=== PATIENT | male | born 1955 | race Caucasian/White ===

== ENCOUNTER → 2019-06-22 | Day surgery (SDC) | payer MEDICARE ==
[2019-06-21 12:04] LABS: BASOPHILS % 0.5 % (0.0-1.0); EOSINOPHILS # (AUTO) 0.2 (0.0-0.4); HEMATOCRIT 36.5 % (38.2-49.6); HEMOGLOBIN 12.2 g/dL (14.0-18.0); LYMPHOCYTES # (AUTO) 0.9 (1.0-3.2); LYMPHOCYTES % 14.7 % (18.0-39.1); MEAN CORPUSCULAR HEMOGLOBIN 32.8 pg (28-32); MEAN CORPUSCULAR HGB CONC 33.4 g/dL (31-35); MEAN CORPUSCULAR VOLUME 98.1 fL (81-99); MONOCYTES # (AUTO) 0.5 (0.2-0.8); MONOCYTES % 8.3 % (4.4-11.3); NEUTROPHILS # (AUTO) 4.4 (2.1-6.9); NEUTROPHILS % 73.2 % (38.7-80.0); PLATELET COUNT 166 x10e3/uL (140-360); RED BLOOD COUNT 3.72 x10e6/uL (4.3-5.7); RED CELL DISTRIBUTION WIDTH 12.8 % (11.7-14.4)
[2019-06-21 12:19] LABS: ANION GAP 12.7 mmol/L (8-16); CALCIUM 9.8 mg/dL (8.4-10.2); CREATININE, SERUM 1.65 mg/dL (0.72-1.25); POTASSIUM 4.7 mmol/L (3.5-5.1)
--- NOTE | 2019-06-21 13:11 | Diagnostic Imaging Report ---
EXAMINATION: CHEST 2 VIEWS INDICATION: Pre-operative COMPARISON: None FINDINGS: LINES/TUBES:None LUNGS:The lungs are well-inflated. No focal consolidation or pulmonary edema. PLEURA:No pleural effusion or pneumothorax. MEDIASTINUM:The cardiac silhouette is at the upper limits of normal for size. BONES/SOFT TISSUES:Right seventh and eighth posterolateral fractures with extensive associated callus formation. ABDOMEN:No free air under the diaphragm. IMPRESSION: No focal pneumonia or pulmonary edema. Healing right posterolateral rib fractures with extensive callus formation. Signed by: Michelle Vieira MD on 06/21/2019 1:08 PM
[~2019-06-22] MED LIST: ACETAMINOPHEN 1000 MG/100 ML IV ONE; ALBUTEROL0.63 MG/3 INH; ALFUZOSIN HCL10 MG PO; ARICEPT5 MG PO; ASPIRIN81 MG PO; ATORVASTATIN CA20 MG PO; BACITRACIN 50,000 UNIT VIAL ONE; CEFTRIAXONE SOD 1 GM/NS 50 ML 50 ML IV ONE; CETIRIZINE HCL10 MG PO; CHANTIX1 MG PO; CLONAZEPAM1 MG PO; DULERA 200 MCG/13 GM INH; ENTRESTO 49 MG1 EACH PO; EPHEDRINE SULFATE INJ 50 MG/ML VIAL ONE; ETOMIDATE 40 MG/ 20ML VIAL IV ONE; FENTANYL CITRATE/PF 100MCG/2 ML INJ ONE; FUROSEMIDE40 MG PO; GABAPENTIN300 MG PO; HEPARIN SOD/SOD CHLORIDE 1,000 ML ONE; HUMALOG100 UNIT/1 SQ; HYDROCODONE/APAP 7.5MG-325MG 1 EA TAB ONE; IPRATROPIU0.2 MG/1 M NEB; LEVEMIR100 UNIT/1 SQ; LIDOCAINE HCL 1% LOCAL INJ 20 ML VIAL ONE; MORPHINE SULFATE INJ 4 MG/ML INJ 1ML ONE; PANTOPRAZOLE SO40 MG PO; PLAVIX75 MG PO; SEVOFLURANE INHAL SOLN 250 ML PEN BTL ONE; SODIUM CHLORIDE 0.9% 50ML 50 ML ONE; SPIRONOLACTONE25 MG PO; TOPROL XL50 MG PO; TRAZODONE HCL50 MG PO; WELLBUTRIN SR150 MG PO; ZOLOFT100 MG PO
--- OUTSIDE RECORDS SUMMARY | 2019-06-22 07:44 | XMS REPORT ---
Author Author [facility] Address Unknown Phone Unavailable Care Team Providers Care Mobile Engineer Name Role Phone Celestine KYLE Unavailable Unavailable Payers Payer Name Policy Type Policy Number Effective Date Expiration Date Problems This patient has no known problems. Allergies, Adverse Reactions, Alerts Allergy Name Allergy Type Status Severity Reaction(s) Onset Date Inactive Date Treating Clinician Comments No Known Allergies DA Active U 2018-08-10 00:00:00 No Known Allergies DA Active U 2016-08-30 00:00:00 Medications This patient has no known medications. Encounters Start Date/Time End Date/Time Encounter Type Admission Type Attending Clinicians Care Facility Care Department Encounter ID 2018-10-10 00:00:00 2018-10-10 00:00:00 Outpatient [facility] [id number] 2018-08-25 00:00:00 2018-08-25 00:00:00 Outpatient [facility] [id number] 2018-08-09 14:26:07 2018-08-09 14:26:07 Outpatient [facility] [id number] 2018-07-22 00:00:00 2018-07-22 00:00:00 Outpatient [facility] [id number] 2018-07-20 00:00:00 2018-07-20 00:00:00 Outpatient [facility] [id number] 2018-07-06 00:00:00 2018-07-06 00:00:00 Outpatient [facility] [id number] 2018-07-05 00:00:00 2018-07-05 00:00:00 Outpatient [facility] [id number] 2018-06-17 00:00:00 2018-06-17 00:00:00 Outpatient [facility] [id number] 2018-06-13 00:00:00 2018-06-13 00:00:00 Outpatient [facility] [id number] 2018-06-13 00:00:00 2018-06-13 00:00:00 Outpatient [facility] [id number] 2018-06-08 00:00:00 2018-06-08 00:00:00 Outpatient [facility] [id number] 2018-05-24 14:05:44 2018-05-24 14:05:44 Outpatient [facility] [id number] 2018-05-19 00:00:00 2018-05-19 00:00:00 Outpatient [facility] [id number] 2018-05-19 00:00:00 2018-05-19 00:00:00 Outpatient [facility] [id number] 2018-05-11 09:15:39 2018-05-11 09:15:39 Outpatient [facility] [id number] 2018-05-11 09:10:20 2018-05-11 09:10:20 Outpatient [facility] [id number] 2018-04-19 00:00:00 2018-04-19 00:00:00 Outpatient [facility] [id number] 2018-04-08 00:00:00 2018-04-08 00:00:00 Outpatient [facility] [id number] 2018-04-04 00:00:00 2018-04-04 00:00:00 Outpatient [facility] [id number] 2018-03-17 13:49:43 2018-03-17 13:49:43 Outpatient [facility] [id number] 2018-03-08 00:00:00 2018-03-08 00:00:00 Outpatient [facility] [id number] 2018-03-03 15:55:21 2018-03-03 15:55:21 Outpatient [facility] [id number] 2018-03-03 13:32:26 2018-03-03 13:32:26 Outpatient [facility] [id number] 2018-03-03 13:07:33 2018-03-03 13:07:33 Outpatient [facility] [id number] 2018-03-01 09:33:39 2018-03-01 09:33:39 Outpatient [facility] [id number] 2018-02-14 00:00:00 2018-02-14 00:00:00 Outpatient [facility] [id number] 2018-02-07 09:47:34 2018-02-07 09:47:34 Outpatient [facility] [id number] 2018-01-28 09:51:39 2018-01-28 09:51:39 Outpatient [facility] [id number] 2018-01-17 09:43:24 2018-01-17 09:43:24 Outpatient [facility] [id number] 2018-01-13 15:29:07 2018-01-13 15:29:07 Outpatient [facility] [id number] 2018-01-13 00:00:00 2018-01-13 00:00:00 Outpatient [facility] [id number] 2018-01-05 10:23:54 2018-01-05 10:23:54 Outpatient [facility] [id number] 2018-01-04 00:00:00 2018-01-04 00:00:00 Outpatient [facility] [id number] 2017-12-27 00:00:00 2017-12-27 00:00:00 Outpatient [facility] [id number] 2017-12-14 00:00:00 2017-12-14 00:00:00 Outpatient [facility] [id number] 2017-12-06 00:00:00 2017-12-06 00:00:00 Outpatient [facility] [id number] 2017-11-29 00:00:00 2017-11-29 00:00:00 Outpatient [facility] [id number] 2017-11-16 15:06:57 2017-11-16 15:06:57 Outpatient [facility] [id number] 2017-11-16 14:15:28 2017-11-16 14:15:28 Outpatient [facility] [id number] 2017-11-09 00:00:00 2017-11-09 00:00:00 Outpatient [facility] [id number] 2017-08-12 14:39:47 2017-08-12 14:39:47 Outpatient [facility] [id number] 2017-07-23 00:00:00 2017-07-23 00:00:00 Outpatient [facility] [id number] 2017-07-05 00:00:00 2017-07-05 00:00:00 Outpatient [facility] [id number] 2017-07-02 00:00:00 2017-07-02 00:00:00 Outpatient [facility] [id number] 2017-06-30 00:00:00 2017-06-30 00:00:00 Outpatient [facility] [id number] 2017-06-29 00:00:00 2017-06-29 00:00:00 Outpatient [facility] [id number] 2017-06-25 19:30:31 2017-06-25 19:30:31 Emergency [facility] [id number] 2017-06-25 12:34:15 2017-06-25 12:34:15 Inpatient [facility] [id number] 2017-06-17 00:00:00 2017-06-17 00:00:00 Outpatient [facility] [id number] 2017-06-09 00:00:00 2017-06-09 00:00:00 Outpatient [facility] [id number] 2017-05-12 00:00:00 2017-05-12 00:00:00 Outpatient [facility] [id number] 2017-02-04 00:00:00 2017-02-04 00:00:00 Outpatient [facility] [id number] 2017-01-28 00:00:00 2017-01-28 00:00:00 Outpatient [facility] [id number] 2017-01-26 08:23:09 2017-01-26 08:23:09 Outpatient [facility] [id number] Results Test Description Test Time Test Comments Text Results Atomic Results Result Comments CHEST 2 VIEWS 2019-06-21 13:06:00 [place] [id number] Patient Name: AISLINN BHATIA MR #: [id number] : 1955 Age/Sex: 63/M Req #: [id number] Adm Physician: Ordered by: CITLALI KYLE MD Report #: [id number] Location: OR Room/Bed: Procedure: [id number] DX/CHEST 2 VIEWS Exam Date: 06/21/19 Exam Time: 1220 REPORT STATUS: Signed EXAMINATION: CHEST 2 VIEWS INDICATION: Pre-operative COMPARISON: None FINDINGS: LINES/TUBES:None LUNGS:The lungs are well-inflated. No focal consolidation or pulmonary edema. PLEURA:No pleural effusion or pneumothorax. MEDIASTINUM:The cardiac silhouette is at the upper limits of normal for size. BONES/SOFT TISSUES:Right seventh and eighth posterolateral fractures with extensive associated callus formation. ABDOMEN:No free air under the diaphragm. IMPRESSION: No focal pneumonia or pulmonary edema. Healing right posterolateral rib fractures with extensive callus formation. Signed by: Gerard Schuler MD on 06/21/2019 1:08 PM Dictated By: GERARD SCHULER MD [id number] Transcribed By: ALEJANDRO on 06/21/19 1308 COPY TO: CITLALI KYLE MD GLUBED 2019-04-18 11:32:00 GLUBED (test code=GLUBED) 177 mg/dL 74-106 Performed by certified metal rivet machine operator at [facility] COAGULATION TIME [id number] 10:22:00* Test Item Value Reference Range Comments COAGULATION TIME ACTIVATED (test code=ACT) 137 seconds 62.8-88.0 COMPREHENSIVE METABOLIC [id number] 10:46:00* Test Item Value Reference Range Comments SODIUM (test code=NA) 143 mmol/L 136-145 POTASSIUM (test code=K) 4.0 mmol/L 3.5-5.1 CHLORIDE (test code=CL) 108.0 mmol/L 98-107 CARBON DIOXIDE (test code=CO2) 29.0 mmol/L 21-32 ANION GAP (test code=GAP) 10.0 10-20 GLUCOSE (test code=GLU) 90 mg/dL 74-106 BLOOD UREA NITROGEN (test code=BUN) 22 mg/dL 7-18 GLOMERULAR FILTRATION RATE (test code=GFR) > 60 mL/min >=60 Estimated GFR by using Modified MDRD formula.Chronic kidney disease is defined as either kidney damageor GFR <60 mL/min/1.73 m2 for >3 months. CREATININE (test code=CREAT) 1.10 mg/dL 0.7-1.3 BUN/CREATININE RATIO (test code=BUN/CREA) 20.4 10-20 TOTAL PROTEIN (test code=PROT) 7.4 gram/dL 6.4-8.2 ALBUMIN (test code=ALB) 3.8 g/dL 3.4-5.0 GLOBULIN (test code=GLOB) 3.6 gram/dL 2.7-4.2 ALBUMIN/GLOBULIN RATIO (test code=A/G) 1.1 0.75-1.50 CALCIUM (test code=CA) 9.0 mg/dL 8.5-10.1 BILIRUBIN TOTAL (test code=BILT) 0.30 mg/dL 0.0-1.0 SGOT/AST (test code=AST) 16 IUnit/L 15-37 SGPT/ALT (test code=ALT) 20 IUnit/L 12-78 ALKALINE PHOSPHATASE TOTAL (test code=ALKP) 107 IUnit/L 45-117 Note change in reference range due to change in reagent. LIPID PROFILE (CORONARY RISK)2019-04-14 10:46:00* Test Item Value Reference Range Comments TRIGLYCERIDES (test code=TRIG) 130 mg/dL 20-150 CHOLESTEROL (test code=CHOL) 106 mg/dL 0-200 CHOLESTEROL/HDL RATIO (test code=CHOLHDL) 2.0 RATIO 0-4.9 RISK ASSOCIATED WITH CHOL/HDL RATIOS: Risk Male Female1/2 AVERAGE 3.43 3.27AVERAGE 4.97 4.442X AVERAGE 9.55 7.053X AVERAGE 23.39 11.04 REFERENCE VALUE IS RELATED TO RISK LEVELS ASRECOMMENDED BY THE SABINE. HEART, LUNG, AND BLOOD INST. HDL CHOLESTEROL (test code=HDL) 36 mg/dL 40-60 LIPOPROTEIN LDL (test code=LDL) 58 mg/dL 100-129 Reference Interval: mg/dL mmol/L Optimal <100 <2.6Near/above optimal 100-129 2.6- 3.3Borderline High 130-159 3.4-4.1High 160-189 4.1-4.9Very High >=190 >=4.9=========This LDL result is a direct measurement.========= THYROID STIMULATING [id number] 10:46:00* Test Item Value Reference Range Comments THYROID STIMULATING HORMONE (test code=TSH) 3.280 uIU/mL 0.36-3.74 TSH REFERENCE RANGES: EUTHYROID: 0.35 - 4.3 mIU/mL HYPO : > 5.5 mIU/mL HYPER : < 0.35 mIU/mL COMPREHENSIVE METABOLIC [id number] 10:28:00* Test Item Value Reference Range Comments SODIUM (test code=NA) 143 mmol/L 136-145 POTASSIUM (test code=K) 4.0 mmol/L 3.5-5.1 CHLORIDE (test code=CL) 108.0 mmol/L 98-107 CARBON DIOXIDE (test code=CO2) mmol/L 21-32 ANION GAP (test code=GAP) 10-20 GLUCOSE (test code=GLU) mg/dL 74-106 BLOOD UREA NITROGEN (test code=BUN) mg/dL 7-18 GLOMERULAR FILTRATION RATE (test code=GFR) mL/min >=60 CREATININE (test code=CREAT) mg/dL 0.7-1.3 BUN/CREATININE RATIO (test code=BUN/CREA) 10-20 TOTAL PROTEIN (test code=PROT) gram/dL 6.4-8.2 ALBUMIN (test code=ALB) g/dL 3.4-5.0 GLOBULIN (test code=GLOB) gram/dL 2.7-4.2 ALBUMIN/GLOBULIN RATIO (test code=A/G) 0.75-1.50 CALCIUM (test code=CA) mg/dL 8.5-10.1 BILIRUBIN TOTAL (test code=BILT) mg/dL 0.0-1.0 SGOT/AST (test code=AST) IUnit/L 15-37 SGPT/ALT (test code=ALT) IUnit/L 12-78 ALKALINE PHOSPHATASE TOTAL (test code=ALKP) IUnit/L 45-117 LIPID PROFILE (CORONARY RISK)2019-04-14 10:28:00* Test Item Value Reference Range Comments TRIGLYCERIDES (test code=TRIG) mg/dL 20-150 CHOLESTEROL (test code=CHOL) mg/dL 0-200 CHOLESTEROL/HDL RATIO (test code=CHOLHDL) RATIO 0-4.9 HDL CHOLESTEROL (test code=HDL) mg/dL 40-60 LIPOPROTEIN LDL (test code=LDL) mg/dL 100-129 THYROID STIMULATING [id number] 10:28:00* Test Item Value Reference Range Comments THYROID STIMULATING HORMONE (test code=TSH) uIU/mL 0.36-3.74 PROTHROMBIN [id number] 10:14:00* Test Item Value Reference Range Comments PROTHROMBIN TIME PATIENT (test code=PTP) 11.3 seconds 9.0-14.0 INTERNATIONAL NORMAL RATIO (test code=INR) 1.0 0.8-1.2 The therapeutic range for oral anticoagulant therapy formost indications is an international normalized ratio (INR)of between 2.0 and 3.0. The recommended therapeutic INRrange for various clinical situations is listed below: Clinical Situation INR range Pulmonary e mbolism treatment (2.0-3.0)Venous thrombosis treatmentVenous thrombosis prophylaxis (high risk surgery)Prevention of systemic embolism from: Acute myocardial infarction Valvular heart disease Atrial fibrillation Mechanical prosthetic heart valves (2.5-3.5) THROMBOPLASTIN TIME [id number] 10:14:00* Test Item Value Reference Range Comments THROMBOPLASTIN TIME PARTIAL (test code=PTT) 30.9 seconds 25.0-36.5 CBC W/AUTO [id number] 10:02:00* Test Item Value Reference Range Comments WHITE BLOOD CELL (test code=WBC) 8.5 K/mm3 4.5-12.5 RED BLOOD CELL (test code=RBC) 3.91 mill/mm3 4.0-5.8 HEMOGLOBIN (test code=HGB) 12.9 gram/dL 13.0-17.5 HEMATOCRIT (test code=HCT) 38.9 % 42.0-52.0 MEAN CELL VOLUME (test code=MCV) 99.5 fL 80-98 MEAN CELL HGB (test code=MCH) 33.0 picogram 27.0-33.0 MEAN CELL HGB CONCETRATION (test code=MCHC) 33.2 gram/dL 33.0-36.0 RED CELL DISTRIBUTION WIDTH (test code=RDW) 13.2 % 11.6-16.2 RED CELL DISTRIBUTION WIDTH SD (test code=RDW-SD) 48.5 fL 37.0-51.0 PLATELET COUNT (test code=PLT) 185 K/mm3 150-450 MEAN PLATELET VOLUME (test code=MPV) 10.8 fL 6.7-11.0 NEUTROPHIL % (test code=NT%) 70.8 % 39.0-69.0 IMMATURE GRANULOCYTE % (test code=IG%) 0.2 % 0.0-5.0 LYMPHOCYTE % (test code=LY%) 17.7 % 25.0-55.0 MONOCYTE % (test code=MO%) 7.6 % 0.0-10.0 EOSINOPHIL % (test code=EO%) 3.2 % 0.0-5.0 BASOPHIL % (test code=BA%) 0.5 % 0.0-1.0 NUCLEATED RBC % (test code=NRBC%) 0.0 % 0-0 NEUTROPHIL # (test code=NT#) 5.99 K/mm3 1.8-7.7 IMMATURE GRANULOCYTE # (test code=IG#) 0.02 x10 3/uL 0-0.03 LYMPHOCYTE # (test code=LY#) 1.50 K/mm3 1.0-5.0 MONOCYTE # (test code=MO#) 0.64 K/mm3 0-0.8 EOSINOPHIL # (test code=EO#) 0.27 K/mm3 0.0-0.5 BASOPHIL # (test code=BA#) 0.04 K/mm3 0.0-0.2 NUCLEATED RBC # (test code=NRBC#) 0.00 K/mm3 0.0-0.1 MANUAL DIFF REQUIRED (test code=MDIFF) NO - XR CHEST 2 [id number] 09:41:00 FAX: Sara Modi [phone] Rule: O St: PRE FAX: Guzman Perry DO [phone] Name: AISLINN BHATIA [facility] : 1955 Age/S: 63/M [address] [facility] Unit #: [id number] Loc: [place] [address] Phys: Sara Stout MD Acct: [id number] Dis Date: Status: PRE TXC PHONE #: [phone] Exam Date: 04/14/2019926 FAX #: [phone] Reason: PRE OP EXAMS: CPT CODE: [id number] XR CHEST 2 V [id number] REASON FOR EXAM: PRE OP Exam Order Date: 04/14/2019 9:17 AM Ordering M.DReji: Sara Stout MD PROCEDURE: - XR CHEST 2 V COMPARISON: 2 view chest x-ray January 17, 2019 FINDINGS: The lungs are clear. There is no pleural effusion or pneumothorax. Pulmonary vascularity is within normal limits. Cardiomediastinal silhouette is normal in size for technique. The mediastinal contours are within normal limits. Deformities in volving the posterior lateral sixth and seventh right ribs are likely post traumatic. Degenerative changes are present in the spine. Th e visualized upper abdomen is within normal limits. IMPR ESSION: No acute cardiopulmonary process. at 0941 Reported and signed by: Remy Sheridan MD CC: Sara Stout MD; Guzman Llamas Technologist: Dimple Foster) Trnscrd Date/Time/By: 04/14/2019 (0941) : By: [email or web address] Orig Print D/T : S: 04/14/2019 (0933) PAGE 1 Sig willard Report COMPREHENSIVE METABOLIC [id number] 12:08:00* Test Item Value Reference Range Comments SODIUM (test code=NA) 143 mmol/L 136-145 POTASSIUM (test code=K) 4.2 mmol/L 3.5-5.1 CHLORIDE (test code=CL) 109.0 mmol/L 98-107 CARBON DIOXIDE (test code=CO2) 27.0 mmol/L 21-32 ANION GAP (test code=GAP) 11.2 10-20 GLUCOSE (test code=GLU) 61 mg/dL 74-106 BLOOD UREA NITROGEN (test code=BUN) 31 mg/dL 7-18 GLOMERULAR FILTRATION RATE (test code=GFR) > 60 mL/min >=60 Estimated GFR by using Modified MDRD formula.Chronic kidney disease is defined as either kidney damageor GFR <60 mL/min/1.73 m2 for >3 months. CREATININE (test code=CREAT) 1.10 mg/dL 0.7-1.3 BUN/CREATININE RATIO (test code=BUN/CREA) 28.2 10-20 TOTAL PROTEIN (test code=PROT) 7.4 gram/dL 6.4-8.2 ALBUMIN (test code=ALB) 3.6 g/dL 3.4-5.0 GLOBULIN (test code=GLOB) 3.8 gram/dL 2.7-4.2 ALBUMIN/GLOBULIN RATIO (test code=A/G) 1.0 0.75-1.50 CALCIUM (test code=CA) 8.7 mg/dL 8.5-10.1 BILIRUBIN TOTAL (test code=BILT) 0.20 mg/dL 0.0-1.0 SGOT/AST (test code=AST) 19 IUnit/L 15-37 SGPT/ALT (test code=ALT) 28 IUnit/L 12-78 ALKALINE PHOSPHATASE TOTAL (test code=ALKP) 109 IUnit/L 45-117 Note change in reference range due to change in reagent. LIPID PROFILE (CORONARY RISK)2019-03-14 12:08:00* Test Item Value Reference Range Comments TRIGLYCERIDES (test code=TRIG) 123 mg/dL 20-150 CHOLESTEROL (test code=CHOL) 106 mg/dL 0-200 CHOLESTEROL/HDL RATIO (test code=CHOLHDL) 3.0 RATIO 0-4.9 RISK ASSOCIATED WITH CHOL/HDL RATIOS: Risk Male Female1/2 AVERAGE 3.43 3.27AVERAGE 4.97 4.442X AVERAGE 9.55 7.053X AVERAGE 23.39 11.04 REFERENCE VALUE IS RELATED TO RISK LEVELS ASRECOMMENDED BY THE SABINE. HEART, LUNG, AND BLOOD INST. HDL CHOLESTEROL (test code=HDL) 35 mg/dL 40-60 LIPOPROTEIN LDL (test code=LDL) 63 mg/dL 100-129 Reference Interval: mg/dL mmol/L Optimal <100 <2.6Near/above optimal 100-129 2.6- 3.3Borderline High 130-159 3.4-4.1High 160-189 4.1-4.9Very High >=190 >=4.9=========This LDL result is a direct measurement.========= COMPREHENSIVE METABOLIC [id number] 12:02:00* Test Item Value Reference Range Comments SODIUM (test code=NA) 143 mmol/L 136-145 POTASSIUM (test code=K) 4.2 mmol/L 3.5-5.1 CHLORIDE (test code=CL) 109.0 mmol/L 98-107 CARBON DIOXIDE (test code=CO2) mmol/L 21-32 ANION GAP (test code=GAP) 10-20 GLUCOSE (test code=GLU) mg/dL 74-106 BLOOD UREA NITROGEN (test code=BUN) mg/dL 7-18 GLOMERULAR FILTRATION RATE (test code=GFR) mL/min >=60 CREATININE (test code=CREAT) mg/dL 0.7-1.3 BUN/CREATININE RATIO (test code=BUN/CREA) 10-20 TOTAL PROTEIN (test code=PROT) gram/dL 6.4-8.2 ALBUMIN (test code=ALB) g/dL 3.4-5.0 GLOBULIN (test code=GLOB) gram/dL 2.7-4.2 ALBUMIN/GLOBULIN RATIO (test code=A/G) 0.75-1.50 CALCIUM (test code=CA) mg/dL 8.5-10.1 BILIRUBIN TOTAL (test code=BILT) mg/dL 0.0-1.0 SGOT/AST (test code=AST) IUnit/L 15-37 SGPT/ALT (test code=ALT) IUnit/L 12-78 ALKALINE PHOSPHATASE TOTAL (test code=ALKP) IUnit/L 45-117 LIPID PROFILE (CORONARY RISK)2019-03-14 12:02:00* Test Item Value Reference Range Comments TRIGLYCERIDES (test code=TRIG) mg/dL 20-150 CHOLESTEROL (test code=CHOL) mg/dL 0-200 CHOLESTEROL/HDL RATIO (test code=CHOLHDL) RATIO 0-4.9 HDL CHOLESTEROL (test code=HDL) mg/dL 40-60 LIPOPROTEIN LDL (test code=LDL) mg/dL 100-129 CBC W/O [id number] 11:52:00* Test Item Value Reference Range Comments WHITE BLOOD CELL (test code=WBC) 7.5 K/mm3 4.5-12.5 RED BLOOD CELL (test code=RBC) 3.79 mill/mm3 4.0-5.8 HEMOGLOBIN (test code=HGB) 12.6 gram/dL 13.0-17.5 HEMATOCRIT (test code=HCT) 38.9 % 42.0-52.0 MEAN CELL VOLUME (test code=MCV) 102.6 fL 80-98 MEAN CELL HGB (test code=MCH) 33.2 picogram 27.0-33.0 MEAN CELL HGB CONCETRATION (test code=MCHC) 32.4 gram/dL 33.0-36.0 RED CELL DISTRIBUTION WIDTH (test code=RDW) 12.9 % 11.6-16.2 PLATELET COUNT (test code=PLT) 164 K/mm3 150-450 MEAN PLATELET VOLUME (test code=MPV) 11.0 fL 6.7-11.0 COMPREHENSIVE METABOLIC [id number] 05:46:00* Test Item Value Reference Range Comments SODIUM (test code=NA) 142 mmol/L 136-145 POTASSIUM (test code=K) 4.7 mmol/L 3.5-5.1 CHLORIDE (test code=CL) 104.0 mmol/L 98-107 CARBON DIOXIDE (test code=CO2) 31.0 mmol/L 21-32 ANION GAP (test code=GAP) 11.7 10-20 GLUCOSE (test code=GLU) 189 mg/dL 74-106 BLOOD UREA NITROGEN (test code=BUN) 34 mg/dL 7-18 GLOMERULAR FILTRATION RATE (test code=GFR) 55 mL/min >=60 Estimated GFR by using Modified MDRD formula.Chronic kidney disease is defined as either kidney damageor GFR <60 mL/min/1.73 m2 for >3 months. CREATININE (test code=CREAT) 1.30 mg/dL 0.7-1.3 BUN/CREATININE RATIO (test code=BUN/CREA) 26.2 10-20 TOTAL PROTEIN (test code=PROT) 6.6 gram/dL 6.4-8.2 ALBUMIN (test code=ALB) 3.6 g/dL 3.4-5.0 GLOBULIN (test code=GLOB) 3.0 gram/dL 2.7-4.2 ALBUMIN/GLOBULIN RATIO (test code=A/G) 1.2 0.75-1.50 CALCIUM (test code=CA) 8.8 mg/dL 8.5-10.1 BILIRUBIN TOTAL (test code=BILT) 0.30 mg/dL 0.0-1.0 SGOT/AST (test code=AST) 16 IUnit/L 15-37 SGPT/ALT (test code=ALT) 23 IUnit/L 12-78 ALKALINE PHOSPHATASE TOTAL (test code=ALKP) 88 IUnit/L 45-117 Note change in reference range due to change in reagent. COMPREHENSIVE METABOLIC [id number] 05:36:00* Test Item Value Reference Range Comments SODIUM (test code=NA) 142 mmol/L 136-145 POTASSIUM (test code=K) 4.7 mmol/L 3.5-5.1 CHLORIDE (test code=CL) 104.0 mmol/L 98-107 CARBON DIOXIDE (test code=CO2) mmol/L 21-32 ANION GAP (test code=GAP) 10-20 GLUCOSE (test code=GLU) mg/dL 74-106 BLOOD UREA NITROGEN (test code=BUN) mg/dL 7-18 GLOMERULAR FILTRATION RATE (test code=GFR) mL/min >=60 CREATININE (test code=CREAT) mg/dL 0.7-1.3 BUN/CREATININE RATIO (test code=BUN/CREA) 10-20 TOTAL PROTEIN (test code=PROT) gram/dL 6.4-8.2 ALBUMIN (test code=ALB) g/dL 3.4-5.0 GLOBULIN (test code=GLOB) gram/dL 2.7-4.2 ALBUMIN/GLOBULIN RATIO (test code=A/G) 0.75-1.50 CALCIUM (test code=CA) mg/dL 8.5-10.1 BILIRUBIN TOTAL (test code=BILT) mg/dL 0.0-1.0 SGOT/AST (test code=AST) IUnit/L 15-37 SGPT/ALT (test code=ALT) IUnit/L 12-78 ALKALINE PHOSPHATASE TOTAL (test code=ALKP) IUnit/L 45-117 [id number] 05:31:00* Test Item Value Reference Range Comments GLUBED (test code=GLUBED) 219 mg/dL 74-106 Performed by certified metal rivet machine operator at [facility] CBC W/AUTO [id number] 05:14:00* Test Item Value Reference Range Comments WHITE BLOOD CELL (test code=WBC) 8.4 K/mm3 4.5-12.5 RED BLOOD CELL (test code=RBC) 3.38 mill/mm3 4.0-5.8 HEMOGLOBIN (test code=HGB) 11.0 gram/dL 13.0-17.5 HEMATOCRIT (test code=HCT) 33.7 % 42.0-52.0 MEAN CELL VOLUME (test code=MCV) 99.7 fL 80-98 MEAN CELL HGB (test code=MCH) 32.5 picogram 27.0-33.0 MEAN CELL HGB CONCETRATION (test code=MCHC) 32.6 gram/dL 33.0-36.0 RED CELL DISTRIBUTION WIDTH (test code=RDW) 13.7 % 11.6-16.2 RED CELL DISTRIBUTION WIDTH SD (test code=RDW-SD) 49.6 fL 37.0-51.0 PLATELET COUNT (test code=PLT) 171 K/mm3 150-450 MEAN PLATELET VOLUME (test code=MPV) 10.5 fL 6.7-11.0 NEUTROPHIL % (test code=NT%) 76.0 % 39.0-69.0 IMMATURE GRANULOCYTE % (test code=IG%) 0.4 % 0.0-5.0 LYMPHOCYTE % (test code=LY%) 13.4 % 25.0-55.0 MONOCYTE % (test code=MO%) 8.0 % 0.0-10.0 EOSINOPHIL % (test code=EO%) 1.8 % 0.0-5.0 BASOPHIL % (test code=BA%) 0.4 % 0.0-1.0 NUCLEATED RBC % (test code=NRBC%) 0.0 % 0-0 NEUTROPHIL # (test code=NT#) 6.36 K/mm3 1.8-7.7 IMMATURE GRANULOCYTE # (test code=IG#) 0.03 x10 3/uL 0-0.03 LYMPHOCYTE # (test code=LY#) 1.12 K/mm3 1.0-5.0 MONOCYTE # (test code=MO#) 0.67 K/mm3 0-0.8 EOSINOPHIL # (test code=EO#) 0.15 K/mm3 0.0-0.5 BASOPHIL # (test code=BA#) 0.03 K/mm3 0.0-0.2 NUCLEATED RBC # (test code=NRBC#) 0.00 K/mm3 0.0-0.1 MANUAL DIFF REQUIRED (test code=MDIFF) NO [id number] 21:15:00* Test Item Value Reference Range Comments GLUBED (test code=GLUBED) 233 mg/dL 74-106 Performed by certified metal rivet machine operator at [facility] [id number] 16:25:00* Test Item Value Reference Range Comments GLUBED (test code=GLUBED) 191 mg/dL 74-106 Performed by certified metal rivet machine operator at [facility] COAGULATION TIME [id number] 15:13:00* Test Item Value Reference Range Comments COAGULATION TIME ACTIVATED (test code=ACT) 207 seconds 62.8-88.0 [id number] 07:02:00* Test Item Value Reference Range Comments GLUBED (test code=GLUBED) 165 mg/dL 74-106 Performed by certified metal rivet machine operator at [facility] - XR CHEST 2 [id number] 11:32:00 FAX: Sara Modi [phone] Rule: O St: PRE FAX: BACILIO ESCOBEDO NP Name: AISLINN BHATIA [facility] : 1955 Age/S: 63/M [address] [facility] Unit #: [id number] Loc: [place] [address] Phys: Sara Stout MD Acct: [id number] Dis Date: Status: PRE [facility] [place] PHONE #: [phone] Exam Date: 01/17/2019 1018 FAX #: [phone] Reason: PRE OP EXAMS: CPT CODE: [id number] XR CHEST 2 V 90216 TECHNIQUE: 2 views of the chest COMPARISON: Chest x-ray 08/10/2018 FINDINGS: Lungs: No nodules. No air space or interstitial lung disease. Lungs are normal in volume. Mediastinum and candice: No enlargement or other mass. Cardiovascular structures: Mild cardiomegaly. No abnormalities in vascular structures. Pleura/CP angles: Clear. No pneumothorax. Bones: Old right lower rib fractures. Soft tissues: No abnormalities. Tubes and lines: None. Other: None. IMPRESSION: No acute cardiopulmonary abnormalities. at 1132 Reported and signed by: Chuy Leigh M.D. CC: Sara Stout MD; BACILIO ESCOBEDO NP Technologist: Margo LAMAS) Trnscrd Date/Time/By: 01/17/2019 (1137) : By: Tena Orig Print D/T: S: 01/17/2019 (7622) PAGE 1 Signed Report COMPREHENSIVE METABOLIC [id number] 10:33:00* Test Item Value Reference Range Comments SODIUM (test code=NA) 141 mmol/L 136-145 POTASSIUM (test code=K) 4.2 mmol/L 3.5-5.1 CHLORIDE (test code=CL) 106.0 mmol/L 98-107 CARBON DIOXIDE (test code=CO2) 28.0 mmol/L 21-32 ANION GAP (test code=GAP) 11.2 10-20 GLUCOSE (test code=GLU) 103 mg/dL 74-106 BLOOD UREA NITROGEN (test code=BUN) 37 mg/dL 7-18 GLOMERULAR FILTRATION RATE (test code=GFR) 44 mL/min >=60 Estimated GFR by using Modified MDRD formula.Chronic kidney disease is defined as either kidney damageor GFR <60 mL/min/1.73 m2 for >3 months. CREATININE (test code=CREAT) 1.60 mg/dL 0.7-1.3 BUN/CREATININE RATIO (test code=BUN/CREA) 23.1 10-20 TOTAL PROTEIN (test code=PROT) 7.5 gram/dL 6.4-8.2 ALBUMIN (test code=ALB) 3.8 g/dL 3.4-5.0 GLOBULIN (test code=GLOB) 3.7 gram/dL 2.7-4.2 ALBUMIN/GLOBULIN RATIO (test code=A/G) 1.0 0.75-1.50 CALCIUM (test code=CA) 8.7 mg/dL 8.5-10.1 BILIRUBIN TOTAL (test code=BILT) 0.30 mg/dL 0.0-1.0 SGOT/AST (test code=AST) 17 IUnit/L 15-37 SGPT/ALT (test code=ALT) 26 IUnit/L 12-78 ALKALINE PHOSPHATASE TOTAL (test code=ALKP) 90 IUnit/L 45-117 Note change in reference range due to change in reagent. LIPID PROFILE (CORONARY RISK)2019-01-17 10:33:00* Test Item Value Reference Range Comments TRIGLYCERIDES (test code=TRIG) 77 mg/dL 20-150 CHOLESTEROL (test code=CHOL) 93 mg/dL 0-200 CHOLESTEROL/HDL RATIO (test code=CHOLHDL) 2.0 RATIO 0-4.9 RISK ASSOCIATED WITH CHOL/HDL RATIOS: Risk Male Female1/2 AVERAGE 3.43 3.27AVERAGE 4.97 4.442X AVERAGE 9.55 7.053X AVERAGE 23.39 11.04 REFERENCE VALUE IS RELATED TO RISK LEVELS ASRECOMMENDED BY THE [facility]. HEART, LUNG, AND BLOOD INST. HDL CHOLESTEROL (test code=HDL) 38 mg/dL 40-60 LIPOPROTEIN LDL (test code=LDL) 50 mg/dL 100-129 Reference Interval: mg/dL mmol/L Optimal <100 <2.6Near/above optimal 100-129 2.6- 3.3Borderline High 130-159 3.4-4.1High 160-189 4.1-4.9Very High >=190 >=4.9=========This LDL result is a direct measurement.========= COMPREHENSIVE METABOLIC [id number] 10:23:00* Test Item Value Reference Range Comments SODIUM (test code=NA) 141 mmol/L 136-145 POTASSIUM (test code=K) 4.2 mmol/L 3.5-5.1 CHLORIDE (test code=CL) 106.0 mmol/L 98-107 CARBON DIOXIDE (test code=CO2) mmol/L 21-32 ANION GAP (test code=GAP) 10-20 GLUCOSE (test code=GLU) mg/dL 74-106 BLOOD UREA NITROGEN (test code=BUN) mg/dL 7-18 GLOMERULAR FILTRATION RATE (test code=GFR) mL/min >=60 CREATININE (test code=CREAT) mg/dL 0.7-1.3 BUN/CREATININE RATIO (test code=BUN/CREA) 10-20 TOTAL PROTEIN (test code=PROT) gram/dL 6.4-8.2 ALBUMIN (test code=ALB) g/dL 3.4-5.0 GLOBULIN (test code=GLOB) gram/dL 2.7-4.2 ALBUMIN/GLOBULIN RATIO (test code=A/G) 0.75-1.50 CALCIUM (test code=CA) mg/dL 8.5-10.1 BILIRUBIN TOTAL (test code=BILT) mg/dL 0.0-1.0 SGOT/AST (test code=AST) IUnit/L 15-37 SGPT/ALT (test code=ALT) IUnit/L 12-78 ALKALINE PHOSPHATASE TOTAL (test code=ALKP) IUnit/L 45-117 LIPID PROFILE (CORONARY RISK)2019-01-17 10:23:00* Test Item Value Reference Range Comments TRIGLYCERIDES (test code=TRIG) mg/dL 20-150 CHOLESTEROL (test code=CHOL) mg/dL 0-200 CHOLESTEROL/HDL RATIO (test code=CHOLHDL) RATIO 0-4.9 HDL CHOLESTEROL (test code=HDL) mg/dL 40-60 LIPOPROTEIN LDL (test code=LDL) mg/dL 100-129 PROTHROMBIN [id number] 10:06:00* Test Item Value Reference Range Comments PROTHROMBIN TIME PATIENT (test code=PTP) 11.5 seconds 9.0-14.0 INTERNATIONAL NORMAL RATIO (test code=INR) 1.0 0.8-1.2 The therapeutic range for oral anticoagulant therapy formost indications is an international normalized ratio (INR)of between 2.0 and 3.0. The recommended therapeutic INRrange for various clinical situations is listed below: Clinical Situation INR range Pulmonary e mbolism treatment (2.0-3.0)Venous thrombosis treatmentVenous thrombosis prophylaxis (high risk surgery)Prevention of systemic embolism from: Acute myocardial infarction Valvular heart disease Atrial fibrillation Mechanical prosthetic heart valves (2.5-3.5) THROMBOPLASTIN TIME [id number] 10:06:00* Test Item Value Reference Range Comments THROMBOPLASTIN TIME PARTIAL (test code=PTT) 31.9 seconds 25.0-36.5 CBC W/AUTO [id number] 10:04:00* Test Item Value Reference Range Comments WHITE BLOOD CELL (test code=WBC) 7.7 K/mm3 4.5-12.5 RED BLOOD CELL (test code=RBC) 3.35 mill/mm3 4.0-5.8 HEMOGLOBIN (test code=HGB) 11.1 gram/dL 13.0-17.5 HEMATOCRIT (test code=HCT) 34.5 % 42.0-52.0 MEAN CELL VOLUME (test code=MCV) 103.0 fL 80-98 MEAN CELL HGB (test code=MCH) 33.1 picogram 27.0-33.0 MEAN CELL HGB CONCETRATION (test code=MCHC) 32.2 gram/dL 33.0-36.0 RED CELL DISTRIBUTION WIDTH (test code=RDW) 14.0 % 11.6-16.2 RED CELL DISTRIBUTION WIDTH SD (test code=RDW-SD) 52.9 fL 37.0-51.0 PLATELET COUNT (test code=PLT) 191 K/mm3 150-450 MEAN PLATELET VOLUME (test code=MPV) 10.4 fL 6.7-11.0 NEUTROPHIL % (test code=NT%) 62.4 % 39.0-69.0 IMMATURE GRANULOCYTE % (test code=IG%) 1.0 % 0.0-5.0 LYMPHOCYTE % (test code=LY%) 22.9 % 25.0-55.0 MONOCYTE % (test code=MO%) 9.9 % 0.0-10.0 EOSINOPHIL % (test code=EO%) 3.1 % 0.0-5.0 BASOPHIL % (test code=BA%) 0.7 % 0.0-1.0 NUCLEATED RBC % (test code=NRBC%) 0.0 % 0-0 NEUTROPHIL # (test code=NT#) 4.78 K/mm3 1.8-7.7 IMMATURE GRANULOCYTE # (test code=IG#) 0.08 x10 3/uL 0-0.03 LYMPHOCYTE # (test code=LY#) 1.76 K/mm3 1.0-5.0 MONOCYTE # (test code=MO#) 0.76 K/mm3 0-0.8 EOSINOPHIL # (test code=EO#) 0.24 K/mm3 0.0-0.5 BASOPHIL # (test code=BA#) 0.05 K/mm3 0.0-0.2 NUCLEATED RBC # (test code=NRBC#) 0.00 K/mm3 0.0-0.1 MANUAL DIFF REQUIRED (test code=MDIFF) NO B-TYPE NATRIURETIC [id number] 14:06:00* Test Item Value Reference Range Comments B-TYPE NATRIURETIC PEPTIDE (test code=BNP) 45.10 pgram/mL 0-100 BASIC METABOLIC [id number] 13:42:00* Test Item Value Reference Range Comments SODIUM (test code=NA) 139 mmol/L 136-145 POTASSIUM (test code=K) 4.4 mmol/L 3.5-5.1 CHLORIDE (test code=CL) 106.0 mmol/L 98-107 CARBON DIOXIDE (test code=CO2) 28.0 mmol/L 21-32 ANION GAP (test code=GAP) 9.4 10-20 GLUCOSE (test code=GLU) 169 mg/dL 74-106 BLOOD UREA NITROGEN (test code=BUN) 45 mg/dL 7-18 GLOMERULAR FILTRATION RATE (test code=GFR) 55 mL/min >=60 Estimated GFR by using Modified MDRD formula.Chronic kidney disease is defined as either kidney damageor GFR <60 mL/min/1.73 m2 for >3 months. CREATININE (test code=CREAT) 1.30 mg/dL 0.7-1.3 BUN/CREATININE RATIO (test code=BUN/CREA) 34.6 10-20 CALCIUM (test code=CA) 8.4 mg/dL 8.5-10.1 [id number] 13:36:00* Test Item Value Reference Range Comments GLYCOSYLATED HEMOGLOBIN (HA1C) (test code=GLYHGB) 7.7 % HbA1 4.8-6.0 ESTIMATED AVERAGE GLUCOSE (test code=EAG) 174 MG/DL BASIC METABOLIC [id number] 13:36:00* Test Item Value Reference Range Comments SODIUM (test code=NA) 139 mmol/L 136-145 POTASSIUM (test code=K) 4.4 mmol/L 3.5-5.1 CHLORIDE (test code=CL) 106.0 mmol/L 98-107 CARBON DIOXIDE (test code=CO2) mmol/L 21-32 ANION GAP (test code=GAP) 10-20 GLUCOSE (test code=GLU) mg/dL 74-106 BLOOD UREA NITROGEN (test code=BUN) mg/dL 7-18 GLOMERULAR FILTRATION RATE (test code=GFR) mL/min >=60 CREATININE (test code=CREAT) mg/dL 0.7-1.3 BUN/CREATININE RATIO (test code=BUN/CREA) 10-20 CALCIUM (test code=CA) mg/dL 8.5-10.1 - CT LD LUNG CA [id number] 14:35:00 Name: AISLINN BHATIA [facility] : 1955 Age/S: 63 / M [address] [facility] Unit #: [id number] Loc: [place] [address] Phys: Ashok Simpson MD Acct: [id number] Dis Date: Status: REG CLI PHONE #: [phone] Exam Date: 11/16/2018 1244 FAX #: [phone] Reason: NICOTINE DEPENDENC EXAMS: CPT CODE: [id number] CT LD LUNG CA SCREENING G0297 HISTORY: Nicotine dependence. COMPARISON: July 15, 2018. CT chest without contrast: Low-dose technique. Automated exposure control. The lungs are clear of infiltrates, effusion or congestion. No bronchiectasis, honeycombing or fibrosis or endobronchial lesions. No parenchymal mass or nodules are noted. Routine 12 month follow-up is recommended. Normal caliber unopacified aorta and pulmonary arteries. Thyroid glands are unremarkable. Esophageal wall is mildly thickened. Cardiac silhouette is mildly enlarged with trace pericardial effusion. No pathologic adenopathy Visualized upper abdomen is unremarkable. Subcutaneous tissues and musculature is within normal limits. No lytic or blastic lesions noted within the bony skeleton. Old posterior lateral right lower rib fracture with callus formation. IMPRESSION: The lungs are clear of mass or lesions. Routine 12 month follow-up. FOR INTERNAL CODING PURPOSES ONLY RESULT CODE: L1 FOLLOW UP: L12 at 1435 Reported and sign ed by: Terence Velásquez M.D. CC: Ashok Simpson MD Technologist:Jaciel Medrano RT(R),(MR),(CT) CTDI: DLP: Trnscb Date/Time: 11/16/2018 (928) [email or web address] Orig Leonarda jacob D/T: S: 11/16/2018 (0340) CTDI: DLP: PAGE 1 Signed Report BASIC METABOLIC PANEL 2018-09-28 13:47:00* Test Item Value Reference Range Comments SODIUM (test code=NA) 136 mmol/L 136-145 POTASSIUM (test code=K) 4.1 mmol/L 3.5-5.1 CHLORIDE (test code=CL) 98.0 mmol/L 98-107 CARBON DIOXIDE (test code=CO2) 31.0 mmol/L 21-32 ANION GAP (test code=GAP) 11.1 10-20 GLUCOSE (test code=GLU) 132 mg/dL 74-106 BLOOD UREA NITROGEN (test code=BUN) 31 mg/dL 7-18 GLOMERULAR FILTRATION RATE (test code=GFR) 55 mL/min >=60 Estimated GFR by using Modified MDRD formula.Chronic kidney disease is defined as either kidney damageor GFR <60 mL/min/1.73 m2 for >3 months. CREATININE (test code=CREAT) 1.30 mg/dL 0.7-1.3 BUN/CREATININE RATIO (test code=BUN/CREA) 24.4 10-20 CALCIUM (test code=CA) 9.0 mg/dL 8.5-10.1 BASIC METABOLIC [id number] 13:42:00* Test Item Value Reference Range Comments SODIUM (test code=NA) 136 mmol/L 136-145 POTASSIUM (test code=K) 4.1 mmol/L 3.5-5.1 CHLORIDE (test code=CL) 98.0 mmol/L 98-107 CARBON DIOXIDE (test code=CO2) mmol/L 21-32 ANION GAP (test code=GAP) 10-20 GLUCOSE (test code=GLU) mg/dL 74-106 BLOOD UREA NITROGEN (test code=BUN) mg/dL 7-18 GLOMERULAR FILTRATION RATE (test code=GFR) mL/min >=60 CREATININE (test code=CREAT) mg/dL 0.7-1.3 BUN/CREATININE RATIO (test code=BUN/CREA) 10-20 CALCIUM (test code=CA) mg/dL 8.5-10.1 HGB [id number] 13:18:00* Test Item Value Reference Range Comments HEMOGLOBIN (test code=HGB) 13.7 gram/dL 13.0-17.5 HEMATOCRIT (test code=HCT) 43.5 % 42.0-52.0
[2019-06-22 15:00] VITALS: BP 125/69
--- NOTE | 2019-08-19 21:45 | Operative Report ---
DATE OF PROCEDURE: 06/22/2019 SURGEON: Jose Roberto Frost MD PREOPERATIVE DIAGNOSIS: Organic erectile dysfunction. POSTOPERATIVE DIAGNOSIS: Organic erectile dysfunction. OPERATIVE PROCEDURE PERFORMED: Placement of malleable penile prosthesis. ANESTHESIA: General anesthesia. ESTIMATED BLOOD LOSS: 50 mL. INDICATIONS: Mr. Hemanth Harper is a 63-year-old gentleman with a long history of organic erectile dysfunction. He now presents for placement of a penile prosthesis. He has failed all conservative therapies. PROCEDURE IN DETAIL: The patient was brought into the operative room, placed in supine position. After administration of general anesthesia, he was prepped and draped in usual sterile fashion. A penoscrotal incision was made sharply and dissection was carried out to the layers of the penis. The corporal body was exposed first on the right side. After stay sutures with PDS were placed, corporotomy was made approximately 4 cm in length and the corporal body dilated proximally and distally. The total length of the corpora was approximately 22 cm. A similar procedure was performed on the contralateral side. Again, corporotomy incision was made and it was found to be approximately 22 cm in length. This was also dilated proximally and distally. A small amount of bleeding was noted from each corporal body. The [employer] new malleable prosthesis was then placed in both corporal bodies and corporotomy incision was closed with a running PDS stitch. An attempt was made to maximize hemostasis given the fact that the patient remained on Plavix. The wound was then closed in layers, the skin being closed with a running Monocryl suture. The wound was then cleaned and dried and covered with Mastisol, Steri-Strips, and Tegaderm dressing. Anesthesia was reversed and the patient was transferred to the bed and taken to the postanesthesia care unit in good condition. Of note, the needle and instrument count were correct at the conclusion of the case. MD BRIGETTE Koo/MAXL /[id number]
== END | disposition home or self-care (01) ==
LOC: OR 07:42
PROVIDERS: ATTEND Urology
DX: N52.8 Other male erectile dysfunction (principal); I70.213 Atherosclerosis of native arteries of extremities with intermittent claudication, bilateral legs; I25.10 Atherosclerotic heart disease of native coronary artery without angina pectoris; I11.0 Hypertensive heart disease with heart failure; I50.22 Chronic systolic (congestive) heart failure; I48.0 Paroxysmal atrial fibrillation; J44.9 Chronic obstructive pulmonary disease, unspecified; E78.00 Pure hypercholesterolemia, unspecified; I65.23 Occlusion and stenosis of bilateral carotid arteries; Z78.9 Other specified health status; G47.33 Obstructive sleep apnea (adult) (pediatric); K21.9 Gastro-esophageal reflux disease without esophagitis; K44.9 Diaphragmatic hernia without obstruction or gangrene; E11.9 Type 2 diabetes mellitus without complications; D64.9 Anemia, unspecified; F32.9 Major depressive disorder, single episode, unspecified; F03.90 Unspecified dementia, unspecified severity, without behavioral disturbance, psychotic disturbance, mood disturbance, and anxiety; F17.210 Nicotine dependence, cigarettes, uncomplicated; Z01.812 Encounter for preprocedural laboratory examination; Z01.818 Encounter for other preprocedural examination; Z79.02 Long term (current) use of antithrombotics/antiplatelets; Z79.82 Long term (current) use of aspirin; Z79.4 Long term (current) use of insulin; Z68.34 Body mass index [BMI] 34.0-34.9, adult
CPT/HCPCS: 36415 ×2; 54400; 71046; 80048; 82948; 85025; C1751; C2622; J0131; J0696; J2001; J2270; J3010

== ENCOUNTER 2020-07-21 12:06 | Inpatient (IN) | payer MEDICARE, OTHER ==
[~2020-07-21] VITALS: Ht 175.3 cm; Wt 133.8 kg
[~2020-07-21 12:06] MED LIST changes: -ACETAMINOPHEN 1000 MG/100 ML IV ONE; -BACITRACIN 50,000 UNIT VIAL ONE; -CEFTRIAXONE SOD 1 GM/NS 50 ML 50 ML IV ONE; -EPHEDRINE SULFATE INJ 50 MG/ML VIAL ONE; -ETOMIDATE 40 MG/ 20ML VIAL IV ONE; -FENTANYL CITRATE/PF 100MCG/2 ML INJ ONE; -HEPARIN SOD/SOD CHLORIDE 1,000 ML ONE; -HYDROCODONE/APAP 7.5MG-325MG 1 EA TAB ONE; -LIDOCAINE HCL 1% LOCAL INJ 20 ML VIAL ONE; -MORPHINE SULFATE INJ 4 MG/ML INJ 1ML ONE; -SEVOFLURANE INHAL SOLN 250 ML PEN BTL ONE; -SODIUM CHLORIDE 0.9% 50ML 50 ML ONE
[2020-07-21 12:57] LABS: BASOPHILS % 0.4 % (0.0-1.0); EOSINOPHILS # (AUTO) 0.2 (0.0-0.4); EOSINOPHILS % 1.7 % (0.0-6.0); HEMATOCRIT 34.9 % (38.2-49.6); HEMOGLOBIN 10.9 g/dL (14.0-18.0); LYMPHOCYTES # (AUTO) 1.3 (1.0-3.2); LYMPHOCYTES % 13.6 % (18.0-39.1); MEAN CORPUSCULAR HEMOGLOBIN 32.6 pg (28-32); MEAN CORPUSCULAR HGB CONC 31.2 g/dL (31-35); MEAN CORPUSCULAR VOLUME 104.5 fL (81-99); MONOCYTES # (AUTO) 0.8 (0.2-0.8); MONOCYTES % 8.5 % (4.4-11.3); NEUTROPHILS # (AUTO) 7.1 (2.1-6.9); NEUTROPHILS % 75.6 % (38.7-80.0); PLATELET COUNT 229 x10e3/uL (140-360); RED BLOOD COUNT 3.34 x10e6/uL (4.3-5.7); RED CELL DISTRIBUTION WIDTH 13.5 % (11.7-14.4)
[2020-07-21 12:59] LABS: CLARITY,URINE CLEAR (CLEAR); COLOR,URINE YELLOW (YELLOW); KETONES,URINE NEGATIVE (NEGATIVE); LEUKOCYTE ESTERASE ,URINE NEGATIVE (NEGATIVE); NITRITE,URINE NEGATIVE (NEGATIVE); PROTEIN,URINE DIPSTICK 1+ (NEGATIVE); URINE UROBILINOGEN 0.2 mg/dL (0.2 - 1)
[2020-07-21 13:00] LABS: BILIRUBIN,URINE NEGATIVE (NEGATIVE)
[2020-07-21 13:06] LABS: BACTERIA,URINE FEW /HPF; EPITHELIAL CELLS,URINE FEW /LPF; MUCUS,URINE FEW (RARE); RBC,URINE 0-5 /HPF (0-5); WBC,URINE (MAN) 0-5 /HPF (0-5)
[2020-07-21 13:11] LABS: ALBUMIN 3.5 g/dL (3.5-5.0); ALBUMIN/GLOBULIN RATIO 0.9 (0.8-2.0); ANION GAP 15.5 mmol/L (8-16); CALCIUM 8.5 mg/dL (8.4-10.2); CREATININE, SERUM 1.59 mg/dL (0.72-1.25); POTASSIUM 4.5 mmol/L (3.5-5.1)
[2020-07-21] MEDS ORDERED: DEXTROSE 50% SYRINGE 50 ML IV STA (13:12)
[2020-07-21 13:17] LABS: CREATINE KINASE MB 7.3 ng/mL (0-5.0)
[2020-07-21 13:20] LABS: INR 1.03
[2020-07-21 13:21] LABS: PARTIAL THROMBOPLASTIN TIME 31.8 seconds (23.8-35.5)
[2020-07-21] MEDS ORDERED: DEXTROSE 50% SYRINGE 50 ML IV ONE (13:21)
[2020-07-21] MEDS ORDERED: METOPROLOL SUCC50 MG PO (14:02)
[2020-07-21] MEDS ORDERED: ARICEPT5 MG PO (14:02)
[2020-07-21] MEDS ORDERED: ALFUZOSIN HCL10 MG PO (14:02)
[2020-07-21] MEDS ORDERED: BUPROPION HCL100 MG PO (14:02)
[2020-07-21] MEDS ORDERED: OLANZAPINE5 MG PO (14:02)
[2020-07-21] MEDS ORDERED: CHANTIX1 MG PO (14:02)
[2020-07-21] MEDS ORDERED: ENTRESTO 97 MG1 EACH PO (14:02)
[2020-07-21] MEDS ORDERED: PLAVIX75 MG PO (14:02)
[2020-07-21] MEDS ORDERED: ASPIRIN CHEW81 MG PO (14:02)
[2020-07-21] MEDS ORDERED: LIPITOR20 MG PO (14:02)
[2020-07-21] MEDS ORDERED: CELEBREX100 MG PO (14:02)
[2020-07-21] MEDS ORDERED: FUROSEMIDE40 MG PO (14:02)
[2020-07-21] MEDS ORDERED: GABAPENTIN300 MG PO (14:02)
[2020-07-21] MEDS ORDERED: VITAMIN B-121000 MCG PO (14:02)
[2020-07-21] MEDS ORDERED: SERTRALINE HCL100 MG PO (14:02)
[2020-07-21] MEDS ORDERED: DEXILANT30 MG PO (14:02)
[2020-07-21] MEDS ORDERED: ALBUTEROL/IPRATROPIUM 3 ML NEB NEB NR (14:30)
[2020-07-21] MEDS ORDERED: DEXTROSE 50% SYRINGE 50 ML IV PRN (14:30)
[2020-07-21] MEDS ORDERED: METHYLPREDNISOLONE SOD SUCC 125 MG/2ML VIAL IV NR (14:30)
[2020-07-21] MEDS ORDERED: FUROSEMIDE INJ 10 MG/ML 4 ML VIAL IV NR (14:30)
[2020-07-21] MEDS: ALBUTEROL/IPRATROPIUM 3 ML NEB NEB SCH ×3 (15:00→23:00)
[2020-07-21] MEDS: INSULIN LISPRO 100 UNIT/1 ML 3ML VIAL SQ SCH ×2 (15:54→20:53)
[2020-07-21] MEDS: AZITHROMYCIN 500MG/NS 250 ML 250 ML IV SCH (16:02)
[2020-07-21] MEDS: CEFTRIAXONE SOD 1 GM/NS 50 ML 50 ML IV SCH (16:02)
[2020-07-21 16:56] VITALS: BP 127/59
[2020-07-21 17:01] VITALS: BP 127/59
[2020-07-21] MEDS ORDERED: TEMAZEPAM 15 MG CAP PO PRN (19:45)
[2020-07-21] MEDS ORDERED: POLYETHYLENE GLYCOL 3350 17 GM PACK PO PRN (19:45)
[2020-07-21] MEDS ORDERED: ACETAMINOPHEN 325 MG TAB PO PRN (19:45)
[2020-07-21] MEDS ORDERED: ONDANSETRON HCL INJ 2MG/ML 2ML 2 MG/ML VIAL IV PRN (19:45)
[2020-07-21] MEDS ORDERED: HYDRALAZINE HCL 20 MG/ML VIAL IV PRN (19:45)
[2020-07-21 20:00] VITALS: BP 145/65
[2020-07-21] MEDS: FUROSEMIDE INJ 10 MG/ML 4 ML VIAL IV SCH ×2 (20:00→23:41)
[2020-07-21] MEDS: SERTRALINE HCL 100 MG TAB PO SCH (20:54)
[2020-07-21] MEDS: TRAZODONE HCL 50 MG TAB PO SCH (20:54)
[2020-07-21] MEDS: ATORVASTATIN 40 MG TAB PO SCH (20:54)
[2020-07-21] MEDS: ALFUZOSIN HCL 10 MG TAB.ER.24H PO SCH (20:54)
[2020-07-21] MEDS: ROPINIROLE HCL 0.25 MG TAB PO SCH (20:54)
[2020-07-22] VITALS (8 sets, daily range): BP systolic 86–136; BP diastolic 36–74
[2020-07-22] MEDS: ALBUTEROL/IPRATROPIUM 3 ML NEB NEB SCH ×6 (03:00→23:00)
[2020-07-22 05:14] LABS: BASOPHILS % 0.5 % (0.0-1.0); EOSINOPHILS # (AUTO) 0.1 (0.0-0.4); EOSINOPHILS % 1.7 % (0.0-6.0); HEMATOCRIT 31.4 % (38.2-49.6); HEMOGLOBIN 9.8 g/dL (14.0-18.0); LYMPHOCYTES # (AUTO) 0.8 (1.0-3.2); LYMPHOCYTES % 12.5 % (18.0-39.1); MEAN CORPUSCULAR HEMOGLOBIN 33.3 pg (28-32); MEAN CORPUSCULAR HGB CONC 31.2 g/dL (31-35); MEAN CORPUSCULAR VOLUME 106.8 fL (81-99); MONOCYTES # (AUTO) 0.5 (0.2-0.8); MONOCYTES % 7.5 % (4.4-11.3); NEUTROPHILS # (AUTO) 5.1 (2.1-6.9); NEUTROPHILS % 77.5 % (38.7-80.0); PLATELET COUNT 191 x10e3/uL (140-360); RED BLOOD COUNT 2.94 x10e6/uL (4.3-5.7); RED CELL DISTRIBUTION WIDTH 13.5 % (11.7-14.4)
[2020-07-22] MEDS: PANTOPRAZOLE SOD 40 MG TABEC PO SCH (05:28)
[2020-07-22 05:34] LABS: ALBUMIN/GLOBULIN RATIO 0.9 (0.8-2.0); ANION GAP 10.6 mmol/L (8-16); CALCIUM 8.3 mg/dL (8.4-10.2); CREATININE, SERUM 1.32 mg/dL (0.72-1.25); POTASSIUM 4.6 mmol/L (3.5-5.1)
[2020-07-22 05:35] LABS: CHOL/HDL RATIO 2.5 (3.9-4.7); PHOSPHORUS 4.3 MG/DL (2.3-4.7)
[2020-07-22 05:57] LABS: THYROID STIMULATING HORMONE 0.743 uIU/mL (0.350-4.940)
[2020-07-22 05:59] LABS: CREATINE KINASE MB 5.8 ng/mL (0-5.0)
[2020-07-22 07:16] LABS: PLATELET ESTIMATE ADEQUATE; PLATELET MORPHOLOGY COMMENT FEW LARGE; RBC MORPHOLOGY COMMENT NORMAL
[2020-07-22] MEDS: INSULIN LISPRO 100 UNIT/1 ML 3ML VIAL SQ SCH ×7 (08:36→21:00)
[2020-07-22] MEDS: VARENICLINE 1 MG TAB PO SCH ×3 (09:00→17:44)
[2020-07-22] MEDS ORDERED: CELECOXIB 200 MG CAP PO SCH (09:00)
[2020-07-22] MEDS ORDERED: CYANOCOBALAMIN 1,000 MCG TAB PO SCH (09:00)
[2020-07-22] MEDS ORDERED: INSULIN GLARGINE 100 UNITS/ML VIAL SQ SCH ×2 (09:00→17:00)
[2020-07-22] MEDS ORDERED: SACUBITRIL/VALSARTAN 1 EACH TABLET PO SCH (09:00)
[2020-07-22] MEDS ORDERED: FUROSEMIDE INJ 10 MG/ML 4 ML VIAL IV SCH (09:15)
[2020-07-22] MEDS: CIPROFLOXACIN (OPTH SOLN) 5 ML BTL OU SCH ×2 (09:25→17:29)
[2020-07-22] MEDS: DONEPEZIL HCL 5 MG TAB PO SCH ×2 (09:25→17:29)
[2020-07-22] MEDS: FAMOTIDINE 20 MG/2 ML VIAL IV SCH ×2 (09:25→17:29)
[2020-07-22] MEDS: ASPIRIN 81 MG CHEW TAB PO SCH (09:26)
[2020-07-22] MEDS: DOCUSATE SODIUM 100 MG CAP PO SCH ×2 (09:26→17:29)
[2020-07-22] MEDS: ROPINIROLE HCL 0.25 MG TAB PO SCH ×3 (09:27→21:40)
[2020-07-22] MEDS: OLANZAPINE 5 MG TAB PO SCH ×2 (09:27→17:29)
[2020-07-22] MEDS: METOPROLOL SUCCINATE 50 MG TAB XL PO SCH (09:27)
[2020-07-22] MEDS: CLOPIDOGREL BISULFATE 75 MG TAB PO SCH (09:27)
[2020-07-22] MEDS: BUPROPION HCL 100 MG TAB PO SCH ×2 (09:27→17:29)
[2020-07-22] MEDS ORDERED: METOLAZONE 5 MG TAB PO ONE (10:15)
[2020-07-22] MEDS ORDERED: SODIUM CHLORIDE 0.9% 250ML 250 ML ONE (15:06)
[2020-07-22] MEDS: CEFTRIAXONE SOD 1 GM/NS 50 ML 50 ML IV SCH (15:16)
[2020-07-22] MEDS: AZITHROMYCIN 500MG/NS 250 ML 250 ML IV SCH (16:00)
[2020-07-22 16:06] LABS: BILIRUBIN,URINE NEGATIVE (NEGATIVE); CLARITY,URINE CLEAR (CLEAR); COLOR,URINE YELLOW (YELLOW); KETONES,URINE NEGATIVE (NEGATIVE); LEUKOCYTE ESTERASE ,URINE NEGATIVE (NEGATIVE); NITRITE,URINE NEGATIVE (NEGATIVE); PROTEIN,URINE DIPSTICK NEGATIVE (NEGATIVE); URINE UROBILINOGEN 0.2 mg/dL (0.2 - 1)
[2020-07-22 16:13] LABS: BACTERIA,URINE RARE /HPF; EPITHELIAL CELLS,URINE RARE /LPF; RBC,URINE 0-5 /HPF (0-5); WBC,URINE (MAN) 0-5 /HPF (0-5)
[2020-07-22 16:34] LABS: CREATININE,URINE RANDOM 34.77 mg/dL (63-166)
[2020-07-22 16:35] LABS: TOTAL PROTEIN, URINE < 6.8 mg/dL (1-14)
[2020-07-22] MEDS ORDERED: ENOXAPARIN SOD INJ 40 MG/0.4 ML SYR SC SCH (17:00)
[2020-07-22] MEDS: INSULIN GLARGINE 100 UNITS/ML VIAL SQ SCH (21:00)
[2020-07-22] MEDS: SERTRALINE HCL 100 MG TAB PO SCH (21:40)
[2020-07-22] MEDS: ALFUZOSIN HCL 10 MG TAB.ER.24H PO SCH (21:41)
[2020-07-22] MEDS: TRAZODONE HCL 50 MG TAB PO SCH (21:41)
[2020-07-22] MEDS: ATORVASTATIN 40 MG TAB PO SCH (21:49)
[2020-07-23] VITALS: BP 110/62
[2020-07-23] MEDS: ALBUTEROL/IPRATROPIUM 3 ML NEB NEB SCH ×3 (03:00→11:35)
[2020-07-23 04:00] VITALS: BP 106/59
[2020-07-23 05:28] LABS: ALBUMIN 3.2 g/dL (3.5-5.0); ANION GAP 8.5 mmol/L (8-16); CALCIUM 8.4 mg/dL (8.4-10.2); CREATININE, SERUM 1.23 mg/dL (0.72-1.25); POTASSIUM 4.5 mmol/L (3.5-5.1)
[2020-07-23] MEDS: PANTOPRAZOLE SOD 40 MG TABEC PO SCH (05:50)
[2020-07-23 06:44] LABS: FREE T4 (FREE THYROXINE) 0.84 ng/dL (0.8-1.8); THYROID STIMULATING HORMONE 0.979 uIU/mL (0.350-4.940)
[2020-07-23 07:36] VITALS: BP 126/54
[2020-07-23 08:17] VITALS: BP 126/54
[2020-07-23] MEDS: CLOPIDOGREL BISULFATE 75 MG TAB PO SCH (08:30)
[2020-07-23] MEDS: INSULIN GLARGINE 100 UNITS/ML VIAL SQ SCH (08:30)
[2020-07-23] MEDS: INSULIN LISPRO 100 UNIT/1 ML 3ML VIAL SQ SCH ×4 (08:30→12:00)
[2020-07-23] MEDS: ASPIRIN 81 MG CHEW TAB PO SCH (08:30)
[2020-07-23] MEDS: DOCUSATE SODIUM 100 MG CAP PO SCH (08:30)
[2020-07-23] MEDS: ROPINIROLE HCL 0.25 MG TAB PO SCH (08:30)
[2020-07-23] MEDS: FAMOTIDINE 20 MG/2 ML VIAL IV SCH (08:30)
[2020-07-23] MEDS: VARENICLINE 1 MG TAB PO SCH (08:30)
[2020-07-23] MEDS: OLANZAPINE 5 MG TAB PO SCH (08:30)
[2020-07-23] MEDS: DONEPEZIL HCL 5 MG TAB PO SCH (08:30)
[2020-07-23] MEDS: BUPROPION HCL 100 MG TAB PO SCH (08:30)
[2020-07-23] MEDS: METOPROLOL SUCCINATE 50 MG TAB XL PO SCH (08:30)
[2020-07-23] MEDS ORDERED: FUROSEMIDE 40 MG TAB PO SCH (09:00)
[2020-07-23] MEDS ORDERED: SACUBITRIL/VALSARTAN 1 EACH TABLET PO SCH ×2 (09:00→10:30)
[2020-07-23] MEDS ORDERED: FLOMAX0.4 MG PO (11:25)
[2020-07-23] MEDS ORDERED: ENTRESTO 49 MG1 EACH PO (11:25)
[2020-07-23 11:45] VITALS: BP 127/50
[2020-07-23] MEDS ORDERED: LASIX20 MG PO (14:33)
[2020-07-23] MEDS ORDERED: HUMALOG100 UNIT/1 SC (14:33)
[2020-07-23] MEDS ORDERED: LEVEMIR FL100 UNIT/1 SC (14:33)
[2020-07-23] MEDS ORDERED: TAMSULOSIN HCL 0.4 MG CAP PO SCH (21:00)
== END 2020-07-23 15:19 | disposition home health service (06) | DRG 291 ==
LOC: ER 12:41 → ERHOLD 14:35 → MED/SURG2 16:40
PROVIDERS: ADMIT Internal Medicine; ATTEND Internal Medicine
DX: I13.0 Hypertensive heart and chronic kidney disease with heart failure and stage 1 through stage 4 chronic kidney disease, or unspecified chronic kidney disease (principal); G93.41 Metabolic encephalopathy; I50.23 Acute on chronic systolic (congestive) heart failure; Z68.41 Body mass index [BMI] 40.0-44.9, adult; N17.9 Acute kidney failure, unspecified; J44.0 Chronic obstructive pulmonary disease with (acute) lower respiratory infection; N18.30 Chronic kidney disease, stage 3 unspecified; E11.22 Type 2 diabetes mellitus with diabetic chronic kidney disease; I25.10 Atherosclerotic heart disease of native coronary artery without angina pectoris; K21.9 Gastro-esophageal reflux disease without esophagitis; E78.5 Hyperlipidemia, unspecified; E11.42 Type 2 diabetes mellitus with diabetic polyneuropathy; N40.0 Benign prostatic hyperplasia without lower urinary tract symptoms; Z09 Encounter for follow-up examination after completed treatment for conditions other than malignant neoplasm; Z95.5 Presence of coronary angioplasty implant and graft; E66.01 Morbid (severe) obesity due to excess calories; E11.649 Type 2 diabetes mellitus with hypoglycemia without coma; G47.33 Obstructive sleep apnea (adult) (pediatric); Z96.0 Presence of urogenital implants; R33.9 Retention of urine, unspecified; H10.33 Unspecified acute conjunctivitis, bilateral; Z86.73 Personal history of transient ischemic attack (TIA), and cerebral infarction without residual deficits; I48.0 Paroxysmal atrial fibrillation; I73.9 Peripheral vascular disease, unspecified; E11.21 Type 2 diabetes mellitus with diabetic nephropathy; J44.9 Chronic obstructive pulmonary disease, unspecified; J20.9 Acute bronchitis, unspecified; F03.90 Unspecified dementia, unspecified severity, without behavioral disturbance, psychotic disturbance, mood disturbance, and anxiety; R44.1 Visual hallucinations; Z20.828 Contact with and (suspected) exposure to other viral communicable diseases; Z79.4 Long term (current) use of insulin
CPT/HCPCS: 36415; 71045; 71250; 76770; 80053; 80061; 81001; 82140; 82550; 82553; 82570; 82948; 83036; 83735; 83880; 84100; 84156; 84439; 84443; 84484; 85025; 85610; 85730; 87040; 87086; 93005; 93306; 94640; 94660; 99284; J0456; J0696; J1650; J1815; J1940; J7050; J7799; U0002

== ENCOUNTER 2020-08-02 16:56 | Inpatient (IN) | payer MEDICARE, OTHER ==
[~2020-08-02] VITALS: Ht 175.3 cm; Wt 133.8 kg
[~2020-08-02 16:56] MED LIST changes: +ASPIRIN CHEW81 MG PO; +BUPROPION HCL100 MG PO; +CELEBREX100 MG PO; +DEXILANT30 MG PO; +ENTRESTO 97 MG1 EACH PO; +FLOMAX0.4 MG PO; +HUMALOG100 UNIT/1 SC; +LASIX20 MG PO; +LEVEMIR FL100 UNIT/1 SC; +LIPITOR20 MG PO; +METOPROLOL SUCC50 MG PO; +OLANZAPINE5 MG PO; +SERTRALINE HCL100 MG PO; +VITAMIN B-121000 MCG PO
[2020-08-02 17:35] LABS: BASOPHILS % 0.6 % (0.0-1.0); EOSINOPHILS # (AUTO) 0.1 (0.0-0.4); EOSINOPHILS % 1.4 % (0.0-6.0); HEMATOCRIT 34.1 % (38.2-49.6); HEMOGLOBIN 10.6 g/dL (14.0-18.0); LYMPHOCYTES # (AUTO) 1.2 (1.0-3.2); MEAN CORPUSCULAR HEMOGLOBIN 32.8 pg (28-32); MEAN CORPUSCULAR HGB CONC 31.1 g/dL (31-35); MEAN CORPUSCULAR VOLUME 105.6 fL (81-99); MONOCYTES # (AUTO) 0.5 (0.2-0.8); MONOCYTES % 7.7 % (4.4-11.3); NEUTROPHILS # (AUTO) 5.1 (2.1-6.9); NEUTROPHILS % 73.2 % (38.7-80.0); PLATELET COUNT 200 x10e3/uL (140-360); RED BLOOD COUNT 3.23 x10e6/uL (4.3-5.7); RED CELL DISTRIBUTION WIDTH 13.9 % (11.7-14.4)
[2020-08-02 17:49] LABS: INR 1.01; PROTHROMBIN TIME 13.8 seconds (11.9-14.5)
[2020-08-02 17:50] LABS: PARTIAL THROMBOPLASTIN TIME 31.6 seconds (23.8-35.5)
--- NOTE | 2020-08-02 17:58 | Diagnostic Imaging Report ---
EXAMINATION: CHEST SINGLE (PORTABLE) COMPARISON: CT chest 07/22/2020, chest x-ray 07/21/2020 INDICATION: ^CHEST PAIN ^[id number] ^1740 ^Y DISCUSSION: Frontal view of the chest obtained at 1728 hours. HEART AND MEDIASTINUM: Stable cardiomegaly and pulmonary venous prominence. LINES: None. LUNGS/PLEURA: Diffuse hyperinflation. No pneumonia or pulmonary edema. No pleural effusion or pneumothorax. BONES AND SOFT TISSUES: Healed right rib fractures are redemonstrated. No new osseous findings. The soft tissues are normal. IMPRESSION: 1. Stable cardiomegaly without vascular congestion or CHF. 2. No new pulmonary process. Signed by: Dr. Daily Nelson MD on 08/02/2020 5:54 PM
[2020-08-02 18:00] LABS: ALBUMIN 3.7 g/dL (3.5-5.0); ALBUMIN/GLOBULIN RATIO 1.1 (0.8-2.0); ANION GAP 15.4 mmol/L (8-16); CALCIUM 8.3 mg/dL (8.4-10.2); CREATININE, SERUM 1.78 mg/dL (0.72-1.25); POTASSIUM 4.4 mmol/L (3.5-5.1)
[2020-08-02 18:06] LABS: CREATINE KINASE MB 3.3 ng/mL (0-5.0)
--- NOTE | 2020-08-02 18:07 | NUR ---
ER MD AND PRIMARY RN NOTIFIED AND AWARE OF CRITICAL LAB VALUE, TROPONIN 0.332. VERBAL ORDER OBTAINED BY ER . ORDER READ BACK AND VERIFIED.
--- OUTSIDE RECORDS SUMMARY | 2020-08-02 18:14 | XMS REPORT | Clinical Summary ---
Author Author [facility] Address Unknown Phone Unavailable Care Team Providers Care Collision Estimator Name Role Phone Guzman Llamas DO PCP Allergies No Known Active Allergies Medications End Date Status Medication Sig Dispensed Refills Start Date Active INSULIN SYRINGE 0.5 mL 30 0 gauge x 5/16" syringe 9 Active atorvastatin (LIPITOR) 80 0 MG tablet 9 Active buPROPion SR (WELLBUTRIN 2 (two) times 0 11/02 SR) 150 MG 12 hr tablet a day. 9 Active DEXILANT 30 mg capsule daily. 0 01 9 Active furosemide (LASIX) 40 mg 40 mg 2 (two) 0 11/02 tablet times a day. 9 Active LEVEMIR U-100 INSULIN 100 50 Units 2 0 10/07 unit/mL injection (two) times a 9 day. 40am and 50pm Active ONETOUCH DELICA LANCETS 0 33 gauge misc 9 Active lisinopril Take 20 mg by 5 (PRINIVIL,ZESTRIL) 20 mg mouth daily. 9 tablet Active XARELTO 20 mg tablet nightly. 0 9 Active TRUEPLUS INSULIN 1 mL 30 0 gauge x 5/16 syringe 9 Active tamsulosin (FLOMAX) 0.4 2 (two) times 0 mg capsule a day. 9 Active SPIRIVA WITH HANDIHALER 0 18 mcg per inhalation 9 capsule Active CHANTIX 1 mg tablet 2 (two) times 0 a day. 9 Active metoprolol succinate XL Take 75 mg by 0 (TOPROL XL) 50 mg 24 hr mouth daily. tablet Active spironolactone Take 12.5 mg 0 (ALDACTONE) 25 MG tablet by mouth daily. Active aspirin (ECOTRIN) 81 MG Take 81 mg by 0 enteric coated tablet mouth daily. Active traZODone (DESYREL) 150 Take 150 mg 0 MG tablet by mouth nightly. Active sertraline (ZOLOFT) 100 Take 200 mg 0 MG tablet by mouth daily. Active temazepam (RESTORIL) 30 Take 30 mg by 0 mg capsule mouth nightly as needed for sleep. Active clonAZEPAM (KlonoPIN) 1 Take 1 mg by 0 MG tablet mouth nightly as needed for seizures. Active mometasone-formoterol Inhale 2 0 (DULERA) 200-5 puffs 2 (two) mcg/actuation inhaler times a day. Active cetirizine (ZyrTEC) 10 MG Take 10 mg by 0 tablet mouth daily. Active albuterol sulfate Take 2.5 mg 0 (PROVENTIL) 2.5 mg/0.5 mL by solution for nebulization nebulization 3 (three) times a day. Active ipratropium (ATROVENT) Take 500 mcg 0 0.02 % nebulizer solution by nebulization 4 (four) times a day. Active insulin lispro (HumaLOG Inject 15 0 KwikPen Insulin) 100 Units under unit/mL injection pen the skin 4 (four) times a day with meals and nightly. Active clopidogreL (PLAVIX) 75 Take 75 mg by 0 mg tablet mouth. Active sacubitriL-valsartan Take 1 tablet 0 (ENTRESTO) 24-26 mg by mouth. tablet per tablet Active Problems Problem Noted Date Colon cancer screening 11/04/2018 Overview: Added automatically from request for enma charles [id number] Encounters Care Team Description Date Type Specialty Brenton Galindo MD Chronic pain of right knee (Primary Dx); Primary localized osteoarthrosis of right lower leg 04/25/2020 Office Visit Orthopedic Surgery 04/25/2020 Travel 04/23/2020 Travel after 08/02/2019 Surgical History Surgery Date Site/Laterality Comments KNEE SURGERY 09/06/1999 - Right 09/05/2000 BICEPS TENDON REPAIR Right COLONOSCOPY 11/30/2018 N/A Procedure: COLO NOSCOPY with polypectomy, biopsy; Surgeon: Sugar Armenta MD; Loca tion: [facility] [place] [facility]; Service: Gastroenterology; Laterality: N/A; ascending colon polyp , sigmoid polyp, internal hemorrhoids COLONOSCOPY 09/06/2008 - 09/05/2009 Medical History Medical History Date Comments COPD (chronic obstructive pulmonary disease) (HCC) Coronary artery disease Hypertension Hyperlipidemia CHF (congestive heart failure) (HCC) Atrial fibrillation (HCC) GERD (gastroesophageal reflux disease) Type 2 diabetes mellitus (HCC) Family History Medical History Relation Name Comments Colon cancer Father Diabetes Mother Colon cancer Sister Relation Name Status Comments Father Mother Sister Social History Date Tobacco Use Types Packs/Day Years Used Current Every Day Smoker 0.25 50 Smokeless Tobacco: Never Used Drinks/Week oz/Week Comments Alcohol Use No Alcohol Habits Answer Date Recorded How often do you have a drink containing alcohol? Never 11/29/2018 How many drinks containing alcohol do you have on No t asked a typical day when you are drinking? How often do you have six or more drinks on one Not asked occasion? Sex Assigned at Date Recorded Not on file Last Filed Vital Signs Reading Time Taken Comments Vital Sign - - Blood Pressure - - Pulse - - Temperature - - Respiratory Rate - - Oxygen Saturation - - Inhaled Oxygen Concentration 98.4 kg (217 lb) 04/25/2020 2:35 PM CDT Weight 175.3 cm (5' 9") 04/25/2020 2:35 PM CDT Height 32.05 04/25/2020 2:35 PM CDT Body Mass Index Plan of Treatment Health Maintenance Due Date Last Done Comments DIABETES: RETINAL EYE 1963 EXAM DIABETIC FOOT EXAM 1965 URINE MICROALBUMIN 1963 COLONOSCOPY SCREENING 2003 SHINGLES VACCINES (#1) 2003 65+ PNEUMOCOCCAL VACCINE 2018 08/12/2017 (2 of 2 - PPSV23) INFLUENZA VACCINE 04/06/2020 08/12/2017 Procedures Comments Procedure Name Priority Date/Time Associated Diag nosis CT ARTHROCENTESIS Routine 04/25/2020 Chronic pain of right ASPIR&/INJ MAJOR JT/BURSA 3:00 PM CDT knee W/O US Primary localized osteoarthrosis of right lower leg XR KNEE 4+ VW RIGHT Routine 04/25/2020 Chronic pa in of right 2:58 PM CDT knee XR LEG LENGTH EVALUATION Routine 04/25/2020 Chron ic pain of right 2:58 PM CDT knee after 08/02/2019 Results * Large Joint Arthrocentesis: knee, R knee (04/25/2020 3:00 PM CDT) Narrative Performed At Brenton Galindo MD 020 3:36 PM Large Joint Arthrocentesis: knee, R kne e Consent given by: patient Supporting Documentation Indications: pain Procedure Details Location: knee - R knee Right side: Needle size: 22 G Approach: anteromedial Right knee medications administered: 3 mL lidocaine 10 mg/mL (1 %); 1 mL triamcinolone acetonide 40 mg/mL Patient tolerance: patient tolerated th e procedure well with no immediate complications * XR Knee 4+ Vw Right (04/25/2020 2:58 PM CDT) Specimen Narrative Performed At [facility] X-rays of the right knee shows a patien t with mild narrowing of the medial compartment of the right knee, adequate joint space and lateral patellofemoral compartments. Performing Organization Address City/[facility]/ZIP Code P sakina Number [facility] [address] [place] [address] * XR Leg Length Evaluation (04/25/2020 2:58 PM CDT) Specimen Narrative Performed At [facility] Long-leg evaluation of the right knee s hows a patient neutral alignment Performing Organization Address City/State/ZIP Code P sakina Number [facility] [address] [place] [address] after 08/02/2019 Insurance Type Payer Benefit Subscriber ID Effective Phone Address Plan / Dates Group [facility] MEDICARE AARP [id number] [id number] MEDICARE resent ADVANTAGE PLAN HMO-POS (WELL[employer]) [id number] Advance Directives For more information, please contact: [phone] Patient Supervisor International Reservations Explanation Type Date Recorded Advance Directives, 11/30/2018 6:26 AM Living Will and Medical Power of Flame Hardener Advance Directives, 11/25/2018 1:54 PM Living Will and Medical Power of Flame Hardener
[2020-08-02] MEDS ORDERED: ASPIRIN 81 MG CHEW TAB PO ONE ×2 (18:15)
--- OUTSIDE RECORDS SUMMARY | 2020-08-02 18:15 | XMS REPORT | Continuity of Care Document ---
Author Author [facility] t Organization [facility] Address [address] [place] [address] Phone Unavailable Care Team Providers Care Yellow Pages Space Salesperson Name Role Phone DO Steve LLAMAS DO PCP Tab Stearns Attphys Unavailable MIC GONZALEZ Attphys Unavailable Josie LAM, Andrew Farris Attphys [phone] Celestine KYLE Attphys Unavailable MIC GONZALEZ Admphys Unavailable Celestine KYLE Admphys Unavailable Payers Payer Name Policy Type Policy Number Effective Date Expiration Date Aubrey figueredo [facility] Medicare Complete [id number] 2019 00:00:00 JAGRUTI [facility] MEDICAREAARP MEDICARE ADVANTAGE PLAN HMO-POS (WELLMED)[id number] 2019-PresentHMO [id number] 2019 00:00 :00 Reuben Ayala Problems Condition Name Condition Details Condition Category Status Onset Date Resolution Date Last Treatment Date Treating Clinician Comments Source Colon cancer screening Colon cancer screening Disease Active 2018-11-04 00:00:00 Overview: Added ursula y from request for surgery [id number] Alexis Uatsdin Postoperative pain Post-op pain Problem Active [facility] Hematoma of scrotum Scrotal hematoma Problem Active [facility] Acute on chronic congestive heart failure Problem Active [facility] Chronic obstructive pulmonary disease Problem Active [facility] Bronchitis Problem Active [facility] Hypoglycemic reaction to insulin Problem Active [facility] Allergies, Adverse Reactions, Alerts Allergy Name Allergy Type Status Severity Reaction(s) Onset Date Inacti ve Date Treating Clinician Comments Source No Known Allergies DA Active U 2020-07-19 00:00:00 [facility] No Known Allergies DA Active U 2019-09-29 00:00:00 [facility] No Known Allergies DA Active U 2018-08-10 00:00:00 [facility] No Known Allergies DA Active U 2016-08-30 00:00:00 [facility] Family History Family Member Diagnosis Comments Start Date Stop Date Source Natural father Colon cancer Reuben Ayala Natural mother Diabetes [facility] Natural sister Colon cancer Reuben Ayala Social History Social Habit Start Date Stop Date Quantity Comments Source History SDOH Alcohol Std Drinks Reuben Uatsdin History SDOH Alcohol Binge Reuben Ayala Sex Assigned At [place] Ayala Cigarettes smoked current (pack per day) - Reported 00:00:00 2020-04-25 00:00:00 Reuben Ayala Cigarette pack-years 2020-04-25 00:00:00 2020-04-25 00:00:00 Reuben Ayala Tobacco use and exposure 2020-04-25 00:00:00 2020-04-25 00:00:00 Nacho mejia used [place] Uatsdin Alcohol intake 2020-04-25 00:00:00 2020-04-25 00:00:00 Current non-drinker of alcohol (finding) Alexis Uatsdin History SDOH Alcohol Frequency 2018-11-29 00:00:00 2018-11-29 00:00:0 0 1 Reuben Uatsdin Smoking Status Start Date Stop Date Source Current every day smoker 2020-04-25 00:00:00 Waldo Ayala Medications Ordered Medication Name Filled Medication Name Start Date Stop Da te Current Medication? Ordering Clinician Indication Dosage Frequency Signature (SIG) Comments Components Source Furosemide (Lasix) 20 Mg TABLET Furosemide (Lasix) 20 Mg TAB LET 2020-07-23 14:33:00 Yes 60 Twice A Day [facility] Insulin Detemir (Levemir Flextouch) 100 Unit/[address]PEN Insulin Detemir (Levemir Flextouch) 100 Unit/1 Ml INSULN.PEN 2020-07-23 14:33:00 Yes 30 Every 12 Hours [facility] Insulin Lispro (Humalog) 100 Unit/1 Ml CARTRIDGE Insul in Lispro (Humalog) 100 Unit/1 Ml CARTRIDGE 2020-07-23 14:33:00 Yes 15 Befo re Meals [facility] Sacubitril/Valsartan (Entresto 49 Mg-51 Mg Tablet) 1 E ach TABLET Sacubitril/Valsartan (Entresto 49 Mg-51 Mg Tablet) 1 Each TABLET 2020-07-23 11:25:00 Yes 1 Daily [facility] Tamsulosin Hcl (Flomax*) 0.4 Mg CAP Tamsulosin Hcl (Flomax*) 0.4 Mg CAP 2020-07-23 11:25:00 Yes .4 Bedtime [facility] metoprolol succinate XL (TOPROL XL) 50 mg 24 hr tablet 2020-04-25 14:40:50 Yes 75mg QD Take 75 mg by mouth daily. Reuben Ayala spironolactone (ALDACTONE) 25 MG tablet 2020-04-25 14:40:50 Yes 12.5mg QD Take 12.5 mg by mouth daily. Waldo Ayala aspirin (ECOTRIN) 81 MG enteric coated tablet 2020-04-25 14:40:5 0 Yes 81mg QD Take 81 mg by mouth daily. Patricia Ayala traZODone (DESYREL) 150 MG tablet 2020-04-25 14:40:50 Yes 150mg QD Take 150 mg by mouth nightly. Reuben willams sertraline (ZOLOFT) 100 MG tablet 2020-04-25 14:40:50 Yes 200mg QD Take 200 mg by mouth daily. Reuben Ayala temazepam (RESTORIL) 30 mg capsule 2020-04-25 14:40:50 Yes 30mg QD Take 30 mg by mouth nightly as needed for sleep. Reuben Ayala clonAZEPAM (KlonoPIN) 1 MG tablet 2020-04-25 14:40:50 Yes 1mg QD Take 1 mg by mouth nightly as needed for seizures. Reuben Ayala mometasone-formoterol (DULERA) 200-5 mcg/actuation inhaler 2020-04-25 14:40:50 Yes 2{puff} Q.5D Inhale 2 puffs 2 (two) times a day. Reuben Ayala cetirizine (ZyrTEC) 10 MG tablet 2020-04-25 14:40:50 Yes 10mg QD Take 10 mg by mouth daily. Reuben Ayala albuterol sulfate (PROVENTIL) 2.5 mg/0.5 mL solution for neb ulization 2020-04-25 14:40:50 Yes 2.5mg Q.[id number] Take 2.5 mg by nebulization 3 (three) times a day. Desmond Ayala ipratropium (ATROVENT) 0.02 % nebulizer solution 2020-04-25 14:40:50 Yes 500ug Q.25D Take 500 mcg by nebulization 4 (four) times a d ay. Reuben Ayala insulin lispro (HumaLOG KwikPen Insulin) 100 unit/mL injecti on pen 2020-04-25 14:40:50 Yes 15U Q.25D Inject 15 Units under the skin 4 (four) times a day with meals and nightly. Reuben machado clopidogreL (PLAVIX) 75 mg tablet 2020-04-25 14:40:50 Yes 75mg Take 75 mg by mouth. Reuben Ayala sacubitriL-valsartan (ENTRESTO) 24-26 mg tablet per tablet 2020-04-25 14:40:50 Yes 1{tbl} Take 1 tablet by mouth. Reuben Ayala atorvastatin (LIPITOR) 80 MG tablet 2018-11-02 00:00:00 Yes Reuben Ayala buPROPion SR (WELLBUTRIN SR) 150 MG 12 hr tablet 2018-11-02 00:00:00 Yes Q.5D 2 (two) times a day. Desmond Ayala DEXILANT 30 mg capsule 2018-11-02 00:00:00 Yes QD daily. Reuben Ayala furosemide (LASIX) 40 mg tablet 2018-11-02 00:00:00 Yes 40mg Q.5D 40 mg 2 (two) times a day. Reuben Ayala XARELTO 20 mg tablet 2018-11-02 00:00:00 Yes QD nightly. Reuben Ayala tamsulosin (FLOMAX) 0.4 mg capsule 2018-11-02 00:00:00 Yes Q.5D 2 (two) times a day. Reuben Ayala SPIRIVA WITH HANDIHALER 18 mcg per inhalation capsule 2018-11-02 00:00:00 Yes Reuben machado TRUEPLUS INSULIN 1 mL 30 gauge x 5/16 syringe 2018-10-31 00:00:0 0 Yes Reuben machado CHANTIX 1 mg tablet 2018-10-31 00:00:00 Yes Q.5D 2 (two) times a day. Reuben Ayala LEVEMIR U-100 INSULIN 100 unit/mL injection 2018-10-25 00:00:00 Yes 50U Q.5D 50 Units 2 (two) times a day. 40am and 50pm Reuben Ayala ONETOUCH DELICA LANCETS 33 gauge misc 2018-10-12 00:00:00 Yes Reuben Ayala INSULIN SYRINGE 0.5 mL 30 gauge x 5/16" syringe 2018-10-03 00:00 :00 Yes Reuben willams lisinopril (PRINIVIL,ZESTRIL) 20 mg tablet 2018-09-19 00:00:00 Yes 20mg QD Take 20 mg by mouth daily. Madison Ayala Alfuzosin Hcl Alfuzosin Hcl Yes 1 Bedtime [facility] Aspirin (Aspirin Chew) 81 Mg CHEW Aspirin (Aspirin Chew) 81 Mg CHEW Yes 81 Daily [facility] Atorvastatin Calcium (Lipitor) 20 Mg TABLET Atorvastat in Calcium (Lipitor) 20 Mg TABLET Yes 80 Bedtime [facility] Bupropion Hcl Bupropion Hcl Yes 100 Twice A Day [facility] Clopidogrel Bisulfate (Plavix) 75 Mg TABLET Clopidogre l Bisulfate (Plavix) 75 Mg TABLET Yes 75 Daily [facility] Cyanocobalamin (Vitamin B-12) 1,000 Mcg TAB Cyanocobal francois (Vitamin B-12) 1,000 Mcg TAB Yes 1000 Daily [facility] Dexlansoprazole (Dexilant) 30 Mg CAP. Dexlansopra zole (Dexilant) 30 Mg CAP. Yes 1 Daily [facility] Donepezil Hcl (Aricept) 5 Mg TABLET Donepezil Hcl (Aricept) 5 Mg TABL ET Yes 10 Twice A Day [facility] Gabapentin Gabapentin Yes 300 Twice A Day [facility] Ipratropium [place] Ipratropium [place] Yes 2.5 Four Times Daily as needed for Wheezing [facility] Metoprolol Succinate Metoprolol Succinate Yes 50 Daily [facility] Olanzapine Olanzapine Yes 5 Twice A Day [facility] Sertraline Hcl Sertraline Hcl Yes 200 Bedtime [facility] Trazodone Hcl Trazodone Hcl Yes 200 Bedtime [facility] Varenicline Tartrate (Chantix) 1 Mg TABLET Varenicline Tartrate (Chantix) 1 Mg TABLET Yes 1 Twice A Day [facility] Celecoxib (Celebrex*) 100 Mg CAPSULE Celecoxib (Celebrex*) 100 M g CAPSULE 2020-07-23 00:00:00 No 200 Twice A Day [facility] Furosemide Furosemide 2020-07-23 00:00:00 No 80 Twi ce A Day [facility] Insulin Detemir (Levemir) 100 Unit/1 Ml VIAL Insulin D etemir (Levemir) 100 Unit/1 Ml VIAL 2020-07-23 00:00:00 No 40 Twice A D ay [facility] Insulin Lispro (Humalog) 100 Unit/1 Ml CARTRIDGE Insul in Lispro (Humalog) 100 Unit/1 Ml CARTRIDGE 2020-07-23 00:00:00 No 20 Befo re Meals [facility] Sacubitril/Valsartan (Entresto 97 Mg-103 Mg Tablet) 1 Each TABLET Sacubitril/Valsartan (Entresto 97 Mg-103 Mg Tablet) 1 Each TABLET 2020-07-23 00:00:00 No 1 Twice A Day [facility] Albuterol Sulfate Albuterol Sulfate 2020-07-21 00:00:00 No 2.5 As Needed [facility] Alfuzosin Hcl Alfuzosin Hcl 2020-07-21 00:00:00 No 10 Bedtime [facility] Aspirin Aspirin 2020-07-21 00:00:00 No 81 Daily [facility] Atorvastatin Calcium Atorvastatin Calcium 2020-07-21 00:00:00 No 80 Bedtime [facility] Bupropion Hcl (Wellbutrin Sr) 150 Mg TABLET.ER Bupropi on Hcl (Wellbutrin Sr) 150 Mg TABLET.ER 2020-07-21 00:00:00 No 150 Twice A Day [facility] Cetirizine Hcl Cetirizine Hcl 2020-07-21 00:00:00 No 10 Daily [facility] Clonazepam Clonazepam 2020-07-21 00:00:00 No 1 As Needed as needed for Anxiety [facility] Clopidogrel Bisulfate (Plavix) 75 Mg TABLET Clopidogre l Bisulfate (Plavix) 75 Mg TABLET 2020-07-21 00:00:00 No 75 Daily [facility] Donepezil Hcl (Aricept) 5 Mg TABLET Donepezil Hcl (Aricept) 5 Mg TABLET 2020-07-21 00:00:00 No 10 Bedtime [facility] Furosemide Furosemide 2020-07-21 00:00:00 No 40 Twi ce A Day [facility] Gabapentin Gabapentin 2020-07-21 00:00:00 No 300 Twi ce A Day [facility] Metoprolol Succinate (Toprol Xl) 50 Mg TAB.ER.24H Meto prolol Succinate (Toprol Xl) 50 Mg TAB.ER.24H 2020-07-21 00:00:00 No 75 Yajaira ly [facility] Mometasone/Formoterol (Dulera 200 Mcg/5 Mcg Inhaler) 1 3 Gm HFA.AER.AD Mometasone/Formoterol (Dulera 200 Mcg/5 Mcg Inhaler) 13 Gm HFA.AER.AD 2020-07-21 00:00:00 No 2 Every 12 Hours [facility] Pantoprazole Sodium (Protonix) 40 Mg TABLET. Pantopr azole Sodium (Protonix) 40 Mg TABLET. 2020-07-21 00:00:00 No 40 Daily [facility] Sacubitril/Valsartan (Entresto 49 Mg-51 Mg Tablet) 1 E ach TABLET Sacubitril/Valsartan (Entresto 49 Mg-51 Mg Tablet) 1 Each TABLET 2020-07-21 00:00:00 No 1 Twice A Day [facility] Sertraline Hcl (Zoloft) 100 Mg TABLET Sertraline Hcl (Zoloft) 10 0 Mg TABLET 2020-07-21 00:00:00 No 200 Daily [facility] Spironolactone Spironolactone 2020-07-21 00:00:00 No 12.5 Daily [facility] Varenicline Tartrate (Chantix) 1 Mg TABLET Varenicline Tartrate (Chantix) 1 Mg TABLET 2020-07-21 00:00:00 No 1 Twice A Day [facility] Vital Signs Vital Name Observation Time Observation Value Comments Source Heart Rate 2020-07-23 11:50:00 75 /min [facility] Respiratory rate 2020-07-23 11:50:00 20 /min [facility] Oxygen saturation by Pulse oximetry 2020-07-23 11:50:00 95 /min [facility] Body Temperature 2020-07-23 11:45:00 97.4 [degF] [facility] BP Systolic 2020-07-23 11:45:00 127 mm[Hg] [facility] BP Diastolic 2020-07-23 11:45:00 50 mm[Hg] [facility] Weight 2020-07-21 16:57:00 295 [lb_av] [facility] BMI (Body Mass Index) 2020-07-21 16:57:00 43.6 kg/m2 [facility] Body height 2020-04-25 14:35:00 175.3 cm Reuben Ayala Body weight 2020-04-25 14:35:00 98.431 kg Reuben Ayala BMI 2020-04-25 14:35:00 32.05 kg/m2 Reuben Ayala Procedures Procedure Date / Time Performed Performing Clinician [facility] e Computed tomography of chest without contrast 2020-07-22 00:00:0 0 [facility] Ultrasound, renal 2020-07-22 00:00:00 [facility] [place] ARTHROCENTESIS ASPIR&/INJ MAJOR JT/BURSA W/O US 2020-04-07 0 15:00:00 Brenton Rodriguez XR KNEE 4+ VW RIGHT 2020-04-25 14:58:37 Brenton Rodriguez H angella Ayala XR LEG LENGTH EVALUATION 2020-04-25 14:58:23 Brenton Rodriguez hishruthi Ayala Plan of Care Planned Activity Planned Date Details Comments Source Future Scheduled Test 2020-04-06 00:00:00 INFLUENZA VACCINE [code = INFLUENZA VACCINE] [facility] Future Scheduled Test 2018 00:00:00 65+ PNEUMOCOCCAL V ACCINE (2 of 2 - PPSV23) [code = 65+ PNEUMOCOCCAL VACCINE (2 of 2 - PPSV23)] [facility] Scheduled Test 2003 00:00:00 COLONOSCOPY SCREEN ING [code = COLONOSCOPY SCREENING] [facility] Scheduled Test 2003 00:00:00 SHINGLES VACCINES (#1) [code = SHINGLES VACCINES (#1)] [facility] Future Scheduled Test 1963 00:00:00 DIABETES: RETINAL EYE EXAM [code = DIABETES: RETINAL EYE EXAM] [facility] Future Scheduled Test 1963 00:00:00 DIABETIC FOOT EXAM [code = DIABETIC FOOT EXAM] [facility] Future Scheduled Test 1963 00:00:00 URINE MICROALBUMIN [code = URINE MICROALBUMIN] Reuben Ayala Instructions COPD [facility] Instructions Diabetes and Diet [facility] Instructions Congestive Heart Failure [facility] Encounters Start Date/Time End Date/Time [facility] Source 2020-07-21 14:35:00 2020-07-23 15:19:00 Discharged Inpatient 1 MIC GONZALEZ [facility] [id number] [facility] 2020-04-25 00:00:00 2020-04-25 00:00:00 Outpatient NAYELI RODRIGUEZ [facility] [id number] [facility] 2020-04-25 00:00:00 2020-04-25 00:00:00 Outpatient NAYELI RODRIGUEZ [facility] [id number] [facility] 2020-04-25 00:00:00 2020-04-25 00:00:00 Outpatient NAYELI RODRIGUEZ [facility] [id number] [facility] 2019-06-24 12:17:00 2019-06-27 19:30:00 Discharged Inpatient (obs) 1 ANABELLA CITLALI [facility] [id number] [facility] 2019-06-22 07:42:00 2019-06-22 07:42:00 Registered Surgical Day Car e 3 ANABELLA [facility] [id number] [facility] Results Test Description Test Time Test Comments Results Result Comments Source CHEST SINGLE (PORTABLE) 2020-08-02 17:53:00 [facility] : 1955 Sex: M [place] [id number] Patient Name: AISLINN BHATIA MR #: [id number] : 1955 Age/Sex: 64/M Req #: [id number] Adm Physician: Ordered by: Jairo Stearns MD Report #: [id number] Location: ER Room/Bed: Procedure: [id number] DX/CHEST SINGLE (PORTABLE) Exam Date: 08/02/20 Exam Time: 174 REPORT STATUS: Signed EXAMINATION: CHEST SINGLE (PORTABLE) COMPARISON: CT chest 07/22/2020, chest x-ray 07/21/2020 INDICATION: CHEST PAIN [id number] Y DISCUSSION: Frontal view of the chest obtained at 1728 hours. HEART AND MEDIASTINUM: Stable cardiomegaly and pulmonary venous prominence. LINES: None. LUNGS/PLEURA: Diffuse hyperinflation. No pneumonia or pulmonary edema. No pleural effusion or pneumothorax. BONES AND SOFT TISSUES: Healed right rib fractures are redemonstrated. No new osseous findings. The soft tissues are normal. IMPRESSION: 1. Stable cardiomegaly without vascular congestion or CHF. 2. No new pulmonary process. Signed by: Dr. Daily Steiner MD on 08/02/2020 5:54 PM Dictated By: DAILY STEINER MD 51 Transcribed By: ALEJANDRO on 08/02/201753 COPY TO: JAIRO STEARNS MD Capillary blood glucose measurement by glucometer (mas s/volume) 2020-07-23 11:26:00 Test Item Bedside Glucose (test code = 04771-9) 107 mg/dL 70-120 [facility] sodium [facility] (moles/volume)2020-07-23 04:45:00* Test Item Value Reference Range Interpretation Comments Sodium Level (test code = 2951-2) 141 mmol/L 136-145 [facility] potassium measurement (moles/volume)2020-07-23 04:45:00* Test Item Value Reference Range Interpretation Comments Potassium Level (test code = 2823-3) 4.5 mmol/L 3.5-5.1 [facility] chloride measurement (moles/volume)2020-07-23 04:45:00* Test Item Value Reference Range Interpretation Comments Chloride Level (test code = 2075-0) 109 mmol/L 98-107 [facility] carbon dioxide, total measurement (moles/volume)2020-07-23 04:45:00* Test Item Value Reference Range Interpretation Comments Carbon Dioxide Level (test code = 2028-9) 28 mmol/L 22-29 [facility] anion [id number] 04:45:00* Test Item Value Reference Range Interpretation Comments Anion Gap (test code = 92908-1) 8.5 mmol/L 8-16 [facility] urea nitrogen measurement (mass/volume)2020-07-23 04:45:00* Test Item Value Reference Range Interpretation Comments Blood Urea Nitrogen (test code = 3094-0) 30 mg/dL 7-26 [facility] creatinine measurement (mass/volume)2020-07-23 04:45:00* Test Item Value Reference Range Interpretation Comments Creatinine (test code = 2160-0) 1.23 mg/dL 0.72-1.25 [facility] urea nitrogen/creatinine mass [id number] 04:45:00* Test Item Value Reference Range Interpretation Comments BUN/Creatinine Ratio (test code = 3097-3) 24 6-25 [facility]ated glomerular filtration rate (GFR) [id number] 04:45:00* Test Item Value Reference Range Interpretation Comments Estimat Glomerular Filtration Rate (test code = 832613539) 59 mL/mi n >60 Ranges were taken from the National Kidney Disease Education Program and the [facility] literature.Reference ranges:60 or greater: [id number] ( for 3 consecutive months): Chronic kidney disease 15 or less: Kidney failureThe Hospitals of Providence Transmount[facility] CampusGlucose [id number] 04:45:00* Test Item Value Reference Range Interpretation Comments Glucose Level (test code = PLA5731) 167 mg/dL 74-118 [facility] calcium measurement (mass/volume)2020-07-23 04:45:00* Test Item Value Reference Range Interpretation Comments Calcium Level (test code = 02229-5) 8.4 mg/dL 8.4-10.2 [facility] CampusFluoroscopic procedure less than one hour [id number] 04:45:00* Test Item Value Reference Range Interpretation Comments Hemoglobin A1c Percent (test code = Hemoglobin A1c Percent) 9.2 % 4.0-7.0 [facility] total bilirubin measurement (mass/volume)2020-07-23 04:45:00* Test Item Value Reference Range Interpretation Comments Total Bilirubin (test code = 1975-2) 0.2 mg/dL 0.2-1.2 [facility] CampusFluoroscopic procedure less than one hour [id number] 04:45:00* Test Item Value Reference Range Interpretation Comments Aspartate Amino Transf (AST/SGOT) (test code = Aspartate Amino Transf (AST/SGOT)) 18 [IU]/L 5-34 [facility] alanine aminotransferase measurement (enzymatic activity/volume)2020-07-23 04:45:00* Test Item Value Reference Range Interpretation Comments Alanine Aminotransferase (ALT/SGPT) (test code = 1742-6) 22 [IU]/L 0-55 [facility] CampusAmmonia [id number] 04:45:00* Test Item Value Reference Range Interpretation Comments Ammonia (test code = 41602-4) 76 ug/dL 31-123 [facility] protein measurement (mass/volume)2020-07-23 04:45:00* Test Item Value Reference Range Interpretation Comments Total Protein (test code = 2885-2) 6.5 g/dL 6.5-8.1 [facility] albumin measurement (mass/volume)2020-07-23 04:45:00* Test Item Value Reference Range Interpretation Comments Albumin (test code = 1751-7) 3.2 g/dL 3.5-5.0 [facility]asma globulin measurement (mass/volume) 2020-07-23 04:45:00* Test Item Value Reference Range Interpretation Comments Globulin (test code = 75999-9) 3.3 g/dL 2.3-3.5 [facility] albumin/globulin mass [id number] 04:45:00* Test Item Value Reference Range Interpretation Comments Albumin/Globulin Ratio (test code = 1759-0) 1.0 0.8-2.0 [facility] alkaline phosphatase measurement (enzymatic activity/volume)2020-07-23 04:45:00* Test Item Value Reference Range Interpretation Comments Alkaline Phosphatase (test code = 6768-6) 88 [IU]/L 40-150 [facility] plasma thyroxine (T4) free measurement (mass/volume)2020-07-23 04:45:00* Test Item Value Reference Range Interpretation Comments Free Thyroxine (test code = 3024-7) 0.84 ng/dL 0.8-1.8 [facility] plasma thyrotropin measurement by detection limit <= 0.005 miu/l (units/volume)2020-07-23 04:45:00* Test Item Value Reference Range Interpretation Comments Thyroid Stimulating Hormone (TSH) (test code = 57374-7) 0.979 0.350-4.940 [facility] CampusUS RENAL RETROPERITONEAL [id number] 16:12:00[facility] : 1955 Sex: M [place] [id number] Patient Name: AISLINN BHATIA MR #: [id number] : 1955 Age/Sex: 64/M Req #: [id number] Adm Physician: MIC GONZALEZ MD Ordered by: ALPHONSE MORLEY MD, MD Report #: [id number] Location: MED/SURG2 Room/Bed: [facility] Procedure: [id number] US/US RENAL RETROPERITONEAL COMP Exam Date: 07/22/20 Exam Time: 1544 REPORT STATUS: Signed EXAM: Renal Ultrasound I NDICATION: Bronchitis. CHF exacerbation. COMPARISON: None TECHNIQUE: Transv erse and longitudinal images of the kidneys and bladder were obtained. FINDINGS: Right Kidney: Length: 11.9 cm Appearance: Normal echoge nicity. Collecting system: No hydronephrosis Stones: None Cyst/Mass: Non e Left Kidney: Length: 12.3 cm Appearance: Normal echogenicity. Co llecting system: No hydronephrosis Stones: None Cyst/Mass: None Bladder : Bladder demonstrates a volume of 33 cc. Prostate is not well visualized. Ureteral jets are not visualized, nonspecific. IMPRESSION: Unremarkable r enal ultrasound without hydronephrosis. Signed by: Homero Choudhary MD on 07/22 4:13 PM Dictated By: HOMERO CHOUDHARY MD 12 Transcribed By: ALEJANDRO on 07/22/201612 COPY TO: ALPHONSE MORLEY Urine color ikrrlwyxfcumq2987-93-33 15:56:00* Test Item Value Reference Range Interpretation Comments Urine Color (test code = 5778-6) YELLOW YELLOW [facility] ullmvjl4324-96-40 15:56:00* Test Item Value Reference Range Interpretation Comments Urine Clarity (test code = 22091-4) CLEAR CLEAR [facility] Urine by Test strip 2020-07-22 15:56:00* Test Item Value Reference Range Interpretation Comments Urine Specific [place] (test code = 5811-5) 1.020 1.010-1.02 5 [facility] pH measurement by automated test epzog7108-91-28 15:56:00* Test Item Value Reference Range Interpretation Comments Urine pH (test code = 46213-5) 5 5-7 [facility] CampusUrine leukocyte esterase detection by diqjrqpj9997-15-75 15:56:00* Test Item Value Reference Range Interpretation Comments Urine Leukocyte Esterase (test code = 5799-2) NEGATIVE NEGATIVE [facility] CampusUrine nitrite zdgutlnqw7571-84-27 15:56:00* Test Item Value Reference Range Interpretation Comments Urine Nitrite (test code = 46728-8) NEGATIVE NEGATIVE [facility] CampusUrine protein measurement by test strip (mass/volume)2020-07-22 15:56:00* Test Item Value Reference Range Interpretation Comments Urine Protein (test code = 5804-0) NEGATIVE NEGATIVE [facility] CampusUrine glucose adcptdvam2432-20-82 15:56:00* Test Item Value Reference Range Interpretation Comments Urine Glucose (UA) (test code = 2349-9) NEGATIVE NEGATIVE [facility] CampusUrine ketones detection by automated test hzwku3838-48-11 15:56:00* Test Item Value Reference Range Interpretation Comments Urine Ketones (test code = 97778-1) NEGATIVE NEGATIVE [facility] CampusUrine urobilinogen measurement by test strip (mass/volume)2020-07-22 15:56:00* Test Item Value Reference Range Interpretation Comments Urine Urobilinogen (test code = 79628-5) 0.2 mg/dL 0.2-1 [facility] total bilirubin measurement (mass/volume)2020-07-22 15:56:00* Test Item Value Reference Range Interpretation Comments Urine Bilirubin (test code = 1978-6) NEGATIVE NEGATIVE [facility] CampusUrine erythrocytes nzjhfidba0816-52-90 15:56:00* Test Item Value Reference Range Interpretation Comments Urine Blood (test code = 75404-5) NEGATIVE NEGATIVE [facility] CampusAutomated urine sediment leukocyte count by microscopy (number/high power field)2020-07-22 15:56:00* Test Item Value Reference Range Interpretation Comments Urine WBC (test code = 5821-4) 0-5 /[HPF] 0-5 [facility] CampusErythrocytes detection in urine sediment by light nirgeyglgl7520-42-75 15:56:00* Test Item Value Reference Range Interpretation Comments Urine RBC (test code = 33565-1) 0-5 /[HPF] 0-5 [facility] CampusBacteria detection in urine sediment by light naqpctqoig4684-48-35 15:56:00* Test Item Value Reference Range Interpretation Comments Urine Bacteria (test code = 43574-4) RARE /[HPF] NONE [facility] CampusEpithelial cells detection in urine sediment by light hxsquvhsqy6751-87-90 15:56:00* Test Item Value Reference Range Interpretation Comments Urine Epithelial Cells (test code = 90248-0) RARE /[LPF] NONE [facility] CampusUrine protein measurement (mass/volume) 2020-07-22 15:56:00* Test Item Value Reference Range Interpretation Comments Urine Random Total Protein (test code = 2888-6) < 6.8 mg/dL 1-14 [facility] CampusUrine creatinine measurement (mass/volume)2020-07-22 15:56:00* Test Item Value Reference Range Interpretation Comments Urine Creatinine (test code = 2161-8) 34.77 mg/dL 63-166 [facility] CampusRandom urine protein/creatinine ratio 2020-07-22 15:56:00* Test Item Value Reference Range Interpretation Comments Urine Protein/Creatinine Ratio (test code = 91416-4) 0.00 [facility] CampusCT CHEST [id number] 08:39:00 [facility] : 1955 Sex: M* [facility] [address] [id number] Patient Name: AISLINN BHATIA MR #: [id number] : 1955 Age/Sex: 64/M Req #: [id number] Adm Physician: MIC GONZALEZ MD Ordered by: DIA RICARDO ACCOUNT MAINTENANCE REPRESENTATIVE Report #: [id number] Location: [facility]SURG Room/Bed: [facility] Procedure: [id number] CT/CT CHEST WO Exam Date: 0 Exam Time: 604 REPORT STATUS: Signed EXAM: CT Chest WITHOUT intravenous contrast 1 09/21/2019 6:09 AM INDICATION: Bronchitis. Pulmonary edema. CHF exacerbation. C ovid negative. Baseline CT. COMPARISON: X-ray dated 07/21/2020 TECHNIQUE: Chest was scanned utilizing a multidetector helical scanner from the lung apex through the level of the adrenal glands without administration of IV contrast . Coronal and sagittal reformations were obtained. Routine protocol was perf ormed. IV CONTRAST: None RADIATION DOSE: Total DLP: 645 mGy*cm. Dose modu lation, iterative reconstruction, and/or weight based adjustment of the mA/kV was utilized to reduce the radiation dose to as low as reasonably achievable. COMPLICATIONS: None FINDINGS: LINES/ TUBES: None. LUNGS AND AI RWAYS: Large airways are patent. Negative for focal consolidation or suspicio us infiltrate. No suspicious pulmonary nodule or mass is identified. Trace bas ilar atelectasis/scarring is noted. Negative for interlobular septal thickenin g or lm B lines. PLEURA: The pleural spaces are clear. HEART AND M EDIASTINUM: The thyroid gland is normal. No mediastinal, hilar or axillary ly mphadenopathy. The heart is normal in size. Trace pericardial fluid is noted. Dense coronary artery calcifications are noted. Minimal atherosclerotic otto ges of the aortic arch are noted. UPPER ABDOMEN: Unremarkable. BONES: No acute osseous abnormality. Moderate to severe multilevel degenerative trotter es of the mid to lower thoracic spine are noted. Posttraumatic deformities of the right seventh and eighth ribs are noted with probable posttraumatic eighth intercostal space pulmonary parenchymal herniation. SOFT TISSUES: Unremark able. IMPRESSION: 1. Negative for acute intrathoracic process. 2. Post traumatic healed deformity of the right lateral seventh and eighth ribs with p robable posttraumatic right eighth intercostal pulmonary parenchymal herniatio n. 3. Coronary artery calcifications are noted. Signed by: Negrita Kay on 07/22/2020 8:45 AM Dictated By: HOMERO CHOUDHARY MD Electronically Sig willard By: HOMERO CHOUDHARY MD on 07/22/20 0845 Transcribed By: ALEJANDRO on 07/22/20 0 845 COPY TO: DIA RICARDO ACCOUNT MAINTENANCE REPRESENTATIVE Blood leukocytes automated count (number/volume)2020-07-22 04:55:00* Test Item Value Reference Range Interpretation Comments White Blood Count (test code = 6690-2) 6.57 10*3/uL 4.8-10.8 [facility] CampusBlood erythrocytes automated count (number/volume)2020-07-22 04:55:00* Test Item Value Reference Range Interpretation Comments Red Blood Count (test code = 789-8) 2.94 10*6/mL 4.3-5.7 [facility] CampusBlood hemoglobin measurement (moles/volume)2020-07-22 04:55:00* Test Item Value Reference Range Interpretation Comments Hemoglobin (test code = 18246-5) 9.8 g/dL 14.0-18.0 [facility] CampusAutomated blood hematocrit (volume fraction)2020-07-22 04:55:00* Test Item Value Reference Range Interpretation Comments Hematocrit (test code = 4544-3) 31.4 % 38.2-49.6 [facility] CampusAutomated erythrocyte mean corpuscular ldswox8826-58-16 04:55:00* Test Item Value Reference Range Interpretation Comments Mean Corpuscular Volume (test code = 787-2) 106.8 81-99 [facility] CampusAutomated erythrocyte mean corpuscular hemoglobin (mass per erythrocyte)2020-07-22 04:55:00* Test Item Value Reference Range Interpretation Comments Mean Corpuscular Hemoglobin (test code = 785-6) 33.3 pg 28-32 [facility] CampusAutomated erythrocyte mean corpuscular hemoglobin concentration measurement (mass/volume)2020-07-22 04:55:00* Test Item Value Reference Range Interpretation Comments Mean Corpuscular Hemoglobin Concent (test code = 786-4) 31.2 g/dL 31-35 [facility] CampusRDW FbnSq-Mwu5212-18-16 04:55:00* Test Item Value Reference Range Interpretation Comments Red Cell Distribution Width (test code = 78455-8) 13.5 % 11.7 -14.4 [facility] CampusAutomated blood platelet count (count/volume)2020-07-22 04:55:00* Test Item Value Reference Range Interpretation Comments Platelet Count (test code = 777-3) 191 10*3/uL 140-360 [facility] CampusAutomated blood segmented neutrophil count as percentage of total sloglkfbpx7197-69-23 04:55:00* Test Item Value Reference Range Interpretation Comments Neutrophils (%) (Auto) (test code = 25868-2) 77.5 % 38.7-80.0 [facility] CampusAutomated blood lymphocyte count as percentage ot total ejxbbsnect6538-71-48 04:55:00* Test Item Value Reference Range Interpretation Comments Lymphocytes (%) (Auto) (test code = 736-9) 12.5 % 18.0-39.1 [facility] CampusAutomated blood monocyte count as percentage of total tjtxtrfxha2936-53-27 04:55:00* Test Item Value Reference Range Interpretation Comments Monocytes (%) (Auto) (test code = 5905-5) 7.5 % 4.4-11.3 [facility] CampusAutomated blood eosinophil count as percentage of total bocacgcyaa7135-94-56 04:55:00* Test Item Value Reference Range Interpretation Comments Eosinophils (%) (Auto) (test code = 713-8) 1.7 % 0.0-6.0 [facility] CampusAutomated blood basophil count as percentage of total dfmzpxrpld9062-84-20 04:55:00* Test Item Value Reference Range Interpretation Comments Basophils (%) (Auto) (test code = 706-2) 0.5 % 0.0-1.0 [facility] CampusFluoroscopic procedure less than one hour pottbeft4976-96-53 04:55:00* Test Item Value Reference Range Interpretation Comments IM GRANULOCYTES % (test code = IM GRANULOCYTES %) 0.3 % 0.0- 1.0 [facility] CampusAutomated blood neutrophil count 2020-07-22 04:55:00* Test Item Value Reference Range Interpretation Comments Neutrophils # (Auto) (test code = 751-8) 5.1 2.1-6.9 [facility] CampusBlood lymphocytes count (number/volume) 2020-07-22 04:55:00* Test Item Value Reference Range Interpretation Comments Lymphocytes # (Auto) (test code = 64605-7) 0.8 1.0-3.2 [facility] CampusBlood monocytes automated count (number/volume)2020-07-22 04:55:00* Test Item Value Reference Range Interpretation Comments Monocytes # (Auto) (test code = 742-7) 0.5 0.2-0.8 [facility] CampusAutomated blood eosinophil count 2020-07-22 04:55:00* Test Item Value Reference Range Interpretation Comments Eosinophils # (Auto) (test code = 711-2) 0.1 0.0-0.4 [facility] CampusAutomated blood basophil count (count/volume)2020-07-22 04:55:00* Test Item Value Reference Range Interpretation Comments Basophils # (Auto) (test code = 704-7) 0.0 0.0-0.1 [facility] CampusFluoroscopic procedure less than one hour pnejxbnw8265-71-30 04:55:00* Test Item Value Reference Range Interpretation Comments Absolute Immature Granulocyte (auto (daniel t code = Absolute Immature Granulocyte (auto) 0.02 10*3/uL 0-0.1 [facility] CampusBlood platelets count by estimate (number/volume)2020-07-22 04:55:00* Test Item Value Reference Range Interpretation Comments Platelet Estimate (test code = 96113-3) ADEQUATE [facility] CampusPlatelet owxeuqrdvd7667-86-38 04:55:00* Test Item Value Reference Range Interpretation Comments Platelet Morphology Comment (test code = 02350-0) FEW LARGE [facility] CampusBlood macrocytes detection by light duufsannzu4939-47-32 04:55:00* Test Item Value Reference Range Interpretation Comments Macrocytosis (test code = 738-5) SLIGHT [facility] CampusRBC pzsenacbhf6577-02-51 04:55:00* Test Item Value Reference Range Interpretation Comments Red Cell Morphology Comment (test code = 6742-1) NORMAL [facility] CampusPhosphorus ihagzrxytmu8147-62-35 04:55:00 * Test Item Value Reference Range Interpretation Comments Phosphorus Level (test code = ZLZ5574) 4.3 mg/dL 2.3-4.7 [facility] Centererum or plasma triglyceride measurement (mass/volume)2020-07-22 04:55:00* Test Item Value Reference Range Interpretation Comments Triglycerides Level (test code = 2571-8) 57 mg/dL 0-149 [facility] Centererum or plasma cholesterol measurement (mass/volume)2020-07-22 04:55:00* Test Item Value Reference Range Interpretation Comments Cholesterol Level (test code = 2093-3) 69 mg/dL 0-199 Less than 200 mg/dL Low Wpnn675 - 239 mg/dL Borderline Rioy007 m g/dl and greater High Risk [facility] Centererum or plasma cholesterol in LDL measurement (mass/volume) 2020-07-22 04:55:00* Test Item Value Reference Range Interpretation Comments LDL Cholesterol (test code = 2089-1) 30 mg/dL 60-130 [facility] Centererum or plasma cholesterol in HDL measurement (mass/volume)2020-07-22 04:55:00* Test Item Value Reference Range Interpretation Comments HDL Cholesterol (test code = 2085-9) 28 mg/dL 40-60 [facility] Centererum or plasma total cholesterol/cholesterol in HDL mass ttblo3202-60-74 04:55:00* Test Item Value Reference Range Interpretation Comments Cholesterol/HDL Ratio (test code = 9830-1) 2.5 3.9-4.7 [facility] Centererum or plasma creatine kinase measurement (enzymatic activity/volume)2020-07-22 04:55:00* Test Item Value Reference Range Interpretation Comments Creatine Kinase (test code = 2157-6) 233 [IU]/L 30-200 [facility] Centererum or plasma creatine kinase MB measurement (mass/volume)2020-07-22 04:55:00* Test Item Value Reference Range Interpretation Comments Creatine Kinase MB (test code = 01297-4) 5.80 ng/mL 0-5.0 [facility] CampusTroponin I measurement by highly sensitive enzyme johavkjdqcg5868-73-65 04:55:00* Test Item Value Reference Range Interpretation Comments Troponin I (test code = 10630-7) 0.057 ng/mL 0-0.300 [facility] CampusCHEST SINGLE (PORTABLE)2020-07-21 14:09:00[facility] 1955 Sex: M [facility] [address] [address] Patient Name: AISLINN BHATIA MR #: [id number] : 1955 Age/Sex: 64/M Req #: [id number] Adm Physician: Ordered by: NIYA RICHARD MD Report #: [id number] Location: ER Room/Bed: Procedure: [id number] DX/CHEST SINGLE (PORTABLE) Exam D ate: 07/21/20 Exam Time: 1250 REPORT STATUS: Signed EXAMINATION: CHEST SINGLE (ARELI BLE) INDICATION: Shortness of breath COMPARISON: None FINDINGS: TUBES and LINES: None. LUNGS: Normal lung volumes. Mu ltifocal interstitial and airspace opacities. PLEURA: No pleural effusion or pneumothorax. HEART AND MEDIASTINUM: The cardiomediastinal silhouette i s enlarged. BONES AND SOFT TISSUES: No acute osseous lesion. Healed ri ght rib fractures. Soft tissues are unremarkable. UPPER ABDOMEN: No free air under the diaphragm. IMPRESSION: 1. Interstitial and airspac e opacities throughout both lungs which most likely represents pulmonary edema and/or developing multifocal infection. 2. Cardiomegaly. Signed by: Nydia Goldsmith MD on 07/21/2020 2:10 PM Dictated By: NATASHA GOLDSMITH MD Elect ronically Signed By: NATASHA GOLDSMITH MD on 07/21/201409 Transcribed By: ALEJANDRO on 07/21/201409 COPY TO: NIYA RICHARD MD Blood culture 2020-07-21 12:35:00* Test Item Value Reference Range Interpretation Comments Blood Culture (test code = 29115146) NO GROWTH AFTER 24 HOURS [facility] CampusProthrombin time (PT) in platelet poor plasma by coagulation irxel5706-70-44 12:20:00* Test Item Value Reference Range Interpretation Comments Prothrombin Time (test code = 5902-2) 14.0 s 11.9-14.5 [facility] CampusINR in Platelet poor plasma by Coagulation btfup0260-24-80 12:20:00* Test Item Value Reference Range Interpretation Comments Prothromb Time International Ratio (test code = 6301-6) 1.03 Oral Anticoagulant Therapy INR Values:1. Low Intensity Therapy 1.5 - 2.02 . Moderate Intensity Therapy 2.0 - 3.03. High Intensity Therapy(1) 2.5 - 3. 54. High Intensity Therapy(2) 3.0 - 4.05. Panic Value INR > 5.0 [facility] CampusActivated partial thromboplastin time (aPTT) in platelet poor plasma by coagulation ockzr5553-68-84 12:20:00* Test Item Value Reference Range Interpretation Comments Activated Partial Thromboplast Time (test code = 27586-6) 31.8 s 23.8-35.5 [facility] CampusMucus detection in urine sediment by light aeewyefdpv0329-85-09 12:20:00* Test Item Value Reference Range Interpretation Comments Urine Mucus (test code = 8247-9) FEW RARE [facility] Centererum or plasma magnesium measurement (mass/volume)2020-07-21 12:20:00* Test Item Value Reference Range Interpretation Comments Magnesium Level (test code = 25925-3) 1.9 mg/dL 1.3-2.1 [facility] CampusBNP Jlw-oMtl7288-85-15 12:20:00* Test Item Value Reference Range Interpretation Comments B-Type Natriuretic Peptide (test code = 21759-9) 319.4 pg/mL 0-100 [facility] CampusFluoroscopic procedure less than one hour bzcmdpyp6923-83-27 12:20:00* Test Item Value Reference Range Interpretation Comments Coronavirus (PCR) (test code = Coronavirus (PCR)) NOT DETECTED NOTD ETECTED SARS-COV2/RT-PCR CEPHEIDResults are for the detection of SARS-COV-2 RNA. The DENNIS S-COV-2 RNA is generally detectable in nasopharyngeal swab specimens during the acute phase of infection. Positive results are indicitive of active infection wi SARS-COV-2; clinical correlation with patient history and other diagnostic in formation is necessary to determine patient infection status. Positive results d o not rule out bacterial infection or co-infection with other viruses. The agent detected may not be the definite cause of the disease.The limit of detection fo r this assay is 250 copies/mLThe SARS-CoV-2 test is a rapid, real-time RT-PCR te st intended for the qualitative detection of nucleic acid from SARS-CoV-2 in colleen opharyngeal swab specimen collected from individuals suspected of COVID-19 by eir healthcare provider. This test has not been Food and Drug Administration (FD A) cleared or approved and has been authorized by FDA under an Emergency Use Aut horization (EUA). This EUA will be effective until the declaration that circumst ances exist justifying the authorization of the emergency use of in vitro diagno stic test for detection and or diagnosis of COVID-19 is terminated under section 564(b) of the Act, or the the EUA is revoked under 564(g) of the ACT.[facility] CampusURINALYSIS ZREAIIMU4469-78-91 23:59:00* Test Item Value Reference Range Interpretation Comments UA COLOR (test code = COLU) Light-Yellow YELLOW UA APPEARANCE (test code = APPU) CLEAR CLEAR UA GLUCOSE DIPSTICK (test code = DGLUU) NEGATIVE mg/dL NEGATIVE UA BILIRUBIN DIPSTICK (test code = BILU) NEGATIVE mg/dL NEGATIVE UA KETONE DIPSTICK (test code = KETU) NEGATIVE mg/dL NEGATIVE UA SPECIFIC GRAVITY (test code = SGU) 1.018 1.001-1.035 UA BLOOD DIPSTICK (test code = MARC) Negative mg/dL NEGATIVE UA PH DIPSTICK (test code = HARESH) 5.5 5.0-8.0 UA PROTEIN DIPSTICK (test code = PROU) 50 (1+) mg/dL NEGATIVE A UA UROBILINIOGEN DIPSTICK (test code = URO) Normal mg/dL NEGATIVE UA NITRITE DIPSTICK (test code = LUDA) NEGATIVE NEGATIVE UA LEUKOCYTE ESTERASE W REFLEX (test code = LEUUR) NEGATIVE Mallory/uL NEGATIVE UA WBC (test code = WBCU) 0-5 per HPF 0-5 UA RBC (test code = RBCU) 0-2 #/HPF 0-5 UA EPITHELIAL CELLS (test code = EPIU) FEW per HPF FEW UA BACTERIA (test code = BACU) NONE SEEN #/HPF NONE Urine Source? CatheterBASIC METABOLIC [id number] 21:00:00* Test Item Value Reference Range Interpretation Comments SODIUM (test code = NA) 139 mmol/L 136-145 N POTASSIUM (test code = K) 5.0 mmol/L 3.5-5.1 N CHLORIDE (test code = CL) 106.0 mmol/L 98-107 N CARBON DIOXIDE (test code = CO2) 26.0 mmol/L 21-32 N ANION GAP (test code = GAP) 12.0 10-20 N GLUCOSE (test code = GLU) 331 mg/dL 74-106 H BLOOD UREA NITROGEN (test code = BUN) 80 mg/dL 7-18 H GLOMERULAR FILTRATION RATE (test code = GFR) 27 mL/min >=60 Estimated GFR by using Modified MDRD formula.Chronic kidney disease is defined as either kidney damageor GFR <60 mL/min/1.73 m2 for >3 months. CREATININE (test code = CREAT) 2.40 mg/dL 0.7-1.3 H BUN/CREATININE RATIO (test code = BUN/CREA) 33.3 10-20 H CALCIUM (test code = CA) 9.3 mg/dL 8.5-10.1 N CONF#[id number] Patient received Natrecor? NOHas Patient received Natrecor? NO [id number] 21:00:00* Test Item Value Reference Range Interpretation Comments MAGNESIUM (test code = MAG) 2.5 mg/dL 1.8-2.4 H CONF#[id number] Patient received Natrecor? NOHas Patient received Natrecor? NONT PRO-BRAIN NATRIURETIC [id number] 21:00:00* Test Item Value Reference Range Interpretation Comments NT PRO-BRAIN NATRIURETIC PEPTI (test code = PROBNP) 1120.0 pg/mL 0- 125 H CONF#[id number] Patient received Natrecor? NOHas Patient received Natrecor? NONT PRO-BRAIN NATRIURETIC [id number] 20:59:00* Test Item Value Reference Range Interpretation Comments NT PRO-BRAIN NATRIURETIC PEPTI (test code = PROBNP) 1120.0 pg/mL 0- 125 H Has Patient received Natrecor? NOBASIC METABOLIC [id number] 15:21:00* Test Item Value Reference Range Interpretation Comments SODIUM (test code = NA) 139 mmol/L 136-145 N POTASSIUM (test code = K) 5.0 mmol/L 3.5-5.1 N CHLORIDE (test code = CL) 106.0 mmol/L 98-107 N CARBON DIOXIDE (test code = CO2) 26.0 mmol/L 21-32 N ANION GAP (test code = GAP) 12.0 10-20 N GLUCOSE (test code = GLU) 331 mg/dL 74-106 H BLOOD UREA NITROGEN (test code = BUN) 80 mg/dL 7-18 H GLOMERULAR FILTRATION RATE (test code = GFR) 27 mL/min >=60 Estimated GFR by using Modified MDRD formula.Chronic kidney disease is defined as either kidney damageor GFR <60 mL/min/1.73 m2 for >3 months. CREATININE (test code = CREAT) 2.40 mg/dL 0.7-1.3 H BUN/CREATININE RATIO (test code = BUN/CREA) 33.3 10-20 H CALCIUM (test code = CA) 9.3 mg/dL 8.5-10.1 N Has Patient received Natrecor? [id number] 15:21:00* Test Item Value Reference Range Interpretation Comments MAGNESIUM (test code = MAG) 2.5 mg/dL 1.8-2.4 H Has Patient received Natrecor? NONT PRO-BRAIN NATRIURETIC [id number] 15:21:00* Test Item Value Reference Range Interpretation Comments NT PRO-BRAIN NATRIURETIC PEPTI (test code = PROBNP) PG/ML 0- 100 Has Patient received Natrecor? [id number] 15:19:00* Test Item Value Reference Range Interpretation Comments GLYCOSYLATED HEMOGLOBIN (HA1C) (test code = GLYHGB) 9.5 % HbA1 SUGGESTED DIAGNOSIS: HbA1C (%) Diabetic >6.4Prediabetes 5.7 - 6.4Normal <5.7 ESTIMATED AVERAGE GLUCOSE (test code = EAG) 226 MG/DL BASIC METABOLIC [id number] 15:12:00* Test Item Value Reference Range Interpretation Comments SODIUM (test code = NA) 139 mmol/L 136-145 N POTASSIUM (test code = K) 5.0 mmol/L 3.5-5.1 N CHLORIDE (test code = CL) 106.0 mmol/L 98-107 N CARBON DIOXIDE (test code = CO2) mmol/L 21-32 ANION GAP (test code = GAP) 10-20 GLUCOSE (test code = GLU) mg/dL 74-106 BLOOD UREA NITROGEN (test code = BUN) mg/dL 7-18 GLOMERULAR FILTRATION RATE (test code = GFR) mL/min >=60 CREATININE (test code = CREAT) mg/dL 0.7-1.3 BUN/CREATININE RATIO (test code = BUN/CREA) 10-20 CALCIUM (test code = CA) mg/dL 8.5-10.1 Has Patient received Natrecor? [id number] 15:12:00* Test Item Value Reference Range Interpretation Comments MAGNESIUM (test code = MAG) mg/dL 1.8-2.4 Has Patient received Natrecor? NONT PRO-BRAIN NATRIURETIC [id number] 15:12:00* Test Item Value Reference Range Interpretation Comments NT PRO-BRAIN NATRIURETIC PEPTI (test code = PROBNP) PG/ML 0- 100 Has Patient received Natrecor? NO- CT LD LUNG CA [id number] 14:26:00 Name: AISLINN BHATIA [facility] : 1955 Age/S: 64 / M [address] [facility] Unit #: [id number] [place] [address] Phys: Lorenzo Simpson MD Acct: [id number] Di s Date: Status: REG CLI PHONE #: Exam Date: 05/31/2020 1354 FAX #: Reason: NICOTINE DEPEN EXAMS: CPT CODE: [id number] CT LD LUNG CA SCREENING G0297 HISTORY: Nicotine depende ncy. COMPARISON: None available. Location: [facility]. CT chest without contrast: Automated exposure control. Low-dose technique. No acute infiltrates, effusion or congestion. No bronc hiectasis, honeycombing or fibrosis or endobronchial lesions. No parenchym al mass or nodules are visible either. Routine 12 month follow-up is recommended. Normal caliber unopacified aorta and pulmonary arter ies and mild atherosclerotic change of the aorta. Unremarkable poorly visu alized thyroid glands. No pathologic adenopathy. Esophageal wall is not thickened. Cardiac silhouette is mildly enlarged. Trace pericardial ef fusion. Heavy atherosclerotic calcifications of the coronary arteries veronika cially the LAD. Visualized upper abdomen is grossly normal but poo rly visible due to artifact from patient's large body habitus. The subcuta neous tissues and the musculature are normal in appearance. Multiple old p osterior lateral right lower rib fractures with extensive callus formation and chest wall deformity with herniation of the right lower lung la terally. IMPRESSION: The lungs are clear of in filtrates, effusion or congestion. No lung parenchymal mass or nodules. Herniation right lower lung laterally along the chest wall deformity fro m multiple old rib fractures. Routine 12 month follow-up is recommended. FOR INTERNAL CODING PURPOSES ONLY RESULT CODE: L1 FOLLOW UP: L12 E lectronically Signed by Carlton Velásquez on 05/31/2020 at 1426 Reported and signed by: Terence Velásquez M.D. PAGE 1 Signed Report (CONTINUED) Name: AISLINN BHATIA STEVEN Santoro [facility] : 1955 Age/S: 64 / M [address] [facility] Unit #: [id number] Loc: [place] [address] Phys: Ashok Simpson MD Acct: [id number] Dis Date: Status : REG CLI PHONE #: [phone] Exam Date: 0 05/31/2020 1350 FAX #: [phone] Reason: NICOTINE DE PEN EXAMS: CPT CODE: [id number] CT LD LUNG CA SCREENING G0297 <Continued> CC: Ashok Simpson MD; Guzman Llamas Technologist:Roberta ChoudharyRT(R),CT CTDI: DLP: Trnscb Date/Time: 05/31/2020 (0136) [email or web address] Orig Print D/T: S: 05/31/2020 (8453) PAGE 2 Signed Report - XR L-SPINE 4 + [id number] 14:06:00 FAX: Guzman Perry DO [phone] [place]: O St: REG Name: AISLINN JOYCE [facility] : [birth year] Age/S: 64/M [address] [facility] Unit #: [id number] Loc: [place] [address] Phys: Guzman Llamas DO Acct: [id number] Dis Date: Status: REG CLI PHONE #: [phone] Exam Date: 05/31/2020 1341 FAX #: [phone] Reason: DEGENERATIVE DISC DISEASE EXAMS: CPT CODE: [id number] XR L-SPINE 4 + VIEWS [id number] HISTORY: Degenerative disc disease . COMPARISON: None available. Location: [facility]. Lumbar spine series, 5 views: No acute fracture or dislocat ion. No spondylolysis. No spondylolisthesis. Vertebral body heights are ma intained. Narrowed disc space at L1-L2, L3-L4 and L5-S1 level. Anterolater al marginal osteophytes. Vascular stent on the left side within the common iliac vessel. IMPRESSION: No acute frac ture or dislocation. Vertebral body heights are maintained. DJD. at 1406 Reported and signed by: Terence Velásquez M.D. CC : Guzman Llamas Technologist: An tubbs RT(R) Trnscrd Date/Time/By: 05/31/2020 (2368) : By: [email or web address] Orig Print D/T: S: 05/31/2020 (1387) PAGE 1 Signed Report Large Joint Arthrocentesis: knee, R [id number] 15:00:00rBenton Rodriguez MD 04/25/2020 3:36 PMLarge Joint Arthrocentesis: knee, R kneeConsent given by: patientSupporting DocumentationIndications: pain Procedure DetailsLocation: knee - R knee Right side:Needle size: 22 GApproach: anter omedialRight knee medications administered: 3 mL lidocaine 10 mg/mL (1 %); 1 mL triamcinolone acetonide 40 mg/mLPatient tolerance: patient tolerated the procedu re well with no immediate complications [facility] MethodistADRENOCORTICOTROPIC [id number] 13:11:00* Test Item Value Reference Range Interpretation Comments ADRENOCORTICOTROPIC HORMONE (test code = ACTH) 7.6 pg/mL 7.2-63. 3 ACTH reference interval for samples collected between 7 and10 AM.Performed At: [facility] [address] [id number] Samuel Sprague MD Ph:[phone] [id number] 11:58:00* Test Item Value Reference Range Interpretation Comments GLUBED (test code = GLUBED) 259 mg/dL 74-106 H Performed by certified flower pot press operator at [facility] [id number] 09:07:00* Test Item Value Reference Range Interpretation Comments GLUBED (test code = GLUBED) 226 mg/dL 74-106 H Performed by certified flower pot press operator at [facility] [id number] 06:56:00* Test Item Value Reference Range Interpretation Comments GLUBED (test code = GLUBED) 249 mg/dL 74-106 H Performed by certified flower pot press operator at [facility] BASIC METABOLIC [id number] 04:54:00* Test Item Value Reference Range Interpretation Comments SODIUM (test code = NA) 142 mmol/L 136-145 N POTASSIUM (test code = K) 4.7 mmol/L 3.5-5.1 N CHLORIDE (test code = CL) 113.0 mmol/L 98-107 H CARBON DIOXIDE (test code = CO2) 23.0 mmol/L 21-32 N ANION GAP (test code = GAP) 10.7 10-20 N GLUCOSE (test code = GLU) 272 mg/dL 74-106 H BLOOD UREA NITROGEN (test code = BUN) 46 mg/dL 7-18 H GLOMERULAR FILTRATION RATE (test code = GFR) 43 mL/min >=60 Estimated GFR by using Modified MDRD formula.Chronic kidney disease is defined as either kidney damageor GFR <60 mL/min/1.73 m2 for >3 months. CREATININE (test code = CREAT) 1.60 mg/dL 0.7-1.3 H BUN/CREATININE RATIO (test code = BUN/CREA) 28.8 10-20 H CALCIUM (test code = CA) 9.2 mg/dL 8.5-10.1 N CBC W/AUTO [id number] 04:51:00* Test Item Value Reference Range Interpretation Comments WHITE BLOOD CELL (test code = WBC) 11.3 K/mm3 4.5-12.5 N RED BLOOD CELL (test code = RBC) 3.93 mill/mm3 4.0-5.8 L HEMOGLOBIN (test code = HGB) 12.9 gram/dL 13.0-17.5 L HEMATOCRIT (test code = HCT) 38.8 % 42.0-52.0 L MEAN CELL VOLUME (test code = MCV) 98.7 fL 80-98 H MEAN CELL HGB (test code = MCH) 32.8 picogram 27.0-33.0 N MEAN CELL HGB CONCETRATION (test code = MCHC) 33.2 gram/dL 33.0-36. 0 N RED CELL DISTRIBUTION WIDTH (test code = RDW) 12.7 % 11.6-16. 2 N RED CELL DISTRIBUTION WIDTH SD (test code = RDW-SD) 46.0 fL 37 .0-51.0 N PLATELET COUNT (test code = PLT) 182 K/mm3 150-450 N MEAN PLATELET VOLUME (test code = MPV) 11.6 fL 6.7-11.0 H NEUTROPHIL % (test code = NT%) 83.2 % 39.0-69.0 H IMMATURE GRANULOCYTE % (test code = IG%) 0.5 % 0.0-5.0 N LYMPHOCYTE % (test code = LY%) 9.9 % 25.0-55.0 L MONOCYTE % (test code = MO%) 5.7 % 0.0-10.0 N EOSINOPHIL % (test code = EO%) 0.4 % 0.0-5.0 N BASOPHIL % (test code = BA%) 0.3 % 0.0-1.0 N NUCLEATED RBC % (test code = NRBC%) 0.0 % 0-0 N NEUTROPHIL # (test code = NT#) 9.36 K/mm3 1.8-7.7 H IMMATURE GRANULOCYTE # (test code = IG#) 0.06 x10 3/uL 0-0.03 H LYMPHOCYTE # (test code = LY#) 1.12 K/mm3 1.0-5.0 N MONOCYTE # (test code = MO#) 0.64 K/mm3 0-0.8 N EOSINOPHIL # (test code = EO#) 0.05 K/mm3 0.0-0.5 N BASOPHIL # (test code = BA#) 0.03 K/mm3 0.0-0.2 N NUCLEATED RBC # (test code = NRBC#) 0.00 K/mm3 0.0-0.1 N BASIC METABOLIC [id number] 04:45:00* Test Item Value Reference Range Interpretation Comments SODIUM (test code = NA) 142 mmol/L 136-145 N POTASSIUM (test code = K) 4.7 mmol/L 3.5-5.1 N CHLORIDE (test code = CL) 113.0 mmol/L 98-107 H CARBON DIOXIDE (test code = CO2) mmol/L 21-32 ANION GAP (test code = GAP) 10-20 GLUCOSE (test code = GLU) mg/dL 74-106 BLOOD UREA NITROGEN (test code = BUN) mg/dL 7-18 GLOMERULAR FILTRATION RATE (test code = GFR) mL/min >=60 CREATININE (test code = CREAT) mg/dL 0.7-1.3 BUN/CREATININE RATIO (test code = BUN/CREA) 10-20 CALCIUM (test code = CA) mg/dL 8.5-10.1 [id number] 20:56:00* Test Item Value Reference Range Interpretation Comments GLUBED (test code = GLUBED) 236 mg/dL 74-106 H Performed by certified flower pot press operator at [facility] [id number] 16:04:00* Test Item Value Reference Range Interpretation Comments GLUBED (test code = GLUBED) 291 mg/dL 74-106 H Performed by certified flower pot press operator at [facility] T4 [id number] 14:45:00* Test Item Value Reference Range Interpretation Comments T4 FREE (test code = T4F) 0.88 ng/dL 0.76-1.46 N THYROID STIMULATING [id number] 14:45:00* Test Item Value Reference Range Interpretation Comments THYROID STIMULATING HORMONE (test code = TSH) 0.639 uIU/mL 0.36-3.7 4 N TSH REFERENCE RANGES: EUTHYROID: 0.35 - 4.3 mIU/mL HYPO : > 5.5 mIU/mL HYPER : < 0.35 mIU/mL [id number] 14:42:00* Test Item Value Reference Range Interpretation Comments GLYCOSYLATED HEMOGLOBIN (HA1C) (test code = GLYHGB) 11.0 % HbA1 SUGGESTED DIAGNOSIS: HbA1C (%) Diabetic >6.4Prediabetes 5.7 - 6.4Normal <5.7 ESTIMATED AVERAGE GLUCOSE (test code = EAG) 269 MG/DL [id number] 11:15:00* Test Item Value Reference Range Interpretation Comments GLUBED (test code = GLUBED) 273 mg/dL 74-106 H Performed by certified flower pot press operator at [facility] LIPID PROFILE (CORONARY RISK)2020-03-13 07:31:00* Test Item Value Reference Range Interpretation Comments TRIGLYCERIDES (test code = TRIG) 238 mg/dL 20-150 H CHOLESTEROL (test code = CHOL) 151 mg/dL 0-200 N CHOLESTEROL/HDL RATIO (test code = CHOLHDL) 5.0 RATIO 0-4.9 H RISK ASSOCIATED WITH CHOL/HDL RATIOS: Risk Male Female1/2 AVERAGE 3.43 3.27AVERAGE 4.97 4.442X AVERAGE 9.55 7.053X AVERAGE 23.39 11.04 REFERENCE VALUE IS RELATED TO RISK LEVELS ASRECOMMENDED BY THE SABINE. HEART, LUNG, AND BLOOD INST. HDL CHOLESTEROL (test code = HDL) 26 mg/dL 40-60 L LIPOPROTEIN LDL (test code = LDL) 87 mg/dL 100-129 L Reference Interval: mg/dL mmol/L Optimal <100 <2.6Near/above optimal 100-129 2.6- 3.3Borderline High 130-159 3.4-4.1High 160-189 4.1-4.9Very High >=190 >=4.9========= This LDL result is a direct measurement.========= [id number] 07:30:00* Test Item Value Reference Range Interpretation Comments GLUBED (test code = GLUBED) 237 mg/dL 74-106 H Performed by certified flower pot press operator at [facility] BASIC METABOLIC [id number] 05:46:00* Test Item Value Reference Range Interpretation Comments SODIUM (test code = NA) 143 mmol/L 136-145 N POTASSIUM (test code = K) 4.7 mmol/L 3.5-5.1 N CHLORIDE (test code = CL) 109.0 mmol/L 98-107 H CARBON DIOXIDE (test code = CO2) 24.0 mmol/L 21-32 N ANION GAP (test code = GAP) 14.7 10-20 N GLUCOSE (test code = GLU) 239 mg/dL 74-106 H BLOOD UREA NITROGEN (test code = BUN) 65 mg/dL 7-18 H GLOMERULAR FILTRATION RATE (test code = GFR) 32 mL/min >=60 Estimated GFR by using Modified MDRD formula.Chronic kidney disease is defined as either kidney damageor GFR <60 mL/min/1.73 m2 for >3 months. CREATININE (test code = CREAT) 2.10 mg/dL 0.7-1.3 H BUN/CREATININE RATIO (test code = BUN/CREA) 30.5 10-20 H CALCIUM (test code = CA) 8.5 mg/dL 8.5-10.1 N [id number] 05:46:00* Test Item Value Reference Range Interpretation Comments TROPONIN-I (test code = TROPI) <0.015 ng/mL 0-0.045 N COMMENTS TO SOFTBALL CORE MOLDER: COLLECT 3 HOURS AFTER PREVIOUS SAMPLEBASIC METABOLIC [id number] 05:30:00* Test Item Value Reference Range Interpretation Comments SODIUM (test code = NA) 143 mmol/L 136-145 N POTASSIUM (test code = K) 4.7 mmol/L 3.5-5.1 N CHLORIDE (test code = CL) 109.0 mmol/L 98-107 H CARBON DIOXIDE (test code = CO2) mmol/L 21-32 ANION GAP (test code = GAP) 10-20 GLUCOSE (test code = GLU) mg/dL 74-106 BLOOD UREA NITROGEN (test code = BUN) mg/dL 7-18 GLOMERULAR FILTRATION RATE (test code = GFR) mL/min >=60 CREATININE (test code = CREAT) mg/dL 0.7-1.3 BUN/CREATININE RATIO (test code = BUN/CREA) 10-20 CALCIUM (test code = CA) mg/dL 8.5-10.1 CBC W/AUTO [id number] 05:16:00* Test Item Value Reference Range Interpretation Comments WHITE BLOOD CELL (test code = WBC) 12.4 K/mm3 4.5-12.5 N RED BLOOD CELL (test code = RBC) 3.84 mill/mm3 4.0-5.8 L HEMOGLOBIN (test code = HGB) 12.8 gram/dL 13.0-17.5 L HEMATOCRIT (test code = HCT) 38.8 % 42.0-52.0 L MEAN CELL VOLUME (test code = MCV) 101.0 fL 80-98 H MEAN CELL HGB (test code = MCH) 33.3 picogram 27.0-33.0 H MEAN CELL HGB CONCETRATION (test code = MCHC) 33.0 gram/dL 33.0-36. 0 N RED CELL DISTRIBUTION WIDTH (test code = RDW) 13.0 % 11.6-16. 2 N RED CELL DISTRIBUTION WIDTH SD (test code = RDW-SD) 47.9 fL 37 .0-51.0 N PLATELET COUNT (test code = PLT) 170 K/mm3 150-450 N MEAN PLATELET VOLUME (test code = MPV) 11.0 fL 6.7-11.0 N NEUTROPHIL % (test code = NT%) 82.6 % 39.0-69.0 H IMMATURE GRANULOCYTE % (test code = IG%) 0.6 % 0.0-5.0 N LYMPHOCYTE % (test code = LY%) 9.5 % 25.0-55.0 L MONOCYTE % (test code = MO%) 6.4 % 0.0-10.0 N EOSINOPHIL % (test code = EO%) 0.6 % 0.0-5.0 N BASOPHIL % (test code = BA%) 0.3 % 0.0-1.0 N NUCLEATED RBC % (test code = NRBC%) 0.0 % 0-0 N NEUTROPHIL # (test code = NT#) 10.25 K/mm3 1.8-7.7 H IMMATURE GRANULOCYTE # (test code = IG#) 0.07 x10 3/uL 0-0.03 H LYMPHOCYTE # (test code = LY#) 1.18 K/mm3 1.0-5.0 N MONOCYTE # (test code = MO#) 0.79 K/mm3 0-0.8 N EOSINOPHIL # (test code = EO#) 0.07 K/mm3 0.0-0.5 N BASOPHIL # (test code = BA#) 0.04 K/mm3 0.0-0.2 N NUCLEATED RBC # (test code = NRBC#) 0.00 K/mm3 0.0-0.1 N MANUAL DIFF REQUIRED (test code = MDIFF) NO COVID 19 INHOUSE [id number] 00:36:00* Test Item Value Reference Range Interpretation Comments COVID 19 INHOUSE AG (test code = [id number]) NEGATIVE Is patient requiring admission or transfer? YIndication for rapid COVID-19 testi ng: High Clinical SuspicionTROPONIN-I 2020-03-12 23:22:00* Test Item Value Reference Range Interpretation Comments TROPONIN-I (test code = TROPI) <0.015 ng/mL 0-0.045 N COMMENTS TO SOFTBALL CORE MOLDER: COLLECT 3 HOURS AFTER PREVIOUS SAMPLEURINALYSIS [id number] 23:01:00* Test Item Value Reference Range Interpretation Comments UA COLOR (test code = COLU) Light-Yellow YELLOW UA APPEARANCE (test code = APPU) CLEAR CLEAR UA GLUCOSE DIPSTICK (test code = DGLUU) 300 (2+) mg/dL NEGATIVE A UA BILIRUBIN DIPSTICK (test code = BILU) NEGATIVE mg/dL NEGATIVE UA KETONE DIPSTICK (test code = KETU) NEGATIVE mg/dL NEGATIVE UA SPECIFIC GRAVITY (test code = SGU) 1.010 1.001-1.035 UA BLOOD DIPSTICK (test code = MARC) Negative mg/dL NEGATIVE UA PH DIPSTICK (test code = HARESH) 5.0 5.0-8.0 UA PROTEIN DIPSTICK (test code = PROU) NEGATIVE mg/dL NEGATIVE UA UROBILINIOGEN DIPSTICK (test code = URO) Normal mg/dL NEGATIVE UA NITRITE DIPSTICK (test code = LUDA) NEGATIVE NEGATIVE UA LEUKOCYTE ESTERASE W REFLEX (test code = LEUUR) NEGATIVE Mallory/uL NEGATIVE UA WBC (test code = WBCU) 0-5 per HPF 0-5 UA RBC (test code = RBCU) 0-2 #/HPF 0-5 UA EPITHELIAL CELLS (test code = EPIU) FEW per HPF FEW UA BACTERIA (test code = BACU) NONE SEEN #/HPF NONE UA HYALINE CAST (test code = HYALU) 11-20 #/LPF 0-5 A UA MUCUS (test code = MUCU) FEW #/LPF FEW Urine Source? Clean CatchTHYROID PROFILE [id number] 20:49:00* Test Item Value Reference Range Interpretation Comments T3 UPTAKE (test code = T3UP) 36.0 % 30.0-40.0 N T4 (THYROXINE) (test code = T4) 7.9 ug/dL 4.5-13.9 N T7 (FREE THYROXINE INDEX) (test code = T7) 2.84 FTI 1.3-5.1 N THYROID STIMULATING HORMONE (test code = TSH) 2.480 uIU/mL 0.36-3.7 4 N TSH REFERENCE RANGES: EUTHYROID: 0.35 - 4.3 mIU/mL HYPO : > 5.5 mIU/mL HYPER : < 0.35 mIU/mL SPECIMEN COMMENTS: add onCOMMENTS TO SOFTBALL CORE MOLDER: add onB-TYPE NATRIURETIC [id number] 15:30:00* Test Item Value Reference Range Interpretation Comments B-TYPE NATRIURETIC PEPTIDE (test code = BNP) 61.25 pgram/mL 0-100 N BASIC METABOLIC [id number] 14:15:00* Test Item Value Reference Range Interpretation Comments SODIUM (test code = NA) 142 mmol/L 136-145 N POTASSIUM (test code = K) 3.7 mmol/L 3.5-5.1 N CHLORIDE (test code = CL) 111.0 mmol/L 98-107 H CARBON DIOXIDE (test code = CO2) 21.0 mmol/L 21-32 N ANION GAP (test code = GAP) 13.7 10-20 N GLUCOSE (test code = GLU) 92 mg/dL 74-106 N BLOOD UREA NITROGEN (test code = BUN) 69 mg/dL 7-18 H GLOMERULAR FILTRATION RATE (test code = GFR) 26 mL/min >=60 Estimated GFR by using Modified MDRD formula.Chronic kidney disease is defined as either kidney damageor GFR <60 mL/min/1.73 m2 for >3 months. CREATININE (test code = CREAT) 2.50 mg/dL 0.7-1.3 H BUN/CREATININE RATIO (test code = BUN/CREA) 27.9 10-20 H CALCIUM (test code = CA) 8.5 mg/dL 8.5-10.1 N HEPATIC FUNCTION [id number] 14:15:00* Test Item Value Reference Range Interpretation Comments TOTAL PROTEIN (test code = PROT) 7.5 gram/dL 6.4-8.2 N ALBUMIN (test code = ALB) 3.5 g/dL 3.4-5.0 N GLOBULIN (test code = GLOB) 4.0 gram/dL 2.7-4.2 N ALBUMIN/GLOBULIN RATIO (test code = A/G) 0.9 0.75-1.50 N BILIRUBIN TOTAL (test code = BILT) 0.20 mg/dL 0.0-1.0 N BILIRUBIN DIRECT (test code = BILD) 0.09 mg/dL 0.0-0.20 N SGOT/AST (test code = AST) 17 IUnit/L 15-37 N SGPT/ALT (test code = ALT) 25 IUnit/L 12-78 N ALKALINE PHOSPHATASE TOTAL (test code = ALKP) 118 IUnit/L 45-117 H Note change in reference range due to change in reagent. [id number] 14:15:00* Test Item Value Reference Range Interpretation Comments LIPASE (test code = LIP) 59 U/L 73.0-393.0 L [id number] 14:15:00* Test Item Value Reference Range Interpretation Comments TROPONIN-I (test code = TROPI) <0.015 ng/mL 0-0.045 N BASIC METABOLIC [id number] 14:01:00* Test Item Value Reference Range Interpretation Comments SODIUM (test code = NA) 142 mmol/L 136-145 N POTASSIUM (test code = K) 3.7 mmol/L 3.5-5.1 N CHLORIDE (test code = CL) 111.0 mmol/L 98-107 H CARBON DIOXIDE (test code = CO2) mmol/L 21-32 ANION GAP (test code = GAP) 10-20 GLUCOSE (test code = GLU) mg/dL 74-106 BLOOD UREA NITROGEN (test code = BUN) mg/dL 7-18 GLOMERULAR FILTRATION RATE (test code = GFR) mL/min >=60 CREATININE (test code = CREAT) mg/dL 0.7-1.3 BUN/CREATININE RATIO (test code = BUN/CREA) 10-20 CALCIUM (test code = CA) mg/dL 8.5-10.1 HEPATIC FUNCTION [id number] 14:01:00* Test Item Value Reference Range Interpretation Comments TOTAL PROTEIN (test code = PROT) gram/dL 6.4-8.2 ALBUMIN (test code = ALB) g/dL 3.4-5.0 GLOBULIN (test code = GLOB) gram/dL 2.7-4.2 ALBUMIN/GLOBULIN RATIO (test code = A/G) 0.75-1.50 BILIRUBIN TOTAL (test code = BILT) mg/dL 0.0-1.0 BILIRUBIN DIRECT (test code = BILD) mg/dL 0.0-0.20 SGOT/AST (test code = AST) IUnit/L 15-37 SGPT/ALT (test code = ALT) IUnit/L 12-78 ALKALINE PHOSPHATASE TOTAL (test code = ALKP) IUnit/L 45-117 [id number] 14:01:00* Test Item Value Reference Range Interpretation Comments LIPASE (test code = LIP) U/L 73.0-393.0 [id number] 14:01:00* Test Item Value Reference Range Interpretation Comments TROPONIN-I (test code = TROPI) ng/mL 0-0.045 PROTHROMBIN [id number] 13:59:00* Test Item Value Reference Range Interpretation Comments PROTHROMBIN TIME PATIENT (test code = PTP) 10.9 seconds 9.0-14.0 N INTERNATIONAL NORMAL RATIO (test code = INR) 0.9 0.8-1.2 N The therapeutic range for oral anticoagulant therapy formost indications is an international normalized ratio (INR)of between 2.0 and 3.0. The recommended therapeutic INRrange for various clinical situations is listed below: Clinical Situation INR range Pulmonary e mbolism treatment (2.0-3.0)Venous thrombosis treatmentVenous thrombosis prophylaxis (high risk surgery)Prevention of systemic embolism from: Acute myocardial infarction Valvular heart disease Atrial fibrillation Mechanical prosthetic heart valves (2.5-3.5) IS PATIENT ON ANTICOAGULANTS? NTHROMBOPLASTIN TIME [id number] 13:59:00* Test Item Value Reference Range Interpretation Comments THROMBOPLASTIN TIME PARTIAL (test code = PTT) 22.9 seconds 23.0-37. 0 L IS PATIENT ON ANTICOAGULANTS? NCBC W/O [id number] 13:48:00* Test Item Value Reference Range Interpretation Comments WHITE BLOOD CELL (test code = WBC) 12.3 K/mm3 4.5-12.5 N RED BLOOD CELL (test code = RBC) 4.03 mill/mm3 4.0-5.8 N HEMOGLOBIN (test code = HGB) 13.5 gram/dL 13.0-17.5 N HEMATOCRIT (test code = HCT) 40.4 % 42.0-52.0 L MEAN CELL VOLUME (test code = MCV) 100.2 fL 80-98 H MEAN CELL HGB (test code = MCH) 33.5 picogram 27.0-33.0 H MEAN CELL HGB CONCETRATION (test code = MCHC) 33.4 gram/dL 33.0-36. 0 N RED CELL DISTRIBUTION WIDTH (test code = RDW) 12.7 % 11.6-16. 2 N PLATELET COUNT (test code = PLT) 177 K/mm3 150-450 N MEAN PLATELET VOLUME (test code = MPV) 11.4 fL 6.7-11.0 H - XR CHEST 1 [id number] 13:32:00 FAX: Ellis Lobo [phone] [place]: St: PRE FAX: Guzman Perry DO [phone] Name: AISLINN BHATIA [facility] : 1955 Age/S: 64/M [address] [facility] Unit #: [id number] Loc: [place] [address] Phys: Ellis Lobo MD Acct: [id number] Dis Date: Status: PRE ER PHONE #: [phone] Exam Date: 03/12/2020 1326 FAX #: [phone] Reason: CHEST PAIN EXAMS: CPT CODE: [id number] XR CHEST 1 V [id number] HISTORY: Chest pain. COMPARISON: September 29, 2019. Location: [facility]. No acute infiltrates, effusion or congestion is noted. Cardiomegaly. Old posterior lateral lower right rib fractures noted again. IMPRESSION: No acute infiltrates, effusion or congestion. at 1332 Reported and signed by: Terence Velásquez M.D. CC: Ellis Lobo MD; Guzman Llamas Technologist: CYDNEY LOAIZA) Trnscrd Date/Time/By: 03/12/2020 ([id number]) : By: [email or web address] Orig Print D/T: S: 03/12/2020 (4222) PAGE 1 Signed Report NT PRO-BRAIN NATRIURETIC PEPTI 2020-02-17 00:11:00* Test Item Value Reference Range Interpretation Comments NT PRO-BRAIN NATRIURETIC PEPTI (test code = PROBNP) 904 PG/ML 0- 125 H Has Patient received Natrecor? NOBASIC METABOLIC [id number] 00:11:00* Test Item Value Reference Range Interpretation Comments SODIUM (test code = NA) 141 mmol/L 136-145 N POTASSIUM (test code = K) 4.4 mmol/L 3.5-5.1 N CHLORIDE (test code = CL) 108.0 mmol/L 98-107 H CARBON DIOXIDE (test code = CO2) 25.0 mmol/L 21-32 N ANION GAP (test code = GAP) 12.4 10-20 N GLUCOSE (test code = GLU) 242 mg/dL 74-106 H BLOOD UREA NITROGEN (test code = BUN) 29 mg/dL 7-18 H GLOMERULAR FILTRATION RATE (test code = GFR) 51 mL/min >=60 Estimated GFR by using Modified MDRD formula.Chronic kidney disease is defined as either kidney damageor GFR <60 mL/min/1.73 m2 for >3 months. CREATININE (test code = CREAT) 1.40 mg/dL 0.7-1.3 H BUN/CREATININE RATIO (test code = BUN/CREA) 21.5 10-20 H CALCIUM (test code = CA) 9.0 mg/dL 8.5-10.1 N Has Patient received Natrecor? NONT PRO-BRAIN NATRIURETIC [id number] 00:11:00* Test Item Value Reference Range Interpretation Comments NT PRO-BRAIN NATRIURETIC PEPTI (test code = PROBNP) 904 PG/ML 0- 125 H Has Patient received Natrecor? NOBASIC METABOLIC [id number] 12:28:00* Test Item Value Reference Range Interpretation Comments SODIUM (test code = NA) 141 mmol/L 136-145 N POTASSIUM (test code = K) 4.4 mmol/L 3.5-5.1 N CHLORIDE (test code = CL) 108.0 mmol/L 98-107 H CARBON DIOXIDE (test code = CO2) 25.0 mmol/L 21-32 N ANION GAP (test code = GAP) 12.4 10-20 N GLUCOSE (test code = GLU) 242 mg/dL 74-106 H BLOOD UREA NITROGEN (test code = BUN) 29 mg/dL 7-18 H GLOMERULAR FILTRATION RATE (test code = GFR) 51 mL/min >=60 Estimated GFR by using Modified MDRD formula.Chronic kidney disease is defined as either kidney damageor GFR <60 mL/min/1.73 m2 for >3 months. CREATININE (test code = CREAT) 1.40 mg/dL 0.7-1.3 H BUN/CREATININE RATIO (test code = BUN/CREA) 21.5 10-20 H CALCIUM (test code = CA) 9.0 mg/dL 8.5-10.1 N Has Patient received Natrecor? NONT PRO-BRAIN NATRIURETIC [id number] 12:28:00* Test Item Value Reference Range Interpretation Comments NT PRO-BRAIN NATRIURETIC PEPTI (test code = PROBNP) PG/ML 0- 100 Has Patient received Natrecor? NOBASIC METABOLIC [id number] 12:24:00* Test Item Value Reference Range Interpretation Comments SODIUM (test code = NA) 141 mmol/L 136-145 N POTASSIUM (test code = K) 4.4 mmol/L 3.5-5.1 N CHLORIDE (test code = CL) 108.0 mmol/L 98-107 H CARBON DIOXIDE (test code = CO2) mmol/L 21-32 ANION GAP (test code = GAP) 10-20 GLUCOSE (test code = GLU) mg/dL 74-106 BLOOD UREA NITROGEN (test code = BUN) mg/dL 7-18 GLOMERULAR FILTRATION RATE (test code = GFR) mL/min >=60 CREATININE (test code = CREAT) mg/dL 0.7-1.3 BUN/CREATININE RATIO (test code = BUN/CREA) 10-20 CALCIUM (test code = CA) mg/dL 8.5-10.1 Has Patient received Natrecor? NONT PRO-BRAIN NATRIURETIC [id number] 12:24:00* Test Item Value Reference Range Interpretation Comments NT PRO-BRAIN NATRIURETIC PEPTI (test code = PROBNP) PG/ML 0- 100 Has Patient received Natrecor? [id number] 11:29:00* Test Item Value Reference Range Interpretation Comments GLYCOSYLATED HEMOGLOBIN (HA1C) (test code = GLYHGB) 10.2 % HbA1 SUGGESTED DIAGNOSIS: HbA1C (%) Diabetic >6.4Prediabetes 5.7 - 6.4Normal <5.7 ESTIMATED AVERAGE GLUCOSE (test code = EAG) 246 MG/DL HGB [id number] 11:18:00* Test Item Value Reference Range Interpretation Comments HEMOGLOBIN (test code = HGB) 12.4 gram/dL 13.0-17.5 L HEMATOCRIT (test code = HCT) 37.2 % 42.0-52.0 L BASIC METABOLIC [id number] 03:17:00* Test Item Value Reference Range Interpretation Comments SODIUM (test code = NA) 141 mmol/L 136-145 N POTASSIUM (test code = K) 4.8 mmol/L 3.5-5.1 N CHLORIDE (test code = CL) 109.0 mmol/L 98-107 H CARBON DIOXIDE (test code = CO2) 28.0 mmol/L 21-32 N ANION GAP (test code = GAP) 8.8 10-20 L GLUCOSE (test code = GLU) 269 mg/dL 74-106 H BLOOD UREA NITROGEN (test code = BUN) 30 mg/dL 7-18 H GLOMERULAR FILTRATION RATE (test code = GFR) 51 mL/min >=60 Estimated GFR by using Modified MDRD formula.Chronic kidney disease is defined as either kidney damageor GFR <60 mL/min/1.73 m2 for >3 months. CREATININE (test code = CREAT) 1.40 mg/dL 0.7-1.3 H BUN/CREATININE RATIO (test code = BUN/CREA) 21.4 10-20 H CALCIUM (test code = CA) 9.6 mg/dL 8.5-10.1 N #[id number] Patient received Natrecor? NOHas Patient received Natrecor? NOLIPID PROFILE (CORONARY RISK)2019-10-24 03:17:00* Test Item Value Reference Range Interpretation Comments TRIGLYCERIDES (test code = TRIG) 176 mg/dL 20-150 H CHOLESTEROL (test code = CHOL) 118 mg/dL 0-200 N CHOLESTEROL/HDL RATIO (test code = CHOLHDL) 3.0 RATIO 0-4.9 N RISK ASSOCIATED WITH CHOL/HDL RATIOS: Risk Male Female1/2 AVERAGE 3.43 3.27AVERAGE 4.97 4.442X AVERAGE 9.55 7.053X AVERAGE 23.39 11.04 REFERENCE VALUE IS RELATED TO RISK LEVELS ASRECOMMENDED BY THE SABINE. HEART, LUNG, AND BLOOD INST. HDL CHOLESTEROL (test code = HDL) 33 mg/dL 40-60 L LIPOPROTEIN LDL (test code = LDL) 66 mg/dL 100-129 L Reference Interval: mg/dL mmol/L Optimal <100 <2.6Near/above optimal 100-129 2.6- 3.3Borderline High 130-159 3.4-4.1High 160-189 4.1-4.9Very High >=190 >=4.9========= This LDL result is a direct measurement.========= #[id number] Patient received Natrecor? NOHas Patient received Natrecor? NONT PRO-BRAIN NATRIURETIC [id number] 03:17:00* Test Item Value Reference Range Interpretation Comments NT PRO-BRAIN NATRIURETIC PEPTI (test code = PROBNP) 1330 PG/ML 0- 125 H #[id number] Patient received Natrecor? NOHas Patient received Natrecor? NONT PRO-BRAIN NATRIURETIC [id number] 03:16:00* Test Item Value Reference Range Interpretation Comments NT PRO-BRAIN NATRIURETIC PEPTI (test code = PROBNP) 1330 PG/ML 0- 125 H Has Patient received Natrecor? NOBASIC METABOLIC [id number] 12:03:00* Test Item Value Reference Range Interpretation Comments SODIUM (test code = NA) 141 mmol/L 136-145 N POTASSIUM (test code = K) 4.8 mmol/L 3.5-5.1 N CHLORIDE (test code = CL) 109.0 mmol/L 98-107 H CARBON DIOXIDE (test code = CO2) 28.0 mmol/L 21-32 N ANION GAP (test code = GAP) 8.8 10-20 L GLUCOSE (test code = GLU) 269 mg/dL 74-106 H BLOOD UREA NITROGEN (test code = BUN) 30 mg/dL 7-18 H GLOMERULAR FILTRATION RATE (test code = GFR) 51 mL/min >=60 Estimated GFR by using Modified MDRD formula.Chronic kidney disease is defined as either kidney damageor GFR <60 mL/min/1.73 m2 for >3 months. CREATININE (test code = CREAT) 1.40 mg/dL 0.7-1.3 H BUN/CREATININE RATIO (test code = BUN/CREA) 21.4 10-20 H CALCIUM (test code = CA) 9.6 mg/dL 8.5-10.1 N Has Patient received Natrecor? NOLIPID PROFILE (CORONARY RISK)2019-10-23 12:03:00* Test Item Value Reference Range Interpretation Comments TRIGLYCERIDES (test code = TRIG) 176 mg/dL 20-150 H CHOLESTEROL (test code = CHOL) 118 mg/dL 0-200 N CHOLESTEROL/HDL RATIO (test code = CHOLHDL) 3.0 RATIO 0-4.9 N RISK ASSOCIATED WITH CHOL/HDL RATIOS: Risk Male Female1/2 AVERAGE 3.43 3.27AVERAGE 4.97 4.442X AVERAGE 9.55 7.053X AVERAGE 23.39 11.04 REFERENCE VALUE IS RELATED TO RISK LEVELS ASRECOMMENDED BY THE SABINE. HEART, LUNG, AND BLOOD INST. HDL CHOLESTEROL (test code = HDL) 33 mg/dL 40-60 L LIPOPROTEIN LDL (test code = LDL) 66 mg/dL 100-129 L Reference Interval: mg/dL mmol/L Optimal <100 <2.6Near/above optimal 100-129 2.6- 3.3Borderline High 130-159 3.4-4.1High 160-189 4.1-4.9Very High >=190 >=4.9========= This LDL result is a direct measurement.========= Has Patient received Natrecor? NONT PRO-BRAIN NATRIURETIC [id number] 12:03:00* Test Item Value Reference Range Interpretation Comments NT PRO-BRAIN NATRIURETIC PEPTI (test code = PROBNP) PG/ML 0- 100 Has Patient received Natrecor? NOBASIC METABOLIC [id number] 11:56:00* Test Item Value Reference Range Interpretation Comments SODIUM (test code = NA) 141 mmol/L 136-145 N POTASSIUM (test code = K) 4.8 mmol/L 3.5-5.1 N CHLORIDE (test code = CL) 109.0 mmol/L 98-107 H CARBON DIOXIDE (test code = CO2) mmol/L 21-32 ANION GAP (test code = GAP) 10-20 GLUCOSE (test code = GLU) mg/dL 74-106 BLOOD UREA NITROGEN (test code = BUN) mg/dL 7-18 GLOMERULAR FILTRATION RATE (test code = GFR) mL/min >=60 CREATININE (test code = CREAT) mg/dL 0.7-1.3 BUN/CREATININE RATIO (test code = BUN/CREA) 10-20 CALCIUM (test code = CA) mg/dL 8.5-10.1 Has Patient received Natrecor? NOLIPID PROFILE (CORONARY RISK)2019-10-23 11:56:00* Test Item Value Reference Range Interpretation Comments TRIGLYCERIDES (test code = TRIG) mg/dL 20-150 CHOLESTEROL (test code = CHOL) mg/dL 0-200 CHOLESTEROL/HDL RATIO (test code = CHOLHDL) RATIO 0-4.9 HDL CHOLESTEROL (test code = HDL) mg/dL 40-60 LIPOPROTEIN LDL (test code = LDL) mg/dL 100-129 Has Patient received Natrecor? NONT PRO-BRAIN NATRIURETIC [id number] 11:56:00* Test Item Value Reference Range Interpretation Comments NT PRO-BRAIN NATRIURETIC PEPTI (test code = PROBNP) PG/ML 0- 100 Has Patient received Natrecor? NOHGB [id number] 11:49:00* Test Item Value Reference Range Interpretation Comments HEMOGLOBIN (test code = HGB) 13.0 gram/dL 13.0-17.5 N HEMATOCRIT (test code = HCT) 39.5 % 42.0-52.0 L HGB [id number] 11:36:00* Test Item Value Reference Range Interpretation Comments HEMOGLOBIN (test code = HGB) 13.0 gram/dL 13.0-17.5 N HEMATOCRIT (test code = HCT) % 42.0-52.0 COAGULATION TIME [id number] 14:33:00* Test Item Value Reference Range Interpretation Comments COAGULATION TIME ACTIVATED (test code = ACT) 118 seconds 62.8-88.0 H COAGULATION TIME [id number] 14:33:00* Test Item Value Reference Range Interpretation Comments COAGULATION TIME ACTIVATED (test code = ACT) 188 seconds 62.8-88.0 H COAGULATION TIME [id number] 14:33:00* Test Item Value Reference Range Interpretation Comments COAGULATION TIME ACTIVATED (test code = ACT) 354 seconds 62.8-88.0 H COAGULATION TIME [id number] 14:33:00* Test Item Value Reference Range Interpretation Comments COAGULATION TIME ACTIVATED (test code = ACT) 360 seconds 62.8-88.0 H COAGULATION TIME [id number] 14:33:00* Test Item Value Reference Range Interpretation Comments COAGULATION TIME ACTIVATED (test code = ACT) 209 seconds 62.8-88.0 H COAGULATION TIME [id number] 14:33:00* Test Item Value Reference Range Interpretation Comments COAGULATION TIME ACTIVATED (test code = ACT) 232 seconds 62.8-88.0 H COAGULATION TIME [id number] 14:33:00* Test Item Value Reference Range Interpretation Comments COAGULATION TIME ACTIVATED (test code = ACT) 190 seconds 62.8-88.0 H [id number] 16:43:00 RUN DATE: 10/03/19 [facility] PAGE 1 RUN TIME: 1643 Specimen Inqui ry RUN USER: INTERFACE PATIENT: AISLINN BHATIA ACCT #: [id number] LOC: KARLA U #: [id number] AGE/SX: 64/M ROOM: [facility] RE09/29/19REG DR: Tr Black MD : 51 BED: A DIS: 10/01/19 STATUS: DIS IN TLOC: SPEC #: [id number] RECD: 09/29/19 STATUS: ERICH REQ #: [id number] ALICIA: 09/29/19- SUBM DR: Aniyah Ramirez MD ENTERED: 09/29/19 SP TYPE: PLAQUE OTHR DR: Anabell Sher i, MDGuzman D DOORDERED: DAWN COPIES TO: Anabell Stout MD [address] [place] [address] Guzman Llamas DO [address] [place] [address] Aniyah Ramirez MD [address] [facility] Kellee Gibbons, [place] [phone] PROCEDURES: DAWN (10/03/19- 1348) TISSUES: FEMORAL ARTERY, NOS - COMMON PLAQUE CLINICAL HI STORY COLLECTION DATE: 09/29/19 RIGHT LEG PVD FINAL DIAGNOSIS Common femoral artery, endarterectomy: PARTIALLY CALCIFIED ATHEROMATOUS PLAQUE MATERIAL WITH SOME ATTACHED INTIMAL TISSUE ROULA/bernie Wilson [address], [id number] CONTINUED ON NEXT PAGE RUN DATE: 10/03/19 [employer] [facility] PAGE 2 RUN TIME: 1643 Specimen I nquiry RUN USER: INTERFACE SPEC #: [id number] PATIENT: AISLINN BHATIA #[id number] (Continued) MACROSCO PIC The specimen is received in formalin, labeled with the patient's name, an d identified as "common femoral endarterectomy". It consists of multiple gr ay-yellow fragments of tissue/material measuring 3.7 x 2.7 x 0.7 cm. The spec imen is placed in decalcification solution and allowed to decalcify before ramonita pling. Samples of the specimen are submitted for microscopic evaluation in a single cassette after the specimen is allowed to decalcify. GROSS PER FORMED AT [facility] [address] [place] [address] [phone])[phone] MICROSCOPIC All of the stains, including any controls performed, stain appropriately. MICROSCOPIC PERFORMED AT [facility] [address] [place] [address] [phone] [facility] SITE Diagnosis performed at: [facility] [address] [place] [address] Signed SIGNATURE ON FILE Mera Bond MD 10/03/19 1643 END OF REPORT ARTERIAL BLOOD [id number] 09:38:00* Test Item Value Reference Range Interpretation Comments ARTERIAL BLOOD GAS PH (test code = PHA) 7.37 7.35-7.45 N ARTERIAL BLOOD GAS PCO2 (test code = PCO2A) 45.2 mm Hg 35-45 H ARTERIAL BLOOD GAS PO2 (test code = PO2A) 294.8 mmHg 80-100 H BICARBONATE TOTAL HCO3 (test code = HCO3) 25.8 mmol/L 23.0-27.0 N BASE EXCESS (test code = BHARATHI) 0.3 mmol/L -3.0-5.0 N ABG O2 SATURATION (test code = SATA) 98.6 % 90.0-98.0 H ABG TYPE (test code = TYPEA) Arterial FIO2 (test code = FIO2A) 98.0 MODIFIED ALLENS (test code = MODALL) Unable CHECK PERFORMED SODIUM (test code = NA/ABG) 137.8 mEq/L 135-148 N POTASSIUM (test code = K/ABG) 4.3 mEq/L 3.5-4.5 N CHLORIDE (test code = CL/ABG) 104 mEq/L 98-106 N GLUCOSE (test code = GLU/ABG) 190 mg/dL 74-99 H HEMATOCRIT (test code = HCT/ABG) 32 % 42-52 L IONIZED CALCIUM (test code = CAIABG) 1.11 mmol/L 1.1-1.37 N TOTAL HGB (test code = THB) 10.8 gram/dL 13.0-17.5 L HGB O2 SAT (test code = HBOSAT) 96.1 % 94.00-98.00 N CARBOXYHEMOGLOBIN (test code = HOHGBT) 2.2 %totalHg 0.5-1.5 HH Results called to and read back by DR. James 10:40 - 09/29/2019; by JASON METHEMOGLOBIN (test code = METHGB) 0.3 % 0.0-1.50 N O2 CONTENT (test code = O2CT) 15.4 % vol 18.0-22.0 L [id number] 17:23:00* Test Item Value Reference Range Interpretation Comments GLUBED (test code = GLUBED) 180 mg/dL 74-106 H Performed by certified flower pot press operator at [facility] [id number] 12:59:00* Test Item Value Reference Range Interpretation Comments GLUBED (test code = GLUBED) 242 mg/dL 74-106 H Performed by certified flower pot press operator at [facility] [id number] 05:58:00* Test Item Value Reference Range Interpretation Comments GLUBED (test code = GLUBED) 202 mg/dL 74-106 H Performed by certified flower pot press operator at [facility] BASIC METABOLIC [id number] 02:39:00* Test Item Value Reference Range Interpretation Comments SODIUM (test code = NA) 140 mmol/L 136-145 N POTASSIUM (test code = K) 3.8 mmol/L 3.5-5.1 N CHLORIDE (test code = CL) 103.0 mmol/L 98-107 N CARBON DIOXIDE (test code = CO2) 31.0 mmol/L 21-32 N ANION GAP (test code = GAP) 9.8 10-20 L GLUCOSE (test code = GLU) 225 mg/dL 74-106 H BLOOD UREA NITROGEN (test code = BUN) 26 mg/dL 7-18 H GLOMERULAR FILTRATION RATE (test code = GFR) > 60 mL/min >=60 Estimated GFR by using Modified MDRD formula.Chronic kidney disease is defined as either kidney damageor GFR <60 mL/min/1.73 m2 for >3 months. CREATININE (test code = CREAT) 1.20 mg/dL 0.7-1.3 N BUN/CREATININE RATIO (test code = BUN/CREA) 21.7 10-20 H CALCIUM (test code = CA) 8.1 mg/dL 8.5-10.1 L [id number] 02:39:00* Test Item Value Reference Range Interpretation Comments MAGNESIUM (test code = MAG) 1.9 mg/dL 1.8-2.4 N BASIC METABOLIC [id number] 02:33:00* Test Item Value Reference Range Interpretation Comments SODIUM (test code = NA) 140 mmol/L 136-145 N POTASSIUM (test code = K) 3.8 mmol/L 3.5-5.1 N CHLORIDE (test code = CL) 103.0 mmol/L 98-107 N CARBON DIOXIDE (test code = CO2) mmol/L 21-32 ANION GAP (test code = GAP) 10-20 GLUCOSE (test code = GLU) mg/dL 74-106 BLOOD UREA NITROGEN (test code = BUN) mg/dL 7-18 GLOMERULAR FILTRATION RATE (test code = GFR) mL/min >=60 CREATININE (test code = CREAT) mg/dL 0.7-1.3 BUN/CREATININE RATIO (test code = BUN/CREA) 10-20 CALCIUM (test code = CA) mg/dL 8.5-10.1 [id number] 02:33:00* Test Item Value Reference Range Interpretation Comments MAGNESIUM (test code = MAG) mg/dL 1.8-2.4 CBC W/O [id number] 02:15:00* Test Item Value Reference Range Interpretation Comments WHITE BLOOD CELL (test code = WBC) 8.3 K/mm3 4.5-12.5 N RED BLOOD CELL (test code = RBC) 2.98 mill/mm3 4.0-5.8 L HEMOGLOBIN (test code = HGB) 9.9 gram/dL 13.0-17.5 L HEMATOCRIT (test code = HCT) 29.5 % 42.0-52.0 L MEAN CELL VOLUME (test code = MCV) 99.0 fL 80-98 H MEAN CELL HGB (test code = MCH) 33.2 picogram 27.0-33.0 H MEAN CELL HGB CONCETRATION (test code = MCHC) 33.6 gram/dL 33.0-36. 0 N RED CELL DISTRIBUTION WIDTH (test code = RDW) 13.6 % 11.6-16. 2 N PLATELET COUNT (test code = PLT) 136 K/mm3 150-450 L MEAN PLATELET VOLUME (test code = MPV) 10.9 fL 6.7-11.0 N [id number] 20:13:00* Test Item Value Reference Range Interpretation Comments GLUBED (test code = GLUBED) 280 mg/dL 74-106 H Performed by certified flower pot press operator at [facility] [id number] 18:05:00* Test Item Value Reference Range Interpretation Comments GLUBED (test code = GLUBED) 165 mg/dL 74-106 H Performed by certified flower pot press operator at [facility] [id number] 16:27:00* Test Item Value Reference Range Interpretation Comments GLUBED (test code = GLUBED) 143 mg/dL 74-106 H Performed by certified flower pot press operator at [facility] [id number] 11:00:00* Test Item Value Reference Range Interpretation Comments GLUBED (test code = GLUBED) 266 mg/dL 74-106 H Performed by certified flower pot press operator at [facility] [id number] 07:21:00* Test Item Value Reference Range Interpretation Comments GLUBED (test code = GLUBED) 159 mg/dL 74-106 H Performed by certified flower pot press operator at [facility] BASIC METABOLIC [id number] 03:09:00* Test Item Value Reference Range Interpretation Comments SODIUM (test code = NA) 141 mmol/L 136-145 N POTASSIUM (test code = K) 4.5 mmol/L 3.5-5.1 N CHLORIDE (test code = CL) 106.0 mmol/L 98-107 N CARBON DIOXIDE (test code = CO2) 33.0 mmol/L 21-32 H ANION GAP (test code = GAP) 6.5 10-20 L GLUCOSE (test code = GLU) 159 mg/dL 74-106 H BLOOD UREA NITROGEN (test code = BUN) 23 mg/dL 7-18 H GLOMERULAR FILTRATION RATE (test code = GFR) > 60 mL/min >=60 Estimated GFR by using Modified MDRD formula.Chronic kidney disease is defined as either kidney damageor GFR <60 mL/min/1.73 m2 for >3 months. CREATININE (test code = CREAT) 1.20 mg/dL 0.7-1.3 N BUN/CREATININE RATIO (test code = BUN/CREA) 19.2 10-20 N CALCIUM (test code = CA) 8.1 mg/dL 8.5-10.1 L [id number] 03:09:00* Test Item Value Reference Range Interpretation Comments MAGNESIUM (test code = MAG) 2.0 mg/dL 1.8-2.4 N BASIC METABOLIC [id number] 01:17:00* Test Item Value Reference Range Interpretation Comments SODIUM (test code = NA) 141 mmol/L 136-145 N POTASSIUM (test code = K) 4.5 mmol/L 3.5-5.1 N CHLORIDE (test code = CL) 106.0 mmol/L 98-107 N CARBON DIOXIDE (test code = CO2) 33.0 mmol/L 21-32 H ANION GAP (test code = GAP) 6.5 10-20 L GLUCOSE (test code = GLU) 159 mg/dL 74-106 H BLOOD UREA NITROGEN (test code = BUN) 23 mg/dL 7-18 H GLOMERULAR FILTRATION RATE (test code = GFR) > 60 mL/min >=60 Estimated GFR by using Modified MDRD formula.Chronic kidney disease is defined as either kidney damageor GFR <60 mL/min/1.73 m2 for >3 months. CREATININE (test code = CREAT) 1.20 mg/dL 0.7-1.3 N BUN/CREATININE RATIO (test code = BUN/CREA) 19.2 10-20 N CALCIUM (test code = CA) 8.1 mg/dL 8.5-10.1 L CBC W/AUTO [id number] 00:59:00* Test Item Value Reference Range Interpretation Comments WHITE BLOOD CELL (test code = WBC) 11.8 K/mm3 4.5-12.5 N RED BLOOD CELL (test code = RBC) 3.09 mill/mm3 4.0-5.8 L HEMOGLOBIN (test code = HGB) 10.3 gram/dL 13.0-17.5 L RESULT VERIFIED BY REPEAT ANALYSIS HEMATOCRIT (test code = HCT) 31.4 % 42.0-52.0 L MEAN CELL VOLUME (test code = MCV) 101.6 fL 80-98 H MEAN CELL HGB (test code = MCH) 33.3 picogram 27.0-33.0 H MEAN CELL HGB CONCETRATION (test code = MCHC) 32.8 gram/dL 33.0-36. 0 L RED CELL DISTRIBUTION WIDTH (test code = RDW) 13.7 % 11.6-16. 2 N RED CELL DISTRIBUTION WIDTH SD (test code = RDW-SD) 50.9 fL 37 .0-51.0 N PLATELET COUNT (test code = PLT) 147 K/mm3 150-450 L RESULT VERIFIED BY REPEAT ANALYSIS MEAN PLATELET VOLUME (test code = MPV) 10.7 fL 6.7-11.0 N NEUTROPHIL % (test code = NT%) 87.4 % 39.0-69.0 H IMMATURE GRANULOCYTE % (test code = IG%) 0.3 % 0.0-5.0 N LYMPHOCYTE % (test code = LY%) 6.1 % 25.0-55.0 L MONOCYTE % (test code = MO%) 5.9 % 0.0-10.0 N EOSINOPHIL % (test code = EO%) 0.1 % 0.0-5.0 N BASOPHIL % (test code = BA%) 0.2 % 0.0-1.0 N NUCLEATED RBC % (test code = NRBC%) 0.0 % 0-0 N NEUTROPHIL # (test code = NT#) 10.31 K/mm3 1.8-7.7 H IMMATURE GRANULOCYTE # (test code = IG#) 0.04 x10 3/uL 0-0.03 H LYMPHOCYTE # (test code = LY#) 0.72 K/mm3 1.0-5.0 L MONOCYTE # (test code = MO#) 0.70 K/mm3 0-0.8 N EOSINOPHIL # (test code = EO#) 0.01 K/mm3 0.0-0.5 N BASOPHIL # (test code = BA#) 0.02 K/mm3 0.0-0.2 N NUCLEATED RBC # (test code = NRBC#) 0.00 K/mm3 0.0-0.1 N [id number] 20:10:00* Test Item Value Reference Range Interpretation Comments GLUBED (test code = GLUBED) 202 mg/dL 74-106 H Performed by certified flower pot press operator at [facility] [id number] 20:10:00* Test Item Value Reference Range Interpretation Comments GLUBED (test code = GLUBED) 158 mg/dL 74-106 H Performed by certified flower pot press operator at [facility] [id number] 14:01:00* Test Item Value Reference Range Interpretation Comments GLUBED (test code = GLUBED) 167 mg/dL 74-106 H Performed by certified flower pot press operator at [facility] - XR CHEST 1 [id number] 13:39:00 FAX: Guzman Perry DO [phone] [place]: B St: [facility] FAX: Aniyah Nassar MD [phone] FAX: Arin Hearn Name: AISLINN BHATIA [facility] : 1955 Age/S: 64/M [address] Unit #: [id number] Loc: [place] [address] Phys: Arin Camarillo NP Acct: [id number] Dis Date: Status: ADM IN ONE #: [phone] Exam Date: 09/29/2019 1308 FAX #: [phone] Reason: S/P EXTUBATION EXAMS: CPT CODE: [id number] XR CHEST 1 V 17500 REASON FOR EXAM: S/P EXTUBATION Exam Order Date: 09/29/2019 12:48 PM Ordering M.DReji: Arin Camarillo NP PROCEDURE: - X R CHEST 1 V COMPARISON: 2 view chest x-ray September 07, 2019 FINDINGS: There is elevation of the left hemidiaphragm with atele ctasis and/or consolidation in the left lung base. Remainder of the lung z ones are clear. Cardiomediastinal silhouette is normal in si ze for technique. The mediastinal contours are within normal limits. Degenerative changes are present in the spine and shoulders. Post traumatic changes are present in the posterior right ribs and appears bc lar to the prior exam. The visualized upper abdomen is within norm al limits. IMPRESSION: Left lung base opacity wi th elevation of the left hemidiaphragm may represent any combination of atelectasis and consolidation. Location: [facility] Elect ronically Signed by Remy Sheridan MD on 09/29/2019 at 1339 Reported and signed by: Remy Sheridan MD CC: Guzman Llamas; Aniyah Ramirez MD; Arin Camarillo NP Technologist: JANIA BACON RT (R) Trnscrd Date/Time/By: 09/29/2019 (3708) : By: [email or web address] Orig Print D/T: S: 09/29/2019 (7062) PAGE 1 Signed Report [id number] 07:12:00* Test Item Value Reference Range Interpretation Comments GLUBED (test code = GLUBED) 166 mg/dL 74-106 H Performed by certified flower pot press operator at [facility] BASIC METABOLIC [id number] 15:27:00* Test Item Value Reference Range Interpretation Comments SODIUM (test code = NA) 142 mmol/L 136-145 N POTASSIUM (test code = K) 4.6 mmol/L 3.5-5.1 N CHLORIDE (test code = CL) 106.0 mmol/L 98-107 N CARBON DIOXIDE (test code = CO2) 33.0 mmol/L 21-32 H ANION GAP (test code = GAP) 7.6 10-20 L GLUCOSE (test code = GLU) 118 mg/dL 74-106 H BLOOD UREA NITROGEN (test code = BUN) 30 mg/dL 7-18 H GLOMERULAR FILTRATION RATE (test code = GFR) 55 mL/min >=60 Estimated GFR by using Modified MDRD formula.Chronic kidney disease is defined as either kidney damageor GFR <60 mL/min/1.73 m2 for >3 months. CREATININE (test code = CREAT) 1.30 mg/dL 0.7-1.3 N BUN/CREATININE RATIO (test code = BUN/CREA) 23.1 10-20 H CALCIUM (test code = CA) 9.3 mg/dL 8.5-10.1 N BASIC METABOLIC [id number] 15:20:00* Test Item Value Reference Range Interpretation Comments SODIUM (test code = NA) 142 mmol/L 136-145 N POTASSIUM (test code = K) 4.6 mmol/L 3.5-5.1 N CHLORIDE (test code = CL) 106.0 mmol/L 98-107 N CARBON DIOXIDE (test code = CO2) mmol/L 21-32 ANION GAP (test code = GAP) 10-20 GLUCOSE (test code = GLU) mg/dL 74-106 BLOOD UREA NITROGEN (test code = BUN) mg/dL 7-18 GLOMERULAR FILTRATION RATE (test code = GFR) mL/min >=60 CREATININE (test code = CREAT) mg/dL 0.7-1.3 BUN/CREATININE RATIO (test code = BUN/CREA) 10-20 CALCIUM (test code = CA) mg/dL 8.5-10.1 PROTHROMBIN [id number] 15:17:00* Test Item Value Reference Range Interpretation Comments PROTHROMBIN TIME PATIENT (test code = PTP) 11.2 seconds 9.0-14.0 N INTERNATIONAL NORMAL RATIO (test code = INR) 0.9 0.8-1.2 N The therapeutic range for oral anticoagulant therapy [...] Mechanical prosthetic heart valves (2.5-3.5) THROMBOPLASTIN TIME [id number] 15:17:00* Test Item Value Reference Range Interpretation Comments THROMBOPLASTIN TIME PARTIAL (test code = PTT) 32.8 seconds 25.0-36. 5 N CBC W/AUTO [id number] 15:07:00* Test Item Value Reference Range Interpretation Comments WHITE BLOOD CELL (test code = WBC) 7.8 K/mm3 4.5-12.5 N RED BLOOD CELL (test code = RBC) 3.78 mill/mm3 4.0-5.8 L HEMOGLOBIN (test code = HGB) 12.6 gram/dL 13.0-17.5 L HEMATOCRIT (test code = HCT) 38.1 % 42.0-52.0 L MEAN CELL VOLUME (test code = MCV) 100.8 fL 80-98 H MEAN CELL HGB (test code = MCH) 33.3 picogram 27.0-33.0 H MEAN CELL HGB CONCETRATION (test code = MCHC) 33.1 gram/dL 33.0-36. 0 N RED CELL DISTRIBUTION WIDTH (test code = RDW) 13.7 % 11.6-16. 2 N RED CELL DISTRIBUTION WIDTH SD (test code = RDW-SD) 50.4 fL 37 .0-51.0 N PLATELET COUNT (test code = PLT) 200 K/mm3 150-450 N MEAN PLATELET VOLUME (test code = MPV) 11.2 fL 6.7-11.0 H NEUTROPHIL % (test code = NT%) 70.6 % 39.0-69.0 H IMMATURE GRANULOCYTE % (test code = IG%) 0.4 % 0.0-5.0 N LYMPHOCYTE % (test code = LY%) 18.1 % 25.0-55.0 L MONOCYTE % (test code = MO%) 8.2 % 0.0-10.0 N EOSINOPHIL % (test code = EO%) 2.2 % 0.0-5.0 N BASOPHIL % (test code = BA%) 0.5 % 0.0-1.0 N NUCLEATED RBC % (test code = NRBC%) 0.0 % 0-0 N NEUTROPHIL # (test code = NT#) 5.54 K/mm3 1.8-7.7 N IMMATURE GRANULOCYTE # (test code = IG#) 0.03 x10 3/uL 0-0.03 N LYMPHOCYTE # (test code = LY#) 1.42 K/mm3 1.0-5.0 N MONOCYTE # (test code = MO#) 0.64 K/mm3 0-0.8 N EOSINOPHIL # (test code = EO#) 0.17 K/mm3 0.0-0.5 N BASOPHIL # (test code = BA#) 0.04 K/mm3 0.0-0.2 N NUCLEATED RBC # (test code = NRBC#) 0.00 K/mm3 0.0-0.1 N PROTHROMBIN [id number] 13:47:00* Test Item Value Reference Range Interpretation Comments PROTHROMBIN TIME PATIENT (test code = PTP) 10.6 seconds 9.0-14.0 N INTERNATIONAL NORMAL RATIO (test code = INR) 0.9 0.8-1.2 N The therapeutic range for oral anticoagulant therapy [...] Mechanical prosthetic heart valves (2.5-3.5) THROMBOPLASTIN TIME [id number] 13:47:00* Test Item Value Reference Range Interpretation Comments THROMBOPLASTIN TIME PARTIAL (test code = PTT) 32.4 seconds 25.0-36. 5 N BASIC METABOLIC [id number] 13:39:00* Test Item Value Reference Range Interpretation Comments SODIUM (test code = NA) 141 mmol/L 136-145 N POTASSIUM (test code = K) 5.0 mmol/L 3.5-5.1 N CHLORIDE (test code = CL) 107.0 mmol/L 98-107 N CARBON DIOXIDE (test code = CO2) 27.0 mmol/L 21-32 N ANION GAP (test code = GAP) 12.0 10-20 N GLUCOSE (test code = GLU) 116 mg/dL 74-106 H BLOOD UREA NITROGEN (test code = BUN) 43 mg/dL 7-18 H GLOMERULAR FILTRATION RATE (test code = GFR) 51 mL/min >=60 Estimated GFR by using Modified MDRD formula.Chronic kidney disease is defined as either kidney damageor GFR <60 mL/min/1.73 m2 for >3 months. CREATININE (test code = CREAT) 1.40 mg/dL 0.7-1.3 H BUN/CREATININE RATIO (test code = BUN/CREA) 30.7 10-20 H CALCIUM (test code = CA) 9.1 mg/dL 8.5-10.1 N BASIC METABOLIC [id number] 13:37:00* Test Item Value Reference Range Interpretation Comments SODIUM (test code = NA) 141 mmol/L 136-145 N POTASSIUM (test code = K) 5.0 mmol/L 3.5-5.1 N CHLORIDE (test code = CL) 107.0 mmol/L 98-107 N CARBON DIOXIDE (test code = CO2) mmol/L 21-32 ANION GAP (test code = GAP) 10-20 GLUCOSE (test code = GLU) mg/dL 74-106 BLOOD UREA NITROGEN (test code = BUN) mg/dL 7-18 GLOMERULAR FILTRATION RATE (test code = GFR) mL/min >=60 CREATININE (test code = CREAT) mg/dL 0.7-1.3 BUN/CREATININE RATIO (test code = BUN/CREA) 10-20 CALCIUM (test code = CA) mg/dL 8.5-10.1 CBC W/AUTO [id number] 13:13:00* Test Item Value Reference Range Interpretation Comments WHITE BLOOD CELL (test code = WBC) 9.2 K/mm3 4.5-12.5 N RED BLOOD CELL (test code = RBC) 3.74 mill/mm3 4.0-5.8 L HEMOGLOBIN (test code = HGB) 12.5 gram/dL 13.0-17.5 L HEMATOCRIT (test code = HCT) 37.4 % 42.0-52.0 L MEAN CELL VOLUME (test code = MCV) 100.0 fL 80-98 H MEAN CELL HGB (test code = MCH) 33.4 picogram 27.0-33.0 H MEAN CELL HGB CONCETRATION (test code = MCHC) 33.4 gram/dL 33.0-36. 0 N RED CELL DISTRIBUTION WIDTH (test code = RDW) 13.6 % 11.6-16. 2 N RED CELL DISTRIBUTION WIDTH SD (test code = RDW-SD) 50.2 fL 37 .0-51.0 N PLATELET COUNT (test code = PLT) 182 K/mm3 150-450 N MEAN PLATELET VOLUME (test code = MPV) 10.7 fL 6.7-11.0 N NEUTROPHIL % (test code = NT%) 74.2 % 39.0-69.0 H IMMATURE GRANULOCYTE % (test code = IG%) 0.3 % 0.0-5.0 N LYMPHOCYTE % (test code = LY%) 15.6 % 25.0-55.0 L MONOCYTE % (test code = MO%) 7.3 % 0.0-10.0 N EOSINOPHIL % (test code = EO%) 2.2 % 0.0-5.0 N BASOPHIL % (test code = BA%) 0.4 % 0.0-1.0 N NUCLEATED RBC % (test code = NRBC%) 0.0 % 0-0 N NEUTROPHIL # (test code = NT#) 6.78 K/mm3 1.8-7.7 N IMMATURE GRANULOCYTE # (test code = IG#) 0.03 x10 3/uL 0-0.03 N LYMPHOCYTE # (test code = LY#) 1.43 K/mm3 1.0-5.0 N MONOCYTE # (test code = MO#) 0.67 K/mm3 0-0.8 N EOSINOPHIL # (test code = EO#) 0.20 K/mm3 0.0-0.5 N BASOPHIL # (test code = BA#) 0.04 K/mm3 0.0-0.2 N NUCLEATED RBC # (test code = NRBC#) 0.00 K/mm3 0.0-0.1 N [id number] 15:10:00* Test Item Value Reference Range Interpretation Comments GLUBED (test code = GLUBED) 223 mg/dL 74-106 H Performed by certified flower pot press operator at [facility] [id number] 11:19:00* Test Item Value Reference Range Interpretation Comments GLUBED (test code = GLUBED) 238 mg/dL 74-106 H Performed by certified flower pot press operator at [facility] - XR CHEST 2 [id number] 11:56:00 FAX: Sara Modi [phone] [place]: O St: PRE FAX: Guzman Perry DO [phone] Name: AISLINN BHATIA [facility] : 1955 Age/S: 64/M [address] Unit #: [id number] Loc: [place] [address] Phys: Sara Stout MD Acct: [id number] Dis Date: [place] [facility] [place] #: [phone] Exam Date: 09/07/2019 1135 FAX #: [phone] Reason: PRE OP EXAMS: CPT CODE: [id number] XR CHEST 2 V 25507 HISTORY: Preop. COMPARISON: April 14, 2019. Location: [facility]. AP and lateral view of the chest: No acute infiltrates, effusion or congestion. Cardiac silhouette is mildly enlarged. DJD of the dorsal spine. Multiple old posterior lateral right rib fractures. IMPRESSION: No acute infilt rates, effusion or congestion. at 1156 Reported and signed by: Kristi Velásquez M.D. CC: Sara Stout MD; Guzman Llamas Technologist: RT VERNA(Kimmy) Trnscrd Date/Time/By: 09/07/2019 (6274) : By: [email or web address] Orig Pr int D/T: S: 09/07/2019 (2805) PAGE 1 Signed Report COMPREHENSIVE METABOLIC PANEL 2019-09-07 11:24:00* Test Item Value Reference Range Interpretation Comments SODIUM (test code = NA) 141 mmol/L 136-145 N POTASSIUM (test code = K) 4.5 mmol/L 3.5-5.1 N CHLORIDE (test code = CL) 109.0 mmol/L 98-107 H CARBON DIOXIDE (test code = CO2) 27.0 mmol/L 21-32 N ANION GAP (test code = GAP) 9.5 10-20 L GLUCOSE (test code = GLU) 135 mg/dL 74-106 H BLOOD UREA NITROGEN (test code = BUN) 43 mg/dL 7-18 H GLOMERULAR FILTRATION RATE (test code = GFR) 51 mL/min >=60 Estimated GFR by using Modified MDRD formula.Chronic kidney disease is defined as either kidney damageor GFR <60 mL/min/1.73 m2 for >3 months. CREATININE (test code = CREAT) 1.40 mg/dL 0.7-1.3 H BUN/CREATININE RATIO (test code = BUN/CREA) 30.7 10-20 H TOTAL PROTEIN (test code = PROT) 8.0 gram/dL 6.4-8.2 N ALBUMIN (test code = ALB) 3.9 g/dL 3.4-5.0 N GLOBULIN (test code = GLOB) 4.1 gram/dL 2.7-4.2 N ALBUMIN/GLOBULIN RATIO (test code = A/G) 1.0 0.75-1.50 N CALCIUM (test code = CA) 9.0 mg/dL 8.5-10.1 N BILIRUBIN TOTAL (test code = BILT) 0.20 mg/dL 0.0-1.0 N SGOT/AST (test code = AST) 18 IUnit/L 15-37 N SGPT/ALT (test code = ALT) 32 IUnit/L 12-78 N ALKALINE PHOSPHATASE TOTAL (test code = ALKP) 101 IUnit/L 45-117 N Note change in reference range due to change in reagent. LIPID PROFILE (CORONARY RISK)2019-09-07 11:24:00* Test Item Value Reference Range Interpretation Comments TRIGLYCERIDES (test code = TRIG) 195 mg/dL 20-150 H CHOLESTEROL (test code = CHOL) 147 mg/dL 0-200 N CHOLESTEROL/HDL RATIO (test code = CHOLHDL) 3.0 RATIO 0-4.9 N RISK ASSOCIATED WITH CHOL/HDL RATIOS: Risk Male Female1/2 AVERAGE 3.43 3.27AVERAGE 4.97 4.442X AVERAGE 9.55 7.053X AVERAGE 23.39 11.04 REFERENCE VALUE IS RELATED TO RISK LEVELS ASRECOMMENDED BY THE SABINE. HEART, LUNG, AND BLOOD INST. HDL CHOLESTEROL (test code = HDL) 38 mg/dL 40-60 L LIPOPROTEIN LDL (test code = LDL) 84 mg/dL 100-129 L Reference Interval: mg/dL mmol/L Optimal <100 <2.6Near/above optimal 100-129 2.6- 3.3Borderline High 130-159 3.4-4.1High 160-189 4.1-4.9Very High >=190 >=4.9========= This LDL result is a direct measurement.========= THYROID STIMULATING [id number] 11:24:00* Test Item Value Reference Range Interpretation Comments THYROID STIMULATING HORMONE (test code = TSH) 1.550 uIU/mL 0.36-3.7 4 N TSH REFERENCE RANGES: EUTHYROID: 0.35 - 4.3 mIU/mL HYPO : > 5.5 mIU/mL HYPER : < 0.35 mIU/mL COMPREHENSIVE METABOLIC [id number] 11:06:00* Test Item Value Reference Range Interpretation Comments SODIUM (test code = NA) 141 mmol/L 136-145 N POTASSIUM (test code = K) 4.5 mmol/L 3.5-5.1 N CHLORIDE (test code = CL) 109.0 mmol/L 98-107 H CARBON DIOXIDE (test code = CO2) mmol/L 21-32 ANION GAP (test code = GAP) 10-20 GLUCOSE (test code = GLU) mg/dL 74-106 BLOOD UREA NITROGEN (test code = BUN) mg/dL 7-18 GLOMERULAR FILTRATION RATE (test code = GFR) mL/min >=60 CREATININE (test code = CREAT) mg/dL 0.7-1.3 BUN/CREATININE RATIO (test code = BUN/CREA) 10-20 TOTAL PROTEIN (test code = PROT) gram/dL 6.4-8.2 ALBUMIN (test code = ALB) g/dL 3.4-5.0 GLOBULIN (test code = GLOB) gram/dL 2.7-4.2 ALBUMIN/GLOBULIN RATIO (test code = A/G) 0.75-1.50 CALCIUM (test code = CA) mg/dL 8.5-10.1 BILIRUBIN TOTAL (test code = BILT) mg/dL 0.0-1.0 SGOT/AST (test code = AST) IUnit/L 15-37 SGPT/ALT (test code = ALT) IUnit/L 12-78 ALKALINE PHOSPHATASE TOTAL (test code = ALKP) IUnit/L 45-117 LIPID PROFILE (CORONARY RISK)2019-09-07 11:06:00* Test Item Value Reference Range Interpretation Comments TRIGLYCERIDES (test code = TRIG) mg/dL 20-150 CHOLESTEROL (test code = CHOL) mg/dL 0-200 CHOLESTEROL/HDL RATIO (test code = CHOLHDL) RATIO 0-4.9 HDL CHOLESTEROL (test code = HDL) mg/dL 40-60 LIPOPROTEIN LDL (test code = LDL) mg/dL 100-129 THYROID STIMULATING [id number] 11:06:00* Test Item Value Reference Range Interpretation Comments THYROID STIMULATING HORMONE (test code = TSH) uIU/mL 0.36-3.7 4 [id number] 10:55:00* Test Item Value Reference Range Interpretation Comments GLYCOSYLATED HEMOGLOBIN (HA1C) (test code = GLYHGB) 7.5 % HbA1 SUGGESTED DIAGNOSIS: HbA1C (%) Diabetic >6.4Prediabetes 5.7 - 6.4Normal <5.7 ESTIMATED AVERAGE GLUCOSE (test code = EAG) 169 MG/DL PROTHROMBIN [id number] 10:41:00* Test Item Value Reference Range Interpretation Comments PROTHROMBIN TIME PATIENT (test code = PTP) 10.8 seconds 9.0-14.0 N INTERNATIONAL NORMAL RATIO (test code = INR) 0.9 0.8-1.2 N The therapeutic range for oral anticoagulant therapy [...] Mechanical prosthetic heart valves (2.5-3.5) THROMBOPLASTIN TIME [id number] 10:41:00* Test Item Value Reference Range Interpretation Comments THROMBOPLASTIN TIME PARTIAL (test code = PTT) 32.2 seconds 25.0-36. 5 N CBC W/AUTO [id number] 10:32:00* Test Item Value Reference Range Interpretation Comments WHITE BLOOD CELL (test code = WBC) 8.2 K/mm3 4.5-12.5 N RED BLOOD CELL (test code = RBC) 3.85 mill/mm3 4.0-5.8 L HEMOGLOBIN (test code = HGB) 12.8 gram/dL 13.0-17.5 L HEMATOCRIT (test code = HCT) 39.2 % 42.0-52.0 L MEAN CELL VOLUME (test code = MCV) 101.8 fL 80-98 H MEAN CELL HGB (test code = MCH) 33.2 picogram 27.0-33.0 H MEAN CELL HGB CONCETRATION (test code = MCHC) 32.7 gram/dL 33.0-36. 0 L RED CELL DISTRIBUTION WIDTH (test code = RDW) 13.8 % 11.6-16. 2 N RED CELL DISTRIBUTION WIDTH SD (test code = RDW-SD) 51.7 fL 37 .0-51.0 H PLATELET COUNT (test code = PLT) 179 K/mm3 150-450 N MEAN PLATELET VOLUME (test code = MPV) 10.8 fL 6.7-11.0 N NEUTROPHIL % (test code = NT%) 73.5 % 39.0-69.0 H IMMATURE GRANULOCYTE % (test code = IG%) 0.4 % 0.0-5.0 N LYMPHOCYTE % (test code = LY%) 16.8 % 25.0-55.0 L MONOCYTE % (test code = MO%) 6.5 % 0.0-10.0 N EOSINOPHIL % (test code = EO%) 2.3 % 0.0-5.0 N BASOPHIL % (test code = BA%) 0.5 % 0.0-1.0 N NUCLEATED RBC % (test code = NRBC%) 0.0 % 0-0 N NEUTROPHIL # (test code = NT#) 6.03 K/mm3 1.8-7.7 N IMMATURE GRANULOCYTE # (test code = IG#) 0.03 x10 3/uL 0-0.03 N LYMPHOCYTE # (test code = LY#) 1.38 K/mm3 1.0-5.0 N MONOCYTE # (test code = MO#) 0.53 K/mm3 0-0.8 N EOSINOPHIL # (test code = EO#) 0.19 K/mm3 0.0-0.5 N BASOPHIL # (test code = BA#) 0.04 K/mm3 0.0-0.2 N NUCLEATED RBC # (test code = NRBC#) 0.00 K/mm3 0.0-0.1 N MANUAL DIFF REQUIRED (test code = MDIFF) NO Bedside [id number] 15:59:00* Test Item Value Reference Range Interpretation Comments Bedside Glucose (test code = 10772-8) 147 70-120 H Meter ID: [id number] Hospitals of [facility] CampusBlood Culture 2019-06-27 11:52:00* Test Item Value Reference Range Interpretation Comments Blood Culture (test code = 20620688) NO GROWTH AFTER 72 HOURS [facility] CampusLactic Acid [id number] 06:49:00* Test Item Value Reference Range Interpretation Comments Lactic Acid Level (test code = Lactic Acid Level) 5.2 4.5- 19.8 [facility] [id number] 06:42:00* Test Item Value Reference Range Interpretation Comments Sodium Level (test code = 2951-2) 143 136-145 [facility] CampusPotassium [id number] 06:42:00* Test Item Value Reference Range Interpretation Comments Potassium Level (test code = 2823-3) 4.0 3.5-5.1 [facility] CampusChloride [id number] 06:42:00* Test Item Value Reference Range Interpretation Comments Chloride Level (test code = 2075-0) 110 98-107 H [facility] CampusCarbon Dioxide [id number] 06:42:00* Test Item Value Reference Range Interpretation Comments Carbon Dioxide Level (test code = 2028-9) 21 22-29 L [facility] CampusAnion [id number] 06:42:00* Test Item Value Reference Range Interpretation Comments Anion Gap (test code = 39325-0) 16.0 8-16 [facility] CampusBlood Urea [id number] 06:42:00* Test Item Value Reference Range Interpretation Comments Blood Urea Nitrogen (test code = 3094-0) 25 7-26 [facility] CampusCreatinine2019-10-20 06:42:00* Test Item Value Reference Range Interpretation Comments Creatinine (test code = 2160-0) 1.20 0.72-1.25 [facility] CampusBUN/Creatinine [id number] 06:42:00* Test Item Value Reference Range Interpretation Comments BUN/Creatinine Ratio (test code = 3097-3) 21 6- [facility] CampusEstimat Glomerular Filtration Rate 2019-06-25 06:42:00* Test Item Value Reference Range Interpretation Comments Estimat Glomerular Filtration Rate (test code = 664680686) > 60 >60 Ranges were taken from the National Kidney Disease Education Program and the [facility] Foundation literature.Reference ranges:60 or greater: Mxnijn80-65 ( for 3 consecutive months): Chronic kidney disease 15 or less: Kidney failureThe Hospitals of Providence Transmountain CampusGlucose Yotqf0762-54-77 06:42:00* Test Item Value Reference Range Interpretation Comments Glucose Level (test code = TUA8030) 218 74-118 H [facility] CampusCalcium [id number] 06:42:00* Test Item Value Reference Range Interpretation Comments Calcium Level (test code = 42108-8) 9.3 8.4-10.2 [facility] CampusTotal Qnuwoblsb2879-40-06 06:42:00* Test Item Value Reference Range Interpretation Comments Total Bilirubin (test code = 1975-2) 0.3 0.2-1.2 [facility] CampusAspartate Amino Transf (AST/SGOT) 2019-06-25 06:42:00* Test Item Value Reference Range Interpretation Comments Aspartate Amino Transf (AST/SGOT) (test code = Aspartate Amino Transf (AST/SGOT)) 23 5-34 [facility] CampusAlanine Aminotransferase (ALT/SGPT) 2019-06-25 06:42:00* Test Item Value Reference Range Interpretation Comments Alanine Aminotransferase (ALT/SGPT) (test code = 1742-6) 15 0-55 [facility] CampusTotal Occeglb8901-56-63 06:42:00* Test Item Value Reference Range Interpretation Comments Total Protein (test code = 2885-2) 6.7 6.5-8.1 [facility] CampusAlbumin2019-10-20 06:42:00* Test Item Value Reference Range Interpretation Comments Albumin (test code = 1751-7) 3.1 3.5-5.0 L [facility] CampusGlobulin2019-10-20 06:42:00* Test Item Value Reference Range Interpretation Comments Globulin (test code = 67783-4) 3.6 2.3-3.5 H [facility] CampusAlbumin/Globulin [id number] 06:42:00 * Test Item Value Reference Range Interpretation Comments Albumin/Globulin Ratio (test code = 1759-0) 0.9 0.8-2.0 [facility] CampusAlkaline Oxokzjjblao9556-65-93 06:42:00* Test Item Value Reference Range Interpretation Comments Alkaline Phosphatase (test code = 6768-6) 90 40-150 [facility] CampusCreatine Kinase [id number] 06:21:00* Test Item Value Reference Range Interpretation Comments Creatine Kinase MB (test code = 75759-9) 2.30 0-5.0 [facility] CampusTroponin [id number] 06:21:00* Test Item Value Reference Range Interpretation Comments Troponin I (test code = ZQV9754) 0.024 0-0.300 [facility] CampusCreatine Xipayw4777-30-04 06:02:00* Test Item Value Reference Range Interpretation Comments Creatine Kinase (test code = 2157-6) 331 30-200 H [facility] CampusWhite Blood Vkbxq6594-41-00 05:54:00* Test Item Value Reference Range Interpretation Comments White Blood Count (test code = 6690-2) 8.58 4.8-10.8 [facility] CampusRed Blood Uzoqk1656-79-74 05:54:00* Test Item Value Reference Range Interpretation Comments Red Blood Count (test code = 789-8) 2.91 4.3-5.7 L [facility] CampusHemoglobin2019-10-20 05:54:00* Test Item Value Reference Range Interpretation Comments Hemoglobin (test code = 85827-2) 9.4 14.0-18.0 L [facility] CampusHematocrit2019-10-20 05:54:00* Test Item Value Reference Range Interpretation Comments Hematocrit (test code = 4544-3) 29.8 38.2-49.6 L [facility] CampusMean Corpuscular Xgwnmy5383-37-07 05:54:00* Test Item Value Reference Range Interpretation Comments Mean Corpuscular Volume (test code = 787-2) 102.4 81-99 H [facility] CampusMean Corpuscular Dhrhhhfiny0545-00-44 05:54:00* Test Item Value Reference Range Interpretation Comments Mean Corpuscular Hemoglobin (test code = 785-6) 32.3 28-32 H [facility] CampusMean Corpuscular Hemoglobin Concent 2019-06-25 05:54:00* Test Item Value Reference Range Interpretation Comments Mean Corpuscular Hemoglobin Concent (test code = 786-4) 31.5 31-35 [facility] CampusRed Cell Distribution Gbfrg0921-36-18 05:54:00* Test Item Value Reference Range Interpretation Comments Red Cell Distribution Width (test code = 71257-9) 13.4 11.7 -14.4 [facility] CampusPlatelet Mqfuw7745-21-30 05:54:00* Test Item Value Reference Range Interpretation Comments Platelet Count (test code = 777-3) 154 140-360 [facility] CampusNeutrophils (%) (Auto)2019-06-25 05:54:00 * Test Item Value Reference Range Interpretation Comments Neutrophils (%) (Auto) (test code = 22773-8) 82.6 38.7-80.0 H [facility] CampusLymphocytes (%) (Auto)2019-06-25 05:54:00 * Test Item Value Reference Range Interpretation Comments Lymphocytes (%) (Auto) (test code = 736-9) 9.2 18.0-39.1 L [facility] CampusMonocytes (%) (Auto)2019-06-25 05:54:00* Test Item Value Reference Range Interpretation Comments Monocytes (%) (Auto) (test code = 5905-5) 7.3 4.4-11.3 [facility] CampusEosinophils (%) (Auto)2019-06-25 05:54:00 * Test Item Value Reference Range Interpretation Comments Eosinophils (%) (Auto) (test code = 713-8) 0.2 0.0-6.0 [facility] CampusBasophils (%) (Auto)2019-06-25 05:54:00* Test Item Value Reference Range Interpretation Comments Basophils (%) (Auto) (test code = 706-2) 0.2 0.0-1.0 [facility] CampusIM GRANULOCYTES %2019-06-25 05:54:00* Test Item Value Reference Range Interpretation Comments IM GRANULOCYTES % (test code = IM GRANULOCYTES %) 0.5 0.0- 1.0 [facility] CampusNeutrophils # (Auto)2019-06-25 05:54:00* Test Item Value Reference Range Interpretation Comments Neutrophils # (Auto) (test code = 751-8) 7.1 2.1-6.9 H [facility] CampusLymphocytes # (Auto)2019-06-25 05:54:00* Test Item Value Reference Range Interpretation Comments Lymphocytes # (Auto) (test code = 44508-1) 0.8 1.0-3.2 L [facility] CampusMonocytes # (Auto)2019-06-25 05:54:00* Test Item Value Reference Range Interpretation Comments Monocytes # (Auto) (test code = 742-7) 0.6 0.2-0.8 [facility] CampusEosinophils # (Auto)2019-06-25 05:54:00* Test Item Value Reference Range Interpretation Comments Eosinophils # (Auto) (test code = 711-2) 0.0 0.0-0.4 [facility] CampusBasophils # (Auto)2019-06-25 05:54:00* Test Item Value Reference Range Interpretation Comments Basophils # (Auto) (test code = 704-7) 0.0 0.0-0.1 [facility] CampusAbsolute Immature Granulocyte (auto 2019-06-25 05:54:00* Test Item Value Reference Range Interpretation Comments Absolute Immature Granulocyte (auto (daniel t code = Absolute Immature Granulocyte (auto) 0.04 0-0.1 [facility] CampusUrine [id number] 20:31:00* Test Item Value Reference Range Interpretation Comments Urine WBC (test code = 5821-4) 11-20 0-5 H [facility] CampusUrine [id number] 20:31:00* Test Item Value Reference Range Interpretation Comments Urine RBC (test code = 19498-5) 6-10 0-5 H [facility] CampusUrine Zfpuatyq4772-61-56 20:31:00* Test Item Value Reference Range Interpretation Comments Urine Bacteria (test code = 38760-1) RARE NONE [facility] CampusUrine Epithelial Grzyb9375-67-76 20:31:00 * Test Item Value Reference Range Interpretation Comments Urine Epithelial Cells (test code = 00149-8) FEW NONE [facility] CampusUrine Oval Fat [id number] 20:31:00 * Test Item Value Reference Range Interpretation Comments Urine Oval Fat Bodies (test code = 05042-4) NONE NONE [facility] [id number] 16:40:00* Test Item Value Reference Range Interpretation Comments Urine Color (test code = 5778-6) YELLOW YELLOW [facility] [id number] 16:40:00* Test Item Value Reference Range Interpretation Comments Urine Clarity (test code = 89903-6) CLEAR CLEAR [facility] Specific [id number] 16:40:00 * Test Item Value Reference Range Interpretation Comments Urine Specific [place] (test code = 5811-5) 1.015 1.010-1.02 5 [facility] [id number] 16:40:00* Test Item Value Reference Range Interpretation Comments Urine pH (test code = 10430-3) 5.5 5-7 [facility] Leukocyte [id number] 16:40:00* Test Item Value Reference Range Interpretation Comments Urine Leukocyte Esterase (test code = 05735-4) NEGATIVE NEGATIV E [facility] [id number] 16:40:00* Test Item Value Reference Range Interpretation Comments Urine Nitrite (test code = 24084-4) NEGATIVE NEGATIVE [facility] [id number] 16:40:00* Test Item Value Reference Range Interpretation Comments Urine Protein (test code = 01228-2) NEGATIVE NEGATIVE [facility] (UA)2019-06-24 16:40:00* Test Item Value Reference Range Interpretation Comments Urine Glucose (UA) (test code = 17662-5) 1+ NEGATIVE H [facility] [id number] 16:40:00* Test Item Value Reference Range Interpretation Comments Urine Ketones (test code = 65426-9) 1+ NEGATIVE H [facility] [id number] 16:40:00* Test Item Value Reference Range Interpretation Comments Urine Urobilinogen (test code = 11780-0) 0.2 0.2-1 [facility] Sxrveezgn2666-17-92 16:40:00* Test Item Value Reference Range Interpretation Comments Urine Bilirubin (test code = 1977-8) NEGATIVE NEGATIVE [facility] [id number] 16:40:00* Test Item Value Reference Range Interpretation Comments Urine Blood (test code = 71165-5) MODERATE NEGATIVE [facility] TESTICULAR DOPPLER [id number] 13:31:00 [facility] [address] [place] [address] Patient Name: AISLINN BHATIA MR #: [id number] : 1955 Age/Sex: 63/M Req #: [id number] Adm Physician: CITLALI KYLE MD Ordered by: NIYA RICHARD MD Report #: [id number] Location: [facility] Room/Bed: [place] [address] Procedure: 1019-00 04 US/US TESTICULAR DOPPLER LTD Exam Date: 06/24/19 Exam Time: 1225 REPORT STATUS: Sign ed EXAMINATION: Scrotal ultrasound CLINICAL INDICATION: . COMPAR KARINA: None. TECHNIQUE: Grayscale and color Doppler evaluation of the scrotu m was performed in transverse and longitudinal planes. FINDINGS: The right testicle measures 4 x 3 x 2.2 cm. No masses or calcifications.. The ri ght epididymis measures 1.2 cm. No nodules or masses.. No right hydrocele or varicocele. Normal flow to the right testicle, without torsion. Th e left testicle measures 3.3 x 2.5 x 2.5 cm. No masses or calcifications.. Th e left epididymis measures 1.9 cm. No nodules or masses.. Small hydroceles . No varicocele. Normal flow to the right testicle, without torsion. The scrotum has a normal appearance, without focal lesions. Impression: Small hydroceles, otherwise unremarkable. Signed by: Dr. Fidel Nuñez M.D. on 06/24/2019 1:33 PM Dictated By: FIDEL NUÑEZ MD Electronical ly Signed By: FIDEL NUÑEZ MD on 06/24/191332 Transcribed By: ALEJANDRO on 1332 COPY TO: NIYA RICHARD MD CHEST SINGLE (NOT PORTABLE)2019-06-24 13:08:[address], [place], [place] [address] Patient Name: AISLINN BHATIA MR #: [id number] : 1955 Age/Sex: 63/M Req #: [id number] Adm Physician: CITLALI KYLE MD Ordered by: NIYA RICHARD MD Report #: [id number] Location: [facility] Room/Bed: [place] [address] Procedure: 1019 DX/CHEST SINGLE (NOT PORTABLE) Exam Date: 06/24/19 Exam Time: 1215 REPORT STATUS: Si gned Examination: Single AP view of the chest. COMPARISON: None. IN DICATION: shortness of breath DISCUSSION: Lines/tubes: None. Lungs: The lungs are well inflated and clear. No pneumonia or pulmonary edema . Pleura: No pleural effusion or pneumothorax. Heart and mediastinum: The heart and the mediastinum are unremarkable. Bones and soft tissues: No acute bony abnormalities. Prior right sided rib fractures. IMPRESSION : 1. No acute cardiopulmonary abnormalities. Signed by: Dr. Fidel Nuñez M.D. on 06/24/2019 1:09 PM Dictated By: FIDEL NUÑEZ MD Bria ctronically Signed By: FIDEL NUÑEZ MD on 06/24/191308 Transcribed By: CHARLEY OROPEZA on 06/24/191308 COPY TO: NIYA RICHARD MD B-Type Natriuretic [id number] 12:25:00* Test Item Value Reference Range Interpretation Comments B-Type Natriuretic Peptide (test code = 48765-4) 137.1 0-100 H [facility] CampusMagnesium Mdwoe0943-97-58 12:18:00* Test Item Value Reference Range Interpretation Comments Magnesium Level (test code = 58886-8) 2.0 1.3-2.1 [facility] CampusProthrombin Veki5099-91-14 12:13:00* Test Item Value Reference Range Interpretation Comments Prothrombin Time (test code = 5902-2) 14.2 11.9-14.5 [facility] CampusProthromb Time International Ratio 2019-06-24 12:13:00* Test Item Value Reference Range Interpretation Comments Prothromb Time International Ratio (test code = 6301-6) 1.05 Oral Anticoagulant Therapy INR Values:1. Low Intensity Therapy 1.5 - 2.02 . Moderate Intensity Therapy 2.0 - 3.03. High Intensity Therapy(1) 2.5 - 3. 54. High Intensity Therapy(2) 3.0 - 4.05. Panic Value INR > 5.0 [facility] CampusActivated Partial Thromboplast Time 2019-06-24 12:13:00* Test Item Value Reference Range Interpretation Comments Activated Partial Thromboplast Time (test code = 87777-4) 32.6 23.8-35.5 [facility] CampusCHEST 2 [id number] 13:06:00 [facility] [address] [place] [address] Patient Name: AISLINN BHATIA MR #: [id number] : 1955 Age/Sex: 63/M Req #: [id number] Adm Physician: Ordered by: CITLALI KYLE MD Report #: [id number] Location: OR Room/Bed: Procedure: 1016-003 5 DX/CHEST 2 VIEWS Exam Date: 06/21/19 Exam Time: 12 20 REPORT STATUS: Signed EXAMINA TION: CHEST 2 VIEWS INDICATION: Pre-operative COMPARISON: None FINDINGS: LINES/TUBES:None LUNGS:The lungs are well-inflated. No focal consolidation or pulmonary edema. PLEURA:No pleural effusion or pn eumothorax. MEDIASTINUM:The cardiac silhouette is at the upper limits of no rmal for size. BONES/SOFT TISSUES:Right seventh and eighth posterolateral f ractures with extensive associated callus formation. ABDOMEN:No free air under the diaphragm. IMPRESSION: No focal pneumonia or pulmonary triston a. Healing right posterolateral rib fractures with extensive callus formati on. Signed by: Gerard Schuler MD on 06/21/2019 1:08 PM Dictated By: KRISTI SCHULER MD [id number] Transcribe d By: ALEJANDRO on 06/21/19 2383 COPY TO: CITLALI KYLE MD [id number] 11:32:00* Test Item Value Reference Range Interpretation Comments GLUBED (test code = GLUBED) 177 mg/dL 74-106 H Performed by certified flower pot press operator at [facility] COAGULATION TIME [id number] 10:22:00* Test Item Value Reference Range Interpretation Comments COAGULATION TIME ACTIVATED (test code = ACT) 137 seconds 62.8-88.0 H COMPREHENSIVE METABOLIC [id number] 10:46:00* Test Item Value Reference Range Interpretation Comments SODIUM (test code = NA) 143 mmol/L 136-145 N POTASSIUM (test code = K) 4.0 mmol/L 3.5-5.1 N CHLORIDE (test code = CL) 108.0 mmol/L 98-107 H CARBON DIOXIDE (test code = CO2) 29.0 mmol/L 21-32 N ANION GAP (test code = GAP) 10.0 10-20 N GLUCOSE (test code = GLU) 90 mg/dL 74-106 N BLOOD UREA NITROGEN (test code = BUN) 22 mg/dL 7-18 H GLOMERULAR FILTRATION RATE (test code = GFR) > 60 mL/min >=60 Estimated GFR by using Modified MDRD formula.Chronic kidney disease is defined as either kidney damageor GFR <60 mL/min/1.73 m2 for >3 months. CREATININE (test code = CREAT) 1.10 mg/dL 0.7-1.3 N BUN/CREATININE RATIO (test code = BUN/CREA) 20.4 10-20 H TOTAL PROTEIN (test code = PROT) 7.4 gram/dL 6.4-8.2 N ALBUMIN (test code = ALB) 3.8 g/dL 3.4-5.0 N GLOBULIN (test code = GLOB) 3.6 gram/dL 2.7-4.2 N ALBUMIN/GLOBULIN RATIO (test code = A/G) 1.1 0.75-1.50 N CALCIUM (test code = CA) 9.0 mg/dL 8.5-10.1 N BILIRUBIN TOTAL (test code = BILT) 0.30 mg/dL 0.0-1.0 N SGOT/AST (test code = AST) 16 IUnit/L 15-37 N SGPT/ALT (test code = ALT) 20 IUnit/L 12-78 N ALKALINE PHOSPHATASE TOTAL (test code = ALKP) 107 IUnit/L 45-117 N Note change in reference range due to change in reagent. LIPID PROFILE (CORONARY RISK)2019-04-14 10:46:00* Test Item Value Reference Range Interpretation Comments TRIGLYCERIDES (test code = TRIG) 130 mg/dL 20-150 N CHOLESTEROL (test code = CHOL) 106 mg/dL 0-200 N CHOLESTEROL/HDL RATIO (test code = CHOLHDL) 2.0 RATIO 0-4.9 N RISK ASSOCIATED WITH CHOL/HDL RATIOS: Risk Male Female1/2 AVERAGE 3.43 3.27AVERAGE 4.97 4.442X AVERAGE 9.55 7.053X AVERAGE 23.39 11.04 REFERENCE VALUE IS RELATED TO RISK LEVELS ASRECOMMENDED BY THE SABINE. HEART, LUNG, AND BLOOD INST. HDL CHOLESTEROL (test code = HDL) 36 mg/dL 40-60 L LIPOPROTEIN LDL (test code = LDL) 58 mg/dL 100-129 L Reference Interval: mg/dL mmol/L Optimal <100 <2.6Near/above optimal 100-129 2.6- 3.3Borderline High 130-159 3.4-4.1High 160-189 4.1-4.9Very High >=190 >=4.9========= This LDL result is a direct measurement.========= THYROID STIMULATING [id number] 10:46:00* Test Item Value Reference Range Interpretation Comments THYROID STIMULATING HORMONE (test code = TSH) 3.280 uIU/mL 0.36-3.7 4 N TSH REFERENCE RANGES: EUTHYROID: 0.35 - 4.3 mIU/mL HYPO : > 5.5 mIU/mL HYPER : < 0.35 mIU/mL COMPREHENSIVE METABOLIC [id number] 10:28:00* Test Item Value Reference Range Interpretation Comments SODIUM (test code = NA) 143 mmol/L 136-145 N POTASSIUM (test code = K) 4.0 mmol/L 3.5-5.1 N CHLORIDE (test code = CL) 108.0 mmol/L 98-107 H CARBON DIOXIDE (test code = CO2) mmol/L 21-32 ANION GAP (test code = GAP) 10-20 GLUCOSE (test code = GLU) mg/dL 74-106 BLOOD UREA NITROGEN (test code = BUN) mg/dL 7-18 GLOMERULAR FILTRATION RATE (test code = GFR) mL/min >=60 CREATININE (test code = CREAT) mg/dL 0.7-1.3 BUN/CREATININE RATIO (test code = BUN/CREA) 10-20 TOTAL PROTEIN (test code = PROT) gram/dL 6.4-8.2 ALBUMIN (test code = ALB) g/dL 3.4-5.0 GLOBULIN (test code = GLOB) gram/dL 2.7-4.2 ALBUMIN/GLOBULIN RATIO (test code = A/G) 0.75-1.50 CALCIUM (test code = CA) mg/dL 8.5-10.1 BILIRUBIN TOTAL (test code = BILT) mg/dL 0.0-1.0 SGOT/AST (test code = AST) IUnit/L 15-37 SGPT/ALT (test code = ALT) IUnit/L 12-78 ALKALINE PHOSPHATASE TOTAL (test code = ALKP) IUnit/L 45-117 LIPID PROFILE (CORONARY RISK)2019-04-14 10:28:00* Test Item Value Reference Range Interpretation Comments TRIGLYCERIDES (test code = TRIG) mg/dL 20-150 CHOLESTEROL (test code = CHOL) mg/dL 0-200 CHOLESTEROL/HDL RATIO (test code = CHOLHDL) RATIO 0-4.9 HDL CHOLESTEROL (test code = HDL) mg/dL 40-60 LIPOPROTEIN LDL (test code = LDL) mg/dL 100-129 THYROID STIMULATING [id number] 10:28:00* Test Item Value Reference Range Interpretation Comments THYROID STIMULATING HORMONE (test code = TSH) uIU/mL 0.36-3.7 4 PROTHROMBIN [id number] 10:14:00* Test Item Value Reference Range Interpretation Comments PROTHROMBIN TIME PATIENT (test code = PTP) 11.3 seconds 9.0-14.0 N INTERNATIONAL NORMAL RATIO (test code = INR) 1.0 0.8-1.2 N The therapeutic range for oral anticoagulant therapy [...] Mechanical prosthetic heart valves (2.5-3.5) THROMBOPLASTIN TIME [id number] 10:14:00* Test Item Value Reference Range Interpretation Comments THROMBOPLASTIN TIME PARTIAL (test code = PTT) 30.9 seconds 25.0-36. 5 N CBC W/AUTO [id number] 10:02:00* Test Item Value Reference Range Interpretation Comments WHITE BLOOD CELL (test code = WBC) 8.5 K/mm3 4.5-12.5 N RED BLOOD CELL (test code = RBC) 3.91 mill/mm3 4.0-5.8 L HEMOGLOBIN (test code = HGB) 12.9 gram/dL 13.0-17.5 L HEMATOCRIT (test code = HCT) 38.9 % 42.0-52.0 L MEAN CELL VOLUME (test code = MCV) 99.5 fL 80-98 H MEAN CELL HGB (test code = MCH) 33.0 picogram 27.0-33.0 N MEAN CELL HGB CONCETRATION (test code = MCHC) 33.2 gram/dL 33.0-36. 0 N RED CELL DISTRIBUTION WIDTH (test code = RDW) 13.2 % 11.6-16. 2 N RED CELL DISTRIBUTION WIDTH SD (test code = RDW-SD) 48.5 fL 37 .0-51.0 N PLATELET COUNT (test code = PLT) 185 K/mm3 150-450 N MEAN PLATELET VOLUME (test code = MPV) 10.8 fL 6.7-11.0 N NEUTROPHIL % (test code = NT%) 70.8 % 39.0-69.0 H IMMATURE GRANULOCYTE % (test code = IG%) 0.2 % 0.0-5.0 N LYMPHOCYTE % (test code = LY%) 17.7 % 25.0-55.0 L MONOCYTE % (test code = MO%) 7.6 % 0.0-10.0 N EOSINOPHIL % (test code = EO%) 3.2 % 0.0-5.0 N BASOPHIL % (test code = BA%) 0.5 % 0.0-1.0 N NUCLEATED RBC % (test code = NRBC%) 0.0 % 0-0 N NEUTROPHIL # (test code = NT#) 5.99 K/mm3 1.8-7.7 N IMMATURE GRANULOCYTE # (test code = IG#) 0.02 x10 3/uL 0-0.03 N LYMPHOCYTE # (test code = LY#) 1.50 K/mm3 1.0-5.0 N MONOCYTE # (test code = MO#) 0.64 K/mm3 0-0.8 N EOSINOPHIL # (test code = EO#) 0.27 K/mm3 0.0-0.5 N BASOPHIL # (test code = BA#) 0.04 K/mm3 0.0-0.2 N NUCLEATED RBC # (test code = NRBC#) 0.00 K/mm3 0.0-0.1 N MANUAL DIFF REQUIRED (test code = MDIFF) NO - XR CHEST 2 [id number] 09:41:00 FAX: Sara Modi [phone] [place]: O St: PRE FAX: Will Guzman [facility] Steve DO [phone] Name: AISLINN BHATIA [facility] : 1955 Age/S: 63/M [address] [facility] Unit #: [id number] Loc: [place] [address] Phys: Sara Stout MD Acct: [id number] Dis Date: Status: [place] [facility] [place] #: [phone] Exam Date: 04/14/2019926 FAX #: [phone] Reason: PRE OP EXAMS: CPT CODE: [id number] XR CHEST 2 V 70351 REASON FOR EXAM: PRE OP Exam Order [...] [employer] Technologist: Dimple Foster) Trnscrd Date/Time/By: 04/14/2019 (0919) : By: [email or web address] Orig Print D/T : S: 04/14/2019 (3723) PAGE 1 Sig willard Report COMPREHENSIVE METABOLIC [id number] 12:08:00* Test Item Value Reference Range Interpretation Comments SODIUM (test code = NA) 143 mmol/L 136-145 N POTASSIUM (test code = K) 4.2 mmol/L 3.5-5.1 N CHLORIDE (test code = CL) 109.0 mmol/L 98-107 H CARBON DIOXIDE (test code = CO2) 27.0 mmol/L 21-32 N ANION GAP (test code = GAP) 11.2 10-20 N GLUCOSE (test code = GLU) 61 mg/dL 74-106 L BLOOD UREA NITROGEN (test code = BUN) 31 mg/dL 7-18 H GLOMERULAR FILTRATION RATE (test code = GFR) > 60 mL/min >=60 Estimated GFR by using Modified MDRD formula.Chronic kidney disease is defined as either kidney damageor GFR <60 mL/min/1.73 m2 for >3 months. CREATININE (test code = CREAT) 1.10 mg/dL 0.7-1.3 N BUN/CREATININE RATIO (test code = BUN/CREA) 28.2 10-20 H TOTAL PROTEIN (test code = PROT) 7.4 gram/dL 6.4-8.2 N ALBUMIN (test code = ALB) 3.6 g/dL 3.4-5.0 N GLOBULIN (test code = GLOB) 3.8 gram/dL 2.7-4.2 N ALBUMIN/GLOBULIN RATIO (test code = A/G) 1.0 0.75-1.50 N CALCIUM (test code = CA) 8.7 mg/dL 8.5-10.1 N BILIRUBIN TOTAL (test code = BILT) 0.20 mg/dL 0.0-1.0 N SGOT/AST (test code = AST) 19 IUnit/L 15-37 N SGPT/ALT (test code = ALT) 28 IUnit/L 12-78 N ALKALINE PHOSPHATASE TOTAL (test code = ALKP) 109 IUnit/L 45-117 N Note change in reference range due to change in reagent. LIPID PROFILE (CORONARY RISK)2019-03-14 12:08:00* Test Item Value Reference Range Interpretation Comments TRIGLYCERIDES (test code = TRIG) 123 mg/dL 20-150 N CHOLESTEROL (test code = CHOL) 106 mg/dL 0-200 N CHOLESTEROL/HDL RATIO (test code = CHOLHDL) 3.0 RATIO 0-4.9 N RISK ASSOCIATED WITH CHOL/HDL RATIOS: Risk Male Female1/2 AVERAGE 3.43 3.27AVERAGE 4.97 4.442X AVERAGE 9.55 7.053X AVERAGE 23.39 11.04 REFERENCE VALUE IS RELATED TO RISK LEVELS ASRECOMMENDED BY THE SABINE. HEART, LUNG, AND BLOOD INST. HDL CHOLESTEROL (test code = HDL) 35 mg/dL 40-60 L LIPOPROTEIN LDL (test code = LDL) 63 mg/dL 100-129 L Reference Interval: mg/dL mmol/L Optimal <100 <2.6Near/above optimal 100-129 2.6- 3.3Borderline High 130-159 3.4-4.1High 160-189 4.1-4.9Very High >=190 >=4.9========= This LDL result is a direct measurement.========= COMPREHENSIVE METABOLIC [id number] 12:02:00* Test Item Value Reference Range Interpretation Comments SODIUM (test code = NA) 143 mmol/L 136-145 N POTASSIUM (test code = K) 4.2 mmol/L 3.5-5.1 N CHLORIDE (test code = CL) 109.0 mmol/L 98-107 H CARBON DIOXIDE (test code = CO2) mmol/L 21-32 ANION GAP (test code = GAP) 10-20 GLUCOSE (test code = GLU) mg/dL 74-106 BLOOD UREA NITROGEN (test code = BUN) mg/dL 7-18 GLOMERULAR FILTRATION RATE (test code = GFR) mL/min >=60 CREATININE (test code = CREAT) mg/dL 0.7-1.3 BUN/CREATININE RATIO (test code = BUN/CREA) 10-20 TOTAL PROTEIN (test code = PROT) gram/dL 6.4-8.2 ALBUMIN (test code = ALB) g/dL 3.4-5.0 GLOBULIN (test code = GLOB) gram/dL 2.7-4.2 ALBUMIN/GLOBULIN RATIO (test code = A/G) 0.75-1.50 CALCIUM (test code = CA) mg/dL 8.5-10.1 BILIRUBIN TOTAL (test code = BILT) mg/dL 0.0-1.0 SGOT/AST (test code = AST) IUnit/L 15-37 SGPT/ALT (test code = ALT) IUnit/L 12-78 ALKALINE PHOSPHATASE TOTAL (test code = ALKP) IUnit/L 45-117 LIPID PROFILE (CORONARY RISK)2019-03-14 12:02:00* Test Item Value Reference Range Interpretation Comments TRIGLYCERIDES (test code = TRIG) mg/dL 20-150 CHOLESTEROL (test code = CHOL) mg/dL 0-200 CHOLESTEROL/HDL RATIO (test code = CHOLHDL) RATIO 0-4.9 HDL CHOLESTEROL (test code = HDL) mg/dL 40-60 LIPOPROTEIN LDL (test code = LDL) mg/dL 100-129 CBC W/O [id number] 11:52:00* Test Item Value Reference Range Interpretation Comments WHITE BLOOD CELL (test code = WBC) 7.5 K/mm3 4.5-12.5 N RED BLOOD CELL (test code = RBC) 3.79 mill/mm3 4.0-5.8 L HEMOGLOBIN (test code = HGB) 12.6 gram/dL 13.0-17.5 L HEMATOCRIT (test code = HCT) 38.9 % 42.0-52.0 L MEAN CELL VOLUME (test code = MCV) 102.6 fL 80-98 H MEAN CELL HGB (test code = MCH) 33.2 picogram 27.0-33.0 H MEAN CELL HGB CONCETRATION (test code = MCHC) 32.4 gram/dL 33.0-36. 0 L RED CELL DISTRIBUTION WIDTH (test code = RDW) 12.9 % 11.6-16. 2 N PLATELET COUNT (test code = PLT) 164 K/mm3 150-450 N MEAN PLATELET VOLUME (test code = MPV) 11.0 fL 6.7-11.0 N COMPREHENSIVE METABOLIC [id number] 05:46:00* Test Item Value Reference Range Interpretation Comments SODIUM (test code = NA) 142 mmol/L 136-145 N POTASSIUM (test code = K) 4.7 mmol/L 3.5-5.1 N CHLORIDE (test code = CL) 104.0 mmol/L 98-107 N CARBON DIOXIDE (test code = CO2) 31.0 mmol/L 21-32 N ANION GAP (test code = GAP) 11.7 10-20 N GLUCOSE (test code = GLU) 189 mg/dL 74-106 H BLOOD UREA NITROGEN (test code = BUN) 34 mg/dL 7-18 H GLOMERULAR FILTRATION RATE (test code = GFR) 55 mL/min >=60 Estimated GFR by using Modified MDRD formula.Chronic kidney disease is defined as either kidney damageor GFR <60 mL/min/1.73 m2 for >3 months. CREATININE (test code = CREAT) 1.30 mg/dL 0.7-1.3 N BUN/CREATININE RATIO (test code = BUN/CREA) 26.2 10-20 H TOTAL PROTEIN (test code = PROT) 6.6 gram/dL 6.4-8.2 N ALBUMIN (test code = ALB) 3.6 g/dL 3.4-5.0 N GLOBULIN (test code = GLOB) 3.0 gram/dL 2.7-4.2 N ALBUMIN/GLOBULIN RATIO (test code = A/G) 1.2 0.75-1.50 N CALCIUM (test code = CA) 8.8 mg/dL 8.5-10.1 N BILIRUBIN TOTAL (test code = BILT) 0.30 mg/dL 0.0-1.0 N SGOT/AST (test code = AST) 16 IUnit/L 15-37 N SGPT/ALT (test code = ALT) 23 IUnit/L 12-78 N ALKALINE PHOSPHATASE TOTAL (test code = ALKP) 88 IUnit/L 45-117 N Note change in reference range due to change in reagent. COMPREHENSIVE METABOLIC [id number] 05:36:00* Test Item Value Reference Range Interpretation Comments SODIUM (test code = NA) 142 mmol/L 136-145 N POTASSIUM (test code = K) 4.7 mmol/L 3.5-5.1 N CHLORIDE (test code = CL) 104.0 mmol/L 98-107 N CARBON DIOXIDE (test code = CO2) mmol/L 21-32 ANION GAP (test code = GAP) 10-20 GLUCOSE (test code = GLU) mg/dL 74-106 BLOOD UREA NITROGEN (test code = BUN) mg/dL 7-18 GLOMERULAR FILTRATION RATE (test code = GFR) mL/min >=60 CREATININE (test code = CREAT) mg/dL 0.7-1.3 BUN/CREATININE RATIO (test code = BUN/CREA) 10-20 TOTAL PROTEIN (test code = PROT) gram/dL 6.4-8.2 ALBUMIN (test code = ALB) g/dL 3.4-5.0 GLOBULIN (test code = GLOB) gram/dL 2.7-4.2 ALBUMIN/GLOBULIN RATIO (test code = A/G) 0.75-1.50 CALCIUM (test code = CA) mg/dL 8.5-10.1 BILIRUBIN TOTAL (test code = BILT) mg/dL 0.0-1.0 SGOT/AST (test code = AST) IUnit/L 15-37 SGPT/ALT (test code = ALT) IUnit/L 12-78 ALKALINE PHOSPHATASE TOTAL (test code = ALKP) IUnit/L 45-117 [id number] 05:31:00* Test Item Value Reference Range Interpretation Comments GLUBED (test code = GLUBED) 219 mg/dL 74-106 H Performed by certified flower pot press operator at [facility] CBC W/AUTO [id number] 05:14:00* Test Item Value Reference Range Interpretation Comments WHITE BLOOD CELL (test code = WBC) 8.4 K/mm3 4.5-12.5 N RED BLOOD CELL (test code = RBC) 3.38 mill/mm3 4.0-5.8 L HEMOGLOBIN (test code = HGB) 11.0 gram/dL 13.0-17.5 L HEMATOCRIT (test code = HCT) 33.7 % 42.0-52.0 L MEAN CELL VOLUME (test code = MCV) 99.7 fL 80-98 H MEAN CELL HGB (test code = MCH) 32.5 picogram 27.0-33.0 N MEAN CELL HGB CONCETRATION (test code = MCHC) 32.6 gram/dL 33.0-36. 0 L RED CELL DISTRIBUTION WIDTH (test code = RDW) 13.7 % 11.6-16. 2 N RED CELL DISTRIBUTION WIDTH SD (test code = RDW-SD) 49.6 fL 37 .0-51.0 N PLATELET COUNT (test code = PLT) 171 K/mm3 150-450 N MEAN PLATELET VOLUME (test code = MPV) 10.5 fL 6.7-11.0 N NEUTROPHIL % (test code = NT%) 76.0 % 39.0-69.0 H IMMATURE GRANULOCYTE % (test code = IG%) 0.4 % 0.0-5.0 N LYMPHOCYTE % (test code = LY%) 13.4 % 25.0-55.0 L MONOCYTE % (test code = MO%) 8.0 % 0.0-10.0 N EOSINOPHIL % (test code = EO%) 1.8 % 0.0-5.0 N BASOPHIL % (test code = BA%) 0.4 % 0.0-1.0 N NUCLEATED RBC % (test code = NRBC%) 0.0 % 0-0 N NEUTROPHIL # (test code = NT#) 6.36 K/mm3 1.8-7.7 N IMMATURE GRANULOCYTE # (test code = IG#) 0.03 x10 3/uL 0-0.03 N LYMPHOCYTE # (test code = LY#) 1.12 K/mm3 1.0-5.0 N MONOCYTE # (test code = MO#) 0.67 K/mm3 0-0.8 N EOSINOPHIL # (test code = EO#) 0.15 K/mm3 0.0-0.5 N BASOPHIL # (test code = BA#) 0.03 K/mm3 0.0-0.2 N NUCLEATED RBC # (test code = NRBC#) 0.00 K/mm3 0.0-0.1 N MANUAL DIFF REQUIRED (test code = MDIFF) NO [id number] 21:15:00* Test Item Value Reference Range Interpretation Comments GLUBED (test code = GLUBED) 233 mg/dL 74-106 H Performed by certified flower pot press operator at [facility] [id number] 16:25:00* Test Item Value Reference Range Interpretation Comments GLUBED (test code = GLUBED) 191 mg/dL 74-106 H Performed by certified flower pot press operator at [facility] COAGULATION TIME [id number] 15:13:00* Test Item Value Reference Range Interpretation Comments COAGULATION TIME ACTIVATED (test code = ACT) 207 seconds 62.8-88.0 H [id number] 07:02:00* Test Item Value Reference Range Interpretation Comments GLUBED (test code = GLUBED) 165 mg/dL 74-106 H Performed by certified flower pot press operator at [facility] - XR CHEST 2 [id number] 11:32:00 FAX: Sara Modi [phone] [place]: O St: PRE FAX: BACILIO ESCOBEDO NP Name: AISLINN BHATIA [facility] : 1955 Age/S: 63/M [address] [facility] Unit #: [id number] Loc: [place] [address] Phys: Sara Stout MD Acct: [id number] Dis Date: Status: [place] [facility] [place]: [phone] Exam Date: 01/17/2019 1018 FAX #: [phone] Reason: PRE OP EXAMS: CPT CODE: [id number] XR CHEST 2 V 04172 TECHNIQUE: 2 views of the chest COMPARISON: [...] Other: None. IMPRESSION: No acute cardiopulmonary abnormalities. Elec tronically Signed by Chuy Leigh M.D. on 01/17/2019 at 1132 Reported and signed by: Chuy Leigh M.D. CC: Sara Stout MD ; BACILIO ESCOBEDO NP Technologist: Margo Kovacs RT(R) Trnscrd Date/Time/By: 01/17/2019 (113) : By: Tena Orig Print D/T: S: 01/17/2019 (9460) PAGE 1 Signed Report COMPREHENSIVE METABOLIC [id number] 10:33:00* Test Item Value Reference Range Interpretation Comments SODIUM (test code = NA) 141 mmol/L 136-145 N POTASSIUM (test code = K) 4.2 mmol/L 3.5-5.1 N CHLORIDE (test code = CL) 106.0 mmol/L 98-107 N CARBON DIOXIDE (test code = CO2) 28.0 mmol/L 21-32 N ANION GAP (test code = GAP) 11.2 10-20 N GLUCOSE (test code = GLU) 103 mg/dL 74-106 N BLOOD UREA NITROGEN (test code = BUN) 37 mg/dL 7-18 H GLOMERULAR FILTRATION RATE (test code = GFR) 44 mL/min >=60 Estimated GFR by using Modified MDRD formula.Chronic kidney disease is defined as either kidney damageor GFR <60 mL/min/1.73 m2 for >3 months. CREATININE (test code = CREAT) 1.60 mg/dL 0.7-1.3 H BUN/CREATININE RATIO (test code = BUN/CREA) 23.1 10-20 H TOTAL PROTEIN (test code = PROT) 7.5 gram/dL 6.4-8.2 N ALBUMIN (test code = ALB) 3.8 g/dL 3.4-5.0 N GLOBULIN (test code = GLOB) 3.7 gram/dL 2.7-4.2 N ALBUMIN/GLOBULIN RATIO (test code = A/G) 1.0 0.75-1.50 N CALCIUM (test code = CA) 8.7 mg/dL 8.5-10.1 N BILIRUBIN TOTAL (test code = BILT) 0.30 mg/dL 0.0-1.0 N SGOT/AST (test code = AST) 17 IUnit/L 15-37 N SGPT/ALT (test code = ALT) 26 IUnit/L 12-78 N ALKALINE PHOSPHATASE TOTAL (test code = ALKP) 90 IUnit/L 45-117 N Note change in reference range due to change in reagent. LIPID PROFILE (CORONARY RISK)2019-01-17 10:33:00* Test Item Value Reference Range Interpretation Comments TRIGLYCERIDES (test code = TRIG) 77 mg/dL 20-150 N CHOLESTEROL (test code = CHOL) 93 mg/dL 0-200 N CHOLESTEROL/HDL RATIO (test code = CHOLHDL) 2.0 RATIO 0-4.9 N RISK ASSOCIATED WITH CHOL/HDL RATIOS: Risk Male Female1/2 AVERAGE 3.43 3.27AVERAGE 4.97 4.442X AVERAGE 9.55 7.053X AVERAGE 23.39 11.04 REFERENCE VALUE IS RELATED TO RISK LEVELS ASRECOMMENDED BY THE [facility]. HEART, LUNG, AND BLOOD INST. HDL CHOLESTEROL (test code = HDL) 38 mg/dL 40-60 L LIPOPROTEIN LDL (test code = LDL) 50 mg/dL 100-129 L Reference Interval: mg/dL mmol/L Optimal <100 <2.6Near/above optimal 100-129 2.6- 3.3Borderline High 130-159 3.4-4.1High 160-189 4.1-4.9Very High >=190 >=4.9========= This LDL result is a direct measurement.========= COMPREHENSIVE METABOLIC [id number] 10:23:00* Test Item Value Reference Range Interpretation Comments SODIUM (test code = NA) 141 mmol/L 136-145 N POTASSIUM (test code = K) 4.2 mmol/L 3.5-5.1 N CHLORIDE (test code = CL) 106.0 mmol/L 98-107 N CARBON DIOXIDE (test code = CO2) mmol/L 21-32 ANION GAP (test code = GAP) 10-20 GLUCOSE (test code = GLU) mg/dL 74-106 BLOOD UREA NITROGEN (test code = BUN) mg/dL 7-18 GLOMERULAR FILTRATION RATE (test code = GFR) mL/min >=60 CREATININE (test code = CREAT) mg/dL 0.7-1.3 BUN/CREATININE RATIO (test code = BUN/CREA) 10-20 TOTAL PROTEIN (test code = PROT) gram/dL 6.4-8.2 ALBUMIN (test code = ALB) g/dL 3.4-5.0 GLOBULIN (test code = GLOB) gram/dL 2.7-4.2 ALBUMIN/GLOBULIN RATIO (test code = A/G) 0.75-1.50 CALCIUM (test code = CA) mg/dL 8.5-10.1 BILIRUBIN TOTAL (test code = BILT) mg/dL 0.0-1.0 SGOT/AST (test code = AST) IUnit/L 15-37 SGPT/ALT (test code = ALT) IUnit/L 12-78 ALKALINE PHOSPHATASE TOTAL (test code = ALKP) IUnit/L 45-117 LIPID PROFILE (CORONARY RISK)2019-01-17 10:23:00* Test Item Value Reference Range Interpretation Comments TRIGLYCERIDES (test code = TRIG) mg/dL 20-150 CHOLESTEROL (test code = CHOL) mg/dL 0-200 CHOLESTEROL/HDL RATIO (test code = CHOLHDL) RATIO 0-4.9 HDL CHOLESTEROL (test code = HDL) mg/dL 40-60 LIPOPROTEIN LDL (test code = LDL) mg/dL 100-129 PROTHROMBIN [id number] 10:06:00* Test Item Value Reference Range Interpretation Comments PROTHROMBIN TIME PATIENT (test code = PTP) 11.5 seconds 9.0-14.0 N INTERNATIONAL NORMAL RATIO (test code = INR) 1.0 0.8-1.2 N The therapeutic range for oral anticoagulant therapy [...] Mechanical prosthetic heart valves (2.5-3.5) THROMBOPLASTIN TIME [id number] 10:06:00* Test Item Value Reference Range Interpretation Comments THROMBOPLASTIN TIME PARTIAL (test code = PTT) 31.9 seconds 25.0-36. 5 N CBC W/AUTO [id number] 10:04:00* Test Item Value Reference Range Interpretation Comments WHITE BLOOD CELL (test code = WBC) 7.7 K/mm3 4.5-12.5 N RED BLOOD CELL (test code = RBC) 3.35 mill/mm3 4.0-5.8 L HEMOGLOBIN (test code = HGB) 11.1 gram/dL 13.0-17.5 L HEMATOCRIT (test code = HCT) 34.5 % 42.0-52.0 L MEAN CELL VOLUME (test code = MCV) 103.0 fL 80-98 H MEAN CELL HGB (test code = MCH) 33.1 picogram 27.0-33.0 H MEAN CELL HGB CONCETRATION (test code = MCHC) 32.2 gram/dL 33.0-36. 0 L RED CELL DISTRIBUTION WIDTH (test code = RDW) 14.0 % 11.6-16. 2 N RED CELL DISTRIBUTION WIDTH SD (test code = RDW-SD) 52.9 fL 37 .0-51.0 H PLATELET COUNT (test code = PLT) 191 K/mm3 150-450 N MEAN PLATELET VOLUME (test code = MPV) 10.4 fL 6.7-11.0 N NEUTROPHIL % (test code = NT%) 62.4 % 39.0-69.0 N IMMATURE GRANULOCYTE % (test code = IG%) 1.0 % 0.0-5.0 N LYMPHOCYTE % (test code = LY%) 22.9 % 25.0-55.0 L MONOCYTE % (test code = MO%) 9.9 % 0.0-10.0 N EOSINOPHIL % (test code = EO%) 3.1 % 0.0-5.0 N BASOPHIL % (test code = BA%) 0.7 % 0.0-1.0 N NUCLEATED RBC % (test code = NRBC%) 0.0 % 0-0 N NEUTROPHIL # (test code = NT#) 4.78 K/mm3 1.8-7.7 N IMMATURE GRANULOCYTE # (test code = IG#) 0.08 x10 3/uL 0-0.03 H LYMPHOCYTE # (test code = LY#) 1.76 K/mm3 1.0-5.0 N MONOCYTE # (test code = MO#) 0.76 K/mm3 0-0.8 N EOSINOPHIL # (test code = EO#) 0.24 K/mm3 0.0-0.5 N BASOPHIL # (test code = BA#) 0.05 K/mm3 0.0-0.2 N NUCLEATED RBC # (test code = NRBC#) 0.00 K/mm3 0.0-0.1 N MANUAL DIFF REQUIRED (test code = MDIFF) NO B-TYPE NATRIURETIC [id number] 14:06:00* Test Item Value Reference Range Interpretation Comments B-TYPE NATRIURETIC PEPTIDE (test code = BNP) 45.10 pgram/mL 0-100 N BASIC METABOLIC [id number] 13:42:00* Test Item Value Reference Range Interpretation Comments SODIUM (test code = NA) 139 mmol/L 136-145 N POTASSIUM (test code = K) 4.4 mmol/L 3.5-5.1 N CHLORIDE (test code = CL) 106.0 mmol/L 98-107 N CARBON DIOXIDE (test code = CO2) 28.0 mmol/L 21-32 N ANION GAP (test code = GAP) 9.4 10-20 L GLUCOSE (test code = GLU) 169 mg/dL 74-106 H BLOOD UREA NITROGEN (test code = BUN) 45 mg/dL 7-18 H GLOMERULAR FILTRATION RATE (test code = GFR) 55 mL/min >=60 Estimated GFR by using Modified MDRD formula.Chronic kidney disease is defined as either kidney damageor GFR <60 mL/min/1.73 m2 for >3 months. CREATININE (test code = CREAT) 1.30 mg/dL 0.7-1.3 N BUN/CREATININE RATIO (test code = BUN/CREA) 34.6 10-20 H CALCIUM (test code = CA) 8.4 mg/dL 8.5-10.1 L [id number] 13:36:00* Test Item Value Reference Range Interpretation Comments GLYCOSYLATED HEMOGLOBIN (HA1C) (test code = GLYHGB) 7.7 % HbA1 4. 8-6.0 H ESTIMATED AVERAGE GLUCOSE (test code = EAG) 174 MG/DL BASIC METABOLIC [id number] 13:36:00* Test Item Value Reference Range Interpretation Comments SODIUM (test code = NA) 139 mmol/L 136-145 N POTASSIUM (test code = K) 4.4 mmol/L 3.5-5.1 N CHLORIDE (test code = CL) 106.0 mmol/L 98-107 N CARBON DIOXIDE (test code = CO2) mmol/L 21-32 ANION GAP (test code = GAP) 10-20 GLUCOSE (test code = GLU) mg/dL 74-106 BLOOD UREA NITROGEN (test code = BUN) mg/dL 7-18 GLOMERULAR FILTRATION RATE (test code = GFR) mL/min >=60 CREATININE (test code = CREAT) mg/dL 0.7-1.3 BUN/CREATININE RATIO (test code = BUN/CREA) 10-20 CALCIUM (test code = CA) mg/dL 8.5-10.1 - CT LD LUNG CA [id number] 14:35:00 Name: AISLINN BHATIA [facility] : 1955 Age/S: 63 / M [address] [facility] Unit #: [id number] Loc: ALICIA Mendo[place] [address] Phys: Ashok Simpson MD Acct: [id number] Dis Date: Status: REG CLI PHONE #: [phone] Exam Date: 11/16/2018 1244 FAX #: [phone] Reason: NICOTINE DEPENDENC EXAMS: CPT CODE: [id number] CT LD LUNG CA SCREENING [id number] HISTORY: [...] lower rib fracture with callus formation. IMPRESSION: Th e lungs are clear of mass or lesions. Routine 12 month follow-up. FOR INTERNAL CODING PURPOSES ONLY RESULT CODE: L1 FOLLOW UP: L12 at 1435 Reported and sign ed by: Terence Velásquez M.D. CC: Ashok Simpson MD Technologist:Jaciel Medrano RT(R),(MR),(CT) CTDI: DLP: Trnscb Date/Time: 11/16/2018 (1435) t.SDR.TH4 Orig P rint D/T: S: 11/16/2018 (1439) CTDI: DLP: PAGE 1 Signed Report BASIC METABOLIC [id number] 13:47:00* Test Item Value Reference Range Interpretation Comments SODIUM (test code = NA) 136 mmol/L 136-145 N POTASSIUM (test code = K) 4.1 mmol/L 3.5-5.1 N CHLORIDE (test code = CL) 98.0 mmol/L 98-107 N CARBON DIOXIDE (test code = CO2) 31.0 mmol/L 21-32 N ANION GAP (test code = GAP) 11.1 10-20 N GLUCOSE (test code = GLU) 132 mg/dL 74-106 H BLOOD UREA NITROGEN (test code = BUN) 31 mg/dL 7-18 H GLOMERULAR FILTRATION RATE (test code = GFR) 55 mL/min >=60 Estimated GFR by using Modified MDRD formula.Chronic kidney disease is defined as either kidney damageor GFR <60 mL/min/1.73 m2 for >3 months. CREATININE (test code = CREAT) 1.30 mg/dL 0.7-1.3 N BUN/CREATININE RATIO (test code = BUN/CREA) 24.4 10-20 H CALCIUM (test code = CA) 9.0 mg/dL 8.5-10.1 N BASIC METABOLIC [id number] 13:42:00* Test Item Value Reference Range Interpretation Comments SODIUM (test code = NA) 136 mmol/L 136-145 N POTASSIUM (test code = K) 4.1 mmol/L 3.5-5.1 N CHLORIDE (test code = CL) 98.0 mmol/L 98-107 N CARBON DIOXIDE (test code = CO2) mmol/L 21-32 ANION GAP (test code = GAP) 10-20 GLUCOSE (test code = GLU) mg/dL 74-106 BLOOD UREA NITROGEN (test code = BUN) mg/dL 7-18 GLOMERULAR FILTRATION RATE (test code = GFR) mL/min >=60 CREATININE (test code = CREAT) mg/dL 0.7-1.3 BUN/CREATININE RATIO (test code = BUN/CREA) 10-20 CALCIUM (test code = CA) mg/dL 8.5-10.1 HGB [id number] 13:18:00* Test Item Value Reference Range Interpretation Comments HEMOGLOBIN (test code = HGB) 13.7 gram/dL 13.0-17.5 N HEMATOCRIT (test code = HCT) 43.5 % 42.0-52.0 N
--- NOTE | 2020-08-02 18:34 | Emergency Department Note ---
History of Present Illnes History of Present Illness Chief Complaint: Respiratory History of Present Illness This is a 64 year old male in from home with complaints of shortness of breath and difficulty breathing that started about two days ago. Patient reports he was recently admitted to [facility] for the same complaint. Patient denies chest pain. Patient reports the swelling in his legs has improved but his breathing is worse than before. Patient is 94% on room air. No obvious respiratory distress.. 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 Any updates have been documented here. Past Medical History Recent Fever: No Clinical Suspicion of Infectio: No New/Unexplained Change in Ment: No Past Medical History: Hypertension, Diabetes, COPD, CHF, CT, Anxiety, Depression Other Medical History: smokes Past Surgical History: Knee Replacement, Cataract Removal Other Surgery: penile implant, stents- cardiac and lower ext Social History Smoking Cessation: Never Smoker Alcohol Use: None Any Illegal Drug Use: No Family History Family history of heart diseas: Yes Other family history htn,dm Other Last Tetanus: UTD Any Pre-Existing Lines (PICC,: No Review of Systems Review of Systems Constitutional: Reports no symptoms EENTM: Reports no symptoms Cardiovascular: Reports no symptoms Respiratory: Reports as per HPI Gastrointestinal: Reports no symptoms Genitourinary: Reports no symptoms Musculoskeletal: Reports no symptoms Integumentary: Reports no symptoms Neurological: Reports no symptoms Psychological: Reports no symptoms Endocrine: Reports no symptoms Hematological/Lymphatic: Reports no symptoms Physical Exam Related Data Allergies: Coded Allergies: No Known Allergies (Unverified , 06/21/19) Triage Vital Signs Vital Signs Date Time Temp Pulse Resp B/P (MAP) Pulse Ox O2 Delivery O2 Flow Rate FiO2 08/02/20 17:00 98.4 73 17 141/67 94 Room Air Vital signs reviewed: Yes Physical Exam CONSTITUTIONAL Constitutional: Present well-developed, Present well-nourished; Absent distressed HENT HENT: Present normocephalic, Present atraumatic, Present oropharynx clear/moist, Present nose normal HENT L/R: Present left ext ear normal, Present right ext ear normal EYES Eyes: Reports PERRL, Reports conjunctivae normal NECK Neck: Present ROM normal PULMONARY Pulmonary: Present effort normal, Present other (mild decrease in breath sounds at base bilateral, ); Absent rales, Absent rhonchi CARDIOVASCULAR Cardiovascular: Present regular rhythm, Present heart sounds normal, Present capillary refill normal, Present normal rate GASTROINTESTINAL Abdominal: Present soft, Present nontender, Present bowel sounds normal GENITOURINARY Genitourinary: Present exam deferred SKIN Skin: Present warm, Present dry MUSCULOSKELETAL Musculoskeletal: Present ROM normal, Present edema (1+ to bilateral lower extremities) NEUROLOGICAL Neurological: Present alert, Present oriented x 3, Present no gross motor or sensory deficits PSYCHOLOGICAL Psychological: Present mood/affect normal, Present judgement normal Results Laboratory Result Diagram: 08/02/20 1708 08/02/20 1708 Laboratory Laboratory Tests Test 08/02/20 17:08 White Blood Count 6.90 x10e3/uL (4.8-10.8) Red Blood Count 3.23 x10e6/uL (4.3-5.7) Hemoglobin 10.6 g/dL (14.0-18.0) Hematocrit 34.1 % (38.2-49.6) Mean Corpuscular Volume 105.6 fL (81-99) Mean Corpuscular Hemoglobin 32.8 pg (28-32) Mean Corpuscular Hemoglobin Concent 31.1 g/dL (31-35) Red Cell Distribution Width 13.9 % (11.7-14.4) Platelet Count 200 x10e3/uL (140-360) Neutrophils (%) (Auto) 73.2 % (38.7-80.0) Lymphocytes (%) (Auto) 17.0 % (18.0-39.1) Monocytes (%) (Auto) 7.7 % (4.4-11.3) Eosinophils (%) (Auto) 1.4 % (0.0-6.0) Basophils (%) (Auto) 0.6 % (0.0-1.0) Neutrophils # (Auto) 5.1 (2.1-6.9) Lymphocytes # (Auto) 1.2 (1.0-3.2) Monocytes # (Auto) 0.5 (0.2-0.8) Eosinophils # (Auto) 0.1 (0.0-0.4) Basophils # (Auto) 0.0 (0.0-0.1) Absolute Immature Granulocyte (auto 0.01 x10e3/uL (0-0.1) Prothrombin Time 13.8 seconds (11.9-14.5) Prothromb Time International Ratio 1.01 Activated Partial Thromboplast Time 31.6 seconds (23.8-35.5) Sodium Level 143 mmol/L (136-145) Potassium Level 4.4 mmol/L (3.5-5.1) Chloride Level 102 mmol/L (98-107) Carbon Dioxide Level 30 mmol/L (22-29) Anion Gap 15.4 mmol/L (8-16) Blood Urea Nitrogen 46 mg/dL (7-26) Creatinine 1.78 mg/dL (0.72-1.25) Estimat Glomerular Filtration Rate 38 ML/MIN (60-) BUN/Creatinine Ratio 26 (6-25) Glucose Level 197 mg/dL (74-118) Calcium Level 8.3 mg/dL (8.4-10.2) Total Bilirubin 0.2 mg/dL (0.2-1.2) Aspartate Amino Transf (AST/SGOT) 15 IU/L (5-34) Alanine Aminotransferase (ALT/SGPT) 20 IU/L (0-55) Alkaline Phosphatase 104 IU/L (40-150) Creatine Kinase 132 IU/L (30-200) Creatine Kinase MB 3.30 ng/mL (0-5.0) Troponin I 0.332 ng/mL (0-0.300) B-Type Natriuretic Peptide 544.3 pg/mL (0-100) Total Protein 7.2 g/dL (6.5-8.1) Albumin 3.7 g/dL (3.5-5.0) Globulin 3.5 g/dL (2.3-3.5) Albumin/Globulin Ratio 1.1 (0.8-2.0) Laboratory Tests Test 08/02/20 17:08 White Blood Count 6.90 x10e3/uL (4.8-10.8) Red Blood Count 3.23 x10e6/uL (4.3-5.7) Hemoglobin 10.6 g/dL (14.0-18.0) Hematocrit 34.1 % (38.2-49.6) Mean Corpuscular Volume 105.6 fL (81-99) Mean Corpuscular Hemoglobin 32.8 pg (28-32) Mean Corpuscular Hemoglobin Concent 31.1 g/dL (31-35) Red Cell Distribution Width 13.9 % (11.7-14.4) Platelet Count 200 x10e3/uL (140-360) Neutrophils (%) (Auto) 73.2 % (38.7-80.0) Lymphocytes (%) (Auto) 17.0 % (18.0-39.1) Monocytes (%) (Auto) 7.7 % (4.4-11.3) Eosinophils (%) (Auto) 1.4 % (0.0-6.0) Basophils (%) (Auto) 0.6 % (0.0-1.0) Neutrophils # (Auto) 5.1 (2.1-6.9) Lymphocytes # (Auto) 1.2 (1.0-3.2) Monocytes # (Auto) 0.5 (0.2-0.8) Eosinophils # (Auto) 0.1 (0.0-0.4) Basophils # (Auto) 0.0 (0.0-0.1) Absolute Immature Granulocyte (auto 0.01 x10e3/uL (0-0.1) Prothrombin Time 13.8 seconds (11.9-14.5) Prothromb Time International Ratio 1.01 Activated Partial Thromboplast Time 31.6 seconds (23.8-35.5) Sodium Level 143 mmol/L (136-145) Potassium Level 4.4 mmol/L (3.5-5.1) Chloride Level 102 mmol/L (98-107) Carbon Dioxide Level 30 mmol/L (22-29) Anion Gap 15.4 mmol/L (8-16) Blood Urea Nitrogen 46 mg/dL (7-26) Creatinine 1.78 mg/dL (0.72-1.25) Estimat Glomerular Filtration Rate 38 ML/MIN (60-) BUN/Creatinine Ratio 26 (6-25) Glucose Level 197 mg/dL (74-118) Calcium Level 8.3 mg/dL (8.4-10.2) Total Bilirubin 0.2 mg/dL (0.2-1.2) Aspartate Amino Transf (AST/SGOT) 15 IU/L (5-34) Alanine Aminotransferase (ALT/SGPT) 20 IU/L (0-55) Alkaline Phosphatase 104 IU/L (40-150) Creatine Kinase 132 IU/L (30-200) Creatine Kinase MB 3.30 ng/mL (0-5.0) Troponin I 0.332 ng/mL (0-0.300) B-Type Natriuretic Peptide 544.3 pg/mL (0-100) Total Protein 7.2 g/dL (6.5-8.1) Albumin 3.7 g/dL (3.5-5.0) Globulin 3.5 g/dL (2.3-3.5) Albumin/Globulin Ratio 1.1 (0.8-2.0) Lab results reviewed: Yes Imaging Imaging results reviewed: Yes Impressions Procedure: [id number] DX/CHEST SINGLE (PORTABLE) Exam Date: 08/02/20 Exam Time: 1739 REPORT STATUS: Signed EXAMINATION: CHEST SINGLE (PORTABLE) COMPARISON: CT chest 07/22/2020, chest x-ray 07/21/2020 INDICATION: ^CHEST PAIN ^[id number] ^1740 ^Y DISCUSSION: Frontal view of the chest obtained at 1728 hours. HEART AND MEDIASTINUM: Stable cardiomegaly and pulmonary venous prominence. LINES: None. LUNGS/PLEURA: Diffuse hyperinflation. No pneumonia or pulmonary edema. No pleural effusion or pneumothorax. BONES AND SOFT TISSUES: Healed right rib fractures are redemonstrated. No new osseous findings. The soft tissues are normal. IMPRESSION: 1. Stable cardiomegaly without vascular congestion or CHF. 2. No new pulmonary process. Signed by: Dr. Daily Nelson MD on 08/02/2020 5:54 PM Dictated By: DAILY NELSON MD 51 Transcribed By: ALEJANDRO on 08/02/201753 COPY TO: JAIRO MEJIA MD~ Procedures 12 Lead ECG Interpretation ECG Interpretation : ECG: ECG 1 Wheat Farmer: Interpreted by ED physician Date: Aug 02, 2020 Time: 18:00 Rhythm: sinus rhythm Rate: normal BPM: 69 QRS axis: normal ST segments normal: No (nonsecific changes) T waves normal: No T waves flattening: II, III, aVF Q waves: V1, V2 Clinical Impression: abnormal ECG Assessment & Plan Medical Decision Making [facility] pt with sob cbc, cmp, ekg, cardiac enzymes, bnp, cxr ordered to eval for myocardial infarction, pulmonary edema, electrolyte abnormality i spoke with dr buckley and dr hart admit obs, plavic 600 mg po ordered Assessment & Plan Final Impression: (1) Dyspnea (2) Exertional dyspnea (3) Elevated troponin I level Depart Disposition: ADMITTED Last Vital Signs Date Time Temp Pulse Resp B/P (MAP) Pulse Ox O2 Delivery O2 Flow Rate FiO2 08/02/20 17:00 98.4 73 17 141/67 94 Room Air Home Meds Active Scripts Insulin Lispro (HUMALOG) 100 Unit/1 Ml Cartridge, 15 UNITS SC AC for 30 Days Prov:MARGY ALBERT FRONT END TECHNICIAN 07/23/20 Insulin Detemir (Levemir Flextouch) 100 Unit/1 Ml Insuln.pen, 30 UNITS SC Q12H for 30 Days, UNIT Prov:MARGY ALBERT FRONT END TECHNICIAN 07/23/20 Furosemide (LASIX) 20 Mg Tablet, 60 MG PO BID, #30 TAB Prov:MARGY ALBERT FRONT END TECHNICIAN 07/23/20 Tamsulosin Hcl* (FLOMAX*) 0.4 Mg Cap, 0.4 MG PO HS for 30 Days, CAP Prov:MARGY ALBERT FRONT END TECHNICIAN 07/23/20 Sacubitril/Valsartan (Entresto 49 mg-51 mg Tablet) 1 Each Tablet, 1 EACH PO DAILY for 30 Days Prov:MARGY ALBERT FRONT END TECHNICIAN 07/23/20 Reported Medications Clopidogrel Bisulfate* (PLAVIX) 75 Mg Tablet, 75 MG PO DAILY, #30 TAB 07/21/20 Donepezil Hcl (ARICEPT) 5 Mg Tablet, 10 MG PO BID, #60 TAB 07/21/20 Atorvastatin Calcium (LIPITOR) 20 Mg Tablet, 80 MG PO HS, TAB 07/21/20 Bupropion Hcl (BUPROPION HCL) 100 Mg Tablet, 100 MG PO BID, #30 TAB 07/21/20 Aspirin (ASPIRIN CHEW) 81 Mg Chew, 81 MG PO DAILY, #30 TAB 07/21/20 Varenicline Tartrate (CHANTIX) 1 Mg Tablet, 1 TAB PO BID 07/21/20 Sertraline Hcl (SERTRALINE HCL) 100 Mg Tablet, 200 MG PO HS, TAB 07/21/20 Dexlansoprazole (DEXILANT) 30 Mg Cap., 1 CAP PO DAILY THERAPEUTIC INTERCHANGED WITH PROTONIX PER [facility] 07/21/20 Olanzapine (OLANZAPINE) 5 Mg Tablet, 5 MG PO BID, #30 TAB 07/21/20 Gabapentin (GABAPENTIN) 300 Mg Capsule, 300 MG PO BID, #60 CAP 07/21/20 Metoprolol Succinate (METOPROLOL SUCCINATE) 50 Mg Tab.er.24h, 50 MG PO DAILY, MG 07/21/20 Alfuzosin Hcl (ALFUZOSIN HCL) 10 Mg Tab.er.24h, 1 TAB PO HS 07/21/20 Cyanocobalamin (VITAMIN B-12) 1,000 Mcg Tab, 1000 MCG PO DAILY, #30 TAB 07/21/20 Ipratropium Piseco (IPRATROPIUM BROMIDE) 0.2 Mg/1 Ml Solution, 2.5 ML NEB QID PRN for WHEEZING, EACH 06/21/19 Trazodone Hcl (TRAZODONE HCL) 50 Mg Tablet, 200 MG PO HS, #30 TAB 06/21/19 Medications in the ED Aspirin 324 mg ONCE ONCE PO Last administered on 08/02/20at 18:12; Admin Dose 324 MG; Start 08/02/20 at 18:15; Stop 08/02/20 at 18:16; Status DC Aspirin 324 mg ONCE ONCE PO ; Start 08/02/20 at 18:15; Stop 08/02/20 at 18:16; Status DC RASHARD HOBSON MD Aug 02, 2020 18:34
[2020-08-02] MEDS ORDERED: MORPHINE SULFATE 2 MG/ML SYR 1ML IV PRN (18:45)
[2020-08-02] MEDS ORDERED: CLOPIDOGREL BISULFATE 75 MG TAB PO ONE (18:45)
[2020-08-02] MEDS ORDERED: DEXTROSE 50% SYRINGE 50 ML IV PRN (18:45)
[2020-08-02] MEDS ORDERED: SODIUM CHLORIDE FLUSH 10 ML SYR INJ PRN (18:45)
[2020-08-02] MEDS ORDERED: ONDANSETRON HCL INJ 2MG/ML 2ML 2 MG/ML VIAL IV PRN (18:45)
[2020-08-02] MEDS ORDERED: CLOPIDOGREL BISULFATE 75 MG TAB ONE (18:58)
--- OUTSIDE RECORDS SUMMARY | 2020-08-02 19:20 | XMS REPORT | Clinical Summary ---
Author Author [facility] Organization [facility] Address Unknown Phone Unavailable Care Team Providers Care Screw Machine Repairer Name Role Phone Guzman Llamas DO PCP [...] Added automatically from request for enma charles [phone] Encounters Care Team Description Date Type Specialty [...] biopsy; Surgeon: Sugar Armenta MD; Loca tion: [facility]; Service: Gastroenterology; Laterality: N/A; ascending colon [...] Procedure Name Priority Date/Time Associated Diag nosis IN ARTHROCENTESIS Routine 04/25/2020 Chronic pain of right [...] and lateral patellofemoral compartments. Performing Organization Address City/[facility]/ZIP Code P sakina Number [facility] [address] [place] [address] * XR Leg Length Evaluation (04/25/2020 2:58 PM CDT) Specimen Narrative Performed At [facility] Long-leg evaluation of the right knee s hows a patient neutral alignment Performing Organization Address City/State/ZIP Code P s[place] Number [facility] [address] [place] [address] after 08/02/2019 Insurance Type Payer Benefit Subscriber ID Effective Phone Address Plan / Dates Group [facility] MEDICARE AARP [id number] [id number] MEDICARE resent ADVANTAGE PLAN HMO-POS ([employer]) [id number] Advance Directives For more information, please contact: [phone] Patient Career Services Coordinator Explanation Type Date Recorded Advance Directives, 11/30/2018 6:26 AM Living Will and Medical Power of Edge Bander Operator Advance Directives, 11/25/2018 1:54 PM Living Will and Medical Power of Edge Bander Operator
--- OUTSIDE RECORDS SUMMARY | 2020-08-02 19:20 | XMS REPORT | Continuity of Care Document ---
Author Author [facility] t Organization [facility] Address [address] [place] [address] Phone Unavailable Care Team Providers Care Food Sanitarian Name Role Phone DO Steve LLAMAS DO PCP Tab Stearns Attphys Unavailable MIC GONZALEZ Attphys Unavailable Josie LAM, Andrew Farris Attphys [phone] Celestine KYLE Attphys Unavailable MIC GONZALEZ Admphys Unavailable Celestine KYLE Admphys Unavailable Payers Payer Name Policy Type Policy Number Effective Date Expiration Date S terell Aarp Medicare Complete [id number] 2019 00:00:00 [facility] MEDICAREAARP MEDICARE ADVANTAGE PLAN HMO-POS (WELLMED)[id number] 2019-PresentHMO [id number] 2019 00:00 :00 Reuben Anglican Problems Condition Name Condition Details Condition Category Status Onset Date Resolution Date Last Treatment Date Treating Clinician Comments Source Colon cancer screening Colon cancer screening Disease Active 2018-11-04 00:00:00 Overview: Added automaticall y from request for surgery [id number] Reuben Ayala Postoperative pain Post-op pain Problem Active [facility] Hematoma of scrotum Scrotal hematoma Problem Active [facility] Acute on chronic congestive heart failure Problem Active [facility] Chronic obstructive pulmonary disease Problem Active [facility] Bronchitis Problem Active [facility] Hypoglycemic reaction to insulin Problem Active [facility] Allergies, Adverse Reactions, Alerts Allergy Name Allergy Type Status Severity Reaction(s) Onset Date Inacti ve Date Treating Clinician Comments Source No Known Allergies DA Active U 2020-07-19 00:00:00 [facility] No Known Allergies DA Active U 2019-09-29 00:00:00 [facility] No Known Allergies DA Active U 2018-08-10 00:00:00 [facility] No Known Allergies DA Active U 2016-08-30 00:00:00 [facility] Family History Family Member Diagnosis Comments Start Date Stop Date Source Natural father Colon cancer Reuben Ayala Natural mother Diabetes [facility] Natural sister Colon cancer Reuben Ayala Social History Social Habit Start Date Stop Date Quantity Comments Source History SDOH Alcohol Std Drinks Reuben Anglican History SDOH Alcohol Binge Reuben Ayala Sex Assigned At [place] Ayala Cigarettes smoked current (pack per day) - Reported 00:00:00 2020-04-25 00:00:00 Reuben Anglican Cigarette pack-years 2020-04-25 00:00:00 2020-04-25 00:00:00 Reuben Whitneyist Tobacco use and exposure 2020-04-25 00:00:00 2020-04-25 00:00:00 Nacho mejia used Alexis Anglican Alcohol intake 2020-04-25 00:00:00 2020-04-25 00:00:00 Current non-drinker of alcohol (finding) Reuben Anglican History SDOH Alcohol Frequency 2018-11-29 00:00:00 2018-11-29 00:00:0 0 1 Reuben Anglican Smoking Status Start Date Stop Date Source Current every day smoker 2020-04-25 00:00:00 Waldo Ayala Medications Ordered Medication Name Filled Medication Name Start Date Stop Da te Current Medication? Ordering Clinician Indication Dosage Frequency Signature (SIG) Comments Components Source Furosemide (Lasix) 20 Mg TABLET Furosemide (Lasix) 20 Mg TAB LET 2020-07-23 14:33:00 Yes 60 Twice A Day [facility] Insulin Detemir (Levemir Flextouch) 100 Unit/[address]PEN Insulin Detemir (Levemir Flextouch) 100 Unit/1 Ml INSULN.PEN 2020-07-23 14:33:00 Yes 30 Every 12 Hours [facility] Insulin Lispro (Humalog) 100 Unit/1 Ml CARTRIDGE Insul in Lispro (Humalog) 100 Unit/1 Ml CARTRIDGE 2020-07-23 14:33:00 Yes 15 Befo re Meals [facility] Sacubitril/Valsartan (Entresto 49 Mg-51 Mg Tablet) 1 E ach TABLET Sacubitril/Valsartan (Entresto 49 Mg-51 Mg Tablet) 1 Each TABLET 2020-07-23 11:25:00 Yes 1 Daily [facility] Tamsulosin Hcl (Flomax*) 0.4 Mg CAP Tamsulosin Hcl (Flomax*) 0.4 Mg CAP 2020-07-23 11:25:00 Yes .4 Bedtime [facility] metoprolol succinate XL (TOPROL XL) 50 [...] for neb ulization 2020-04-25 14:40:50 Yes 2.5mg [id number] Take 2.5 mg by nebulization 3 (three) [...] times a day. 40am and 50pm Reuben KHALIL DELICA LANCETS 33 gauge misc 2018-10-12 00:00:00 Yes Reuben Ayala INSULIN SYRINGE 0.5 mL 30 gauge x 5/16" syringe 2018-10-03 00:00 :00 Yes Reuben willams lisinopril (PRINIVIL,ZESTRIL) 20 mg tablet 2018-09-19 00:00:00 Yes 20mg QD Take 20 mg by mouth daily. Madison Ayala Alfuzosin Hcl Alfuzosin Hcl Yes 1 Bedtime [facility] Aspirin (Aspirin Chew) 81 Mg CHEW Aspirin (Aspirin Chew) 81 Mg CHEW Yes 81 Daily [facility] Atorvastatin Calcium (Lipitor) 20 Mg TABLET Atorvastat in Calcium (Lipitor) 20 Mg TABLET Yes 80 Bedtime [facility] Bupropion Hcl Bupropion Hcl Yes 100 Twice A Day [facility] Clopidogrel Bisulfate (Plavix) 75 Mg TABLET Clopidogre l Bisulfate (Plavix) 75 Mg TABLET Yes 75 Daily [facility] Cyanocobalamin (Vitamin B-12) 1,000 Mcg TAB Cyanocobal francois (Vitamin B-12) 1,000 Mcg TAB Yes 1000 Daily [facility] Dexlansoprazole (Dexilant) 30 Mg CAP. Dexlansopra zole (Dexilant) 30 Mg CAP. Yes 1 Daily [facility] Donepezil Hcl (Aricept) 5 Mg TABLET Donepezil Hcl (Aricept) 5 Mg TABL ET Yes 10 Twice A Day [facility] Gabapentin Gabapentin Yes 300 Twice A Day [facility] Ipratropium [place] Ipratropium [place] Yes 2.5 Four Times Daily as needed for Wheezing [facility] Metoprolol Succinate Metoprolol Succinate Yes 50 Daily [facility] Olanzapine Olanzapine Yes 5 Twice A Day [facility] Sertraline Hcl Sertraline Hcl Yes 200 Bedtime [facility] Trazodone Hcl Trazodone Hcl Yes 200 Bedtime [facility] Varenicline Tartrate (Chantix) 1 Mg TABLET Varenicline Tartrate (Chantix) 1 Mg TABLET Yes 1 Twice A Day [facility] Celecoxib (Celebrex*) 100 Mg CAPSULE Celecoxib (Celebrex*) 100 M g CAPSULE 2020-07-23 00:00:00 No 200 Twice A Day [facility] Furosemide Furosemide 2020-07-23 00:00:00 No 80 Twi ce A Day [facility] Insulin Detemir (Levemir) 100 Unit/1 Ml VIAL Insulin D etemir (Levemir) 100 Unit/1 Ml VIAL 2020-07-23 00:00:00 No 40 Twice A D ay [facility] Insulin Lispro (Humalog) 100 Unit/1 Ml CARTRIDGE Insul in Lispro (Humalog) 100 Unit/1 Ml CARTRIDGE 2020-07-23 00:00:00 No 20 Befo re Meals [facility] Sacubitril/Valsartan (Entresto 97 Mg-103 Mg Tablet) 1 Each TABLET Sacubitril/Valsartan (Entresto 97 Mg-103 Mg Tablet) 1 Each TABLET 2020-07-23 00:00:00 No 1 Twice A Day [facility] Albuterol Sulfate Albuterol Sulfate 2020-07-21 00:00:00 No 2.5 As Needed [facility] Alfuzosin Hcl Alfuzosin Hcl 2020-07-21 00:00:00 No 10 Bedtime [facility] Aspirin Aspirin 2020-07-21 00:00:00 No 81 Daily [facility] Atorvastatin Calcium Atorvastatin Calcium 2020-07-21 00:00:00 No 80 Bedtime [facility] Bupropion Hcl (Wellbutrin Sr) 150 Mg TABLET.ER Bupropi on Hcl (Wellbutrin Sr) 150 Mg TABLET.ER 2020-07-21 00:00:00 No 150 Twice A Day [facility] Cetirizine Hcl Cetirizine Hcl 2020-07-21 00:00:00 No 10 Daily [facility] Clonazepam Clonazepam 2020-07-21 00:00:00 No 1 As Needed as needed for Anxiety [facility] Clopidogrel Bisulfate (Plavix) 75 Mg TABLET Clopidogre l Bisulfate (Plavix) 75 Mg TABLET 2020-07-21 00:00:00 No 75 Daily [facility] Donepezil Hcl (Aricept) 5 Mg TABLET Donepezil Hcl (Aricept) 5 Mg TABLET 2020-07-21 00:00:00 No 10 Bedtime [facility] Furosemide Furosemide 2020-07-21 00:00:00 No 40 Twi ce A Day [facility] Gabapentin Gabapentin 2020-07-21 00:00:00 No 300 Twi ce A Day [facility] Metoprolol Succinate (Toprol Xl) 50 Mg TAB.ER.24H Meto prolol Succinate (Toprol Xl) 50 Mg TAB.ER.24H 2020-07-21 00:00:00 No 75 Yajaira ly [facility] Mometasone/Formoterol (Dulera 200 Mcg/5 Mcg Inhaler) 1 3 Gm HFA.AER.AD Mometasone/Formoterol (Dulera 200 Mcg/5 Mcg Inhaler) 13 Gm HFA.AER.AD 2020-07-21 00:00:00 No 2 Every 12 Hours [facility] Pantoprazole Sodium (Protonix) 40 Mg TABLET. Pantopr azole Sodium (Protonix) 40 Mg TABLET. 2020-07-21 00:00:00 No 40 Daily [facility] Sacubitril/Valsartan (Entresto 49 Mg-51 Mg Tablet) 1 E ach TABLET Sacubitril/Valsartan (Entresto 49 Mg-51 Mg Tablet) 1 Each TABLET 2020-07-21 00:00:00 No 1 Twice A Day [facility] Sertraline Hcl (Zoloft) 100 Mg TABLET Sertraline Hcl (Zoloft) 10 0 Mg TABLET 2020-07-21 00:00:00 No 200 Daily [facility] Spironolactone Spironolactone 2020-07-21 00:00:00 No 12.5 Daily [facility] Varenicline Tartrate (Chantix) 1 Mg TABLET Varenicline Tartrate (Chantix) 1 Mg TABLET 2020-07-21 00:00:00 No 1 Twice A Day [facility] Vital Signs Vital Name Observation Time Observation Value Comments Source Heart Rate 2020-07-23 11:50:00 75 /min [facility] Respiratory rate 2020-07-23 11:50:00 20 /min [facility] Oxygen saturation by Pulse oximetry 2020-07-23 11:50:00 95 /min [facility] Body Temperature 2020-07-23 11:45:00 97.4 [degF] [facility] BP Systolic 2020-07-23 11:45:00 127 mm[Hg] [facility] BP Diastolic 2020-07-23 11:45:00 50 mm[Hg] [facility] Weight 2020-07-21 16:57:00 295 [lb_av] [facility] BMI (Body Mass Index) 2020-07-21 16:57:00 43.6 kg/m2 [facility] Body height 2020-04-25 14:35:00 175.3 cm Reuben Ayala Body weight 2020-04-25 14:35:00 98.431 kg Reuben Ayala BMI 2020-04-25 14:35:00 32.05 kg/m2 Reuben Ayala Procedures Procedure Date / Time Performed Performing Clinician [facility] e Computed tomography of chest without contrast 2020-07-22 00:00:0 0 [facility] Ultrasound, renal 2020-07-22 00:00:00 [facility] LA ARTHROCENTESIS ASPIR&/INJ MAJOR JT/BURSA W/O US 2020-04-07 0 15:00:00 Brenton Rodriguez XR KNEE 4+ VW RIGHT 2020-04-25 14:58:37 Brenton Rodriguez H oudaphne Ayala XR LEG LENGTH EVALUATION 2020-04-25 14:58:23 Brenton Rodriguez hishruthi Ayala Plan of Care Planned Activity Planned Date Details Comments Source Future Scheduled Test 2020-04-06 00:00:00 INFLUENZA VACCINE [code = INFLUENZA VACCINE] [facility] Future Scheduled Test 2018 00:00:00 65+ PNEUMOCOCCAL V ACCINE (2 of 2 - PPSV23) [code = 65+ PNEUMOCOCCAL VACCINE (2 of 2 - PPSV23)] [facility] Scheduled Test 2003 00:00:00 COLONOSCOPY SCREEN ING [code = COLONOSCOPY SCREENING] [facility] Scheduled Test 2003 00:00:00 SHINGLES VACCINES (#1) [code = SHINGLES VACCINES (#1)] [facility] Future Scheduled Test 1963 00:00:00 DIABETES: RETINAL EYE EXAM [code = DIABETES: RETINAL EYE EXAM] [facility] Future Scheduled Test 1963 00:00:00 DIABETIC FOOT EXAM [code = DIABETIC FOOT EXAM] [facility] Future Scheduled Test 1963 00:00:00 URINE MICROALBUMIN [code = URINE MICROALBUMIN] Reuben Ayala Instructions COPD [facility] Instructions Diabetes and Diet [facility] Instructions Congestive Heart Failure [facility] Encounters Start Date/Time End Date/Time Encounter Type Admission Type Attendi [facility] Care Department Encounter ID Source 2020-07-21 14:35:00 2020-07-23 15:19:00 Discharged Inpatient 1 MIC GONZALEZ [facility] [id number] [facility] 2020-04-25 00:00:00 2020-04-25 00:00:00 Outpatient NAYELI RODRIGUEZ [facility] [id number] [facility] 2020-04-25 00:00:00 2020-04-25 00:00:00 Outpatient NAYELI RODRIGUEZ [facility] [id number] [facility] 2020-04-25 00:00:00 2020-04-25 00:00:00 Outpatient NAYELI RODRIGUEZ [facility] [id number] [facility] 2019-06-24 12:17:00 2019-06-27 19:30:00 Discharged Inpatient (obs) 1 ANABELLA CITLALI [facility] [id number] [facility] 2019-06-22 07:42:00 2019-06-22 07:42:00 Registered Surgical Day Car e 3 [facility] [id number] [facility] Results Test Description Test Time Test Comments Results Result Comments Source CHEST SINGLE (PORTABLE) 2020-08-02 17:53:00 [facility] 1955 Sex: [place] [address] Patient Name: AISLINN BHATIA MR #: [id number] : 1955 Age/Sex: 64/M Req #: [id number] [facility] Physician: Ordered by: Jairo Stearns MD Report #: [id number] Location: ER Room/Bed: Procedure: [id number] DX/CHEST SINGLE (PORTABLE) Exam Date: 08/02/20 Exam Time: 1740 REPORT STATUS: Signed EXAMINATION: CHEST SINGLE (PORTABLE) [...] Test Item Bedside Glucose (test code = 91555-4) 107 mg/dL 70-120 [facility] Tylererum or plasma sodium measurement (moles/volume)2020-07-23 04:45:00* Test Item Value Reference Range Interpretation Comments Sodium Level (test code = 2951-2) 141 mmol/L 136-145 [facility] or plasma potassium measurement (moles/volume)2020-07-23 04:45:00* Test Item Value Reference Range Interpretation Comments Potassium Level (test code = 2823-3) 4.5 mmol/L 3.5-5.1 [facility] Tylererum or plasma chloride measurement (moles/volume)2020-07-23 04:45:00* Test Item Value Reference Range Interpretation Comments Chloride Level (test code = 2075-0) 109 mmol/L 98-107 [facility] Tylere[facility] or plasma carbon dioxide, total measurement (moles/volume)2020-07-23 04:45:00* Test Item Value Reference Range Interpretation Comments Carbon Dioxide Level (test code = 2028-9) 28 mmol/L 22-29 [facility] Tylererum or plasma anion [id number] 04:45:00* Test Item Value Reference Range Interpretation Comments Anion Gap (test code = 56506-8) 8.5 mmol/L 8-16 [facility] or plasma urea nitrogen measurement (mass/volume)2020-07-23 04:45:00* Test Item Value Reference Range Interpretation Comments Blood Urea Nitrogen (test code = 3094-0) 30 mg/dL 7- [facility] Tylererum or plasma creatinine measurement (mass/volume)2020-07-23 04:45:00* Test Item Value Reference Range Interpretation Comments Creatinine (test code = 2160-0) 1.23 mg/dL 0.72-1.25 [facility] Tylererum or plasma urea nitrogen/creatinine mass [id number] 04:45:00* Test Item Value Reference Range Interpretation Comments BUN/Creatinine Ratio (test code = 3097-3) 24 6-25 [facility] CampusEstimated glomerular filtration rate (GFR) [id number] 04:45:00* Test Item Value Reference Range Interpretation Comments Estimat Glomerular Filtration Rate (test code = 790442884) 59 mL/mi n >60 Ranges were taken from the National Kidney Disease Education Program and the [facility] literature.Reference ranges:60 or greater: Schjek60-66 ( for 3 consecutive months): Chronic kidney disease 15 or less: Kidney failureThe [facility] CampusGlucose [id number] 04:45:00* Test Item Value Reference Range Interpretation Comments Glucose Level (test code = WVT3492) 167 mg/dL 74-118 [facility] Tylere[facility] or plasma calcium measurement (mass/volume)2020-07-23 04:45:00* Test Item Value Reference Range Interpretation Comments Calcium Level (test code = 59337-6) 8.4 mg/dL 8.4-10.2 [facility] CampusFluoroscopic procedure less than one hour [id number] 04:45:00* Test Item Value Reference Range Interpretation Comments Hemoglobin A1c Percent (test code = Hemoglobin A1c Percent) 9.2 % 4.0-7.0 [facility] or plasma total bilirubin measurement (mass/volume)2020-07-23 04:45:00* Test Item Value Reference Range Interpretation Comments Total Bilirubin (test code = 1975-2) 0.2 mg/dL 0.2-1.2 [facility] CampusFluoroscopic procedure less than one hour [id number] 04:45:00* Test Item Value Reference Range Interpretation Comments Aspartate Amino Transf (AST/SGOT) (test code = Aspartate Amino Transf (AST/SGOT)) 18 [IU]/L 5-34 [facility] or plasma alanine aminotransferase measurement (enzymatic activity/volume)2020-07-23 04:45:00* Test Item Value Reference Range Interpretation Comments Alanine Aminotransferase (ALT/SGPT) (test code = 1742-6) 22 [IU]/L 0-55 [facility] CampusAmmonia [id number] 04:45:00* Test Item Value Reference Range Interpretation Comments Ammonia (test code = 89591-1) 76 ug/dL 31-123 [facility]re[facility] or plasma protein measurement (mass/volume)2020-07-23 04:45:00* Test Item Value Reference Range Interpretation Comments Total Protein (test code = 2885-2) 6.5 g/dL 6.5-8.1 [facility] Tylererum or plasma albumin measurement (mass/volume)2020-07-23 04:45:00* Test Item Value Reference Range Interpretation Comments Albumin (test code = 1751-7) 3.2 g/dL 3.5-5.0 [facility] CampusPlasma globulin measurement (mass/volume) 2020-07-23 04:45:00* Test Item Value Reference Range Interpretation Comments Globulin (test code = 97311-9) 3.3 g/dL 2.3-3.5 [facility] Tylererum or plasma albumin/globulin mass [id number] 04:45:00* Test Item Value Reference Range Interpretation Comments Albumin/Globulin Ratio (test code = 1759-0) 1.0 0.8-2.0 [facility] Tylererum or plasma alkaline phosphatase measurement (enzymatic activity/volume)2020-07-23 04:45:00* Test Item Value Reference Range Interpretation Comments Alkaline Phosphatase (test code = 6768-6) 88 [IU]/L 40-150 [facility] T[facility]re[facility] or plasma thyroxine (T4) free measurement (mass/volume)2020-07-23 04:45:00* Test Item Value Reference Range Interpretation Comments Free Thyroxine (test code = 3024-7) 0.84 ng/dL 0.8-1.8 [facility]re[facility] or plasma thyrotropin measurement by detection limit <= 0.005 miu/l (units/volume)2020-07-23 04:45:00* Test Item Value Reference Range Interpretation Comments Thyroid Stimulating Hormone (TSH) (test code = 87109-2) 0.979 0.350-4.940 [facility] CampusUS RENAL RETROPERITONEAL [id number] 16:12:00[facility] SRIRAMAISLINN MCCONNELL : 1955 Sex: M [facility] [address] [place] [address] Patient Name: AISLINN BHATIA MR #: [id number] : 1955 Age/Sex: 64/M Req #: [id number] Adm Physician: MIC GONZALEZ MD Ordered by: ALPHONSE MORLEY MD, MD Report #: [id number] Location: MED/SURG2 Room/Bed: [place] Procedure: [id number] US/US RENAL RETROPERITONEAL COMP Exam Date: 07/22/20 [...] 07/22/201612 COPY TO: ALPHONSE MORLEY Urine color [id number] 15:56:00* Test Item Value Reference Range Interpretation Comments Urine Color (test code = 5778-6) YELLOW YELLOW [facility] CampusUrine [id number] 15:56:00* Test Item Value Reference Range Interpretation Comments Urine Clarity (test code = 37877-2) CLEAR CLEAR [facility] gravity of Urine by Test strip 2020-07-22 15:56:00* Test Item Value Reference Range Interpretation Comments Urine Specific [place] (test code = 5811-5) 1.020 1.010-1.02 5 [facility] CampusUrine pH measurement by automated test [id number] 15:56:00* Test Item Value Reference Range Interpretation Comments Urine pH (test code = 11616-9) 5 5-7 [facility] CampusUrine leukocyte esterase detection by [id number] 15:56:00* Test Item Value Reference Range Interpretation Comments Urine Leukocyte Esterase (test code = 5799-2) NEGATIVE NEGATIVE [facility] CampusUrine nitrite [id number] 15:56:00* Test Item Value Reference Range Interpretation Comments Urine Nitrite (test code = 35818-6) NEGATIVE NEGATIVE [facility] CampusUrine protein measurement by test strip (mass/volume)2020-07-22 15:56:00* Test Item Value Reference Range Interpretation Comments Urine Protein (test code = 5804-0) NEGATIVE NEGATIVE [facility] CampusUrine glucose [id number] 15:56:00* Test Item Value Reference Range Interpretation Comments Urine Glucose (UA) (test code = 2349-9) NEGATIVE NEGATIVE [facility] CampusUrine ketones detection by automated test [id number] 15:56:00* Test Item Value Reference Range Interpretation Comments Urine Ketones (test code = 43659-8) NEGATIVE NEGATIVE [facility] CampusUrine urobilinogen measurement by test strip (mass/volume)2020-07-22 15:56:00* Test Item Value Reference Range Interpretation Comments Urine Urobilinogen (test code = 06167-0) 0.2 mg/dL 0.2-1 [facility] CampusUrine total bilirubin measurement (mass/volume)2020-07-22 15:56:00* Test Item Value Reference Range Interpretation Comments Urine Bilirubin (test code = 1978-6) NEGATIVE NEGATIVE [facility] CampusUrine erythrocytes [id number] 15:56:00* Test Item Value Reference Range Interpretation Comments Urine Blood (test code = 39748-3) NEGATIVE NEGATIVE [facility] CampusAutomated urine sediment leukocyte count by microscopy (number/high power field)2020-07-22 15:56:00* Test Item Value Reference Range Interpretation Comments Urine WBC (test code = 5821-4) 0-5 /[HPF] 0-5 [facility] CampusErythrocytes detection in urine sediment by light ybxftikbxd9446-99-21 15:56:00* Test Item Value Reference Range Interpretation Comments Urine RBC (test code = 30711-4) 0-5 /[HPF] 0-5 [facility] CampusBacteria detection in urine sediment by light ybftddwepz6456-59-32 15:56:00* Test Item Value Reference Range Interpretation Comments Urine Bacteria (test code = 80796-0) RARE /[HPF] NONE [facility] CampusEpithelial cells detection in urine sediment by light xcrgcgvhon9010-66-17 15:56:00* Test Item Value Reference Range Interpretation Comments Urine Epithelial Cells (test code = 34134-5) RARE /[LPF] NONE [facility] CampusUrine protein measurement (mass/volume) 2020-07-22 15:56:00* Test Item Value Reference Range Interpretation Comments Urine Random Total Protein (test code = 2888-6) < 6.8 mg/dL 1-14 [facility] CampusUrine creatinine measurement (mass/volume)2020-07-22 15:56:00* Test Item Value Reference Range Interpretation Comments Urine Creatinine (test code = 2161-8) 34.77 mg/dL 63-166 [facility] CampusRandom urine protein/creatinine ratio 2020-07-22 15:56:00* Test Item Value Reference Range Interpretation Comments Urine Protein/Creatinine Ratio (test code = 59550-0) 0.00 [facility] CampusCT CHEST [id number] 08:39:[address] [facility] : 1955 Sex: M* [facility] [address] [facility], [place] [address] Patient Name: AISLINN BHATIA MR #: [id number] : 1955 Age/Sex: 64/M Req #: [id number] Adm Physician: MIC GONZALEZ MD Ordered by: DIA RICARDO WORLD TRAVEL COUNSELOR Report #: [id number] Location: [facility] Room/Bed: [place] Procedure: [id number] CT/CT CHEST WO Exam Date: 0 Exam [...] 07/22/20 0 845 COPY TO: DIA RICARDO WORLD TRAVEL COUNSELOR Blood leukocytes automated count (number/volume)2020-07-22 04:55:00* Test Item Value Reference Range Interpretation Comments White Blood Count (test code = 6690-2) 6.57 10*3/uL 4.8-10.8 [facility] CampusBlood erythrocytes automated count (number/volume)2020-07-22 04:55:00* Test Item Value Reference Range Interpretation Comments Red Blood Count (test code = 789-8) 2.94 10*6/mL 4.3-5.7 [facility] CampusBlood hemoglobin measurement (moles/volume)2020-07-22 04:55:00* Test Item Value Reference Range Interpretation Comments Hemoglobin (test code = 89633-5) 9.8 g/dL 14.0-18.0 [facility] CampusAutomated blood hematocrit (volume fraction)2020-07-22 04:55:00* Test Item Value Reference Range Interpretation Comments Hematocrit (test code = 4544-3) 31.4 % 38.2-49.6 [facility] CampusAutomated erythrocyte mean corpuscular jgptiy8572-82-71 04:55:00* Test Item Value Reference Range Interpretation Comments Mean Corpuscular Volume (test code = 787-2) 106.8 81-99 [facility] CampusAutomated erythrocyte mean corpuscular hemoglobin (mass per erythrocyte)2020-07-22 04:55:00* Test Item Value Reference Range Interpretation Comments Mean Corpuscular Hemoglobin (test code = 785-6) 33.3 pg 28-32 [facility] CampusAutomated erythrocyte mean corpuscular hemoglobin concentration measurement (mass/volume)2020-07-22 04:55:00* Test Item Value Reference Range Interpretation Comments Mean Corpuscular Hemoglobin Concent (test code = 786-4) 31.2 g/dL 31-35 [facility] CampusRDW QyjZq-Fdy7493-72-16 04:55:00* Test Item Value Reference Range Interpretation Comments Red Cell Distribution Width (test code = 82078-5) 13.5 % 11.7 -14.4 [facility] CampusAutomated blood platelet count (count/volume)2020-07-22 04:55:00* Test Item Value Reference Range Interpretation Comments Platelet Count (test code = 777-3) 191 10*3/uL 140-360 [facility] CampusAutomated blood segmented neutrophil count as percentage of total groeagytco9780-50-16 04:55:00* Test Item Value Reference Range Interpretation Comments Neutrophils (%) (Auto) (test code = 46043-2) 77.5 % 38.7-80.0 [facility] CampusAutatrium health harrisburged blood lymphocyte count as percentage ot total npgwobkhaa1504-13-63 04:55:00* Test Item Value Reference Range Interpretation Comments Lymphocytes (%) (Auto) (test code = 736-9) 12.5 % 18.0-39.1 [facility] CampusAutomated blood monocyte count as percentage of total tbapjloiap6150-83-23 04:55:00* Test Item Value Reference Range Interpretation Comments Monocytes (%) (Auto) (test code = 5905-5) 7.5 % 4.4-11.3 [facility] CampusAutomated blood eosinophil count as percentage of total rfvgxucfdl0879-27-23 04:55:00* Test Item Value Reference Range Interpretation Comments Eosinophils (%) (Auto) (test code = 713-8) 1.7 % 0.0-6.0 [facility] blood basophil count as percentage of total tgwfgftcmk6766-68-71 04:55:00* Test Item Value Reference Range Interpretation Comments Basophils (%) (Auto) (test code = 706-2) 0.5 % 0.0-1.0 [facility] CampusFluoroscopic procedure less than one hour bnrkltto5359-85-36 04:55:00* Test Item Value Reference Range Interpretation Comments IM GRANULOCYTES % (test code = IM GRANULOCYTES %) 0.3 % 0.0- 1.0 [facility] CampusAutomated blood neutrophil count 2020-07-22 04:55:00* Test Item Value Reference Range Interpretation Comments Neutrophils # (Auto) (test code = 751-8) 5.1 2.1-6.9 [facility] CampusBlood lymphocytes count (number/volume) 2020-07-22 04:55:00* Test Item Value Reference Range Interpretation Comments Lymphocytes # (Auto) (test code = 14311-1) 0.8 1.0-3.2 [facility] CampusBlfederal correction institution hospital monocytes automated count (number/volume)2020-07-22 04:55:00* Test Item Value Reference Range Interpretation Comments Monocytes # (Auto) (test code = 742-7) 0.5 0.2-0.8 [facility] CampusAutomated blood eosinophil count 2020-07-22 04:55:00* Test Item Value Reference Range Interpretation Comments Eosinophils # (Auto) (test code = 711-2) 0.1 0.0-0.4 [facility] CampusAutomated blood basophil count (count/volume)2020-07-22 04:55:00* Test Item Value Reference Range Interpretation Comments Basophils # (Auto) (test code = 704-7) 0.0 0.0-0.1 [facility] CampusFluoroscopic procedure less than one hour uzrjwrmn3898-67-13 04:55:00* Test Item Value Reference Range Interpretation Comments Absolute Immature Granulocyte (auto (daniel t code = Absolute Immature Granulocyte (auto) 0.02 10*3/uL 0-0.1 [facility] CampusBlood platelets count by estimate (number/volume)2020-07-22 04:55:00* Test Item Value Reference Range Interpretation Comments Platelet Estimate (test code = 60159-9) ADEQUATE [facility] CampusPlatelet yoskmoaojy9752-62-32 04:55:00* Test Item Value Reference Range Interpretation Comments Platelet Morphology Comment (test code = 80445-5) FEW LARGE [facility] CampusBlood macrocytes detection by light nczjnpbedv2912-49-12 04:55:00* Test Item Value Reference Range Interpretation Comments Macrocytosis (test code = 738-5) SLIGHT [facility] CampusRBC ypsardiyno3362-59-89 04:55:00* Test Item Value Reference Range Interpretation Comments Red Cell Morphology Comment (test code = 6742-1) NORMAL [facility] CampusPhosphorus qdmxzgohabk2340-01-38 04:55:00 * Test Item Value Reference Range Interpretation Comments Phosphorus Level (test code = HTX6628) 4.3 mg/dL 2.3-4.7 [facility] Tylererum or plasma triglyceride measurement (mass/volume)2020-07-22 04:55:00* Test Item Value Reference Range Interpretation Comments Triglycerides Level (test code = 2571-8) 57 mg/dL 0-149 [facility] Tylererum or plasma cholesterol measurement (mass/volume)2020-07-22 04:55:00* Test Item Value Reference Range Interpretation Comments Cholesterol Level (test code = 2093-3) 69 mg/dL 0-199 Less than 200 mg/dL Low Rhij621 - 239 mg/dL Borderline Sfty142 m g/dl and greater High Risk [facility] Tylererum or plasma cholesterol in LDL measurement (mass/volume) 2020-07-22 04:55:00* Test Item Value Reference Range Interpretation Comments LDL Cholesterol (test code = 2089-1) 30 mg/dL 60-130 [facility] Tylererum or plasma cholesterol in HDL measurement (mass/volume)2020-07-22 04:55:00* Test Item Value Reference Range Interpretation Comments HDL Cholesterol (test code = 2085-9) 28 mg/dL 40-60 [facility] Tylererum or plasma total cholesterol/cholesterol in HDL mass nkrsp3858-20-29 04:55:00* Test Item Value Reference Range Interpretation Comments Cholesterol/HDL Ratio (test code = 9830-1) 2.5 3.9-4.7 [facility] Tylererum or plasma creatine kinase measurement (enzymatic activity/volume)2020-07-22 04:55:00* Test Item Value Reference Range Interpretation Comments Creatine Kinase (test code = 2157-6) 233 [IU]/L 30-200 [facility] Tylererum or plasma creatine kinase MB measurement (mass/volume)2020-07-22 04:55:00* Test Item Value Reference Range Interpretation Comments Creatine Kinase MB (test code = 81003-9) 5.80 ng/mL 0-5.0 [facility] CampusTroponin I measurement by highly sensitive enzyme ydoabifeohl7214-56-69 04:55:00* Test Item Value Reference Range Interpretation Comments Troponin I (test code = 58950-7) 0.057 ng/mL 0-0.300 [facility] CampusCHEST SINGLE (PORTABLE)2020-07-21 14:09:00[facility] : 1955 Sex: M [place] [address] Patient Name: AISLINN BHATIA MR #: [id number] : 1955 Age/Sex: 64/M Req #: [id number] Adm Physician: Ordered by: NIYA RICHARD MD Report #: [id number] Location: ER Room/Bed: Procedure: [id number] DX/CHEST SINGLE (PORTABLE) Exam D ate: 07/21/20 [...] MD on 07/21/201409 Transcribed By: ALEJANDRO on 11/15/20 1410 COPY TO: NIYA RICHARD MD Blood culture 2020-07-21 12:35:00* Test Item Value Reference Range Interpretation Comments Blood Culture (test code = 95810631) NO GROWTH AFTER 24 HOURS [facility] CampusProthrombin time (PT) in platelet poor plasma by coagulation todbh5114-22-93 12:20:00* Test Item Value Reference Range Interpretation Comments Prothrombin Time (test code = 5902-2) 14.0 s 11.9-14.5 [facility] CampusINR in Platelet poor plasma by Coagulation nsnio9150-54-09 12:20:00* Test Item Value Reference Range Interpretation Comments Prothromb Time International Ratio (test code = 6301-6) 1.03 Oral Anticoagulant Therapy INR Values:1. Low Intensity Therapy 1.5 - 2.02 . Moderate Intensity Therapy 2.0 - 3.03. High Intensity Therapy(1) 2.5 - 3. 54. High Intensity Therapy(2) 3.0 - 4.05. Panic Value INR > 5.0 [facility] CampusActivated partial thromboplastin time (aPTT) in platelet poor plasma by coagulation mchnh8807-90-95 12:20:00* Test Item Value Reference Range Interpretation Comments Activated Partial Thromboplast Time (test code = 06315-7) 31.8 s 23.8-35.5 [facility] CampusMucus detection in urine sediment by light rzwintsbkb6426-24-13 12:20:00* Test Item Value Reference Range Interpretation Comments Urine Mucus (test code = 8247-9) FEW RARE [facility] Tylererum or plasma magnesium measurement (mass/volume)2020-07-21 12:20:00* Test Item Value Reference Range Interpretation Comments Magnesium Level (test code = 71860-7) 1.9 mg/dL 1.3-2.1 [facility] CampusBNP Ggp-yBpv6576-60-15 12:20:00* Test Item Value Reference Range Interpretation Comments B-Type Natriuretic Peptide (test code = 79754-5) 319.4 pg/mL 0-100 [facility] CampusFluoroscopic procedure less than one hour fcysrfbu0040-63-34 12:20:00* Test Item Value Reference Range Interpretation [...] is revoked under 564(g) of the ACT.[facility] CampusURINALYSIS AGBEQVQN2817-34-34 23:59:00* Test Item Value Reference Range Interpretation [...] SEEN #/HPF NONE Urine Source? CatheterBASIC METABOLIC [id number] 21:00:00* Test Item Value Reference Range Interpretation [...] code = CA) 9.3 mg/dL 8.5-10.1 N CONF#[id number] Patient received Natrecor? NOHas Patient received Natrecor? NO [id number] 21:00:00* Test Item Value Reference Range Interpretation Comments MAGNESIUM (test code = MAG) 2.5 mg/dL 1.8-2.4 H CONF#[id number] Patient received Natrecor? NOHas Patient received Natrecor? NONT PRO-BRAIN NATRIURETIC [id number] 21:00:00* Test Item Value Reference Range Interpretation Comments NT PRO-BRAIN NATRIURETIC PEPTI (test code = PROBNP) 1120.0 pg/mL 0- 125 H CONF#[id number] Patient received Natrecor? NOHas Patient received Natrecor? NONT PRO-BRAIN NATRIURETIC [id number] 20:59:00* Test Item Value Reference Range Interpretation Comments NT PRO-BRAIN NATRIURETIC PEPTI (test code = PROBNP) 1120.0 pg/mL 0- 125 H Has Patient received Natrecor? NOBASIC METABOLIC [id number] 15:21:00* Test Item Value Reference Range Interpretation [...] mg/dL 8.5-10.1 N Has Patient received Natrecor? XCMWBOAISKJ9548-06-33 15:21:00* Test Item Value Reference Range Interpretation Comments MAGNESIUM (test code = MAG) 2.5 mg/dL 1.8-2.4 H Has Patient received Natrecor? NONT PRO-BRAIN NATRIURETIC QWVTJ7757-72-55 15:21:00* Test Item Value Reference Range Interpretation Comments NT PRO-BRAIN NATRIURETIC PEPTI (test code = PROBNP) PG/ML 0- 100 Has Patient received Natrecor? [id number] 15:19:00* Test Item Value Reference Range Interpretation Comments GLYCOSYLATED HEMOGLOBIN (HA1C) (test code = GLYHGB) 9.5 % HbA1 SUGGESTED DIAGNOSIS: HbA1C (%) Diabetic >6.4Prediabetes 5.7 - 6.4Normal <5.7 ESTIMATED AVERAGE GLUCOSE (test code = EAG) 226 MG/DL BASIC METABOLIC [id number] 15:12:00* Test Item Value Reference Range Interpretation [...] CA) mg/dL 8.5-10.1 Has Patient received Natrecor? HIPEEAYLZUE5213-80-35 15:12:00* Test Item Value Reference Range Interpretation Comments MAGNESIUM (test code = MAG) mg/dL 1.8-2.4 Has Patient received Natrecor? NONT PRO-BRAIN NATRIURETIC [id number] 15:12:00* Test Item Value Reference Range Interpretation Comments NT PRO-BRAIN NATRIURETIC PEPTI (test code = PROBNP) PG/ML 0- 100 Has Patient received Natrecor? NO- CT LD LUNG CA [id number] 14:26:00 Name: AISLINN BHATIA [facility] : 1955 Age/S: 64 / M [address] [facility] Unit #: [id number] [place] [address] Phys: Lorenzo Simpson MD Acct: [id number] Di s Date: Status: REG CLI PHONE #: [phone] Exam Date: 05/31/2020 1358 FAX #: Reason: NICOTINE DEPEN EXAMS: CPT CODE: [id number] CT LD LUNG CA SCREENING G0297 HISTORY: Nicotine depende ncy. COMPARISON: None available. Location: [facility]. CT chest without contrast: Automated exposure control. [...] Signed Report (CONTINUED) Name: AISLINN BHATIA STEVEN Yvan [facility] : 1955 Age/S: 64 / M [address] Unit #: [id number] Loc: [place] [address] Phys: Ashok Simpson MD Acct: [id number] Dis Date: Status : REG CLI PHONE #: [phone] Exam Date: 0 05/31/2020 1350 FAX #: [phone] Reason: NICOTINE DE PEN EXAMS: CPT CODE: [id number] CT LD LUNG CA SCREENING G0297 <Continued> CC: Ashok Simpson MD; Jolene Llamas Technologist:Roberta ChoudharyRT(R),CT CTDI: DLP: Trnscb Date/Time: 05/31/2020 (4908) [email or web address].[email or web address] Orig Print D/T: S: 05/31/2020 (4584) PAGE 2 Signed Report - XR L-SPINE 4 + [id number] 14:06:00 FAX: Jolene Perry DO [phone] [place]: O St: REG Name: AISLINN JOYCE [facility] : [birth year] Age/S: 64/M [address] [facility] Unit #: [id number] Loc: [place] [address] Phys: Jolene Llamas DO Acct: [id number] Dis Date: Status: REG CLI PHONE #: [phone] Exam Date: 05/31/2020 1341 FAX #: [phone] Reason: DEGENERATIVE DISC DISEASE EXAMS: CPT CODE: [id number] XR L-SPINE 4 + VIEWS 48117 HISTORY: Degenerative disc disease . COMPARISON: None available. Location: [facility]. Lumbar spine series, 5 views: No acute [...] signed by: Terence Velásquez M.D. CC : Jolene Llamas Technologist: An tubbs RT(R) Trnscrd Date/Time/By: 05/31/2020 (9171) : By: [email or web address] Orig Print D/T: S: 05/31/2020 (6165) PAGE 1 Signed Report Large Joint Arthrocentesis: knee, R [id number] 15:00:00Brenton Rodriguez MD 04/25/2020 3:36 PMLarge Joint Arthrocentesis: knee, R kneeConsent given by: patientSupporting DocumentationIndications: pain Procedure DetailsLocation: knee - R knee Right side:Needle size: 22 GApproach: anter omedialRight knee medications administered: 3 mL lidocaine 10 mg/mL (1 %); 1 mL triamcinolone acetonide 40 mg/mLPatient tolerance: patient tolerated the procedu re well with no immediate complications [facility] MethodistADRENOCORTICOTROPIC [id number] 13:11:00* Test Item Value Reference Range Interpretation Comments ADRENOCORTICOTROPIC HORMONE (test code = ACTH) 7.6 pg/mL 7.2-63. 3 ACTH reference interval for samples collected between 7 and10 AM.Performed At: [facility] [id number] Samuel Sprague MD Ph:[phone] [id number] 11:58:00* Test Item Value Reference Range Interpretation Comments GLUBED (test code = GLUBED) 259 mg/dL 74-106 H Performed by certified plastic welding machine operator at [facility] [id number] 09:07:00* Test Item Value Reference Range Interpretation Comments GLUBED (test code = GLUBED) 226 mg/dL 74-106 H Performed by certified plastic welding machine operator at [facility] [id number] 06:56:00* Test Item Value Reference Range Interpretation Comments GLUBED (test code = GLUBED) 249 mg/dL 74-106 H Performed by certified plastic welding machine operator at [facility] BASIC METABOLIC [id number] 04:54:00* Test Item Value Reference Range Interpretation [...] CA) 9.2 mg/dL 8.5-10.1 N CBC W/AUTO [id number] 04:51:00* Test Item Value Reference Range Interpretation [...] NRBC#) 0.00 K/mm3 0.0-0.1 N BASIC METABOLIC [id number] 04:45:00* Test Item Value Reference Range Interpretation [...] CALCIUM (test code = CA) mg/dL 8.5-10.1 [id number] 20:56:00* Test Item Value Reference Range Interpretation Comments GLUBED (test code = GLUBED) 236 mg/dL 74-106 H Performed by certified plastic welding machine operator at [facility] [id number] 16:04:00* Test Item Value Reference Range Interpretation Comments GLUBED (test code = GLUBED) 291 mg/dL 74-106 H Performed by certified plastic welding machine operator at [facility] T4 [id number] 14:45:00* Test Item Value Reference Range Interpretation Comments T4 FREE (test code = T4F) 0.88 ng/dL 0.76-1.46 N THYROID STIMULATING [id number] 14:45:00* Test Item Value Reference Range Interpretation Comments THYROID STIMULATING HORMONE (test code = TSH) 0.639 uIU/mL 0.36-3.7 4 N TSH REFERENCE RANGES: EUTHYROID: 0.35 - 4.3 mIU/mL HYPO : > 5.5 mIU/mL HYPER : < 0.35 mIU/mL [id number] 14:42:00* Test Item Value Reference Range Interpretation Comments GLYCOSYLATED HEMOGLOBIN (HA1C) (test code = GLYHGB) 11.0 % HbA1 SUGGESTED DIAGNOSIS: HbA1C (%) Diabetic >6.4Prediabetes 5.7 - 6.4Normal <5.7 ESTIMATED AVERAGE GLUCOSE (test code = EAG) 269 MG/DL [id number] 11:15:00* Test Item Value Reference Range Interpretation Comments GLUBED (test code = GLUBED) 273 mg/dL 74-106 H Performed by certified plastic welding machine operator at [facility] LIPID PROFILE (CORONARY RISK)2020-03-13 07:31:00* Test Item [...] This LDL result is a direct measurement.========= [id number] 07:30:00* Test Item Value Reference Range Interpretation Comments GLUBED (test code = GLUBED) 237 mg/dL 74-106 H Performed by certified plastic welding machine operator at [facility] BASIC METABOLIC [id number] 05:46:00* Test Item Value Reference Range Interpretation [...] code = CA) 8.5 mg/dL 8.5-10.1 N [id number] 05:46:00* Test Item Value Reference Range Interpretation Comments TROPONIN-I (test code = TROPI) <0.015 ng/mL 0-0.045 N COMMENTS TO PHLEBOTOMY DIRECTOR: COLLECT 3 HOURS AFTER PREVIOUS SAMPLEBASIC METABOLIC [id number] 05:30:00* Test Item Value Reference Range Interpretation [...] code = CA) mg/dL 8.5-10.1 CBC W/AUTO [id number] 05:16:00* Test Item Value Reference Range Interpretation [...] code = MDIFF) NO COVID 19 INHOUSE [id number] 00:36:00* Test Item Value Reference Range Interpretation Comments COVID 19 INHOUSE AG (test code = [id number]) NEGATIVE Is patient requiring admission or transfer? YIndication for rapid COVID-19 testi ng: High Clinical SuspicionTROPONIN-I 2020-03-12 23:22:00* Test Item Value Reference Range Interpretation Comments TROPONIN-I (test code = TROPI) <0.015 ng/mL 0-0.045 N COMMENTS TO PHLEBOTOMY DIRECTOR: COLLECT 3 HOURS AFTER PREVIOUS SAMPLEURINALYSIS [id number] 23:01:00* Test Item Value Reference Range Interpretation [...] #/LPF FEW Urine Source? Clean CatchTHYROID PROFILE [id number] 20:49:00* Test Item Value Reference Range Interpretation [...] 0.35 mIU/mL SPECIMEN COMMENTS: add onCOMMENTS TO PHLEBOTOMY DIRECTOR: add onB-TYPE NATRIURETIC [id number] 15:30:00* Test Item Value Reference Range Interpretation Comments B-TYPE NATRIURETIC PEPTIDE (test code = BNP) 61.25 pgram/mL 0-100 N BASIC METABOLIC [id number] 14:15:00* Test Item Value Reference Range Interpretation [...] CA) 8.5 mg/dL 8.5-10.1 N HEPATIC FUNCTION [id number] 14:15:00* Test Item Value Reference Range Interpretation [...] reference range due to change in reagent. [id number] 14:15:00* Test Item Value Reference Range Interpretation Comments LIPASE (test code = LIP) 59 U/L 73.0-393.0 L [id number] 14:15:00* Test Item Value Reference Range Interpretation Comments TROPONIN-I (test code = TROPI) <0.015 ng/mL 0-0.045 N BASIC METABOLIC [id number] 14:01:00* Test Item Value Reference Range Interpretation [...] code = CA) mg/dL 8.5-10.1 HEPATIC FUNCTION [id number] 14:01:00* Test Item Value Reference Range Interpretation [...] TOTAL (test code = ALKP) IUnit/L 45-117 [id number] 14:01:00* Test Item Value Reference Range Interpretation Comments LIPASE (test code = LIP) U/L 73.0-393.0 [id number] 14:01:00* Test Item Value Reference Range Interpretation Comments TROPONIN-I (test code = TROPI) ng/mL 0-0.045 PROTHROMBIN [id number] 13:59:00* Test Item Value Reference Range Interpretation [...] (2.5-3.5) IS PATIENT ON ANTICOAGULANTS? NTHROMBOPLASTIN TIME [id number] 13:59:00* Test Item Value Reference Range Interpretation Comments THROMBOPLASTIN TIME PARTIAL (test code = PTT) 22.9 seconds 23.0-37. 0 L IS PATIENT ON ANTICOAGULANTS? NCBC W/O [id number] 13:48:00* Test Item Value Reference Range Interpretation [...] fL 6.7-11.0 H - XR CHEST 1 [id number] 13:32:00 FAX: Ellis Lobo [phone] [place]: St: PRE FAX: Jolene Perry DO [phone] Name: AISLINN BHATIA [facility] : 1955 Age/S: 64/M [address] [facility] Unit #: [id number] Loc: [place] [address] Phys: Ellis Lobo MD Acct: [id number] Dis Date: Status: PRE ER PHONE #: [phone] Exam Date: 03/12/2020 1326 FAX #: [phone] Reason: CHEST PAIN EXAMS: CPT CODE: [id number] XR CHEST 1 V 61172 HISTORY: Chest pain. COMPARISON: September 29, 2019. Location: [facility]. No acute infiltrates, effusion or congestion is noted. Cardiomegaly. Old posterior lateral lower right rib fractures noted again. IMPRESSION: No acute infiltrates, effusion or congestion. at 1332 Reported and signed by: Terence Velásquez M.D. CC: Ellis Lobo MD; Jolene Llamas Technologist: CYDNEY LOAIZA) Trnscrd Date/Time/By: 03/12/2020 (4398) : By: [email or web address] Orig Print D/T: S: 03/12/2020 (3110) PAGE 1 Signed Report NT PRO-BRAIN NATRIURETIC PEPTI 2020-02-17 00:11:00* Test Item Value Reference Range Interpretation Comments NT PRO-BRAIN NATRIURETIC PEPTI (test code = PROBNP) 904 PG/ML 0- 125 H Has Patient received Natrecor? NOBASIC METABOLIC [id number] 00:11:00* Test Item Value Reference Range Interpretation [...] Has Patient received Natrecor? NONT PRO-BRAIN NATRIURETIC [id number] 00:11:00* Test Item Value Reference Range Interpretation Comments NT PRO-BRAIN NATRIURETIC PEPTI (test code = PROBNP) 904 PG/ML 0- 125 H Has Patient received Natrecor? NOBASIC METABOLIC [id number] 12:28:00* Test Item Value Reference Range Interpretation [...] Has Patient received Natrecor? NONT PRO-BRAIN NATRIURETIC [id number] 12:28:00* Test Item Value Reference Range Interpretation Comments NT PRO-BRAIN NATRIURETIC PEPTI (test code = PROBNP) PG/ML 0- 100 Has Patient received Natrecor? NOBASIC METABOLIC [id number] 12:24:00* Test Item Value Reference Range Interpretation [...] Has Patient received Natrecor? NONT PRO-BRAIN NATRIURETIC [id number] 12:24:00* Test Item Value Reference Range Interpretation Comments NT PRO-BRAIN NATRIURETIC PEPTI (test code = PROBNP) PG/ML 0- 100 Has Patient received Natrecor? [id number] 11:29:00* Test Item Value Reference Range Interpretation Comments GLYCOSYLATED HEMOGLOBIN (HA1C) (test code = GLYHGB) 10.2 % HbA1 SUGGESTED DIAGNOSIS: HbA1C (%) Diabetic >6.4Prediabetes 5.7 - 6.4Normal <5.7 ESTIMATED AVERAGE GLUCOSE (test code = EAG) 246 MG/DL HGB [id number] 11:18:00* Test Item Value Reference Range Interpretation Comments HEMOGLOBIN (test code = HGB) 12.4 gram/dL 13.0-17.5 L HEMATOCRIT (test code = HCT) 37.2 % 42.0-52.0 L BASIC METABOLIC [id number] 03:17:00* Test Item Value Reference Range Interpretation [...] code = CA) 9.6 mg/dL 8.5-10.1 N #[id number] Patient received Natrecor? NOHas Patient received Natrecor? [...] This LDL result is a direct measurement.========= #[id number] Patient received Natrecor? NOHas Patient received Natrecor? NONT PRO-BRAIN NATRIURETIC [id number] 03:17:00* Test Item Value Reference Range Interpretation Comments NT PRO-BRAIN NATRIURETIC PEPTI (test code = PROBNP) 1330 PG/ML 0- 125 H #[id number] Patient received Natrecor? NOHas Patient received Natrecor? NONT PRO-BRAIN NATRIURETIC [id number] 03:16:00* Test Item Value Reference Range Interpretation Comments NT PRO-BRAIN NATRIURETIC PEPTI (test code = PROBNP) 1330 PG/ML 0- 125 H Has Patient received Natrecor? NOBASIC METABOLIC [id number] 12:03:00* Test Item Value Reference Range Interpretation [...] Has Patient received Natrecor? NONT PRO-BRAIN NATRIURETIC [id number] 12:03:00* Test Item Value Reference Range Interpretation Comments NT PRO-BRAIN NATRIURETIC PEPTI (test code = PROBNP) PG/ML 0- 100 Has Patient received Natrecor? NOBASIC METABOLIC [id number] 11:56:00* Test Item Value Reference Range Interpretation [...] Has Patient received Natrecor? NONT PRO-BRAIN NATRIURETIC [id number] 11:56:00* Test Item Value Reference Range Interpretation Comments NT PRO-BRAIN NATRIURETIC PEPTI (test code = PROBNP) PG/ML 0- 100 Has Patient received Natrecor? NOHGB [id number] 11:49:00* Test Item Value Reference Range Interpretation Comments HEMOGLOBIN (test code = HGB) 13.0 gram/dL 13.0-17.5 N HEMATOCRIT (test code = HCT) 39.5 % 42.0-52.0 L HGB [id number] 11:36:00* Test Item Value Reference Range Interpretation Comments HEMOGLOBIN (test code = HGB) 13.0 gram/dL 13.0-17.5 N HEMATOCRIT (test code = HCT) % 42.0-52.0 COAGULATION TIME [id number] 14:33:00* Test Item Value Reference Range Interpretation Comments COAGULATION TIME ACTIVATED (test code = ACT) 118 seconds 62.8-88.0 H COAGULATION TIME [id number] 14:33:00* Test Item Value Reference Range Interpretation Comments COAGULATION TIME ACTIVATED (test code = ACT) 188 seconds 62.8-88.0 H COAGULATION TIME [id number] 14:33:00* Test Item Value Reference Range Interpretation Comments COAGULATION TIME ACTIVATED (test code = ACT) 354 seconds 62.8-88.0 H COAGULATION TIME [id number] 14:33:00* Test Item Value Reference Range Interpretation Comments COAGULATION TIME ACTIVATED (test code = ACT) 360 seconds 62.8-88.0 H COAGULATION TIME [id number] 14:33:00* Test Item Value Reference Range Interpretation Comments COAGULATION TIME ACTIVATED (test code = ACT) 209 seconds 62.8-88.0 H COAGULATION TIME [id number] 14:33:00* Test Item Value Reference Range Interpretation Comments COAGULATION TIME ACTIVATED (test code = ACT) 232 seconds 62.8-88.0 H COAGULATION TIME [id number] 14:33:00* Test Item Value Reference Range Interpretation Comments COAGULATION TIME ACTIVATED (test code = ACT) 190 seconds 62.8-88.0 H [id number] 16:43:00 RUN DATE: 10/03/19 [place] - Lab PAGE 1 RUN TIME: 1643 Specimen Inqui ry RUN USER: INTERFACE PATIENT: AISLINN BHATIA ACCT #: [id number] LOC: [facility] U #: [id number] AGE/SX: 64/M ROOM: RE09/29/19REG DR: Tr Black MD : 51 BED: A DIS: 10/01/19 STATUS: DIS IN TLOC: SPEC #: [id number] RECD: 09/29/19-1255 STATUS: SOUT REQ #: [id number] ALICIA: 09/29/19- DAJUAN DR: Aniyah Ramirez MD ENTERED: 09/29/19-1259 SP TYPE: PLAQUE OTHR DR: Anabell Sher i, MD, John D DOORDERED: DAWN COPIES TO: Anabell Stout MD [address] [place] [address] Jolene Llamas DO [address] [place], [place] [address] Aniyah Ramirez MD [address] [place], [place] [id number] PROCEDURES: DAWN (10/03/19- 1348) TISSUES: FEMORAL ARTERY, NOS - COMMON PLAQUE CLINICAL HI STORY COLLECTION DATE: 09/29/19 RIGHT LEG PVD FINAL DIAGNOSIS Common femoral artery, endarterectomy: PARTIALLY CALCIFIED ATHEROMATOUS PLAQUE MATERIAL WITH SOME ATTACHED INTIMAL TISSUE ROULA/bernie Wilson [address], [address] CONTINUED ON NEXT PAGE RUN DATE: 10/03/19 [place] [employer] [facility] PAGE 2 RUN TIME: 1643 Specimen I nquiry RUN USER: INTERFACE SPEC #: [id number] PATIENT: SRIRAM AISLINN JOLENE #[id number] (Continued) MACROSCO PIC The specimen is received [...] allowed to decalcify. GROSS PER FORMED AT [facility] [address] [place] [address] [phone] MICROSCOPIC All of the stains, including any controls performed, stain appropriately. MICROSCOPIC PERFORMED AT [facility] [address] [place] [address] [phone] FOR[facility]LY [facility] SITE Diagnosis performed at: [facility] [address] [place] [address] Signed SIGNATURE ON FILE Mera Bond MD 10/03/19 1643 END OF REPORT ARTERIAL BLOOD [id number] 09:38:00* Test Item Value Reference Range Interpretation [...] = O2CT) 15.4 % vol 18.0-22.0 L [id number] 17:23:00* Test Item Value Reference Range Interpretation Comments GLUBED (test code = GLUBED) 180 mg/dL 74-106 H Performed by certified plastic welding machine operator at [facility] [id number] 12:59:00* Test Item Value Reference Range Interpretation Comments GLUBED (test code = GLUBED) 242 mg/dL 74-106 H Performed by certified plastic welding machine operator at [facility] [id number] 05:58:00* Test Item Value Reference Range Interpretation Comments GLUBED (test code = GLUBED) 202 mg/dL 74-106 H Performed by certified plastic welding machine operator at [facility] BASIC METABOLIC [id number] 02:39:00* Test Item Value Reference Range Interpretation [...] code = CA) 8.1 mg/dL 8.5-10.1 L [id number] 02:39:00* Test Item Value Reference Range Interpretation Comments MAGNESIUM (test code = MAG) 1.9 mg/dL 1.8-2.4 N BASIC METABOLIC [id number] 02:33:00* Test Item Value Reference Range Interpretation [...] CALCIUM (test code = CA) mg/dL 8.5-10.1 [id number] 02:33:00* Test Item Value Reference Range Interpretation Comments MAGNESIUM (test code = MAG) mg/dL 1.8-2.4 CBC W/O [id number] 02:15:00* Test Item Value Reference Range Interpretation [...] code = MPV) 10.9 fL 6.7-11.0 N [id number] 20:13:00* Test Item Value Reference Range Interpretation Comments GLUBED (test code = GLUBED) 280 mg/dL 74-106 H Performed by certified plastic welding machine operator at [facility] [id number] 18:05:00* Test Item Value Reference Range Interpretation Comments GLUBED (test code = GLUBED) 165 mg/dL 74-106 H Performed by certified plastic welding machine operator at [facility] [id number] 16:27:00* Test Item Value Reference Range Interpretation Comments GLUBED (test code = GLUBED) 143 mg/dL 74-106 H Performed by certified plastic welding machine operator at [facility] [id number] 11:00:00* Test Item Value Reference Range Interpretation Comments GLUBED (test code = GLUBED) 266 mg/dL 74-106 H Performed by certified plastic welding machine operator at [facility] [id number] 07:21:00* Test Item Value Reference Range Interpretation Comments GLUBED (test code = GLUBED) 159 mg/dL 74-106 H Performed by certified plastic welding machine operator at [facility] BASIC METABOLIC [id number] 03:09:00* Test Item Value Reference Range Interpretation [...] code = CA) 8.1 mg/dL 8.5-10.1 L [id number] 03:09:00* Test Item Value Reference Range Interpretation Comments MAGNESIUM (test code = MAG) 2.0 mg/dL 1.8-2.4 N BASIC METABOLIC [id number] 01:17:00* Test Item Value Reference Range Interpretation [...] CA) 8.1 mg/dL 8.5-10.1 L CBC W/AUTO [id number] 00:59:00* Test Item Value Reference Range Interpretation [...] code = NRBC#) 0.00 K/mm3 0.0-0.1 N [id number] 20:10:00* Test Item Value Reference Range Interpretation Comments GLUBED (test code = GLUBED) 202 mg/dL 74-106 H Performed by certified plastic welding machine operator at [facility] [id number] 20:10:00* Test Item Value Reference Range Interpretation Comments GLUBED (test code = GLUBED) 158 mg/dL 74-106 H Performed by certified plastic welding machine operator at [facility] [id number] 14:01:00* Test Item Value Reference Range Interpretation Comments GLUBED (test code = GLUBED) 167 mg/dL 74-106 H Performed by certified plastic welding machine operator at [facility] - XR CHEST 1 [id number] 13:39:00 FAX: Jolene Perry DO [phone] [place]: B St: ADM FAX: Aniyah Nassar MD [phone] FAX: Arin Hearn Name: AISLINN BHATIA [facility] : 1955 Age/S: 64/M [address] Unit #: [id number] Loc: [place] [address] Phys: Arin Camarillo NP Acct: [id number] Dis Date: Status: ADM IN ONE #: [phone] Exam Date: 09/29/2019 1302 FAX #: [phone] Reason: S/P EXTUBATION EXAMS: CPT CODE: [id number] XR CHEST 1 V 96489 REASON FOR EXAM: S/P EXTUBATION Exam Order Date: 09/29/2019 12:48 PM Ordering M.Janett: Arin Camarillo NP PROCEDURE: - X R [...] any combination of atelectasis and consolidation. Location: [facility] Elect ronically Signed by Remy Sheridan MD on 09/29/2019 at 1339 Reported and signed by: Remy Sheridan MD CC: Jolene Llamas; Aniyah Ramirez MD; Arin Camarillo NP Technologist: JANIA BACON RT (R) Trnscrd Date/Time/By: 09/29/2019 (8079) : By: [email or web address] Orig Print D/T: S: 09/29/2019 (1598) PAGE 1 Signed Report [id number] 07:12:00* Test Item Value Reference Range Interpretation Comments GLUBED (test code = GLUBED) 166 mg/dL 74-106 H Performed by certified plastic welding machine operator at [facility] BASIC METABOLIC [id number] 15:27:00* Test Item Value Reference Range Interpretation [...] CA) 9.3 mg/dL 8.5-10.1 N BASIC METABOLIC [id number] 15:20:00* Test Item Value Reference Range Interpretation [...] (test code = CA) mg/dL 8.5-10.1 PROTHROMBIN [id number] 15:17:00* Test Item Value Reference Range Interpretation [...] Mechanical prosthetic heart valves (2.5-3.5) THROMBOPLASTIN TIME [id number] 15:17:00* Test Item Value Reference Range Interpretation Comments THROMBOPLASTIN TIME PARTIAL (test code = PTT) 32.8 seconds 25.0-36. 5 N CBC W/AUTO [id number] 15:07:00* Test Item Value Reference Range Interpretation [...] = NRBC#) 0.00 K/mm3 0.0-0.1 N PROTHROMBIN [id number] 13:47:00* Test Item Value Reference Range Interpretation [...] Mechanical prosthetic heart valves (2.5-3.5) THROMBOPLASTIN TIME [id number] 13:47:00* Test Item Value Reference Range Interpretation Comments THROMBOPLASTIN TIME PARTIAL (test code = PTT) 32.4 seconds 25.0-36. 5 N BASIC METABOLIC [id number] 13:39:00* Test Item Value Reference Range Interpretation [...] CA) 9.1 mg/dL 8.5-10.1 N BASIC METABOLIC [id number] 13:37:00* Test Item Value Reference Range Interpretation [...] code = CA) mg/dL 8.5-10.1 CBC W/AUTO [id number] 13:13:00* Test Item Value Reference Range Interpretation [...] code = NRBC#) 0.00 K/mm3 0.0-0.1 N [id number] 15:10:00* Test Item Value Reference Range Interpretation Comments GLUBED (test code = GLUBED) 223 mg/dL 74-106 H Performed by certified plastic welding machine operator at [facility] [id number] 11:19:00* Test Item Value Reference Range Interpretation Comments GLUBED (test code = GLUBED) 238 mg/dL 74-106 H Performed by certified plastic welding machine operator at [facility] - XR CHEST 2 [id number] 11:56:00 FAX: Sara Modi [phone] [place]: O St: PRE FAX: Jolene Perry DO [phone] Name: AISLINN BHATIA [facility] : 1955 Age/S: 64/M [address] [facility] Unit #: [id number] Loc: [place], [place] [address] Phys: Sara Stout MD Acct: [id number] Dis Date: Status: PRE SDC PHONE #: [phone] Exam Date: 09/07/2019 1135 FAX #: [phone] Reason: PRE OP EXAMS: CPT CODE: [id number] XR CHEST 2 V 69562 HISTORY: Preop. COMPARISON: April 14, 2019. Location: [facility]. AP and lateral view of the chest: No acute infiltrates, effusion or congestion. Cardiac silhouette is mildly enlarged. DJD of the dorsal spine. Multiple old posterior lateral right rib fractures. IMPRESSION: No acute infilt rates, effusion or congestion. at 1156 Reported and signed by: Kristi Velásquez M.D. CC: Sara Stout MD; Jolene Llamas Technologist: RT VERNA(R) Trnscrd Date/Time/By: 09/07/2019 (3603) : By: [email or web address] Orig Pr int D/T: S: 09/07/2019 (3024) PAGE 1 Signed Report COMPREHENSIVE METABOLIC PANEL [...] result is a direct measurement.========= THYROID STIMULATING [id number] 11:24:00* Test Item Value Reference Range Interpretation Comments THYROID STIMULATING HORMONE (test code = TSH) 1.550 uIU/mL 0.36-3.7 4 N TSH REFERENCE RANGES: EUTHYROID: 0.35 - 4.3 mIU/mL HYPO : > 5.5 mIU/mL HYPER : < 0.35 mIU/mL COMPREHENSIVE METABOLIC [id number] 11:06:00* Test Item Value Reference Range Interpretation [...] code = LDL) mg/dL 100-129 THYROID STIMULATING [id number] 11:06:00* Test Item Value Reference Range Interpretation Comments THYROID STIMULATING HORMONE (test code = TSH) uIU/mL 0.36-3.7 4 [id number] 10:55:00* Test Item Value Reference Range Interpretation Comments GLYCOSYLATED HEMOGLOBIN (HA1C) (test code = GLYHGB) 7.5 % HbA1 SUGGESTED DIAGNOSIS: HbA1C (%) Diabetic >6.4Prediabetes 5.7 - 6.4Normal <5.7 ESTIMATED AVERAGE GLUCOSE (test code = EAG) 169 MG/DL PROTHROMBIN [id number] 10:41:00* Test Item Value Reference Range Interpretation [...] Mechanical prosthetic heart valves (2.5-3.5) THROMBOPLASTIN TIME [id number] 10:41:00* Test Item Value Reference Range Interpretation Comments THROMBOPLASTIN TIME PARTIAL (test code = PTT) 32.2 seconds 25.0-36. 5 N CBC W/AUTO [id number] 10:32:00* Test Item Value Reference Range Interpretation [...] REQUIRED (test code = MDIFF) NO Bedside [id number] 15:59:00* Test Item Value Reference Range Interpretation Comments Bedside Glucose (test code = 23452-1) 147 70-120 H Meter ID: [id number] [facility] CampusBlood Culture 2019-06-27 11:52:00* Test Item Value Reference Range Interpretation Comments Blood Culture (test code = 31854037) NO GROWTH AFTER 72 HOURS [facility] CampusLactic Acid [id number] 06:49:00* Test Item Value Reference Range Interpretation Comments Lactic Acid Level (test code = Lactic Acid Level) 5.2 4.5- 19.8 [facility]odium Orgru2873-11-99 06:42:00* Test Item Value Reference Range Interpretation Comments Sodium Level (test code = 2951-2) 143 136-145 [facility] CampusPotassium Wylwm6632-82-01 06:42:00* Test Item Value Reference Range Interpretation Comments Potassium Level (test code = 2823-3) 4.0 3.5-5.1 [facility] CampusChloride [id number] 06:42:00* Test Item Value Reference Range Interpretation Comments Chloride Level (test code = 2075-0) 110 98-107 H [facility] CampusCarbon Dioxide [id number] 06:42:00* Test Item Value Reference Range Interpretation Comments Carbon Dioxide Level (test code = 2028-9) 21 22-29 L [facility] CampusAnion Pei6920-18-19 06:42:00* Test Item Value Reference Range Interpretation Comments Anion Gap (test code = 58483-7) 16.0 8-16 [facility] CampusBlood Urea Epcfqkxf7625-29-45 06:42:00* Test Item Value Reference Range Interpretation Comments Blood Urea Nitrogen (test code = 3094-0) 25 7-26 [facility] CampusCreatinine2019-10-20 06:42:00* Test Item Value Reference Range Interpretation Comments Creatinine (test code = 2160-0) 1.20 0.72-1.25 [facility] CampusBUN/Creatinine [id number] 06:42:00* Test Item Value Reference Range Interpretation Comments BUN/Creatinine Ratio (test code = 3097-3) 21 6-25 [facility] CampusEstimat Glomerular Filtration Rate 2019-06-25 06:42:00* Test Item Value Reference Range Interpretation Comments Estimat Glomerular Filtration Rate (test code = 119896978) > 60 >60 Ranges were taken from the National Kidney Disease Education Program and the [facility] literature.Reference ranges:60 or greater: Nbicmg49-12 ( for 3 consecutive months): Chronic kidney disease 15 or less: Kidney failureThe University of [facility] Health Clear [facility] CampusGlucose Gglwn8792-78-01 06:42:00* Test Item Value Reference Range Interpretation Comments Glucose Level (test code = YAN9453) 218 74-118 H [facility] CampusCalcium Nxnlu7766-55-66 06:42:00* Test Item Value Reference Range Interpretation Comments Calcium Level (test code = 11971-5) 9.3 8.4-10.2 [facility] CampusTotal Xggpsteoj0246-92-85 06:42:00* Test Item Value Reference Range Interpretation Comments Total Bilirubin (test code = 1975-2) 0.3 0.2-1.2 [facility] CampusAspartate Amino Transf (AST/SGOT) 2019-06-25 06:42:00* Test Item Value Reference Range Interpretation Comments Aspartate Amino Transf (AST/SGOT) (test code = Aspartate Amino Transf (AST/SGOT)) 23 5-34 [facility] CampusAlanine Aminotransferase (ALT/SGPT) 2019-06-25 06:42:00* Test Item Value Reference Range Interpretation Comments Alanine Aminotransferase (ALT/SGPT) (test code = 1742-6) 15 0-55 [facility] CampusTotal Qhwcwbj2164-88-55 06:42:00* Test Item Value Reference Range Interpretation Comments Total Protein (test code = 2885-2) 6.7 6.5-8.1 [facility] CampusAlbumin2019-10-20 06:42:00* Test Item Value Reference Range Interpretation Comments Albumin (test code = 1751-7) 3.1 3.5-5.0 L [facility] CampusGlobulin2019-10-20 06:42:00* Test Item Value Reference Range Interpretation Comments Globulin (test code = 71299-9) 3.6 2.3-3.5 H [facility] CampusAlbumin/Globulin Yqvvo0375-79-59 06:42:00 * Test Item Value Reference Range Interpretation Comments Albumin/Globulin Ratio (test code = 1759-0) 0.9 0.8-2.0 [facility] CampusAlkaline Kleytaggxiz5473-63-45 06:42:00* Test Item Value Reference Range Interpretation Comments Alkaline Phosphatase (test code = 6768-6) 90 40-150 [facility] CampusCreatine Kinase [id number] 06:21:00* Test Item Value Reference Range Interpretation Comments Creatine Kinase MB (test code = 57981-8) 2.30 0-5.0 [facility] CampusTroponin [id number] 06:21:00* Test Item Value Reference Range Interpretation Comments Troponin I (test code = UUI9281) 0.024 0-0.300 [facility] CampusCreatine Xykiai4717-12-10 06:02:00* Test Item Value Reference Range Interpretation Comments Creatine Kinase (test code = 2157-6) 331 30-200 H [facility] CampusWhite Blood Icuzi6298-05-41 05:54:00* Test Item Value Reference Range Interpretation Comments White Blood Count (test code = 6690-2) 8.58 4.8-10.8 [facility] CampusRed Blood Fkbtv4519-63-06 05:54:00* Test Item Value Reference Range Interpretation Comments Red Blood Count (test code = 789-8) 2.91 4.3-5.7 L [facility] CampusHemoglobin2019-10-20 05:54:00* Test Item Value Reference Range Interpretation Comments Hemoglobin (test code = 68683-7) 9.4 14.0-18.0 L [facility] CampusHematocrit2019-10-20 05:54:00* Test Item Value Reference Range Interpretation Comments Hematocrit (test code = 4544-3) 29.8 38.2-49.6 L [facility] CampusMean Corpuscular Jhhbzy9350-07-31 05:54:00* Test Item Value Reference Range Interpretation Comments Mean Corpuscular Volume (test code = 787-2) 102.4 81-99 H [facility] CampusMean Corpuscular Ybzkeynjic1213-16-38 05:54:00* Test Item Value Reference Range Interpretation Comments Mean Corpuscular Hemoglobin (test code = 785-6) 32.3 28-32 H [facility] CampusMean Corpuscular Hemoglobin Concent 2019-06-25 05:54:00* Test Item Value Reference Range Interpretation Comments Mean Corpuscular Hemoglobin Concent (test code = 786-4) 31.5 31-35 [facility] [facility] Cell Distribution [id number] 05:54:00* Test Item Value Reference Range Interpretation Comments Red Cell Distribution Width (test code = 04949-0) 13.4 11.7 -14.4 [facility] CampusPlatelet [id number] 05:54:00* Test Item Value Reference Range Interpretation Comments Platelet Count (test code = 777-3) 154 140-360 [facility] CampusNeutrophils (%) (Auto)2019-06-25 05:54:00 * Test Item Value Reference Range Interpretation Comments Neutrophils (%) (Auto) (test code = 59801-2) 82.6 38.7-80.0 H [facility] CampusLymphocytes (%) (Auto)2019-06-25 05:54:00 * Test Item Value Reference Range Interpretation Comments Lymphocytes (%) (Auto) (test code = 736-9) 9.2 18.0-39.1 L [facility] CampusMonocytes (%) (Auto)2019-06-25 05:54:00* Test Item Value Reference Range Interpretation Comments Monocytes (%) (Auto) (test code = 5905-5) 7.3 4.4-11.3 [facility] CampusEosinophils (%) (Auto)2019-06-25 05:54:00 * Test Item Value Reference Range Interpretation Comments Eosinophils (%) (Auto) (test code = 713-8) 0.2 0.0-6.0 [facility] CampusBasophils (%) (Auto)2019-06-25 05:54:00* Test Item Value Reference Range Interpretation Comments Basophils (%) (Auto) (test code = 706-2) 0.2 0.0-1.0 [facility] CampusIM GRANULOCYTES %2019-06-25 05:54:00* Test Item Value Reference Range Interpretation Comments IM GRANULOCYTES % (test code = IM GRANULOCYTES %) 0.5 0.0- 1.0 [facility] CampusNeutrophils # (Auto)2019-06-25 05:54:00* Test Item Value Reference Range Interpretation Comments Neutrophils # (Auto) (test code = 751-8) 7.1 2.1-6.9 H [facility] CampusLymphocytes # (Auto)2019-06-25 05:54:00* Test Item Value Reference Range Interpretation Comments Lymphocytes # (Auto) (test code = 95436-8) 0.8 1.0-3.2 L [facility] CampusMonocytes # (Auto)2019-06-25 05:54:00* Test Item Value Reference Range Interpretation Comments Monocytes # (Auto) (test code = 742-7) 0.6 0.2-0.8 [facility] CampusEosinophils # (Auto)2019-06-25 05:54:00* Test Item Value Reference Range Interpretation Comments Eosinophils # (Auto) (test code = 711-2) 0.0 0.0-0.4 [facility] CampusBasophils # (Auto)2019-06-25 05:54:00* Test Item Value Reference Range Interpretation Comments Basophils # (Auto) (test code = 704-7) 0.0 0.0-0.1 [facility] CampusAbsolute Immature Granulocyte (auto 2019-06-25 05:54:00* Test Item Value Reference Range Interpretation Comments Absolute Immature Granulocyte (auto (daniel t code = Absolute Immature Granulocyte (auto) 0.04 0-0.1 [facility] CampusUrine [id number] 20:31:00* Test Item Value Reference Range Interpretation Comments Urine WBC (test code = 5821-4) 11-20 0-5 H [facility] CampusUrine [id number] 20:31:00* Test Item Value Reference Range Interpretation Comments Urine RBC (test code = 84796-7) 6-10 0-5 H [facility] CampusUrine [id number] 20:31:00* Test Item Value Reference Range Interpretation Comments Urine Bacteria (test code = 88945-2) RARE NONE [facility] CampusUrine Epithelial [id number] 20:31:00 * Test Item Value Reference Range Interpretation Comments Urine Epithelial Cells (test code = 81126-7) FEW NONE [facility] CampusUrine Oval Fat [id number] 20:31:00 * Test Item Value Reference Range Interpretation Comments Urine Oval Fat Bodies (test code = 37819-6) NONE NONE [facility] CampusUrine [id number] 16:40:00* Test Item Value Reference Range Interpretation Comments Urine Color (test code = 5778-6) YELLOW YELLOW [facility] CampusUrine [id number] 16:40:00* Test Item Value Reference Range Interpretation Comments Urine Clarity (test code = 77239-9) CLEAR CLEAR [facility] CampusUrine Specific [id number] 16:40:00 * Test Item Value Reference Range Interpretation Comments Urine Specific [place] (test code = 5811-5) 1.015 1.010-1.02 5 [facility] CampusUrine [id number] 16:40:00* Test Item Value Reference Range Interpretation Comments Urine pH (test code = 25265-0) 5.5 5-7 [facility] CampusU[facility] Leukocyte [id number] 16:40:00* Test Item Value Reference Range Interpretation Comments Urine Leukocyte Esterase (test code = 18623-2) NEGATIVE NEGATIV E [facility] CampusUrine [id number] 16:40:00* Test Item Value Reference Range Interpretation Comments Urine Nitrite (test code = 25140-7) NEGATIVE NEGATIVE [facility] CampusUrine Umatkav5634-77-13 16:40:00* Test Item Value Reference Range Interpretation Comments Urine Protein (test code = 67301-0) NEGATIVE NEGATIVE [facility] CampusUrine Glucose (UA)2019-06-24 16:40:00* Test Item Value Reference Range Interpretation Comments Urine Glucose (UA) (test code = 31389-4) 1+ NEGATIVE H [facility] CampusUrine Apwmdru1001-58-95 16:40:00* Test Item Value Reference Range Interpretation Comments Urine Ketones (test code = 75272-2) 1+ NEGATIVE H [facility] Vqixrtrgjgzc4657-84-25 16:40:00* Test Item Value Reference Range Interpretation Comments Urine Urobilinogen (test code = 02395-1) 0.2 0.2-1 [facility] CampusUrine Wkjcixsol3499-58-38 16:40:00* Test Item Value Reference Range Interpretation Comments Urine Bilirubin (test code = 1977-8) NEGATIVE NEGATIVE [facility] CampusUrine [id number] 16:40:00* Test Item Value Reference Range Interpretation Comments Urine Blood (test code = 52004-5) MODERATE NEGATIVE [facility] CampusUS TESTICULAR DOPPLER [id number] 13:31:00 [facility] [place] [address] Patient Name: AISLINN BHATIA MR #: [id number] : 1955 Age/Sex: 63/M Req #: [id number] Adm Physician: CITLALI KYLE MD Ordered by: NIYA RICHARD MD Report #: [id number] Location: [facility] Room/Bed: [place] [address] Procedure: 1019-00 04 US/US TESTICULAR DOPPLER LTD [...] RICHARD MD CHEST SINGLE (NOT PORTABLE)2019-06-24 13:08:00 [facility] [address] [place] [address] Patient Name: AISLINN BHATIA MR #: [id number] : 1955 Age/Sex: 63/M Req #: [id number] Adm Physician: CITLALI KYLE MD Ordered by: NIYA RICHARD MD Report #: [id number] Location: [facility] Room/Bed: [place] [address] Procedure: DX/CHEST SINGLE (NOT PORTABLE) Exam Date: 06/24/19 [...] FIDEL NUÑEZ MD on 06/24/191308 Transcribed By: COM OROPEZA on 06/24/19 130 COPY TO: NIYA RICHARD MD B-Type Natriuretic [id number] 12:25:00* Test Item Value Reference Range Interpretation Comments B-Type Natriuretic Peptide (test code = 75396-5) 137.1 0-100 H [facility] [id number] 12:18:00* Test Item Value Reference Range Interpretation Comments Magnesium Level (test code = 05252-8) 2.0 1.3-2.1 [facility] CampusProthrombin [id number] 12:13:00* Test Item Value Reference Range Interpretation Comments Prothrombin Time (test code = 5902-2) 14.2 11.9-14.5 [facility] CampusProthromb Time International Ratio 2019-06-24 12:13:00* Test Item Value Reference Range Interpretation Comments Prothromb Time International Ratio (test code = 6301-6) 1.05 Oral Anticoagulant Therapy INR Values:1. Low Intensity Therapy 1.5 - 2.02 . Moderate Intensity Therapy 2.0 - 3.03. High Intensity Therapy(1) 2.5 - 3. 54. High Intensity Therapy(2) 3.0 - 4.05. Panic Value INR > 5.0 [facility] CampusActivated Partial Thromboplast Time 2019-06-24 12:13:00* Test Item Value Reference Range Interpretation Comments Activated Partial Thromboplast Time (test code = 26286-3) 32.6 23.8-35.5 [facility] CampusCHEST 2 [id number] 13:06:00 [place] [address] Patient Name: AISLINN BHATIA MR #: [id number] : 1955 Age/Sex: 63/M Req #: [id number] Adm Physician: Ordered by: CITLALI KYLE MD Report #: [id number] Location: OR Room/Bed: Procedure: 1016-003 5 DX/CHEST 2 VIEWS Exam Date: 10/16/19 Exam Time: 12 20 REPORT STATUS: Signed [...] 1:08 PM Dictated By: KRISTI SCHULER MD 1304 Transcribe d By: ALEJANDRO on 06/21/19 1308 COPY TO: CITLALI KYLE MD [id number] 11:32:00* Test Item Value Reference Range Interpretation Comments GLUBED (test code = GLUBED) 177 mg/dL 74-106 H Performed by certified plastic welding machine operator at [facility] COAGULATION TIME [id number] 10:22:00* Test Item Value Reference Range Interpretation Comments COAGULATION TIME ACTIVATED (test code = ACT) 137 seconds 62.8-88.0 H COMPREHENSIVE METABOLIC [id number] 10:46:00* Test Item Value Reference Range Interpretation [...] result is a direct measurement.========= THYROID STIMULATING [id number] 10:46:00* Test Item Value Reference Range Interpretation Comments THYROID STIMULATING HORMONE (test code = TSH) 3.280 uIU/mL 0.36-3.7 4 N TSH REFERENCE RANGES: EUTHYROID: 0.35 - 4.3 mIU/mL HYPO : > 5.5 mIU/mL HYPER : < 0.35 mIU/mL COMPREHENSIVE METABOLIC [id number] 10:28:00* Test Item Value Reference Range Interpretation [...] code = LDL) mg/dL 100-129 THYROID STIMULATING [id number] 10:28:00* Test Item Value Reference Range Interpretation Comments THYROID STIMULATING HORMONE (test code = TSH) uIU/mL 0.36-3.7 4 PROTHROMBIN [id number] 10:14:00* Test Item Value Reference Range Interpretation [...] Mechanical prosthetic heart valves (2.5-3.5) THROMBOPLASTIN TIME [id number] 10:14:00* Test Item Value Reference Range Interpretation Comments THROMBOPLASTIN TIME PARTIAL (test code = PTT) 30.9 seconds 25.0-36. 5 N CBC W/AUTO [id number] 10:02:00* Test Item Value Reference Range Interpretation [...] = MDIFF) NO - XR CHEST 2 [id number] 09:41:00 FAX: Sara Modi [phone] [place]: O St: PRE FAX: Jolene Perry DO [phone] Name: AISLINN BHATIA [facility] : 1955 Age/S: 63/M [address] [facility] Unit #: [id number] Loc: [place] [address] Phys: Sara Stout MD Acct: [id number] Dis Date: Status: PRE SDC PHONE #: [phone] Exam Date: 04/14/2019926 FAX #: [phone] Reason: PRE OP EXAMS: CPT CODE: [id number] XR CHEST 2 V 99971 REASON FOR EXAM: PRE OP Exam Order Date: 04/14/2019 9:17 AM Ordering MStarr: Sara Stout MD PROCEDURE: - XR CHEST [...] Remy Sheridan MD CC: Sara Stout MD; Jolene Llamas Technologist: Dimple Rose(Kimmy) Trnscrd Date/Time/By: 04/14/2019 (5312) : By: [email or web address] Orig Print D/T : S: 04/14/2019 (7769) PAGE 1 Sig willard Report COMPREHENSIVE METABOLIC [id number] 12:08:00* Test Item Value Reference Range Interpretation [...] result is a direct measurement.========= COMPREHENSIVE METABOLIC [id number] 12:02:00* Test Item Value Reference Range Interpretation [...] code = LDL) mg/dL 100-129 CBC W/O [id number] 11:52:00* Test Item Value Reference Range Interpretation [...] MPV) 11.0 fL 6.7-11.0 N COMPREHENSIVE METABOLIC [id number] 05:46:00* Test Item Value Reference Range Interpretation [...] due to change in reagent. COMPREHENSIVE METABOLIC [id number] 05:36:00* Test Item Value Reference Range Interpretation [...] TOTAL (test code = ALKP) IUnit/L 45-117 [id number] 05:31:00* Test Item Value Reference Range Interpretation Comments GLUBED (test code = GLUBED) 219 mg/dL 74-106 H Performed by certified plastic welding machine operator at [facility] CBC W/AUTO [id number] 05:14:00* Test Item Value Reference Range Interpretation [...] DIFF REQUIRED (test code = MDIFF) NO [id number] 21:15:00* Test Item Value Reference Range Interpretation Comments GLUBED (test code = GLUBED) 233 mg/dL 74-106 H Performed by certified plastic welding machine operator at [facility] [id number] 16:25:00* Test Item Value Reference Range Interpretation Comments GLUBED (test code = GLUBED) 191 mg/dL 74-106 H Performed by certified plastic welding machine operator at [facility] COAGULATION TIME [id number] 15:13:00* Test Item Value Reference Range Interpretation Comments COAGULATION TIME ACTIVATED (test code = ACT) 207 seconds 62.8-88.0 H [id number] 07:02:00* Test Item Value Reference Range Interpretation Comments GLUBED (test code = GLUBED) 165 mg/dL 74-106 H Performed by certified plastic welding machine operator at [facility] - XR CHEST 2 [id number] 11:32:00 FAX: Sara Modi [phone] [place]: O St: PRE FAX: BACILIO ESCOBEDO WORLD TRAVEL COUNSELOR Name: AISLINN BHATIA [facility] : 1955 Age/S: 63/M [address] [facility] Unit #: [id number] Loc: [place] [address] Phys: Sara Stout MD Acct: [id number] Dis Date: Status: PRE SDC PHONE #: [phone] Exam Date: 01/17/2019 1018 FAX #: [phone] Reason: PRE OP EXAMS: CPT CODE: [id number] XR CHEST 2 V 99590 TECHNIQUE: 2 views of the chest COMPARISON: [...] MD ; BACILIO ESCOBEDO NP Technologist: Margo NAYAK(R) Trnscrd Date/Time/By: 01/17/2019 (1132) : By: Tena Orig Print D/T: S: 01/17/2019 (0436) PAGE 1 Signed Report COMPREHENSIVE METABOLIC [id number] 10:33:00* Test Item Value Reference Range Interpretation [...] result is a direct measurement.========= COMPREHENSIVE METABOLIC [id number] 10:23:00* Test Item Value Reference Range Interpretation [...] (test code = LDL) mg/dL 100-129 PROTHROMBIN [id number] 10:06:00* Test Item Value Reference Range Interpretation [...] Mechanical prosthetic heart valves (2.5-3.5) THROMBOPLASTIN TIME [id number] 10:06:00* Test Item Value Reference Range Interpretation Comments THROMBOPLASTIN TIME PARTIAL (test code = PTT) 31.9 seconds 25.0-36. 5 N CBC W/AUTO [id number] 10:04:00* Test Item Value Reference Range Interpretation [...] (test code = MDIFF) NO B-TYPE NATRIURETIC [id number] 14:06:00* Test Item Value Reference Range Interpretation Comments B-TYPE NATRIURETIC PEPTIDE (test code = BNP) 45.10 pgram/mL 0-100 N BASIC METABOLIC [id number] 13:42:00* Test Item Value Reference Range Interpretation [...] code = CA) 8.4 mg/dL 8.5-10.1 L [id number] 13:36:00* Test Item Value Reference Range Interpretation Comments GLYCOSYLATED HEMOGLOBIN (HA1C) (test code = GLYHGB) 7.7 % HbA1 4. 8-6.0 H ESTIMATED AVERAGE GLUCOSE (test code = EAG) 174 MG/DL BASIC METABOLIC [id number] 13:36:00* Test Item Value Reference Range Interpretation [...] mg/dL 8.5-10.1 - CT LD LUNG CA [id number] 14:35:00 Name: AISLINN BHATIA [facility] : 1955 Age/S: 63 / M [address] [facility] Unit #: [id number] Loc: [place] [address] Phys: Ashok Simpson MD Acct: [id number] Dis Date: Status: REG CLI PHONE #: [phone] Exam Date: 11/16/2018 1244 FAX #: [phone] Reason: NICOTINE DEPENDENC EXAMS: CPT CODE: [id number] CT LD LUNG CA SCREENING G0297 HISTORY: [...] DLP: PAGE 1 Signed Report BASIC METABOLIC [id number] 13:47:00* Test Item Value Reference Range Interpretation [...] CA) 9.0 mg/dL 8.5-10.1 N BASIC METABOLIC [id number] 13:42:00* Test Item Value Reference Range Interpretation [...] (test code = CA) mg/dL 8.5-10.1 HGB [id number] 13:18:00* Test Item Value Reference Range Interpretation Comments HEMOGLOBIN (test code = HGB) 13.7 gram/dL 13.0-17.5 N HEMATOCRIT (test code = HCT) 43.5 % 42.0-52.0 N
[2020-08-02] MEDS: INSULIN REGULAR, HUMAN 100 UNIT/1 ML 3ML VIAL SQ SCH (20:40)
--- NOTE | 2020-08-02 20:40 | NUR ---
dm bedtime snack provided to patient.
[2020-08-02 23:00] VITALS: BP 114/85
--- NOTE | 2020-08-02 23:30 | NUR ---
ER CALLED REPORT TO PM NURSE. PT IS ALERT AND ORIENTED X3. 20 G SL LEFT AC. O2 AT 2L PER N/C ON PT DENIES PAIN .CALL LIGHT WITHIN REACH. BED IN LOW POSITION.
[2020-08-03] VITALS (9 sets, daily range): BP systolic 127–135; BP diastolic 60–74
[2020-08-03] MEDS ORDERED: KLONOPIN1 MG PO
[2020-08-03] MEDS ORDERED: IPRATROPIUM BROMIDE 0.02% 2.5 ML NEB NEB PRN ×3 (00:30→16:15)
[2020-08-03] MEDS: IPRATROPIUM BROMIDE 0.02% 2.5 ML NEB NEB PRN (01:05)
[2020-08-03] MEDS ORDERED: TRAZODONE HCL 50 MG TAB PO SCH ×2 (01:15→21:00)
[2020-08-03] MEDS: SERTRALINE HCL 100 MG TAB PO SCH ×2 (01:29→23:23)
[2020-08-03 04:01] LABS: CREATINE KINASE MB 3.8 ng/mL (0-5.0)
[2020-08-03 05:39] LABS: BASOPHILS % 0.7 % (0.0-1.0); EOSINOPHILS # (AUTO) 0.1 (0.0-0.4); EOSINOPHILS % 1.5 % (0.0-6.0); HEMATOCRIT 34.4 % (38.2-49.6); HEMOGLOBIN 10.4 g/dL (14.0-18.0); LYMPHOCYTES # (AUTO) 0.7 (1.0-3.2); LYMPHOCYTES % 11.4 % (18.0-39.1); MEAN CORPUSCULAR HEMOGLOBIN 32.7 pg (28-32); MEAN CORPUSCULAR HGB CONC 30.2 g/dL (31-35); MEAN CORPUSCULAR VOLUME 108.2 fL (81-99); MONOCYTES # (AUTO) 0.5 (0.2-0.8); MONOCYTES % 8.1 % (4.4-11.3); NEUTROPHILS # (AUTO) 4.6 (2.1-6.9); PLATELET COUNT 177 x10e3/uL (140-360); RED BLOOD COUNT 3.18 x10e6/uL (4.3-5.7); RED CELL DISTRIBUTION WIDTH 13.8 % (11.7-14.4)
[2020-08-03 06:00] LABS: ANION GAP 12.4 mmol/L (8-16); CALCIUM 8.3 mg/dL (8.4-10.2); CHOL/HDL RATIO 3.4 (3.9-4.7); CREATININE, SERUM 1.37 mg/dL (0.72-1.25); POTASSIUM 4.4 mmol/L (3.5-5.1)
[2020-08-03] MEDS: ASPIRIN 81 MG ENTERIC COATED PO SCH (08:43)
[2020-08-03] MEDS: CLOPIDOGREL BISULFATE 75 MG TAB PO SCH (08:43)
[2020-08-03] MEDS: INSULIN REGULAR, HUMAN 100 UNIT/1 ML 3ML VIAL SQ SCH ×4 (09:12→21:00)
[2020-08-03] MEDS ORDERED: FUROSEMIDE INJ 10 MG/ML 4 ML VIAL IV NR (11:00)
[2020-08-03 11:19] LABS: CREATINE KINASE MB 4.2 ng/mL (0-5.0)
[2020-08-03] MEDS ORDERED: CLONAZEPAM 1 MG TAB PO SCH (13:30)
[2020-08-03] MEDS: ROPINIROLE HCL 0.25 MG TAB PO SCH ×2 (15:00→21:00)
[2020-08-03] MEDS ORDERED: ALBUTEROL/IPRATROPIUM 3 ML NEB NEB SCH (15:00)
--- NOTE | 2020-08-03 15:00 | NUR ---
64 y/o male Dx with Elevated Troponin after presenting to the ER with SOB. Pt demo Mod(I) level with bed mobility, transfers and gait. Ambulated ~350ft with 1 short, standing rest break even with O2 on 3L/min. Gait was safe. Pt agreed to ambulate 2-3x/day in the hallway with or nursing staff. D/C PT services. Addendum: 08/03/20 at 1826 by Andres Dean PT Amended: Links added.
[2020-08-03] MEDS: INSULIN LISPRO 100 UNIT/1 ML 3ML VIAL SQ SCH (16:30)
[2020-08-03] MEDS: NICOTINE 14 MG/EA PATCH TOP SCH (16:46)
[2020-08-03] MEDS: MOXIFLOXACIN HCL(OPTH) 3 ML BTL OP SCH ×2 (16:47→23:22)
[2020-08-03] MEDS: OLANZAPINE 5 MG TAB PO SCH (16:47)
[2020-08-03] MEDS: DONEPEZIL HCL 5 MG TAB PO SCH (17:13)
[2020-08-03] MEDS: GUAIFENESIN 600MG/DEXTROMETHORPHAN 30MG TABSR PO SCH (17:13)
[2020-08-03] MEDS: GABAPENTIN 300 MG CAP PO SCH (17:13)
--- NOTE | 2020-08-03 17:13 | Consultation ---
DATE OF CONSULTATION: 08/03/2020 Cardiac Consultation REASON FOR THE CONSULTATION: Multiple medical health problems, poor compliance, congestive heart failure, and peripheral arterial vascular disease etc. HISTORY OF PRESENT ILLNESS: This is a 64-year-old gentleman who is known with longstanding history of coronary artery disease with PCI to the LAD in 2018, QC CHEMIST of the right coronary artery, and congestive heart failure with ejection fraction in the 20s to the low 30s, hypertension, hyperlipidemia, TIA, COPD, smoker, obstructive sleep apnea, morbid obesity, paroxysmal atrial fibrillation, peripheral arterial vascular disease, status post right common femoral endarterectomy in 2019, status post left iliac stent in April 2019. The patient keeps coming back and forth for weakness, not feeling well, although I explained to him at several time his status explained for him in case if he over eat and take a lot of fluid and salt. He needs to increase his diuretics. However, despite all of that, the patient was at home. He enjoyed his Thanksgiving, visiting home health come to see him and his saturation was lower other than giving extra diuretics. She advised him to go to the emergency room. He came to the emergency room. He denied having any chest pain or other symptoms. His main problem is swelling and shortness of breath which is chronic for him. His troponin was 0.332 and this has alarmed the emergency room team and they admitted him in. The 2nd set of cardiac enzyme is 0.266. The patient is comfortable, having big breakfast today, sitting. He does have swelling of lower extremities and he is having his class 3 to early class 4 shortness of breath and easy fatigability. The patient is very poorly compliant with medication, poorly compliant when he eat and drink despite repeated instruction. HOME MEDICATIONS: Include aspirin 81 mg a day, Plavix 75 mg a day, atorvastatin 80 mg a day, Entresto one tablet twice a day, Toprol-XL 50 mg a day, Lasix 80 mg twice a day, Levemir 40 units b.i.d., Novolin sliding scale, gabapentin, Wellbutrin, albuterol inhalers, and Dexilant. PAST MEDICAL HISTORY: 1. Right common femoral artery endarterectomy in September 2019. 2. Left external iliac stent in 2018. 3. PCI of LAD in January 2019. 4. QC CHEMIST of the right coronary artery. 5. Congestive heart failure. 6. Past history of paroxysmal atrial fibrillation in 2017. 7. Hypertension. 8. Diabetes. 9. COPD. 10. Obstructive sleep apnea. 11. Diabetes mellitus. 12. Right knee surgery. 13. Right arm surgery. 14. Bilateral cataract surgery. 15. Penile implant. 16. Poor compliance and poor understanding of his illness and his medication and his status and adjustment. SOCIAL HISTORY: He is . 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 He is still smoke. He does not drink alcohol. FAMILY HISTORY: Mother at age 76 with diabetes complication. Father at age 66 with colon cancer. REVIEW OF SYSTEMS: GENERAL: No fever, no chills. Weight gain after Thanksgiving. HEENT: No vision problem. No hearing problem. CARDIAC AND PULMONARY: As per above. GI: No hematemesis. No melena. Excellent appetite. : Increased frequency of urination. LOWER EXTREMITIES: Edema. NEUROLOGIC: No weakness. PHYSICAL EXAMINATION: VITAL SIGNS: Height of 5 feet 9 inches, weight of 295 pounds. Blood pressure is 130/70, heart rate of 80, respiratory rate of 18, afebrile. HEENT: Pupils are reactive. NECK: No elevation of jugular venous pulsation. CHEST: Crackles. HEART: PMI 5th left intercostal space on first and second heart sound. ABDOMEN: Soft. Bowel sounds are present. EXTREMITIES: +2 lower edema and chronic skin changes. NEUROLOGIC: Awake, alert, and oriented. LABORATORY DATA: Sodium of 143, potassium 4.4, BUN of 34, creatinine of 1.4, and glucose of 268. White blood cell count of 5.9, hemoglobin of 10.4, hematocrit 34%, and platelet count of 177,000. Troponin 1st 1.332, at this institution. Second one is 0.266, triglycerides of 84, cholesterol of 82, LDL of 41, and HDL 24. IMPRESSION AND PLAN: Poor compliance and patient does not adjust his medications as instructed. No wonder, he will be admitted again, regarding his troponin is secondary to the heart failure. Prognosis is guarded. We rediscussed old medication and adjustment of medication with him and how to take it with him and his . Again to bring his medication from home, so we can go over them and we will do another education prior to going home. He will benefit probably from following someone as an outpatient such as [facility]. He needs more education. MD CHRISTIN Briseno/JAMARI /[id number]
--- NOTE | 2020-08-03 19:20 | NUR ---
Bedside shift report received from day rn. pt sleepy but alert and oriented x3. at bedside. sl 20 g in left ac. Tele on. o2 2L per n/c. Voiding per bathroom or urinal. Sob with exertion. Denies pain. Just eating dinner tray when get report. accucheck not done yet.Encourage pt to eat after we check blood sugar. Call light within reach. Bed locked in low position. Bed alarm on.
[2020-08-03] MEDS ORDERED: TRAZODONE HCL 50 MG TAB PO PRN (21:00)
[2020-08-03] MEDS ORDERED: SERTRALINE HCL 100 MG TAB PO SCH (21:00)
[2020-08-03] MEDS: FUROSEMIDE INJ 10 MG/ML 4 ML VIAL IV SCH (22:00)
[2020-08-03] MEDS: ALFUZOSIN HCL 10 MG TAB.ER.24H PO SCH (23:22)
[2020-08-03] MEDS: TAMSULOSIN HCL 0.4 MG CAP PO SCH (23:23)
[2020-08-03] MEDS: ATORVASTATIN 20 MG TAB PO SCH (23:23)
[2020-08-03] MEDS: INSULIN GLARGINE 100 UNITS/ML VIAL SC SCH (23:29)
[2020-08-04 01:21] VITALS: BP 137/61
--- NOTE | 2020-08-04 02:10 | NUR ---
report pt having chest pain. Pt coughing Bipap removed and placed on 2L per n/c. Hob elevated. Tele showing SR 93. vs stable. o2 sat 90 then increase. secretions coughing up white. Chest discomfort resolve. Pt refused to put bipap back on.
[2020-08-04 05:58] VITALS: BP 135/59
--- NOTE | 2020-08-04 06:00 | NUR ---
pt up to bathroom. Pt more awake and alert. Emesis of white secretions. Zofran given as ordered. Bath given by PCT. Pt tolerated well. Back to bed. Nausea resolve. at bedside. Pt denies pain.
[2020-08-04 08:06] VITALS: BP 111/56
[2020-08-04] MEDS: FUROSEMIDE INJ 10 MG/ML 4 ML VIAL IV SCH ×2 (08:08→20:20)
[2020-08-04] MEDS: MOXIFLOXACIN HCL(OPTH) 3 ML BTL OP SCH ×4 (08:08→20:20)
[2020-08-04] MEDS: DONEPEZIL HCL 5 MG TAB PO SCH (08:12)
[2020-08-04] MEDS: OLANZAPINE 5 MG TAB PO SCH ×2 (08:12→17:07)
[2020-08-04] MEDS: CLOPIDOGREL BISULFATE 75 MG TAB PO SCH (08:12)
[2020-08-04] MEDS: SACUBITRIL/VALSARTAN 1 EACH TABLET PO SCH (08:12)
[2020-08-04] MEDS: METOPROLOL SUCCINATE 50 MG TAB XL PO SCH (08:12)
[2020-08-04] MEDS: GABAPENTIN 300 MG CAP PO SCH (08:12)
[2020-08-04] MEDS: GUAIFENESIN 600MG/DEXTROMETHORPHAN 30MG TABSR PO SCH ×2 (08:12→17:07)
[2020-08-04] MEDS: ASPIRIN 81 MG ENTERIC COATED PO SCH (08:12)
[2020-08-04] MEDS: ROPINIROLE HCL 0.25 MG TAB PO SCH (08:12)
[2020-08-04] MEDS: CYANOCOBALAMIN 1,000 MCG TAB PO SCH (08:12)
[2020-08-04] MEDS: INSULIN LISPRO 100 UNIT/1 ML 3ML VIAL SQ SCH ×3 (08:21→16:30)
[2020-08-04] MEDS: INSULIN REGULAR, HUMAN 100 UNIT/1 ML 3ML VIAL SQ SCH ×4 (08:21→20:55)
[2020-08-04] MEDS: INSULIN GLARGINE 100 UNITS/ML VIAL SC SCH ×2 (08:22→20:55)
[2020-08-04 09:00] VITALS: BP 111/56
[2020-08-04] MEDS ORDERED: CLOPIDOGREL BISULFATE 75 MG TAB PO SCH (09:00)
[2020-08-04] MEDS ORDERED: ASPIRIN 81 MG CHEW TAB PO SCH (09:00)
[2020-08-04 10:04] LABS: ABG HCO3 37 mmol/L (22-26); ABG PCO2 73 mmHg (35-45); ABG PH 7.31 (7.35-7.45); ABG PO2 120 mmHg (80-105); ABG TCO2 39
--- NOTE | 2020-08-04 11:30 | NUR ---
DR. SIMS NOTIFIED OF BLOOD PRESSURE 93/47. NO ORDERS RECEIVED.
[2020-08-04 11:32] VITALS: BP 93/47
--- NOTE | 2020-08-04 12:00 | NUR ---
PATIENT PLACED ON BIPAP. DR. DUMONT AWARE OF CONSULT. PT REMAINS VERY SLEEPY BUT EASILY AROUSED.
--- NOTE | 2020-08-04 12:35 | NUR ---
CM has been working on home health, home oxygen, transport w/c. Nurse just told CM that pt status has declined and pt is going to ICU.
--- NOTE | 2020-08-04 13:36 | NUR ---
PT TRANSFERRED TO ICU BED 192 DUE TO NEED FOR CONTINUOS BIPAP WITH ALL BELONGINGS. PATIENT'S ALLYSSA CALLED AND MADE AWARE.
[2020-08-04] MEDS ORDERED: SODIUM CHLORIDE 0.9% 1000ML 1,000 ML IV ONE (13:45)
[2020-08-04 14:29] LABS: CLARITY,URINE SL CLOUDY (CLEAR); COLOR,URINE YELLOW (YELLOW); LEUKOCYTE ESTERASE ,URINE NEGATIVE (NEGATIVE); NITRITE,URINE NEGATIVE (NEGATIVE); PROTEIN,URINE DIPSTICK NEGATIVE (NEGATIVE)
[2020-08-04 14:30] LABS: BACTERIA,URINE RARE /HPF; BILIRUBIN,URINE NEGATIVE (NEGATIVE); EPITHELIAL CELLS,URINE FEW /LPF; KETONES,URINE NEGATIVE (NEGATIVE); URINE UROBILINOGEN 0.2 mg/dL (0.2 - 1)
--- NOTE | 2020-08-04 15:46 | Diagnostic Imaging Report ---
EXAMINATION: CHEST XRAY LINE PLACEMENT INDICATION: ^PICC PLACEMENT ^[id number] ^[id number] COMPARISON: Chest x-ray on 08/02/2020. Chest CT on 07/22/2020. FINDINGS: TUBES and LINES: Left PICC which terminates at the cavoatrial junction. LUNGS: Low lung volumes with diffuse interstitial prominence and patchy airspace opacities throughout both lungs. PLEURA: The bilateral costophrenic sulci are excluded from [id number]. No pleural effusion or pneumothorax in the limited view. HEART AND MEDIASTINUM: The cardiomediastinal silhouette is enlarged. BONES AND SOFT TISSUES: No acute osseous lesion. Soft tissues are unchanged. UPPER ABDOMEN: No free air under the diaphragm. IMPRESSION: Cardiomegaly with interstitial pulmonary edema. Superimposed infection cannot be excluded and should be considered in the proper clinical context. Signed by: Jaron Shabazz MD on 08/04/2020 3:42 PM
--- NOTE | 2020-08-04 16:45 | NUR ---
Patient's FSBS 69. Patient is alert and oriented. Patient is asymptomatic with a BS of 69. HReji Rosario APRN for Dr. Maddox at bedside and aware of patient's blood sugar. Scheduled insulin and sliding scale insulin held. Patient's dinner tray at bedside and patient reports that he will eat meal.
[2020-08-04] MEDS: CEFEPIME 1GM/NS 0.9% 50 ML 50 ML IV SCH (17:05)
[2020-08-04] MEDS: NICOTINE 14 MG/EA PATCH TOP SCH (17:07)
--- NOTE | 2020-08-04 17:07 | History and Physical ---
CONSULTING PHYSICIAN: Dr. Sara Stout with Cardiology. PRIMARY CARE PHYSICIAN: Dr. Moe Maddox. Per patient's , the patient wanted to switch PCP from Dr. Guzman Llamas to Dr. Maddox. OUTPATIENT PHYSICIANS: 1. Dr. Frost with Urology. 2. Dr. Stout with Cardiology for which patient has a followup appointment on August 12. 3. Dr. Simpson with Pulmonology. The patient has followup appointment on August 08. 4. Dr. Gonzalez with Endocrinology. 5. Dr. Bella Vanessa with Nephrology and has a followup appointment on August 20. 6. [facility]. The patient has a followup appoint with Kristine on August 15. CHIEF COMPLAINT: Shortness of breath. HISTORY OF PRESENT ILLNESS: The patient is a 64-year-old male, who admitted from home via the emergency department with complaints of shortness of breath for two days. He reports the swelling in his legs has improved since he was there between July 21 and July 23, but his breathing is worse than before. His admitting diagnoses as listed by the emergency department physician include dyspnea, exertional dyspnea, and elevated troponin I level. The patient's reports that since he has been off Wellbutrin and Chantix, his hallucinations have stopped. He is drinking about 2-3 L of fluid per day, which is an improvement according to his . also reports that fingerstick blood glucose levels running about 220 at home, nebulizers are being used at home two or three times a day. Apparently, he did not qualify for home oxygen the last time he was here. The patient's reports that a CPAP was causing sinus/nose plugging and there are plans to get another CPAP, but he is currently not using a CPAP at home although was found to be very beneficial in the hospital the last time he was here. He had difficulty sleeping last night and took a trazodone, thus he is somnolent now. He falls back to sleep immediately after being awakened. reports no recent falls, none since prior to his last admission. She also reports the patient has been taking clonazepam for restless legs syndrome, which is giving him anxiety. PAST MEDICAL HISTORY: Dementia, anxiety, congestive heart failure, COPD, paroxysmal atrial fibrillation, coronary artery disease, hyperlipidemia, depression, gastroesophageal reflux disease, type 2 diabetes mellitus, BPH, neuropathy, obstructive sleep apnea, organic erectile dysfunction, insomnia, postoperative scrotal hematoma, recurrent falls, and morbid obesity. PAST SURGICAL HISTORY: Right SFA endarterectomy in September 2019, left external iliac stent in April 2019, PCI to LAD in 01/2019, right shoulder surgery in 1999, malleable penile prosthesis, right knee replacement 1980s and bilateral cataract removal. FAMILY HISTORY: Mother age 76, diabetes mellitus. Father age 66, history of stomach cancer. Brother had hypoglycemia. Older brother had type 2 diabetes mellitus and dementia. SOCIAL HISTORY: The patient lives with his . 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 He denies any use of assistive devices at home. He is an active smoker, currently smoking a half a pack a day. He smoked a total of about 60 years and smoked two-pack per day for about 50 years. Denies any previous alcohol or illicit drug use. ALLERGIES: NO KNOWN ALLERGIES. HOME MEDICATIONS: Alfuzosin 10 mg p.o. at bedtime, aspirin chewable 81 mg daily, atorvastatin 20 mg at bedtime, clonazepam 1 mg p.r.n. anxiety, Plavix 75 mg daily, vitamin B12 1000 mcg tablet daily, Aricept 10 mg b.i.d., gabapentin 300 mg b.i.d., Levemir insulin 30 units q.12 hours, Lispro insulin 15 units a.c., ipratropium bromide 0.2 mg 2.5 mL nebulized treatments q.i.d. p.r.n. wheezing, metoprolol succinate 50 mg ER daily, olanzapine 5 mg b.i.d. Entresto 49/51 mg tablet daily, sertraline 200 mg at bedtime, tamsulosin 0.4 mg at bedtime, trazodone 200 mg at bedtime, furosemide 60 mg b.i.d. and Dexilant 30 mg daily. REVIEW OF SYSTEMS: CONSTITUTIONAL: The patient denies any chills or fever. He has experienced weight gain due to fluid retention most noticeably in the abdomen as opposed to the legs. Has yellow eye drainage both eyes. EAR, NOSE, AND THROAT: Complains of stuffy nose. He states the CPAP machine plugs up his nose and has been unable to use it. RESPIRATORY: Progressive shortness of breath likely associated with fluid retention, light yellow phlegm. GENITOURINARY: Denies difficulty urinating. PSYCHIATRIC: He has a history of dementia, short-term memory loss, depression and anxiety. INTEGUMENTARY: Plaques on the face. CARDIOVASCULAR: Aforementioned fluid retention, history of CHF, orthopnea symptoms and paroxysmal nocturnal dyspnea. GASTROINTESTINAL: Dry heaves when hungry. States he needs to eat quick whenever this happens. Denies any current nausea, vomiting, diarrhea, or constipation. His last bowel movement was yesterday. NEUROLOGIC: No complaints of headache or dizziness. ENDOCRINE: Known diabetic. HEMATOLOGIC/LYMPHATIC: He bruises easily. OBJECTIVE: VITAL SIGNS: Temperature 98.0, T-max 98.8, pulse 87, blood pressure 135/73, respirations 20, oxygen saturation 96%. Height 5 feet 9 inches, weight 295 pounds. BMI 43.55. Intake and output 560 mL and 1600 mL out. GENERAL: Supine on his right side, asleep, difficult to arouse. LUNGS: Mild scattered sonorous wheezing, diminished in the bases. Oxygen at 2.5 L/minute via nasal cannula. HEENT: EOMI. Oropharynx clear. Yellow drainage both eyes. NECK: Supple. No lymphadenopathy, thyromegaly, or JVD. CARDIOVASCULAR: Regular rate and rhythm. No murmur. ABDOMEN: Bowel sounds positive, soft. Fluid retention at the abdomen noted. EXTREMITIES: With 1+ pitting edema. No clubbing, cyanosis, or signs of DVT. NEUROLOGICAL: Somnolent, difficult to arouse. Nonfocal. LABORATORY DATA: WBCs 5.94, hemoglobin 10.4, hematocrit 34.4, platelets 177,000, neutrophils 78%. PT 13.8, INR 1.01, PTT 31.6. Sodium 143, potassium 4.4, chloride 106, CO2 29, BUN 34, creatinine 1.37, estimated GFR 52, glucose 260. Fingerstick blood glucose level yesterday 162, calcium 8.3, yesterday BUN 46, creatinine 1.78, estimated GFR 38. Initial cardiac biomarkers, creatine kinase 132, CK-MB 3.3, troponin I 0.332. Subsequent cardiac biomarkers were within normal limits with troponin I 0.266, both of these were today and the final 0.201. B-type natriuretic peptide yesterday is 544.3. Triglycerides 84, cholesterol 82, LDL 41, HDL 24. Azar virus PCR collected 08/02 remains pending. The patient had a azar virus PCR collected on 07/21, that was negative. Most recent known echocardiogram result in March of 2020 showed an ejection fraction of about 35% to 40%, new echocardiogram ordered. During his recent hospitalization here, the patient's chest x-ray had shown interstitial and airspace opacity throughout both lungs, which likely represent the edema and/or multifocal infection and cardiomegaly. Renal ultrasound was unremarkable and CT of the chest showed no acute intrathoracic process, posttraumatic keel deformity of the right lateral 7th and 8th ribs with probable posttraumatic right 8th intercostal pulmonary parenchymal herniation. Chest x-ray done 08/02 showed stable cardiomegaly without vascular congestion or CHF, no new pulmonary process. A 12-lead EKG done yesterday showed sinus rhythm, heart rate 69. ASSESSMENT/PLAN: 1. Acute on chronic diastolic congestive heart failure, POA. Dr. Stout with Cardiology consulted. The patient is currently on 40 mg of IV Lasix b.i.d. The patient to be on 1.2 L per day fluid restriction and is aware. Intake 560, output 1600. B type natriuretic peptide was 544.3. Monitor chest x-ray results. Follow up on echocardiogram results. Continue entrust oh. Strict intake and output. Daily weights. 2. Acute bronchitis on chronic obstructive pulmonary disease without exacerbation and obstructive sleep apnea. WBC is 5.94. The patient is still having small amount of yellow phlegm. We will hold off on any antibiotics for now. Continue DuoNebs q.4 hours schedule. I spoke with Alejandro, respiratory therapist, he is to put on CPAP now at bedtime settings 08/13, FiO2 40%, Mucinex DM added. 3. Ambulatory dysfunction with history of recurrent falls. PT evaluation and treat. 4. Uncontrolled type 2 diabetes mellitus with hyperglycemia, with chronic kidney disease 3. Serum glucose 260. Hemoglobin A1c 9.2% on 07/23. TSH 0.979, free T4 0.84, also done 07/23. Monitor fingerstick blood glucose levels. Resume home medications. 5. Hyperlipidemia. Home atorvastatin resumed. 6. Restless legs syndrome. Requip 0.25 mg t.i.d. started, titrate to effect. 7. Chronic kidney disease 3. 1+ pitting edema bilateral lower extremities with some fluid retention in the abdomen. BUN 34, creatinine 1.37, estimated GFR 52. Monitor. 8. Bilateral acute conjunctivitis. Ciprofloxacin eyedrops used at last hospitalization, we will use Vigamox antibiotic drops. 9. Anxiety/depression/underlying dementia/short-term memory loss, home doses of Aricept and sertraline resumed. We will change the patient's trazodone to p.r.n., clonazepam dosage changed from 1 mg to 0.5 mg p.r.n. anxiety. 10. Super morbid obesity with BMI 43.55. Dietary restrictions. 11. Active smoker with 110 pack-year history of smoking. Encouraged cessation. Nicoderm patch 14 mg daily started. 12. Gastroesophageal reflux disease/prophylaxis. Pepcid, ambulatory. History and physical dictated, inpatient, billing code [id number], time spent greater than 60 minutes. Dictated by Tacho Rosario NP MD TWIN Mcpherson/JAMARI /[id number]
--- NOTE | 2020-08-04 17:30 | NUR ---
Recheck of FSBS and sugar is now 136.
--- NOTE | 2020-08-04 19:42 | Progress Note ---
DATE: CONSULTING PHYSICIANS: 1. Dr. Sara Stout with Cardiology. 2. Dr. Ashok Simpson with Pulmonology/Critical Care Medicine. SUBJECTIVE: The patient is seen in ICU bed 192 at 1736 hours in the evening, more awake than yesterday or this morning. The patient denies any pain. He had signs and symptoms of restless legs syndrome yesterday according to and Requip had been started t.i.d. yesterday. Last bowel movement 08/03. Events overnight; the patient remained lethargic earlier this morning and had been lethargic yesterday. We checked ABG and the CO2 was elevated in the 70s. The patient was seen by Dr. Simpson and he recommended transfer to ICU. OBJECTIVE: VITAL SIGNS: Temperature 98.2, pulse 98, blood pressure 135/59, respirations 22, and oxygen saturation 98%. Intake and output; 890 mL in, output not recorded. GENERAL: Supine in bed with head of bed elevated. No acute distress. LUNGS: Generally clear to auscultation. He is currently on BiPAP settings 14/10, respiratory rate 18, FiO2 of 40%, inspiratory time 1, positive inspiratory pressure 14, minute ventilation 6.5 L/minute. HEENT: EOMI. Yellow drainage from both eyes. NECK: Supple. CARDIOVASCULAR: Regular rate and rhythm. No murmur. ABDOMEN: Bowel sounds positive. Soft, nontender, fluid retention at the abdomen noted. EXTREMITIES: With 1+ pitting edema. No clubbing, cyanosis, or signs of DVT. NEUROLOGICAL: GCS 15. Nonfocal. LABORATORY DATA: ABG; pH 7.31, pCO2 of 73, PO2 of 120, HC03 of 37, SaO2 of 98%, base excess 10, and FiO2 of 50%. Fingerstick blood glucose level 69. Urinalysis, slightly cloudy urine, specific gravity 1.020, glucose 2+, trace amount of blood, negative for nitrite, negative for leukocyte esterase, RBC 6-10, WBC 11-20, rare bacteria. Coronavirus PCR collected on 08/02 remains pending. PROCEDURES: The patient had a PICC placed today and postprocedure chest x-ray showed cardiomegaly with interstitial pulmonary edema. Superimposed infection cannot be excluded and should be considered in the proper clinical context. Left PICC terminates at the cavoatrial junction. Per telemetry, sinus Edison with bundle branch block. Heart rate 58. IMAGING/OTHER: The patient had an echocardiogram on 07/22/2020, and final results showed mild concentric left ventricular hypertrophy, moderate global hypokinesis of left ventricle contractility, ejection fraction 35-40%, moderately dilated left atrium, mildly enlarged right ventricle, mild aortic stenosis. Trace mitral regurgitation. Mild tricuspid regurgitation. ASSESSMENT AND PLAN: 1. Acute on chronic diastolic congestive heart failure, present on admission. Cardiology following. He remains on 40 mg Lasix IV b.i.d. Maintain 1.2 L/day fluid restriction, strict intake and output and daily weights. BNP was 544.3 on 08/03. Monitor chest x-ray results. 2. Obstructive sleep apnea with CO2 retention, chronic obstructive pulmonary disease without exacerbation. Pulmonology/Critical Care Medicine following. The patient's at bedside states the patient was complaining of some chest pain last night, which is why he took off the BiPAP. Continue current settings on BiPAP. The patient is to keep BiPAP on for minimum of 24 hours, which should be up around 2:00 p.m. today. ABG; CO2 of 73. Monitor for improvement. 3. Ambulatory dysfunction with history of recurrent falls. Thanks; thus, Physical Therapy unavailable today. PT eval and treat on Wednesday. 4. Uncontrolled type 2 diabetes mellitus with hyperglycemia, with chronic kidney disease 3. Fingerstick blood glucose level 69. The patient is more awake now and eating, anticipate glucose to increase. Hemoglobin A1c was 9.2% on 07/23. Monitor FSBG before meals and at bedtime. 5. Hyperlipidemia. Home atorvastatin resumed. 6. Restless legs syndrome. Requip 0.25 mg t.i.d. seems affective. 7. Chronic kidney disease stage 3. Reassess renal function in the morning. 8. Bilateral acute conjunctivitis. Continue Vigamox antibiotic drops. 9. Anxiety/depression/underlying dementia/short-term memory loss. The sedatives such as trazodone and clonazepam were discontinued by Pulmonology/Critical Care Medicine. Appreciate recommendations. 10. Super morbid obesity with BMI 43.55. Dietary restrictions. 11. Active smoker with 110 pack-year history of smoking. Encouraged cessation. Nicoderm patch 14 mg daily. 12. Gastroesophageal reflux disease/prophylaxis. Pepcid, ambulatory. Inpatient, ICU status, billing code [id number], time spent greater than 35 minutes. Dictated by Tacho Rosario, FILM LIBRARIAN MD TWIN Mcpherson/MODL /[id number]
--- NOTE | 2020-08-04 19:53 | Consultation ---
DATE OF CONSULTATION: Pulmonary Consultation. REASON FOR CONSULT: Acute on chronic hypercapnic respiratory failure. HISTORY OF PRESENT ILLNESS: Mr. Harper is a 64-year-old male who was admitted on with complaints of shortness of breath. The patient is very well known to me from my office visit and recent admission here as well. His called my office. The patient is hypoxic and they are going to [facility]. He has been noncompliant with the use of BiPAP in the past. He denies any complaints of chest pain, nausea, vomiting, shortness of breath. He is very drowsy right now because of his hypercapnia. He still smokes. He has a history of COPD, history of coronary artery disease, hypertension, and arterectomy in 2019. He denies any nausea, vomiting, diarrhea. Most recent gases showing pCO2 of 73. REVIEW OF SYSTEMS: GENERAL: Denies any fever, chills. HEAD: Denies any head trauma. ENT: Denies any earache. CVS: Denies any chest pain. RESPIRATORY: Shortness of breath. The rest of the review of systems are negative except as in HPI. PAST MEDICAL HISTORY: 1. Hypertension. 2. Hyperlipidemia. 3. GERD. 4. COPD. 5. Coronary artery disease. 6. History of carotid endarterectomy. 7. Paroxysmal atrial fibrillation. PAST SURGICAL HISTORY: Right knee surgery 1979 and bilateral cataracts. FAMILY AND SOCIAL HISTORY: He has been a smoker for 45 years. Currently smokes half a pack per day. 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 PHYSICAL EXAMINATION: VITAL SIGNS: Temperature 97.4, pulse of 57, blood pressure 111/56, respiratory rate of 18, and O2 saturation 93% on 8 L. HEENT: Head atraumatic and normocephalic. NECK: Supple. CHEST: Decreased air entry on the bases. HEART: S1, S2 audible. ABDOMEN: Soft. NEURO: Arousable but sleepy. LABS: Show sodium 143, potassium 4.4, BUN 34, creatinine 1.37. White count of 5.9, hemoglobin 10.4, platelets 177. Blood gas reviewed. ASSESSMENT/PLAN: Mr. Harper is a 64-year-old male with hypercapnic respiratory failure, shortness of breath. 1. High likelihood of obstructive sleep apnea. The patient has been noncompliant in the past. I will start the patient on BiPAP. I have changed the setting, reviewed the setting, transferred the patient to IMC or ICU for management of BiPAP. 2. Oxygen as needed to keep the O2 saturation more than or equal to 92%. The patient is not wheezing at this point, we will start the patient on DuoNeb for now. First COVID test was still pending. Diuretics per Cardiology. We will discontinue sedatives. The patient is on Klonopin and other antidepressant. Thank you for this consult. Critical care time spent 40 minutes. MD JAZZ Duque/JAMARI /[id number]
[2020-08-04 20:00] VITALS: BP 99/58
[2020-08-04] MEDS: ALFUZOSIN HCL 10 MG TAB.ER.24H PO SCH (20:20)
[2020-08-04] MEDS: ATORVASTATIN 20 MG TAB PO SCH (20:20)
[2020-08-04] MEDS: SERTRALINE HCL 100 MG TAB PO SCH (20:20)
[2020-08-04] MEDS: TAMSULOSIN HCL 0.4 MG CAP PO SCH (20:20)
[2020-08-04] MEDS ORDERED: SODIUM CHLORIDE 0.9% 500ML 500 ML ONE (20:43)
[2020-08-04 20:59] LABS: ABG HCO3 39 mmol/L (22-26); ABG PCO2 79 mmHg (35-45); ABG PO2 151 mmHg (80-105); ABG TCO2 41
[2020-08-05 00:02] VITALS: BP 91/60
[2020-08-05] MEDS: CEFEPIME 1GM/NS 0.9% 50 ML 50 ML IV SCH ×2 (00:05→14:51)
[2020-08-05] MEDS ORDERED: SODIUM CHLORIDE 0.9% 1000ML 1,000 ML ONE (00:19)
[2020-08-05 04:00] VITALS: BP 94/48
[2020-08-05 05:13] LABS: BASOPHILS % 0.2 % (0.0-1.0); EOSINOPHILS # (AUTO) 0.1 (0.0-0.4); EOSINOPHILS % 0.6 % (0.0-6.0); HEMATOCRIT 33.3 % (38.2-49.6); HEMOGLOBIN 9.8 g/dL (14.0-18.0); LYMPHOCYTES # (AUTO) 0.7 (1.0-3.2); LYMPHOCYTES % 6.8 % (18.0-39.1); MEAN CORPUSCULAR HEMOGLOBIN 33.2 pg (28-32); MEAN CORPUSCULAR HGB CONC 29.4 g/dL (31-35); MEAN CORPUSCULAR VOLUME 112.9 fL (81-99); MONOCYTES # (AUTO) 0.6 (0.2-0.8); MONOCYTES % 6.3 % (4.4-11.3); NEUTROPHILS # (AUTO) 8.8 (2.1-6.9); NEUTROPHILS % 85.8 % (38.7-80.0); PLATELET COUNT 159 x10e3/uL (140-360); RED BLOOD COUNT 2.95 x10e6/uL (4.3-5.7); RED CELL DISTRIBUTION WIDTH 13.8 % (11.7-14.4)
[2020-08-05 05:41] LABS: ALBUMIN 3.1 g/dL (3.5-5.0); ALBUMIN/GLOBULIN RATIO 0.9 (0.8-2.0); CREATININE, SERUM 2.07 mg/dL (0.72-1.25)
[2020-08-05 06:05] LABS: MAGNESIUM 2.4 MG/DL (1.3-2.1)
[2020-08-05] MEDS: INSULIN REGULAR, HUMAN 100 UNIT/1 ML 3ML VIAL SQ SCH ×4 (07:30→22:27)
[2020-08-05 08:00] VITALS: BP 115/75
[2020-08-05 08:22] VITALS: BP 111/73
[2020-08-05 08:43] LABS: ABG HCO3 32 mmol/L (22-26); ABG PCO2 69 mmHg (35-45); ABG PH 7.27 (7.35-7.45); ABG PO2 145 mmHg (80-105); ABG TCO2 34
[2020-08-05] MEDS: INSULIN LISPRO 100 UNIT/1 ML 3ML VIAL SQ SCH ×3 (08:50→16:30)
[2020-08-05] MEDS: FUROSEMIDE INJ 10 MG/ML 4 ML VIAL IV SCH ×2 (08:54→21:56)
[2020-08-05] MEDS: GUAIFENESIN 600MG/DEXTROMETHORPHAN 30MG TABSR PO SCH ×2 (08:54→17:38)
[2020-08-05] MEDS: CLOPIDOGREL BISULFATE 75 MG TAB PO SCH (08:54)
[2020-08-05] MEDS: OLANZAPINE 5 MG TAB PO SCH ×2 (08:54→17:38)
[2020-08-05] MEDS: CYANOCOBALAMIN 1,000 MCG TAB PO SCH (08:54)
[2020-08-05] MEDS: MOXIFLOXACIN HCL(OPTH) 3 ML BTL OP SCH ×4 (08:54→21:00)
[2020-08-05] MEDS: ASPIRIN 81 MG ENTERIC COATED PO SCH (08:54)
[2020-08-05] MEDS: INSULIN GLARGINE 100 UNITS/ML VIAL SC SCH ×2 (08:55→22:24)
[2020-08-05] MEDS: SACUBITRIL/VALSARTAN 1 EACH TABLET PO SCH (09:00)
[2020-08-05] MEDS: METOPROLOL SUCCINATE 50 MG TAB XL PO SCH (11:48)
--- NOTE | 2020-08-05 13:27 | NUR ---
WOUND CARE [id number] YO MALE HX OF RENAL FAIL, DYSPNEA ARMANI 20 0N CONSERVATIVE PUP STATUS AND INTERVENTIONS VISCO SURFACE HEAD TO TOE SKIN ASSESSMENT COMPLETE PATIENT PRESENTS WITH NO OPEN AREAS OR DTI RECOMMENDATIONS: NURSING TO CONTINUE TO MONITOR PATIENT AND KEEP SKIN CLEAN AND FREE FROM LOOSE STOOL OR IRRITATING MOISTURE AND CONTINUE TO FOLLOW CONSERVATIVE PUP STATUS INTERVENTIONS Addendum: 08/05/20 at 1330 by Ahmet Gr RN Amended: Links added.
[2020-08-05] MEDS: ROPINIROLE HCL 0.25 MG TAB PO SCH ×2 (14:51→21:57)
[2020-08-05 16:00] VITALS: BP 111/74
[2020-08-05] MEDS: NICOTINE 14 MG/EA PATCH TOP SCH (17:38)
--- NOTE | 2020-08-05 19:30 | NUR ---
Pt. alert and oriented x2. Skin is warm and dry to touch. Pt. on Bipap. Respirations are even and unlabored. Pt. has a picc line to his L upper arm. No redness or edema noted at site. St catheter is patent and intact draining judy urine.
--- NOTE | 2020-08-05 19:47 | Progress Note ---
DATE: SUBJECTIVE: The patient has improved after BiPAP. Creatinine is slightly on the higher side with diuresis. Overall, the patient has improved. LABORATORY DATA: White count of 10,000 and hemoglobin 9.8. Blood gas, this morning pH of 7.27, pCO2 of 69, and PO2 of 145, 40%. ASSESSMENT/PLAN: Mr. Harper is a 64-year-old male who has transferred to ICU yesterday because of worsening hypercapnic respiratory failure. I discontinued the narcotics and antidepressants, and continued the patient on BiPAP and the patient has improved. Also, I will discontinue trazodone as well as that can make the patient drowsy and hypercapnic. I will put Case Management consult to arrange BiPAP due to hypercapnic respiratory failure, as it will prevent recurrent hospitalization. The patient likely has obstructive sleep apnea and chronic obstructive pulmonary disease as well, as he is a heavy smoker causing him to have chronic hypercapnic respiratory failure. MD JAZZ Duque/JAMARI /[id number]
[2020-08-05 20:00] VITALS: BP 119/58
[2020-08-05] MEDS: IPRATROPIUM BROMIDE 0.02% 2.5 ML NEB NEB PRN (20:32)
[2020-08-05] MEDS ORDERED: ATORVASTATIN 40 MG TAB PO SCH (21:00)
[2020-08-05] MEDS: ALFUZOSIN HCL 10 MG TAB.ER.24H PO SCH (21:56)
[2020-08-05] MEDS: TAMSULOSIN HCL 0.4 MG CAP PO SCH (21:56)
[2020-08-05] MEDS: SERTRALINE HCL 100 MG TAB PO SCH (21:57)
[2020-08-06] VITALS: BP 138/62
[2020-08-06] MEDS: CEFEPIME 1GM/NS 0.9% 50 ML 50 ML IV SCH ×2 (01:25→14:28)
--- NOTE | 2020-08-06 01:53 | Progress Note ---
DATE: CONSULTING PHYSICIANS: 1. Dr. Sara Stout with Cardiology. 2. Dr. Ashok Simpson with Pulmonology/Critical Care Medicine. SUBJECTIVE/EVENTS OVERNIGHT: Admitted last night. The patient's blood pressure 91/60, which is since improved. The patient denies any pain. He states he does have chills. He denies any shortness of breath, palpitations, nausea, vomiting, or diarrhea. OBJECTIVE/PHYSICAL EXAMINATION: VITAL SIGNS: During encounter, blood pressure 120/58, oxygen saturation 100%. Earlier today, temperature 98.7. He has been afebrile. Pulse 77, blood pressure 111/73, respirations 18, and oxygen saturation 100%. INTAKE AND OUTPUT: 420 mL in, 400 mL out. GENERAL: Supine. Head of bed elevated. No acute distress. LUNGS: With sonorous wheezing, currently on BiPAP settings 14/8, respiratory rate 18, FiO2 of 40%. Time 1.0. Peak inspiratory pressure 15, minute ventilation 20.5. HEENT: EOMI, yellow drainage noted from both eyes. Oropharynx clear. NECK: Supple. CARDIOVASCULAR: Regular rate and rhythm without murmur. ABDOMEN: Bowel sounds positive. Soft, nontender, morbidly obese. Some ascites noted. EXTREMITIES: With 1+ pitting edema. No clubbing, cyanosis, or signs of DVT. NEUROLOGIC: GCS 15. Nonfocal. LABORATORY DATA: WBCs 10.21, hemoglobin 9.8, hematocrit 33.3, platelets 159, neutrophils 85.8%. ABG done today, pH 7.27, pCO2 of 69, PO2 of 145, HC03 of 32, oxygen saturation 99%, base excess of 6.0, FiO2 of 40%. Sodium 144, potassium 5.0, chloride 105, CO2 of 33. BUN 35, creatinine 2.07, estimated GFR 32, glucose 149. Fingerstick blood glucose levels 229 and 106, calcium 8.0, phosphorus 4.0, magnesium 2.4, total bilirubin 0.2. AST 10, ALT 13, alkaline phosphatase 86, total protein 6.4, albumin 3.1, globulin 3.3. IMAGING/OTHER: No new imaging results. ASSESSMENT AND PLAN: 1. Ytabh-ps-chjduhc diastolic congestive heart failure with ejection fraction 35% to 40%, POA. Cardiology following. Elevated creatinine noted post diuresis. Maintain 1.2 L per day fluid restriction. Strict intake and output as well as daily weights. BNP was 544.3 on 08/03. Monitor chest x-ray results. 2. Sovfs-es-fxrrzsf hypercapnic respiratory failure, high likelihood of obstructive sleep apnea, noncompliance with use of BiPAP at home. PCO2 on ABG 69 (79). Appreciate recommendations from Pulmonary/Critical Care Medicine. Outpatient sleep study is advised. The patient is to keep BiPAP in place. Monitor for improvement. 3. Active smoker with 110 pack-year history of smoking, chronic obstructive pulmonary disease without acute exacerbation. Encourage smoking cessation. Nicoderm patch 14 mg daily. 4. Uncontrolled type 2 diabetes mellitus with hyperglycemia and chronic kidney disease 3. Hemoglobin A1c 9.2% on 07/23. Monitor FSBG before meals and at bedtime. Continue Lantus 30 units subcu q.12 hours as well as lispro 15 units a.c. 5. Controlled hypertension with diastolic congestive heart failure, coronary artery disease, and chronic kidney disease 3. Continue metoprolol succinate 50 mg daily and Entresto. Monitor BP. 6. Hyperlipidemia. Continue home dose of atorvastatin. 7. Ambulatory dysfunction with history of recurrent falls. Per physical therapy note dated 08/03, the patient ambulated about 350 feet with 1 short standing respiratory rate even with oxygen at 3 L/minute at that time and gait was safe. 8. Restless legs syndrome. Requip 0.25 mg t.i.d., restarted. This is seen to help. states the patient is very anxious when his legs are persistently moving. 9. Chronic kidney disease stage 3. Estimated GFR 32 and creatinine 2.07. Elevated creatinine noted post diuresis. Monitor renal function. 10. Bilateral acute conjunctivitis. Continue Vigamox antibiotic eyedrops. We will ask RN to complete eye care q.i.d. 11. Anxiety/depression/underlying dementia/short-term memory loss. Sedatives and antidepressants discontinued by Pulmonology/Critical Care Medicine. Trazodone and clonazepam were stopped. The patient is currently on Zyprexa and Zoloft. Trazodone p.r.n. and should not be given at this point. 12. Super morbid obesity with BMI 43.55. Dietary restrictions. 13. Gastroesophageal reflux disease/prophylaxis. Pepcid, ambulatory. Inpatient, ICU status, billing code #[id number]. Time spent, greater than 35 minutes. Dictated by Tacho Rosario, MARRIAGE COUNSELOR MINISTER MD TWIN Mcpherson/MAXL /[id number]
[2020-08-06 04:00] VITALS: BP 110/52
[2020-08-06 05:47] LABS: BASOPHILS % 0.4 % (0.0-1.0); EOSINOPHILS # (AUTO) 0.1 (0.0-0.4); EOSINOPHILS % 1.7 % (0.0-6.0); HEMATOCRIT 31.1 % (38.2-49.6); HEMOGLOBIN 9.3 g/dL (14.0-18.0); LYMPHOCYTES % 12.7 % (18.0-39.1); MEAN CORPUSCULAR HEMOGLOBIN 32.6 pg (28-32); MEAN CORPUSCULAR HGB CONC 29.9 g/dL (31-35); MEAN CORPUSCULAR VOLUME 109.1 fL (81-99); MONOCYTES # (AUTO) 0.6 (0.2-0.8); MONOCYTES % 7.9 % (4.4-11.3); NEUTROPHILS # (AUTO) 6.1 (2.1-6.9); PLATELET COUNT 144 x10e3/uL (140-360); RED BLOOD COUNT 2.85 x10e6/uL (4.3-5.7); RED CELL DISTRIBUTION WIDTH 13.8 % (11.7-14.4)
[2020-08-06 06:10] LABS: ALBUMIN 3.1 g/dL (3.5-5.0); ALBUMIN/GLOBULIN RATIO 0.9 (0.8-2.0); ANION GAP 13.6 mmol/L (8-16); CREATININE, SERUM 1.66 mg/dL (0.72-1.25); MAGNESIUM 2.3 MG/DL (1.3-2.1); POTASSIUM 4.6 mmol/L (3.5-5.1)
[2020-08-06] MEDS: INSULIN REGULAR, HUMAN 100 UNIT/1 ML 3ML VIAL SQ SCH ×2 (07:30→14:29)
[2020-08-06] MEDS: INSULIN LISPRO 100 UNIT/1 ML 3ML VIAL SQ SCH ×2 (07:30→14:28)
[2020-08-06 08:00] VITALS: BP 125/70
[2020-08-06] MEDS: FUROSEMIDE INJ 10 MG/ML 4 ML VIAL IV SCH (08:53)
[2020-08-06] MEDS: ASPIRIN 81 MG ENTERIC COATED PO SCH (08:53)
[2020-08-06] MEDS: GUAIFENESIN 600MG/DEXTROMETHORPHAN 30MG TABSR PO SCH (08:53)
[2020-08-06] MEDS: SACUBITRIL/VALSARTAN 1 EACH TABLET PO SCH (08:53)
[2020-08-06] MEDS: MOXIFLOXACIN HCL(OPTH) 3 ML BTL OP SCH ×2 (08:53→14:28)
[2020-08-06] MEDS: CLOPIDOGREL BISULFATE 75 MG TAB PO SCH (08:54)
[2020-08-06] MEDS: ROPINIROLE HCL 0.25 MG TAB PO SCH (08:54)
[2020-08-06] MEDS: METOPROLOL SUCCINATE 50 MG TAB XL PO SCH (08:55)
[2020-08-06] MEDS: OLANZAPINE 5 MG TAB PO SCH (08:55)
[2020-08-06] MEDS: CYANOCOBALAMIN 1,000 MCG TAB PO SCH (08:55)
[2020-08-06] MEDS: INSULIN GLARGINE 100 UNITS/ML VIAL SC SCH (08:56)
[2020-08-06 09:00] VITALS: BP 125/70
[2020-08-06 10:00] VITALS: BP 125/70
--- NOTE | 2020-08-06 11:40 | Progress Note ---
DATE: Pulmonary Progress Note SUBJECTIVE: The patient is breathing better today, more awake, more alert, used BiPAP overnight. REVIEW OF SYSTEMS: No chest pain. The patient still complains of mild shortness of breath, feeling better. The rest is negative except as in HPI. PHYSICAL EXAMINATION: VITAL SIGNS: Temperature 98.5, pulse of 80, blood pressure 125/70, respiratory rate of 18, O2 saturation 100% on 3 L. CHEST: Clear to auscultation bilaterally, slightly reduced air entry. No wheezing. HEART: S1, S2 audible. ABDOMEN: Soft. LABORATORY DATA: White count of 7000, hemoglobin 9.3, platelets 144. Chemistry; creatinine is down to 1.6. Sodium 145, potassium 4.6, chloride 105, INR is 1.01. ASSESSMENT AND PLAN: A 64-year-old male with acute on chronic hypercapnic respiratory failure, morbid obesity, obstructive sleep apnea, obesity hypoventilation syndrome likely. PLAN: Continue the patient on diuretics as ordered by Cardiology. Case Management consulted for BiPAP arrangement. The patient would benefit from physical therapy and possibly acute rehab. We will request physical therapy evaluation and treatment. Defer rehab evaluation to the primary team. MD JAZZ Duque/JAMARI /[id number]
[2020-08-06] MEDS ORDERED: LASIX20 MG PO (11:57)
--- NOTE | 2020-08-06 13:12 | NUR ---
PT DISCHARGING HOME TODAY ORDERS REC'D FOR HOME HEALTH CARE, HOME 02, HOME NIV BIPAP AND WHEELCHAIR CHOICE LETTER ALREADY ON CHART FOR [facility] FOR WHEELCHAIR AND [facility] FOR HOME HEALTH CARE (RESUMING SERVICES) KRISTINE CONFIRMED PT'S ADDRESS AND PHONE NUMBER CORRECT ON FACE SHEET CHOICE LETTER SIGNED FOR [facility] FOR NIV AND 02 AND PLACED ON CHART; COPY TO PT INSTRUCTED PT TO CALL [facility] WHEN HE GETS HOME TO DELIVER MORE PORTABLE TANKS AND CONCENTRATOR GAVE PT A COPY OF CHOICE LETTER WITH [facility]'S NUMBER [phone] HE UNDERSTANDS AND AGREES CM CONTACTED MARGO MOLINA WITH [facility] AT [phone] AND NOTIFIED HIM OF CONSULT ALSO FAXED ORDERS FOR WHEELCHAIR TO [facility] AT [phone]; CONFIRMATION REC'D KRISTINE CALLED [facility] AT [phone]; SPOKE WITH HILARIO; SHE CONFIRMED HE'S ON SERVICE WITH THEM FAXED CLINICAL TO [phone], CONFIRMATION REC'D ORDERS STRESS THE IMPORTANCE OF CHF EDUCATION/PROGRAM AND COMPLIANCE TO PREVENT READMISSION IMM EXPLAINED TO PT, SIGNED BY PT AND PLACED ON CHART COPY OF IMM AND CHOICE LETTERS ALONG WITH MY BUSINESS CARD GIVEN TO PT IN CARE TRANSITIONS FOLDER
--- NOTE | 2020-08-06 15:13 | Diagnostic Imaging Report ---
EXAM: CT Chest WITHOUT intravenous contrast 08/06/2020 1:05 PM INDICATION: COPD, pneumonia COMPARISON: Chest radiograph 08/04/2020 TECHNIQUE: Chest was scanned utilizing a multidetector helical scanner from the lung apex through the level of the adrenal glands without administration of IV contrast. Coronal and sagittal reformations were obtained. Routine protocol was performed. IV CONTRAST: None RADIATION DOSE: Total DLP: 601 mGy*cm. Dose modulation, iterative reconstruction, and/or weight based adjustment of the mA/kV was utilized to reduce the radiation dose to as low as reasonably achievable. COMPLICATIONS: None FINDINGS: LINES/ TUBES: Left PICC line terminates in the SVC. LUNGS AND AIRWAYS: The central airways are patent. No focal consolidation or pulmonary edema. Dependent left lower lobe subsegmental atelectasis. 6 mm superior right lower lobe pulmonary nodule. PLEURA: The pleural spaces are clear. HEART AND MEDIASTINUM: The thyroid gland is normal. No mediastinal, hilar or axillary lymphadenopathy. The heart is normal in size.. There is no pericardial effusion. Mild scattered atherosclerotic calcifications of the thoracic aorta and coronary arteries. UPPER ABDOMEN: No acute findings in the upper abdomen. BONES: No acute fracture or dislocation. No suspicious lytic or blastic lesions. Multiple old right posterolateral rib fractures. SOFT TISSUES: Unremarkable. IMPRESSION: No focal pneumonia or pulmonary edema. 6 mm superior segment of right lower lobe pulmonary nodule. Given the patient's known smoking history, follow-up chest CT is optional at 12 months. Signed by: Michelle Vieria MD on 08/06/2020 3:10 PM
--- NOTE | 2020-08-06 15:46 | NUR ---
Nutrition Screen Note RD Recommendation for Physician: - Add 2 gm Na restriction to diet Plan of Care: RD following, monitoring for tolerance and adequacy Nutrition reason for involvement: CONTINUOUS IMPROVEMENT COORDINATOR consult- diet education Primary Diagnose(s): elevated troponin, exertional dyspnea PMH: CHF, PVD, CAD, OAS, HTN, DM, COPD, Afib Ht: 69 in Wt: 295 lb BMI: 43.6 kg/m2 IBW: [address] Assessment: (08/06/20) 64 YOM admitted for elevated troponin and exertional dyspnea, seen today per CONTINUOUS IMPROVEMENT COORDINATOR consult for diet education. Pt with hx of CHF and non-compliance with Na and fluid restriction. Pt and at bedside educated on Na foods to avoid, meal preparation at home, grocery shopping, label reading, fluid sources, and recommended fluid restriction. All questions and concerns addressed at time of visit, handouts provided. Pt well nourished, eating well, and no wt loss. Off BiPAP, requiring BiPAP overnight only at this time. Chart reviewed. Labs and meds reviewed. Will continue to monitor. Current Diet: 1800 ADA Malnutrition Evaluation (08/06/20) The patient does not meet criteria for a specified degree of malnutrition at this time. Will re-evaluate at follow-up as appropriate. Diet Education Needs Assessment: Diet education indicated, pt and receptive- education provided 08/06. Learner(s): pt, pt's Barriers: none Cultural/Language Modifications: none Readiness: ready Method: handouts, discussion Topics: heart failure nutrition therapy, fluid restriction, label reading Understanding/Compliance: fair Diet tolerance: tolerating po Nutrition Care Level: low Signed: Jaida Hurley RD, LD, [facility]
--- NOTE | 2020-08-06 16:35 | NUR ---
Patient discharged to home via private auto. Discharged instructions provided to patient and patient's ex-. Both verbalized an understanding. Patient home with home oxygen and home health services. Patient's ex- called [facility] prior to discharge. PICC line to left upper arm removed without difficulty. Patient voided 200ml after thomas catheter removal at 1300. Patient without s/s of distress.
[2020-08-06] MEDS ORDERED: ENOXAPARIN SOD INJ 40 MG/0.4 ML SYR SC SCH (17:00)
--- NOTE | 2020-08-07 19:34 | Discharge Summary ---
CONTINUATION: PAST SURGICAL HISTORY: Right SFA endarterectomy, left external iliac stent in 2019, PCI to LAD, right shoulder surgery, malleable penile prosthesis, right knee replacement, bilateral cataract removal. FAMILY HISTORY: The patient's mom and brother had diabetes. The patient's dad had cancer. SOCIAL HISTORY: The patient is an active smoker, smoking about half a pack of cigarettes a day. He denies alcohol or illicit drug use. HOSPITAL COURSE: A 64-year-old male admits to the emergency room with complaints of shortness of breath for 2 days. He also reports swelling in his legs that has improved since he was here between July 21 to , but his breathing is worse. The family admits that the patient is drinking about 2 to 3 L of fluid a day and not following CHF instructions as given on previous admission. On admission, chest x-ray showed stable cardiomegaly without vascular congestion or CHF. His BNP on admission was 544, which was increased from his last admission. His coronavirus was negative. His labs remained stable after few days of IV Lasix the patient is better. This admission, he qualify for home O2, as last admission he did not qualify. He will discharge home with home oxygen and noninvasive vent and a wheelchair. He will follow up with primary care in 1 to 2 weeks. He was again advised of follow CHF instruction and to be compliant with medication. The patient understands instructions and agrees to plan. Vital signs are stable. The patient is afebrile. Dictated by Nataly Rose NP MD LIS Mcpherson/MODL /[id number]
--- NOTE | 2020-08-08 03:35 | Discharge Summary ---
ADMISSION DIAGNOSES: 1. Icfuf-co-uxqtecu diastolic congestive heart failure. 2. Acute bronchitis with chronic obstructive pulmonary disease without exacerbation. 3. Obstructive sleep apnea. 4. Ambulatory dysfunction with history of recurrent fall. 5. Uncontrolled type 2 diabetes with hyperglycemia. 6. Chronic kidney disease 3. 7. Hyperlipidemia. 8. Restless legs syndrome. 9. Anxiety. 10. Depression. 11. Dementia. 12. Morbid obesity with a BMI of 43.5. 13. Tobacco use. DISCHARGE DIAGNOSES: 1. Cvmgv-ex-ywrkbyp diastolic congestive heart failure. 2. Acute bronchitis with chronic obstructive pulmonary disease without exacerbation. 3. Obstructive sleep apnea. 4. Ambulatory dysfunction with history of recurrent fall. 5. Uncontrolled type 2 diabetes with hyperglycemia. 6. Chronic kidney disease 3. 7. Hyperlipidemia. 8. Restless legs syndrome. 9. Anxiety. 10. Depression. 11. Dementia. 12. Morbid obesity with a BMI of 43.5. 13. Tobacco use. HISTORY: Dementia, anxiety, chronic diastolic CHF, COPD, paroxysmal atrial fibrillation, CAD, hyperlipidemia, depression, GERD, type 2 diabetes, BPH, neuropathy, obstructive sleep apnea, erectile dysfunction, insomnia, recurrent fall. SURGICAL HISTORY: Right SFA endarterectomy in September 2019, left external iliac stent in 2018, PCI to LAD in January 2019, right shoulder surgery in 1999, malleable penile DICTATION ENDS HERE Dictated by Nataly Rose, CATRACHO MD LIS Mcpherson/JAMARI /[id number]
== END 2020-08-06 16:20 | disposition home health service (06) | DRG 291 ==
LOC: ER 17:30 → ERHOLD 19:16 → MED/SURG 22:09 → OBSVTOIN 08-04 11:50 → ICU 08-04 13:21
PROVIDERS: ADMIT Internal Medicine; ATTEND Internal Medicine
PROC: 02HV33Z Insertion of Infusion Device into Superior Vena Cava, Percutaneous Approach (ICD-10-PCS; principal; 2020-08-04)
DX: I13.0 Hypertensive heart and chronic kidney disease with heart failure and stage 1 through stage 4 chronic kidney disease, or unspecified chronic kidney disease (principal); I50.33 Acute on chronic diastolic (congestive) heart failure; J96.22 Acute and chronic respiratory failure with hypercapnia; J44.1 Chronic obstructive pulmonary disease with (acute) exacerbation; Z68.41 Body mass index [BMI] 40.0-44.9, adult; E66.2 Morbid (severe) obesity with alveolar hypoventilation; N18.30 Chronic kidney disease, stage 3 unspecified; E11.65 Type 2 diabetes mellitus with hyperglycemia; F17.210 Nicotine dependence, cigarettes, uncomplicated; Z20.828 Contact with and (suspected) exposure to other viral communicable diseases; I25.10 Atherosclerotic heart disease of native coronary artery without angina pectoris; I48.0 Paroxysmal atrial fibrillation; Z91.19 Patient's noncompliance with other medical treatment and regimen; E11.51 Type 2 diabetes mellitus with diabetic peripheral angiopathy without gangrene; Z96.0 Presence of urogenital implants; Z95.820 Peripheral vascular angioplasty status with implants and grafts; Z74.09 Other reduced mobility; F03.90 Unspecified dementia, unspecified severity, without behavioral disturbance, psychotic disturbance, mood disturbance, and anxiety; H10.33 Unspecified acute conjunctivitis, bilateral; E78.5 Hyperlipidemia, unspecified; F41.9 Anxiety disorder, unspecified; G25.81 Restless legs syndrome
CPT/HCPCS: 36415; 36569; 36600; 71045; 71250; 80048; 80053; 80061; 81001; 82550; 82553; 82805; 82948; 83735; 83880; 84100; 84484; 85025; 85610; 85730; 93005; 94640; 94660; 96372; 97139; 99251; 99284; G0378; J0692; J1815; J1817; J1940; J2405; J7030; J7040; U0002

== ENCOUNTER 2020-10-03 21:53 | Inpatient (IN) | payer MEDICARE, OTHER ==
[~2020-10-03] VITALS: Ht 175.3 cm; Wt 133.8 kg
[~2020-10-03 21:53] MED LIST changes: +KLONOPIN1 MG PO
[2020-10-03] MEDS ORDERED: FAMOTIDINE 20 MG/2 ML VIAL IV STA (22:10)
[2020-10-03] MEDS ORDERED: DIPHENHYDRAMINE HCL INJ 50 MG/ML VIAL IV ONE (22:15)
[2020-10-03] MEDS ORDERED: SODIUM CHLORIDE 0.9% 1000ML 1,000 ML IV ONE ×2 (22:15→23:45)
[2020-10-03] MEDS ORDERED: METHYLPREDNISOLONE SOD SUCC 125 MG/2ML VIAL IV ONE (22:15)
[2020-10-03] MEDS ORDERED: NALOXONE HCL INJ 0.4 MG/ML AMP ONE (22:24)
[2020-10-03] MEDS ORDERED: NALOXONE HCL 2MG/2 ML SYRINGE IV ONE (22:30)
[2020-10-03 22:38] LABS: BASOPHILS % 0.3 % (0.0-1.0); HEMATOCRIT 34.4 % (38.2-49.6); HEMOGLOBIN 9.9 g/dL (14.0-18.0); LYMPHOCYTES # (AUTO) 0.4 (1.0-3.2); LYMPHOCYTES % 5.5 % (18.0-39.1); MEAN CORPUSCULAR HEMOGLOBIN 31.4 pg (28-32); MEAN CORPUSCULAR HGB CONC 28.8 g/dL (31-35); MEAN CORPUSCULAR VOLUME 109.2 fL (81-99); MONOCYTES # (AUTO) 0.3 (0.2-0.8); NEUTROPHILS # (AUTO) 6.9 (2.1-6.9); NEUTROPHILS % 89.7 % (38.7-80.0); PLATELET COUNT 147 x10e3/uL (140-360); RED BLOOD COUNT 3.15 x10e6/uL (4.3-5.7)
[2020-10-03 22:45] LABS: INR 1.04; PROTHROMBIN TIME 14.2 seconds (11.9-14.5)
[2020-10-03 22:46] LABS: PARTIAL THROMBOPLASTIN TIME 31.5 seconds (23.8-35.5)
[2020-10-03 22:56] LABS: ALBUMIN 3.5 g/dL (3.5-5.0); ALBUMIN/GLOBULIN RATIO 1.1 (0.8-2.0); ANION GAP 13.1 mmol/L (8-16); CALCIUM 8.1 mg/dL (8.4-10.2); CREATININE, SERUM 3.37 mg/dL (0.72-1.25); POTASSIUM 5.1 mmol/L (3.5-5.1)
[2020-10-03 22:57] LABS: CREATINE KINASE MB 7.4 ng/mL (0-5.0)
[2020-10-03 22:59] LABS: B-TYPE NATRIURETIC PEPTIDE2 947.4 pg/mL (0-100)
[2020-10-03 23:53] LABS: CLARITY,URINE SL CLOUDY (CLEAR); COLOR,URINE AMBER (YELLOW); KETONES,URINE TRACE (NEGATIVE); LEUKOCYTE ESTERASE ,URINE NEGATIVE (NEGATIVE); NITRITE,URINE NEGATIVE (NEGATIVE); PROTEIN,URINE DIPSTICK 2+ (NEGATIVE); URINE UROBILINOGEN 0.2 mg/dL (0.2 - 1)
[2020-10-03 23:57] LABS: AMORPHOUS SEDIMENT,URINE FEW (FEW); BACTERIA,URINE MODERATE /HPF; RBC,URINE 0-5 /HPF (0-5)
[2020-10-03 23:59] LABS: EPITHELIAL CELLS,URINE MODERATE /LPF
[2020-10-04] MEDS ORDERED: DEXTROSE 50% SYRINGE 50 ML IV PRN
[2020-10-04] MEDS ORDERED: ONDANSETRON HCL INJ 2MG/ML 2ML 2 MG/ML VIAL IV PRN
[2020-10-04 04:37] LABS: BASOPHILS % 0.1 % (0.0-1.0); HEMATOCRIT 36.2 % (38.2-49.6); HEMOGLOBIN 10.2 g/dL (14.0-18.0); LYMPHOCYTES # (AUTO) 0.2 (1.0-3.2); LYMPHOCYTES % 2.3 % (18.0-39.1); MEAN CORPUSCULAR HEMOGLOBIN 31.2 pg (28-32); MEAN CORPUSCULAR HGB CONC 28.2 g/dL (31-35); MEAN CORPUSCULAR VOLUME 110.7 fL (81-99); MONOCYTES # (AUTO) 0.1 (0.2-0.8); MONOCYTES % 1.4 % (4.4-11.3); NEUTROPHILS # (AUTO) 8.6 (2.1-6.9); NEUTROPHILS % 95.5 % (38.7-80.0); PLATELET COUNT 178 x10e3/uL (140-360); RED BLOOD COUNT 3.27 x10e6/uL (4.3-5.7)
[2020-10-04 04:42] LABS: ABG HCO3 29 mmol/L (22-26); ABG PCO2 108 mmHg (35-45); ABG PH 7.03 (7.35-7.45); ABG PO2 363 mmHg (80-105); ABG TCO2 32
[2020-10-04] MEDS ORDERED: MIDAZOLAM HCL 2 MG/2 ML VIAL IV STA ×6 (05:00→06:23)
[2020-10-04 05:02] LABS: CREATINE KINASE MB 8.7 ng/mL (0-5.0)
[2020-10-04] MEDS ORDERED: MIDAZOLAM HCL 2 MG/2 ML VIAL ONE (06:18)
[2020-10-04] MEDS ORDERED: INSULIN REGULAR, HUMAN 100 UNIT/1 ML 3ML VIAL IV NR (06:30)
[2020-10-04] MEDS ORDERED: DEXTROSE 50% SYRINGE 50 ML IV NR (06:30)
[2020-10-04] MEDS ORDERED: SODIUM BICARBONATE 8.4% INJ 50 ML SYR IV NR (06:30)
[2020-10-04] MEDS ORDERED: SODIUM BICARBONATE 8.4% SYRING 50 ML ONE (06:45)
[2020-10-04] MEDS: PROPOFOL IV EMULSION 10MG/ML 100 ML IV SCH ×2 (07:07→20:41)
[2020-10-04 07:29] LABS: BAND NEUTROPHILS % (MANUAL) 1 %; EOSINOPHILS % (MANUAL) 1 % (0-7); MONOCYTES % (MANUAL) 1 % (3.4-9.0); NEUTROPHILS % (MANUAL) 97 % (40-74)
[2020-10-04 07:32] LABS: HYPOCHROMASIA SLIGHT
[2020-10-04 07:33] LABS: PLATELET ESTIMATE ADEQUATE; PLATELET MORPHOLOGY COMMENT FEW GIANT; RBC MORPHOLOGY COMMENT NORMAL
[2020-10-04 07:34] LABS: ELLIPTOCYTE, RBC SLIGHT; OVALOCYTES FEW
[2020-10-04] MEDS: INSULIN REGULAR, HUMAN 100 UNIT/1 ML 3ML VIAL SQ SCH ×4 (07:49→21:12)
[2020-10-04 08:06] LABS: ALBUMIN 3.6 g/dL (3.5-5.0); CREATININE, SERUM 3.65 mg/dL (0.72-1.25)
[2020-10-04 09:24] LABS: BASOPHILS % 0.1 % (0.0-1.0); HEMATOCRIT 31.7 % (38.2-49.6); HEMOGLOBIN 9.3 g/dL (14.0-18.0); LYMPHOCYTES # (AUTO) 0.3 (1.0-3.2); LYMPHOCYTES % 2.6 % (18.0-39.1); MEAN CORPUSCULAR HEMOGLOBIN 31.5 pg (28-32); MEAN CORPUSCULAR HGB CONC 29.3 g/dL (31-35); MONOCYTES # (AUTO) 0.8 (0.2-0.8); MONOCYTES % 7.6 % (4.4-11.3); NEUTROPHILS # (AUTO) 8.7 (2.1-6.9); NEUTROPHILS % 89.1 % (38.7-80.0); RED BLOOD COUNT 2.95 x10e6/uL (4.3-5.7); RED CELL DISTRIBUTION WIDTH 14.2 % (11.7-14.4)
[2020-10-04 09:26] LABS: MEAN CORPUSCULAR VOLUME 107.5 fL (81-99); PLATELET COUNT 134 x10e3/uL (140-360)
[2020-10-04 09:32] LABS: ABG PCO2 47 mmHg (35-45); ABG PH 7.32 (7.35-7.45)
[2020-10-04 09:33] LABS: ABG HCO3 24 mmol/L (22-26); ABG PO2 96 mmHg (80-105); ABG TCO2 26
[2020-10-04 09:59] LABS: ALBUMIN 3.1 g/dL (3.5-5.0); ALBUMIN/GLOBULIN RATIO 1.1 (0.8-2.0); CALCIUM 7.9 mg/dL (8.4-10.2); CREATININE, SERUM 3.59 mg/dL (0.72-1.25)
[2020-10-04 10:16] LABS: LYMPHOCYTES % (MANUAL) 3 % (19-48); MONOCYTES % (MANUAL) 6 % (3.4-9.0); NEUTROPHILS % (MANUAL) 91 % (40-74)
[2020-10-04 10:18] LABS: OVALOCYTES FEW; PLATELET ESTIMATE ADEQUATE; PLATELET MORPHOLOGY COMMENT FEW LARGE; RBC MORPHOLOGY COMMENT NORMAL
[2020-10-04] MEDS: PANTOPRAZOLE SOD 40 MG TABEC PO SCH (10:36)
[2020-10-04] MEDS: CLOPIDOGREL BISULFATE 75 MG TAB PO SCH (10:36)
[2020-10-04] MEDS: NOREPINEPHRINE 8 MG/D5W 250 ML 250 ML IV SCH (11:37)
[2020-10-04] MEDS ORDERED: METOPROLOL TARTRATE INJ 1 MG/ML VIAL IV PRN (13:15)
[2020-10-04] MEDS ORDERED: ACETAMINOPHEN 325 MG TAB ONE (13:21)
[2020-10-04] MEDS: METOPROLOL TARTRATE 25 MG TAB PO SCH ×3 (13:22→23:42)
[2020-10-04] MEDS: CEFTRIAXONE SOD 1 GM/NS 50 ML 50 ML IV SCH (13:22)
[2020-10-04 14:05] LABS: ALBUMIN 3.3 g/dL (3.5-5.0); ALBUMIN/GLOBULIN RATIO 1.2 (0.8-2.0); ANION GAP 15.9 mmol/L (8-16); CALCIUM 8.1 mg/dL (8.4-10.2); CREATININE, SERUM 3.62 mg/dL (0.72-1.25); POTASSIUM 4.9 mmol/L (3.5-5.1)
[2020-10-04] MEDS: ACETAMINOPHEN 1000 MG/100 ML IV PRN ×2 (14:05→18:12)
[2020-10-04] MEDS ORDERED: SODIUM CHLORIDE 0.9% 1000ML 1,000 ML IV ONE (16:15)
[2020-10-04] MEDS ORDERED: SODIUM CHLORIDE 0.9% 1000ML 1,000 ML ONE (16:16)
[2020-10-04] MEDS: INSULIN GLARGINE 100 UNITS/ML VIAL SC SCH (21:11)
[2020-10-04] MEDS: ATORVASTATIN 20 MG TAB PO SCH (21:32)
[2020-10-04] MEDS: TAMSULOSIN HCL 0.4 MG CAP PO SCH (21:32)
[2020-10-05] MEDS: PROPOFOL IV EMULSION 10MG/ML 100 ML IV SCH ×3 (01:14→21:00)
[2020-10-05 05:12] LABS: BASOPHILS % 0.2 % (0.0-1.0); EOSINOPHILS % 0.1 % (0.0-6.0); HEMATOCRIT 30.7 % (38.2-49.6); HEMOGLOBIN 9.6 g/dL (14.0-18.0); LYMPHOCYTES # (AUTO) 1.1 (1.0-3.2); LYMPHOCYTES % 11.1 % (18.0-39.1); MEAN CORPUSCULAR HEMOGLOBIN 31.3 pg (28-32); MEAN CORPUSCULAR HGB CONC 31.3 g/dL (31-35); MONOCYTES # (AUTO) 0.9 (0.2-0.8); MONOCYTES % 8.9 % (4.4-11.3); NEUTROPHILS # (AUTO) 7.6 (2.1-6.9); NEUTROPHILS % 79.2 % (38.7-80.0); PLATELET COUNT 72 x10e3/uL (140-360); RED BLOOD COUNT 3.07 x10e6/uL (4.3-5.7); RED CELL DISTRIBUTION WIDTH 14.3 % (11.7-14.4)
[2020-10-05 05:36] LABS: ANION GAP 16.3 mmol/L (8-16); CALCIUM 7.9 mg/dL (8.4-10.2); CREATININE, SERUM 3.39 mg/dL (0.72-1.25); POTASSIUM 4.3 mmol/L (3.5-5.1)
[2020-10-05] MEDS: METOPROLOL TARTRATE 25 MG TAB PO SCH ×3 (05:45→17:45)
[2020-10-05] MEDS ORDERED: FUROSEMIDE INJ 10 MG/ML 2 ML VIAL IV SCH (09:00)
[2020-10-05] MEDS: PANTOPRAZOLE SOD 40 MG TABEC PO SCH (09:19)
[2020-10-05] MEDS: CLOPIDOGREL BISULFATE 75 MG TAB PO SCH (09:19)
[2020-10-05] MEDS: INSULIN REGULAR, HUMAN 100 UNIT/1 ML 3ML VIAL SQ SCH ×4 (09:33→20:21)
[2020-10-05] MEDS: NOREPINEPHRINE 8 MG/D5W 250 ML 250 ML IV SCH (12:30)
[2020-10-05] MEDS: CEFTRIAXONE SOD 1 GM/NS 50 ML 50 ML IV SCH (13:16)
[2020-10-05] MEDS ORDERED: MIDAZOLAM HCL 2 MG/2 ML VIAL ONE (13:27)
[2020-10-05] MEDS ORDERED: SUCCINYLCHOLINE CHLORIDE 20 MG/ML 10ML VIAL ONE (13:27)
[2020-10-05] MEDS ORDERED: SODIUM CHLORIDE 0.9% 1000ML 1,000 ML ONE (14:45)
[2020-10-05 19:02] LABS: TOTAL PROTEIN 24HR, URINE 234.9 mg/24hr (50-100); TOTAL PROTEIN, URINE 26.1 mg/dL (1-14)
[2020-10-05] MEDS: INSULIN GLARGINE 100 UNITS/ML VIAL SC SCH (20:21)
[2020-10-05] MEDS: TAMSULOSIN HCL 0.4 MG CAP PO SCH (20:28)
[2020-10-05] MEDS: ATORVASTATIN 20 MG TAB PO SCH (20:28)
[2020-10-05] MEDS ORDERED: ACETAMINOPHEN 325 MG/10 ML UDC NG PRN (20:30)
[2020-10-05] MEDS ORDERED: ACETAMINOPHEN 325 MG/10 ML UDC ONE (20:31)
[2020-10-05 21:55] VITALS: BP 124/57
[2020-10-05] MEDS ORDERED: PIPERACILLIN/TAZO 2.25 GM 50 ML IV SCH (22:00)
[2020-10-06] MEDS ORDERED: ACETAMINOPHEN 1000 MG/100 ML IV SCH
== END 2020-10-05 22:04 | disposition short-term general hospital (02) | DRG 871 ==
LOC: ER 22:03 → ERHOLD 23:57
PROVIDERS: ADMIT Internal Medicine; ATTEND Internal Medicine
PROC: 5A1945Z Respiratory Ventilation, 24-96 Consecutive Hours (ICD-10-PCS; principal; 2020-10-04)
PROC: 0BH17EZ Insertion of Endotracheal Airway into Trachea, Via Natural or Artificial Opening (ICD-10-PCS; 2020-10-04)
PROC: 02HV33Z Insertion of Infusion Device into Superior Vena Cava, Percutaneous Approach (ICD-10-PCS; 2020-10-04)
DX: A41.9 Sepsis, unspecified organism (principal); I50.33 Acute on chronic diastolic (congestive) heart failure; J96.01 Acute respiratory failure with hypoxia; I21.A1 Myocardial infarction type 2; J96.02 Acute respiratory failure with hypercapnia; N17.0 Acute kidney failure with tubular necrosis; J69.0 Pneumonitis due to inhalation of food and vomit; R65.21 Severe sepsis with septic shock; Z68.42 Body mass index [BMI] 45.0-49.9, adult; I13.0 Hypertensive heart and chronic kidney disease with heart failure and stage 1 through stage 4 chronic kidney disease, or unspecified chronic kidney disease; E66.01 Morbid (severe) obesity due to excess calories; E87.5 Hyperkalemia; G47.33 Obstructive sleep apnea (adult) (pediatric); N18.30 Chronic kidney disease, stage 3 unspecified; E11.22 Type 2 diabetes mellitus with diabetic chronic kidney disease; Z79.4 Long term (current) use of insulin; Z20.822 Contact with and (suspected) exposure to COVID-19; I48.0 Paroxysmal atrial fibrillation; Z79.01 Long term (current) use of anticoagulants; N40.0 Benign prostatic hyperplasia without lower urinary tract symptoms; N52.9 Male erectile dysfunction, unspecified; G47.00 Insomnia, unspecified; I25.10 Atherosclerotic heart disease of native coronary artery without angina pectoris; Z95.5 Presence of coronary angioplasty implant and graft; J44.9 Chronic obstructive pulmonary disease, unspecified; E78.5 Hyperlipidemia, unspecified; F17.200 Nicotine dependence, unspecified, uncomplicated; E11.51 Type 2 diabetes mellitus with diabetic peripheral angiopathy without gangrene; F03.90 Unspecified dementia, unspecified severity, without behavioral disturbance, psychotic disturbance, mood disturbance, and anxiety; F32.9 Major depressive disorder, single episode, unspecified
CPT/HCPCS: 31500; 36415; 36600; 51700; 71045; 71250; 76770; 80053; 81001; 81050; 82140; 82550; 82553; 82805; 82948; 83605; 83880; 84156; 84484; 85025; 85610; 85730; 87086; 93005; 93306; 94002; 94003; 99284; J0330; J0696; J1200; J1817; J1940; J2250; J2310; J2930; J7030; J7799; U0002